=== PATIENT | female | born 1960 | race African-American/Black ===

== ENCOUNTER 2020-12-05 11:48 | Outpatient (REF) | payer MEDICARE, SELFPAY ==
[2020-12-05 14:19] LABS: Alanine Aminotransferase 31 U/L (0-31); Alkaline Phosphatase 112 U/L (39-117); Anion Gap 13 (12-20); Aspartate Amino Transferase 18 U/L (5-31); Bilirubin Total 0.3 mg/dL (0.0-1.0); Blood Urea Nitrogen 31 mg/dL (9-16); Calcium 9.7 mg/dL (8.4-10.2); Carbon Dioxide 30 mmol/L (22-29); Chloride 99 mmol/L (96-108); Cholesterol 228 mg/dL; Estimated Glomerular Filt Rate 40; Glucose Random 133 mg/dL (60-115); HDL Cholesterol 38 mg/dL; LDL Cholesterol Calculated 143 mg/dl; Potassium 3.9 mmol/L (3.3-5.1); Sodium 138 mmol/L (135-145); Total Protein 7.1 g/dL (6.5-8.0); Triglycerides 239 mg/dL
[2020-12-05 14:42] LABS: TSH reflex Free T4 0.97 uIU/mL (0.32-4.0)
[2020-12-05 14:44] LABS: Hematocrit 35.6 % (37-47); Hemoglobin 11.5 g/dl (12.0-16.0); Mean Corpuscular HGB Conc 32.3 g/dl (31.0-35.0); Mean Corpuscular Hemoglobin 27.8 pg (27.0-33.0); Mean Platelet Volume 10.6 fL (9.4-12.3); Platelet Count 241 X10*3/uL (160-400); Red Blood Count 4.14 X10*6/uL (4.20-5.50); Red Cell Distribution Width 14.5 % (11.0-16.0); White Blood Count 6.9 X10*3/uL (4.8-10.8)
== END 2020-12-05 11:49 | disposition home or self-care (01) ==
LOC: HO.WFDLDS 11:48
PROVIDERS: Visit Provider Hospitalist
DX: Z00.00 Encounter for general adult medical examination without abnormal findings (principal)
CPT/HCPCS: 36415; 80053; 80061; 84443; 85027

== ENCOUNTER 2021-02-07 10:40 | Outpatient (REF) | payer MEDICARE, SELFPAY ==
[2021-02-07 14:27] LABS: Anion Gap 13 (12-20); Blood Urea Nitrogen 22 mg/dL (9-16); Calcium 9.9 mg/dL (8.4-10.2); Carbon Dioxide 26 mmol/L (22-29); Chloride 105 mmol/L (96-108); Estimated Glomerular Filt Rate 41; Glucose Random 130 mg/dL (60-115); Potassium 3.8 mmol/L (3.3-5.1); Sodium 140 mmol/L (135-145)
== END 2021-02-07 10:41 | disposition home or self-care (01) ==
LOC: HO.WFDLDS 10:40
PROVIDERS: Visit Provider Hospitalist
DX: Z00.00 Encounter for general adult medical examination without abnormal findings (principal)
CPT/HCPCS: 36415; 80048

== ENCOUNTER → 2021-05-07 14:33 | Outpatient (BNVA) | payer OTHER, MEDICAID, SELFPAY | PROVIDERS: PCP Hospitalist; Visit Provider Nurse Practitioner Family | DX: M53.3 Sacrococcygeal disorders, not elsewhere classified (principal); M47.816 Spondylosis without myelopathy or radiculopathy, lumbar region; M46.1 Sacroiliitis, not elsewhere classified | CPT/HCPCS: 99202 ==

== ENCOUNTER 2021-06-14 10:38 | Day surgery (SDC) | payer OTHER, MEDICAID, SELFPAY ==
[2021-06-11 09:39] VITALS: BMI 28.1
--- NOTE | ~2021-06-14 | FL_ITS ---
EXAMINATION: XR FL WITH IMAGES CLINICAL INFORMATION: SI joint pain. COMPARISON: None TECHNIQUE: Fluoroscopy performed by Dr. Al Silva. Fluoroscopy Time: 0.1 minutes. DAP: 0.405 mGycm2. Images: 1. FINDINGS: There is a needle positioned overlying the right SI joint with contrast opacifying the soft tissues. FL/FL guidance in OR IMPRESSION: Fluoroscopy was provided to referring physician for pain management.
--- NOTE | 2021-06-14 10:36 | HO.ANESPROP2 ---
[facility] Active Problems Active Problems: All Active Problems (Updated 06/13/21 @ 08:26 by Marah Rebollar RN) Right-sided low back pain with right-sided sciatica (Acute) Normal physical exam, routine (Acute) Asthma, mild intermittent, well-controlled (Acute) HTN (hypertension) (Acute) Diabetes type 2, controlled (Acute) Leg weakness, bilateral (Acute) Bilateral leg pain (Acute) Sacroiliac joint dysfunction of right side (Acute) Lumbar spondylosis (Acute) Sacroiliitis (Acute) Past Medical History Medical History Asthma Diabetes HTN (hypertension) Family History Family History Mother Hypertension Father No problems noted. Surgical History Surgical History History of tubal ligation Hx of colonoscopy Hx of rotator cuff surgery History of Problems with Anesthesia: No Social History Social History Housing: Apartment Housing Other:: Patient is currently living with daughter Are you a primary health care social worker to a significant other at home: No Do you presently have visiting nurse or other home services: No Patient Tobacco Use Status: Current everyday Tobacco user Tobacco use type: Cigarette Cigarettes Per Day: 3 e-Cigarette/Vaping Use: Never Used Second Hand Smoke Exposure: No Are you DNR?: No Advance Directives: No Advance Directives Information Provided: Yes Advance Directives on File: No service: No Current occupational status: disabled Cognitive needs: No Hearing needs: No Vision needs: No Meds Allergies Allergy/AdvReac Type Severity Reaction Status Date / Time Seasonal Allergies Allergy Mild congestion Verified 06/13/21 14:38 Exam Exam Date and Time: June 14, 2021 1036 Height,Weight and Vital Signs: Height 5 ft 7 in Weight 81.647 kg Airway Mallampati Class: II TM Dist: >3cm Neck ROM: Full Loose/Missing/Broken Teeth: Yes, Upper and Lower Heart: RRR Lungs: CTA Assessment and Plan Assessment Anesthesia Assessment: Anesthesia Plan Discussed and Chart Reviewed Final Anesthetic Review History of Problems with Anesthesia: No NPO: Yes ASA Class: II Final Preanesthetic Review: Meds/Allgs Chart Reviewed, Consent Obtained/Reviewed and Anes Risks/Benef Reviewed Patient Risk: Low Procedure Risk: Low Anesthetic Plan Anesthetic Plan: MAC: Disposition: Standard PACU
[2021-06-14 10:55] LABS: Glucose, Whole Blood 157 mg/dL (60-115)
[2021-06-14 10:57] VITALS: BP 148/98; PULSE 102; RESP 20; TEMP 37; O2SAT 98
--- NOTE | 2021-06-14 11:14 | MHC.SHP ---
Pre-Procedural Eval Section A Date of Service: 06/14/21 The patient is an INPATIENT: No Changes since office visit: Yes Patient answered all questions The History & Physical has been completed within 30 days and I have reviewed it.: No Section B Chief Complaint: Sacrococcygeal disorders, Details of Present Illness: as above Relevant Family History (Specify if Yes): No Relevant Social History: None Present Medications: see Short Stay Collaborative assessment Medical History: No relevant PMH History of Previous Operations: No relevant previous surgery Allergies: Allergies Allergy/AdvReac Type Severity Reaction Status Date / Time Seasonal Allergies Allergy Mild congestion Verified 06/13/21 14:38 Review of Systems Sugical H&P ROS: Negative: Constitution, Cardiovascular, Respiratory, Neurological, Psychiatric, Hem-Onc, Allergic/Immunologic, Gastrointestinal, Genitourinary, Musculoskeletal, Integumentary, Endocrine and Eyes/Ears/Nose/Throat Exam Surgical H&P Exam: Normal: HEENT, Normal: Heart, Normal: Lungs, Normal: Extremities, Normal: Abdomen, Normal: Skin and Normal: Neurological Plan Diagnosis/Plan: Unchanged I have reviewed the history and physical and performed a pertinent physical examination on my patient. No changes have occurred unless specified.
--- NOTE | 2021-06-14 11:42 | P.BOP_ITS ---
Brief Operative Note Date of Service: 06/14/21 Pre-op diagnosis: sacroiliitis Post-op diagnosis: same Procedure: Sacroiliac joint injection right Implants: none Surgeon: Al Silva MD Was an Printed Circuit Boards Pinner used for this Procedure?: No Estimated blood loss (mL): 0 Pathology: none sent Condition: stable Disposition: PACU
[2021-06-14 11:45] VITALS: BP 97/55; PULSE 73; RESP 14; TEMP 36.6; O2SAT 96
--- NOTE | 2021-06-14 11:45 | P.OP_ITS ---
Operative Note Operative Note Date of Service: 06/14/21 Narrative: Right therapeutic sacroiliac joint injection Informed consent was explained thoroughly to the patient.? All questions about benefits and risks for the procedure were answered. Patient came to the operating room she was positioned prone on the operating table with the pillow under her pelvis.? Time-out was performed delineating correct site and side of the procedure risk of fire need for antibiotic prophylaxis and need for DVT prophylaxis. The patient participated in her time- out procedure. Her lower back and buttocks was prepped with ChloraPrep prepped and draped with sterile towels.? Sterilely draped C-arm was brought over the operating field and sq picture of patient's pelvis was demonstrated on the screen.? For the right joint tilting C-arm contralateral to the site of the joint and 5 ? to the foot of the patient the most posterior portion of the joints were clearly delineated on the screen.? Skin was injected in the projection of the joint slightly medial to the location of the joint with 25 gauge 1/2 inch needle using local lidocaine 2% without epinephrine. After that 22 gauge 3 and 1/2 inch needle was driven to the right joint in tunnel vision fashion.? When needle entered the joint capsule injection of the contrast was performed demonstrating intra-articular spread of the contrast.? After that 4 cc. of bupivacaine 0.5% mixed with 40 mg of Kenalog was injected into the joint.? Upon completion of the injections the needle was removed. Sterile Band-Aid was applied.? Upon completion of the injection patient was taken outside of the operating room to the recovery room where she recovered uneventfully.? She went home without immediate complications.
[2021-06-14 12:00] VITALS: BP 120/73; PULSE 73; RESP 16; O2SAT 94
[2021-06-14 12:15] VITALS: BP 142/81; PULSE 63; RESP 18; TEMP 36.6; O2SAT 96
== END 2021-06-14 12:47 | disposition home or self-care (01) ==
PROVIDERS: PCP Hospitalist; Visit Provider Anesthesiology
PROC: 3E0U33Z Introduction of Anti-inflammatory into Joints, Percutaneous Approach (ICD-10-PCS; CPT 27096; principal; 2021-06-14 11:50)
DX: M53.3 Sacrococcygeal disorders, not elsewhere classified (principal); M54.50 Low back pain, unspecified; M25.551 Pain in right hip; M79.661 Pain in right lower leg; R20.0 Anesthesia of skin; R53.1 Weakness; Z91.81 History of falling; I10 Essential (primary) hypertension; N28.9 Disorder of kidney and ureter, unspecified; E11.9 Type 2 diabetes mellitus without complications; Z79.84 Long term (current) use of oral hypoglycemic drugs; Z79.1 Long term (current) use of non-steroidal anti-inflammatories (NSAID); Z79.82 Long term (current) use of aspirin; Z79.899 Other long term (current) drug therapy; F17.210 Nicotine dependence, cigarettes, uncomplicated
CPT/HCPCS: G0260; 82947; J2795; J3010; J3300; Q9967

== ENCOUNTER → 2021-06-18 13:37 | Outpatient (BNVA) | payer OTHER, MEDICAID, SELFPAY | PROVIDERS: PCP Hospitalist; Visit Provider Nurse Practitioner Family | DX: M53.3 Sacrococcygeal disorders, not elsewhere classified (principal); M47.816 Spondylosis without myelopathy or radiculopathy, lumbar region; M46.1 Sacroiliitis, not elsewhere classified; Z98.890 Other specified postprocedural states | CPT/HCPCS: Q3014 ==

== ENCOUNTER 2021-10-16 12:19 | Outpatient (REF) | payer OTHER, MEDICAID, SELFPAY ==
[2021-10-16 14:25] LABS: Hematocrit 37.1 % (37.0-47.0); Hemoglobin 12.2 g/dl (12.0-16.0); Mean Corpuscular HGB Conc 32.9 g/dl (31.0-35.0); Mean Corpuscular Hemoglobin 26.6 pg (27.0-33.0); Mean Corpuscular Volume 80.8 fL (80.0-98.0); Mean Platelet Volume 11.7 fL (9.4-12.3); Platelet Count 250 X10*3/uL (160-400); Red Blood Count 4.59 X10*6/uL (4.20-5.50); Red Cell Distribution Width 14.5 % (11.0-16.0); White Blood Count 5.5 X10*3/uL (4.8-10.8)
[2021-10-16 16:33] LABS: Anion Gap 14 (12-20); Blood Urea Nitrogen 18 mg/dL (9-16); Calcium 9.8 mg/dL (8.4-10.2); Carbon Dioxide 25 mmol/L (22-29); Chloride 100 mmol/L (96-108); Estimated Glomerular Filt Rate 38; Glucose Random 559 mg/dL (60-115); Potassium 4.6 mmol/L (3.3-5.1); Sodium 134 mmol/L (135-145)
[2021-10-17 07:28] LABS: Estimated Average Glucose 306 mg/dL; Hemoglobin A1c % 12.3 %
== END 2021-10-16 12:20 | disposition home or self-care (01) ==
LOC: HO.WFDLDS 12:19
PROVIDERS: Visit Provider Hospitalist
DX: E10.65 Type 1 diabetes mellitus with hyperglycemia (principal); Z86.2 Personal history of diseases of the blood and blood-forming organs and certain disorders involving the immune mechanism
CPT/HCPCS: 36415; 80048; 83036; 85027

== ENCOUNTER 2021-11-28 11:52 | Outpatient (REF) | payer OTHER, MEDICAID, SELFPAY ==
[2021-11-28 14:23] LABS: Hematocrit 36.6 % (37.0-47.0); Hemoglobin 11.7 g/dl (12.0-16.0); Mean Corpuscular Hemoglobin 26.2 pg (27.0-33.0); Mean Corpuscular Volume 82.1 fL (80.0-98.0); Mean Platelet Volume 11.2 fL (9.4-12.3); Platelet Count 258 X10*3/uL (160-400); Red Blood Count 4.46 X10*6/uL (4.20-5.50); Red Cell Distribution Width 15.6 % (11.0-16.0); White Blood Count 6.3 X10*3/uL (4.8-10.8)
[2021-11-28 14:48] LABS: Alanine Aminotransferase 11 U/L (0-31); Albumin Level 4.3 g/dL (3.5-5.0); Alkaline Phosphatase 187 U/L (39-117); Anion Gap 13 (12-20); Aspartate Amino Transferase 13 U/L (5-31); Bilirubin Total 0.4 mg/dL (0.0-1.0); Blood Urea Nitrogen 23 mg/dL (9-16); Calcium 9.6 mg/dL (8.4-10.2); Carbon Dioxide 26 mmol/L (22-29); Chloride 102 mmol/L (96-108); Cholesterol 159 mg/dL; Estimated Glomerular Filt Rate 34; Glucose Fasting 360 mg/dL (60-99); HDL Cholesterol 40 mg/dL; LDL Cholesterol Calculated 99 mg/dl; Potassium 4.7 mmol/L (3.3-5.1); Sodium 136 mmol/L (135-145); Total Protein 7.7 g/dL (6.5-8.0); Triglycerides 102 mg/dL
[2021-11-28 14:59] LABS: TSH reflex Free T4 0.67 uIU/mL (0.32-4.0)
== END 2021-11-28 11:53 | disposition home or self-care (01) ==
LOC: HO.WFDLDS 11:52
PROVIDERS: Visit Provider Hospitalist
DX: Z00.00 Encounter for general adult medical examination without abnormal findings (principal); I25.5 Ischemic cardiomyopathy; I25.10 Atherosclerotic heart disease of native coronary artery without angina pectoris
CPT/HCPCS: 36415; 80053; 80061; 84443; 85027; 93005; 99202

== ENCOUNTER → 2021-12-06 09:43 | Outpatient (REF) | payer OTHER, MEDICAID, SELFPAY ==
--- NOTE | 2021-12-06 09:46 | CA_ITS ---
Transthoracic Echocardiogram Patient (Last, First, Middle): Wilfrido Liz, Gender: Female Date of : 1960 Age: 61 Procedure Date: 12/06/2021 Procedure Type: Transthoracic Echocardiogram Location: OP Height: 170.18 cm Weight: 82.56 kg BSA: 1.94 m2 Heart Rate: 60 bpm BP: 110 / 70 mmHg Customer Associate: SUSHMA Referring MD: Sabas Lorenzana MD Symptoms: I25.5 - Ischemic cardiomyopathy Study Quality: Good ECG Rhythm: Sinus Conclusions: - The left ventricular systolic function is mildly decreased. The calculated ejection fraction is 51% by biplane method. - The mid inferoseptal and mid anteroseptal segments are akinetic. - No obvious valvular pathology seen on this study. Findings Left Ventricle Normal left ventricular cavity size. There is normal left ventricular wall thickness. The left ventricular systolic function is mildly decreased. The calculated ejection fraction is 51% by biplane method. Diastolic function is normal for age. Wall Motion Rest Echo Findings The mid inferoseptal and mid anteroseptal segments are akinetic. Right Ventricle Normal right ventricular cavity size and systolic function. Atria Both atria are normal in size. Aortic Valve There is a normal trileaflet aortic valve. There is mild calcification of the aortic valve. There is no aortic valve stenosis. There is no aortic valve regurgitation. Mitral Valve The mitral valve appears normal. There is trace mitral valve regurgitation. There is no mitral valve stenosis. Pulmonic Valve The pulmonic valve is likely normal. Tricuspid Valve There is no tricuspid valve regurgitation. Tricuspid regurgitation envelope is inadequate for calculation of right ventricular systolic pressure. Great Vessels The aortic annulus, sinuses of valsalva, and asc aorta are normal in size. Venous The inferior vena cava is normal in size and collapses greater than 50% with inspiration. Pericardium/Pleural There is no evidence of pericardial effusion. Prior Study Comparison No prior study available for comparison. Recommendations, Care & Conclusions No obvious valvular pathology seen on this study. Measurements 2D Linear Measurements IVSd: 0.96 0.6-0.9/0.6-1.0 cm LVIDd: 5.04 3.9-5.3/4.2-5.9 cm LVIDd Index: 2.60 2.4-3.2/2.2-3.1 cm/m2 LVIDs: 3.37 2.0-3.6 cm LVPWd: 0.75 0.7-1.1 cm LA Diam: 3.40 2.7-3.8/3.0-4.0 cm LAIDs Index: 1.75 1.5-2.3 cm/m2 LV Mass: 186.70 67-162/88-224 g LV Mass Index: 96.24 43-95/49-115 g/m2 LVOT Diam: 1.90 3.0+(-)1.3 cm 2D Systolic Function EF 4C: 44.20 >55% EF 2C: 57.30 >55% EF BiP: 50.60 >55% Mitral Valve MV Pk E: 0.68 MV PK A: 0.91 MV Decel Time: 211.00 E/A: 0.80 E'Lateral: 10.10 E'Medial: 7.40 E/E' Med: 9.20 E/E' Lat: 6.70 PHT: 62.00 MVA PHT: 3.55 Decel [place]: 3.23 Aortic Valve AoV Pk Kvng: 1.57 AoV Mn Kvng: 1.18 AoV VTI: 0.44 AoV Pk Grad: 10.00 Aov Mn Grad: 6.00 DYAN Cont.VTI: 1.25 LVOT LVOT Pk Kvng: 0.73 LVOT Mn Kvng: 0.53 LVOT VTI: 0.19 LVOT Pk Grad: 2.00 LVOT Mn Grad: 1.00 LVOT Diam: 1.90 LVOT Area: 2.84 Diastolic Function MV Pk E: 0.68 MV Pk A: 0.91 E/A: 0.80 E'Medial: 7.40 E/E' Med: 9.20 E' Laterial: 10.10 E/E' Lat: 6.70 Right Ventricle TAPSE (mm): 20.30 TVS' Kvng: 10.80 Tricuspid Valve RA Press: 3.00 Great Vessels Aorta Sinus of Valsalva: 2.90 2.0-3.5 cm Ao Asc: 2.90 2.1-3.4 cm Pulmonary Valve PV Pk Kvng: 0.71 Peak PV Grad: 2.00 Updated in Other Vendor System with Status of Final Harris Adhikari MD electronically signed on 12/08/2021 12:10:04 PM with status of Final
[2021-12-06 11:42] LABS: Anion Gap 16 (12-20); Blood Urea Nitrogen 24 mg/dL (9-16); Calcium 9.6 mg/dL (8.4-10.2); Carbon Dioxide 25 mmol/L (22-29); Chloride 102 mmol/L (96-108); Cholesterol 147 mg/dL; Estimated Glomerular Filt Rate 37; Glucose Random 270 mg/dL (60-115); HDL Cholesterol 45 mg/dL; LDL Cholesterol Calculated 88 mg/dl; Potassium 4.6 mmol/L (3.3-5.1); Sodium 138 mmol/L (135-145); Triglycerides 73 mg/dL
== END ==
LOC: HO.CARD 09:43
PROVIDERS: Visit Provider Internal Medicine Cardiovascular Disease
DX: I25.5 Ischemic cardiomyopathy (principal); I25.10 Atherosclerotic heart disease of native coronary artery without angina pectoris
CPT/HCPCS: 36415; 80048; 80061; 93306

== ENCOUNTER → 2021-12-24 12:25 | Outpatient (BNVA) | payer OTHER, SELFPAY | PROVIDERS: PCP Hospitalist; Visit Provider Internal Medicine Cardiovascular Disease | DX: I25.10 Atherosclerotic heart disease of native coronary artery without angina pectoris (principal); I25.5 Ischemic cardiomyopathy | CPT/HCPCS: 99212 ==

== ENCOUNTER 2021-12-25 09:49 | Outpatient (REF) | payer OTHER, SELFPAY ==
--- NOTE | ~2021-12-25 | MM_ITS ---
EXAMINATION: MM SCREENING DIGITAL BREAST TOMOSYNTHESIS, BILATERAL CLINICAL INFORMATION: Screening. Asymptomatic. COMPARISON: Outside mammography: 05/25/2018, 07/10/2016 ([place], [place]) TECHNIQUE: Digital breast tomosynthesis is performed in both the craniocaudal and mediolateral oblique views along with computer-aided detection (CAD). Synthesized 2D images are generated from the tomosynthesis. FINDINGS: There are scattered areas of fibroglandular density (ACR BI-RADS breast composition Category b). There are no significant masses, abnormal calcifications, or other abnormalities. No architectural abnormality. The axilla and skin contours are unremarkable. No significant changes. MM/MM tomosynthesis screening BI IMPRESSION: No mammographic evidence of malignancy. ASSESSMENT: BI-RADS 1: Negative RECOMMENDATION: Routine annual mammography screening. This patient's information was entered into a reminder system with a target due date for their next mammogram.
== END 2021-12-25 09:50 | disposition home or self-care (01) ==
LOC: HO.MAMMO 09:49
PROVIDERS: Visit Provider Hospitalist
DX: Z12.31 Encounter for screening mammogram for malignant neoplasm of breast (principal)
CPT/HCPCS: 77063; 77067

== ENCOUNTER → 2022-01-10 10:02 | Outpatient (BNVA) | payer OTHER, SELFPAY | PROVIDERS: PCP Hospitalist; Visit Provider Nurse Practitioner Family | DX: M47.816 Spondylosis without myelopathy or radiculopathy, lumbar region (principal); M53.3 Sacrococcygeal disorders, not elsewhere classified; M46.1 Sacroiliitis, not elsewhere classified | CPT/HCPCS: 99212 ==

== ENCOUNTER → 2022-06-26 09:38 | Outpatient (BNVA) | payer OTHER, SELFPAY | PROVIDERS: PCP Hospitalist; Referring Provider Hospitalist; Visit Provider Internal Medicine Cardiovascular Disease | DX: I25.10 Atherosclerotic heart disease of native coronary artery without angina pectoris (principal); I25.5 Ischemic cardiomyopathy; I10 Essential (primary) hypertension; E11.9 Type 2 diabetes mellitus without complications; Z95.5 Presence of coronary angioplasty implant and graft | CPT/HCPCS: 99212 ==

== ENCOUNTER 2022-07-15 12:25 | Outpatient (RCR) | payer OTHER, MEDICAID, SELFPAY ==
[2022-07-15 08:06] VITALS: BP 104/78; BP 136/88; BMI 29.1
--- NOTE | 2022-07-15 15:37 | MHC.CR.ITI ---
[address] [phone] F: [phone] Please see additional notes from [address] [phone] F: [phone] Please see additional notes from [address] [phone] F: [phone] Please see additional notes from [facility] Cardiac Rehab Initial Assessment/ITP Cardiac Rehab Initial Assessment/ITP Start: 07/15/22 07:50 Freq: Status: Active Protocol: Activity Type Activity Date Activity User E-sign Co-sign Detail Recorded Client Recorded Date Recorded By Document 07/15/22 08:06 WILL [id number] 07/15/22 08:37 WILL 07/15/22 08:06 Cardiac Rehab ITP Initial [Excercise] -Building Architectural Designer Required No -Preferred Language Sinhala -Number of sessions approved 36 -Diagnosis Coronary Stenting (PCI) Z98.61,STEMI I21.0 -Other Diagnosis CAD, Asthma, Diabetes, HTN, Hyperlipidemia, Hx of Tobacco use -Comments Anterior [place] in May 2021 with ROSELIA Stent to proximal and mid LAD. [Functional Assessment] -6 Min Cycle (distance in miles/ ft) 750 -METS Achieved 2 -Resting HR 66 -Resting BP 104/78 -Resting SpO2 97 -Exercise HR 86 -Exercise BP 136/88 -Exercise SpO2 93 -RPE 6 -Dyspnea No -ECG Summary SR with PAC's -Comments Walked with cane [Pre Rehab] -Pre Rehab Home Exercise Yes -Mode Walk around the block and housework -Exercise Minutes/Day 45 minutes -Exercise Days/Week 7 -Intensity Light -Comments Right hip discomfort, Sciatica limits activity. Takes Acetaminophen PRN -Risk Stratification: Low Risk No significant Participants left ventricular dysfunction (EF > = 30%) -Fall Risk Yes -Assistive Devices Cane -Comments Initially was discharged in Jun, 2021 with Ischemic Cardiomyopathy with reduced EF . 12/06/21 EF was calculated at 51%. Mid inferoseptal and anteroseptal segments are akinetic. Last fall was 6 months ago. She put herself to the ground when Sciatica kicked in. No injury [Exercise Plan] [Intervention] -Exercise Prescription NuStep, Recumbent Bike, Recumbent Elliptical, Treadmill,UBE, Upright Bike -Duration Intensity 36 Sessions -Frequency 2-3x/week -Angina with Exercise No [Exercise Education] -Exercise Education Exercise orientation, Exercise safety ,Home exercise, RPE,Self pulse checking,Signs and symptoms, Warmup/cooldown -Date Completed 07/15/22 -Initials CD -Education Summary Today and ongoing during Cardiac Rehab exercise sessions. She does have Asthma and gets SOB with strenuous exercise. Russet Repairer reviewed exercise guidelines, plan. [Exercise Goals] -Exercise Most Days of the Week Yes -Exercise 30-45 mins/day Yes -Target HR Range +20 - +30 beats above resting -Target RPE range 11-13 -Increase METS next 30 days 0.5-1.0 METS Every two weeks -METs goal by Discharge 4 METS -Comments Russet Repairer will monitor and begin discussion of home exercise program. [Nutrition] [Hyperlipidemia] -Hyperlipidemia Yes -Are lab results available Yes -Lipid Draw Date 12/06/21 -Total Cholesterol 147 -LDL 88 -HDL 45 -Tryglycerides 73 [Diabetes] -Diabetes Yes -Are lab results available Yes -Fasting Glucose 360 -Date 12/06/21 -HbA1C 7.00 -Date 12/06/21 -Monitors Glucose Yes -Frequency Daily [Weight Management] -Height 5 ft 7 in -Weight 84.5 kg -BMI 29.1 -Recommended Diet Low fat, sodium diet. DASH Diet -Comments Does not follow a special diet . Starting to eat more salads . Random BS have been 118- 154. [Drug/Alchohol Use] -Drug/Alcohol Use No [Nutritional Screen (Rate Your Plate)] -Score 49 -Interpretation of Score Some ways to make changes. -Comments Patient will bring in three day diet intake . Does not eat after 8PM [Nutrition Plan] [Intervention] -Referral(s) Nutrition Brochures [Nutrition Education] -Nutrition Education Diabetes and excercise, Hydration, Nutrition, Reading food labels,Signs and symptoms of Hypo/Hyper- glycemia -Date Completed 07/15/22 -Initials CD -Education Summary Today and ongoing. S/S of hyper/ hypoglycemia discussed, label reading, hydration. She will bring in Glucometer [Nutrition Goals] -Goals BMI < 25, Fasting BG 80- 120 mg/dL,HDL > 40,LDL < 70, Total CHOL < 200 -Weight goal 120-140 -Comments Continue to make dietary changes. [Psycho/Social] -Stage of Change Action -Occupation Disabled -Job Description Disabled -PHQ9 Score 9 -Interpretation of Score No issues -Plan of Action/Follow-up Does not feel she is Anxious or Depressed -Comments No action needed. She does feel depressed at certain times due to sons in 2004. Son was shot in [place]. Se does not like to go out in her present neighborhood because of crime. She will report any changes. -Patient Self-Reports Depression No -Family Support Lives with spouse/others -Comments Lives with daughter, grandchildren [Psycho/Social Plan] [Intervention] -Referral(s) No consult needed [Psycho/Social Education] -Psycho/Social Education Coping techniques, Positive support system, Relaxation Techniques, Reviewed PHQ9 Score w/pt, Signs and symptoms of CAD -Date Completed 07/15/22 -Initials CD -Education Summary Reads, walks, spends time with Grandchildren for relaxation. Grandchildren help with Depression. Listens to Jazz to help with sleep. [Psycho/Social Goals] -Goals Not Applicable -Comments Yvette Billy will report any change in emotional status. [Other Core Comp] [Risk Factors] -Risk Factors Diabetes, Dyslipidemia, Hypertension, Obesity,Tobacco Use,Other (see comments) -Comments: Previous Tobacco User. Quit in 2021. But has returned to smoking 2-3 cigarettes a day. She will call MD for Nicotine Patches. She will try to decrease by one cigarette a day. [Hypertension] -Hypertention Yes [Tobacco Use] -Patient Tobacco Use Status Current someday Tobacco user -Tobacco use type Cigarette -Smoking packs per day 0.25 -Years smoked 25 -Patient Interested in Nicotine Yes: Pt. will Replacement contact MD to discuss -Smoking Quit Date TBD -Exposure to secondhand smoke Yes -Comments See above. Daughter also smokes in the home. [Heart Failure] -Heart Failure No [Other Core Comp Plan] [Other Core Comp Education] -Other Core Comp Education Medication compliance,Risk factor modifications, Smoking and CAD ,Tobacco triggers, Understanding hypertension -Date Completed 07/15/22 -Initials CD -Education Summary Tobacco triggers discussed. She will try to get up after a meal and do another activity. She likes to smoke after meals. [Other Core Comp Goals] -Goals Manage risk factors, Medication compliance, Resting BP < 130/80,Tobacco cessation -Comments Continue education [Medication Plan] [Intervention] -Medications ASA 81mg Daily Albuterol Sulfate 90mcg/ actuation 2 INH every 4 hrs. PRN Amlodipine 5mg every AM Atorvastatin 80mg Daily Carvedilol 12. 5mg BID Glipizide-5mg Daily Vitamin D3 50mcg Every AM Trulicity 0. 75mg Subcut weekly Azelastine- Intranasal Multivitamin- Daily -Compliance Patient reports compliance w/ prescribed meds [Medication Education] -Education Importance of medication compliance -Date Completed 07/15/22 -Initials CD -Education Summary Takes medications as prescribed. She was unsure of all medications . She will bring meds to first session. [Medication Goals] -Goals Adherence to medication compliance -Comments Schedule will be reviewed when she brings in medication [Treatment Times] -Rehab Services with ECG Monitor -Time 1PM -End Time 3PM -Visit Duration 120
[2022-08-11 10:56] VITALS: BP 138/72; BMI 29.1
--- NOTE | 2022-08-11 11:02 | MHC.CR.ITR ---
[address] [phone] F: [phone] Please see additional notes from [facility] Cardiac Rehab Reassessment/ITP Cardiac Rehab Reassessment/ITP Start: 07/15/22 07:50 Freq: Status: Active Protocol: Activity Type Activity Date Activity User E-sign Co-sign Detail Recorded Client Recorded Date Recorded By Document 08/11/22 10:56 DIVINA Desktop 08/11/22 11:02 DIVINA 08/11/22 10:56 Cardiac Rehab Reassessment/ITP [Exercise] -Thresher Broomcorn Required No -Preferred Language Occitan -Progress Note Type 30-Day Note -Total Sessions Attended 2 -Comments Anterior [place] in May 2021 with ROSELIA Stent to proximal and mid LAD This is Kelly's 30 Day assessment: She has only attended 2 session, and when called she states that transportation is an issue. She is unsure if she can attend regualrly due to transportation issues. Overall Yvette achieved 25 min of ex and a Max Met of 3.1 . She did not have any symptoms. [Functional Assessment] -ECG Summary SR/ST -Home-Based Rehab Pt approved for home-based exercise -Comments Encourage daily ex of 15 min a day -Fall Risk Yes [Exercise Plan] [Intervention] -Exercise Prescription NuStep, Recumbent Bike, Recumbent Elliptical, Treadmill,UBE, Upright Bike -Duration Intensity 36 Sessions -Exercise Minutes/Day 30 -Exercise Days/Week 7 -Angina with Exercise No -Peak METs 3.1 [Home Exercise] -Mode walk [Exercise Education] -Exercise Education Exercise orientation, Exercise safety ,Home exercise, RPE,Self pulse checking,Signs and symptoms, Warmup/cooldown -Date Completed 07/15/22 -Initials CD -Education Summary Today and ongoing during Cardiac Rehab exercise sessions. She does have Asthma and gets SOB with strenuous exercise. Coffee Maker reviewed exercise guidelines, plan. [Exercise Goals] -Exercise Most Days of the Week Yes -Exercise 30-45 mins/day Yes -Target HR Range +20 - +30 beats above resting -Target RPE range 11-13 -Increase METS next 30 days 0.5-1.0 METS Every two weeks -METs goal by Discharge 4 METS -Comments Coffee Maker will monitor and begin discussion of home exercise program. [Nutrition] [Hyperlipidemia] -Are lab results available Yes -Hyperlipidemia Yes [Diabetes] -Diabetes Yes -Fasting Glucose 360 -Date 12/06/21 -HbA1C 7.00 -Date 12/06/21 [Weight Management] -Weight 84.5 kg -BMI 29.1 -Comments Does not follow a special diet . Starting to eat more salads . Random BS have been 118- 154. [Drug/Alchohol Use] -Drug/Alcohol Use No [Nutrition Plan] [Intervention] -Attended Nutrition Brochures [Nutrition Education] -Nutrition Education Diabetes and excercise, Hydration, Nutrition, Reading food labels,Signs and symptoms of Hypo/Hyper- glycemia -Date Completed 07/15/22 -Initials CD -Education Summary Today and ongoing. S/S of hyper/ hypoglycemia discussed, label reading, hydration. She will bring in Glucometer [Nutrition Goals] -Goals BMI < 25, Fasting BG 80- 120 mg/dL,HDL > 40,LDL < 70, Total CHOL < 200 -Weight goal 120-140 -Comments Continue to make dietary changes. [Psycho/Social] -Stage of Change Action -Occupation Disabled -PHQ9 Score 9 -Interpretation of Score No issues -Plan of Action/Follow-up Does not feel she is Anxious or Depressed -Patient Self-Reports Depression No -Comments No action needed. She does feel depressed at certain times due to sons in 2004. Son was shot in [place]. Se does not like to go out in her present neighborhood because of crime. She will report any changes. [Psycho/Social Plan] [Intervention] -Attended No consult needed [Psycho/Social Education] -Psycho/Social Education Coping techniques, Positive support system, Relaxation Techniques, Reviewed PHQ9 Score w/pt, Signs and symptoms of CAD -Date Completed 07/15/22 -Initials CD -Education Summary Reads, walks, spends time with Grandchildren for relaxation. Grandchildren help with Depression. Listens to Jazz to help with sleep. [Psycho/Social Goals] -Goals Not Applicable -Comments Yvette Billy will report any change in emotional status. [Other Core Comp] [Hypertension] -Hypertention Yes -Resting BP: 138/72 -Medication Changes No [Tobacco Use] -Comments See above. Daughter also smokes in the home. [Heart Failure] -Heart Failure No -Dyspnea at Rest No -Dyspnea with Exercise No [Other Core Comp Plan] [Intervention] -Attended Recognizing Stressors,Self Monitoring BP [Other Core Comp Education] -Other Core Comp Education Medication compliance,Risk factor modifications, Smoking and CAD ,Tobacco triggers, Understanding hypertension -Date Completed 07/15/22 -Initials CD -Education Summary Tobacco triggers discussed. She will try to get up after a meal and do another activity. She likes to smoke after meals. [Other Core Comp Goals] -Goals Manage risk factors, Medication compliance, Resting BP < 130/80,Tobacco cessation -Comments Continue education [Medication Plan] [Intervention] -Medications ASA 81mg Daily Albuterol Sulfate 90mcg/ actuation 2 INH every 4 hrs. PRN Amlodipine 5mg every AM Atorvastatin 80mg Daily Carvedilol 12. 5mg BID Glipizide-5mg Daily Vitamin D3 50mcg Every AM Trulicity 0. 75mg Subcut weekly Azelastine- Intranasal Multivitamin- Daily -Compliance Patient reports compliance w/ prescribed meds [Medication Education] -Education Importance of medication compliance -Date Completed 07/15/22 -Initials CD -Education Summary Takes medications as prescribed. She was unsure of all medications . She will bring meds to first session. [Medication Goals] -Comments Schedule will be reviewed when she brings in medication Med list updated on
[2022-09-03 16:50] VITALS: BP 138/72; BMI 29.1
--- NOTE | 2022-09-03 16:56 | MHC.CR.ITR ---
[address] [phone] F: [phone] Please see additional notes from [address] [phone] F: [phone] Please see additional notes from [facility] Cardiac Rehab Reassessment/ITP Cardiac Rehab Reassessment/ITP Start: 07/15/22 07:50 Freq: Status: Active Protocol: Activity Type Activity Date Activity User E-sign Co-sign Detail Recorded Client Recorded Date Recorded By Document 09/03/22 16:50 WILL [id number] 09/03/22 16:56 SEDRICKChema 09/03/22 16:50 Cardiac Rehab Reassessment/ITP [Exercise] -Senior Manufacturing Technician Required No -Preferred Language Mongolian -Progress Note Type 60-Day Note -Total Sessions Attended 2 -Comments Anterior [place] in May 2021 with ROSELIA Stent to proximal and mid LAD This is Kelly's 30 Day assessment: She has only attended 2 session, and when called she states that transportation is an issue. She is unsure if she can attend regualr due to transportation issues. Overall Yvette achieved 25 min of ex and a Max Met of 3.1 . She did not have any symptoms. 09/03/22- Wilfrido has been out since 07/23 due to insurance issues; she attended two CR sessions in June. Patient will be returning in September after her new insurance begins. Prior Auth, new order will be obtained. [facility] will be able to provide transportation. [Functional Assessment] -ECG Summary SR/ST -Home-Based Rehab Pt approved for home-based exercise -Comments Encourage daily ex of 15 min a day -Fall Risk Yes [Exercise Plan] [Intervention] -Exercise Prescription NuStep, Recumbent Bike, Recumbent Elliptical, Treadmill,UBE, Upright Bike -Duration Intensity 36 Sessions -Exercise Minutes/Day 30 -Exercise Days/Week 7 -Angina with Exercise No -Peak METs 3.1 [Home Exercise] -Mode walk -Comments 09/03/22- Patient has been out since 07/23/22. She plans on returning in September after her insurance is changed to [facility]. She will have transportation through [facility]. [Exercise Education] -Exercise Education Exercise orientation, Exercise safety ,Home exercise, RPE,Self pulse checking,Signs and symptoms, Warmup/cooldown -Date Completed 07/15/22 -Initials CD -Education Summary Today and ongoing during Cardiac Rehab exercise sessions. She does have Asthma and gets SOB with strenuous exercise. Geophysical Drafter reviewed exercise guidelines, plan. [Exercise Goals] -Exercise Most Days of the Week Yes -Exercise 30-45 mins/day Yes -Target HR Range +20 - +30 beats above resting -Target RPE range 11-13 -Increase METS next 30 days 0.5-1.0 METS Every two weeks -METs goal by Discharge 4 METS -Comments Geophysical Drafter will monitor and begin discussion of home exercise program. [Nutrition] [Hyperlipidemia] -Are lab results available Yes -Hyperlipidemia Yes [Diabetes] -Diabetes Yes -Fasting Glucose 360 -Date 12/06/21 -HbA1C 7.00 -Date 12/06/21 [Weight Management] -Weight 84.5 kg -BMI 29.1 -Comments Does not follow a special diet . Starting to eat more salads . Random BS have been 118- 154. [Drug/Alchohol Use] -Drug/Alcohol Use No [Nutrition Plan] [Intervention] -Attended Nutrition Brochures [Nutrition Education] -Nutrition Education Diabetes and excercise, Hydration, Nutrition, Reading food labels,Signs and symptoms of Hypo/Hyper- glycemia -Date Completed 07/15/22 -Initials CD -Education Summary Today and ongoing. S/S of hyper/ hypoglycemia discussed, label reading, hydration. She will bring in Glucometer [Nutrition Goals] -Goals BMI < 25, Fasting BG 80- 120 mg/dL,HDL > 40,LDL < 70, Total CHOL < 200 -Weight goal 120-140 -Comments Continue to make dietary changes. [Psycho/Social] -Stage of Change Action -Occupation Disabled -PHQ9 Score 9 -Interpretation of Score No issues -Plan of Action/Follow-up Does not feel she is Anxious or Depressed -Patient Self-Reports Depression No -Comments No action needed. She does feel depressed at certain times due to sons in 2004. Son was shot in [place]. Se does not like to go out in her present neighborhood because of crime. She will report any changes. [Psycho/Social Plan] [Intervention] -Attended No consult needed [Psycho/Social Education] -Psycho/Social Education Coping techniques, Positive support system, Relaxation Techniques, Reviewed PHQ9 Score w/pt, Signs and symptoms of CAD -Date Completed 07/15/22 -Initials CD -Education Summary Reads, walks, spends time with Grandchildren for relaxation. Grandchildren help with Depression. Listens to Jazz to help with sleep. [Psycho/Social Goals] -Goals Not Applicable -Comments Yvette Billy will report any change in emotional status. [Other Core Comp] [Hypertension] -Hypertention Yes -Resting BP: 138/72 -Medication Changes No [Tobacco Use] -Comments See above. Daughter also smokes in the home. [Heart Failure] -Heart Failure No -Dyspnea at Rest No -Dyspnea with Exercise No [Other Core Comp Plan] [Intervention] -Attended Recognizing Stressors,Self Monitoring BP [Other Core Comp Education] -Other Core Comp Education Medication compliance,Risk factor modifications, Smoking and CAD ,Tobacco triggers, Understanding hypertension -Date Completed 07/15/22 -Initials CD -Education Summary Tobacco triggers discussed. She will try to get up after a meal and do another activity. She likes to smoke after meals. [Other Core Comp Goals] -Goals Manage risk factors, Medication compliance, Resting BP < 130/80,Tobacco cessation -Comments Continue education [Medication Plan] [Intervention] -Medications ASA 81mg Daily Albuterol Sulfate 90mcg/ actuation 2 INH every 4 hrs. PRN Amlodipine 5mg every AM Atorvastatin 80mg Daily Carvedilol 12. 5mg BID Glipizide-5mg Daily Vitamin D3 50mcg Every AM Trulicity 0. 75mg Subcut weekly Azelastine- Intranasal Multivitamin- Daily -Compliance Patient reports compliance w/ prescribed meds [Medication Education] -Education Importance of medication compliance -Date Completed 07/15/22 -Initials CD -Education Summary Takes medications as prescribed. She was unsure of all medications . She will bring meds to first session. [Medication Goals] -Goals Adherence to medication compliance -Comments Schedule will be reviewed when she brings in medication Med list updated on
[2022-09-04 11:49] VITALS: BP 104/78; BP 136/88; BP 138/72; BMI 29.1
--- NOTE | 2022-09-04 11:51 | MHC.CR.ITD ---
[address] [phone] F: [phone] Please see additional notes from [facility] discharging patient due to lack of attendance, followed by plan to change insurance for september and will need new order and approval. Will follow up next month. Pt will benefit from Cardiac rehab sessions once she has new insurance in place. Cardiac Rehab Discharge/ITP Cardiac Rehab Discharge/ITP Start: 07/15/22 07:50 Freq: Status: Active Protocol: Activity Type Activity Date Activity User E-sign Co-sign Detail Recorded Client Recorded Date Recorded By Document 09/04/22 11:49 DIVINA [id number] 09/04/22 11:50 DIVINA 09/04/22 11:49 Cardiac Rehab Discharge/ITP [Exercise] -Sccm Administrator Required No -Preferred Language Syriac -Total Sessions Attended 2 -Comments Anterior [place] in May 2021 with ROSELIA Stent to proximal and mid LAD This is Kelly's 30 Day assessment: She has only attended 2 session, and when called she states that transportation is an issue. She is unsure if she can attend regularly due to transportation issues. Overall Yvette achieved 25 min of ex and a Max Met of 3.1 . She did not have any symptoms. 09/03/22- Wilfrido has been out since 07/23 due to insurance issues; she attended two CR sessions in June. Patient will be returning in September after her new insurance begins. Prior Auth, new order will be obtained. [facility] will be able to provide transportation. 09/04/2022 Discharge Summary no change since 30 day assessment . Will need new order with new insurance approval once in place. Will call patient in September to follow up. [Functional Assessment] -6 Min Cycle (distance in miles/ ft) 750 -METS Achieved 2 -Resting HR 66 -Resting BP 104/78 -Resting SpO2 97 -Exercise HR 86 -Exercise BP 136/88 -RPE 6 -ECG Summary SR/ST -Fall Risk Yes [Exercise Plan] [Intervention] -Exercise Prescription NuStep, Recumbent Bike, Recumbent Elliptical, Treadmill,UBE, Upright Bike -Duration Intensity 36 Sessions -Exercise Minutes/Day 30 -Exercise Days/Week 7 -Angina with Exercise No -Peak METs 3.1 [Home Exercise] -Mode walk -Comments 09/03/22- Patient has been out since 07/23/22. She plans on returning in September after her insurance is changed to [facility]. She will have transportation through [facility]. [Exercise Education] -Exercise Education Exercise orientation, Exercise safety ,Home exercise, RPE,Self pulse checking,Signs and symptoms, Warmup/cooldown -Date Completed 07/15/22 -Initials CD -Education Summary Today and ongoing during Cardiac Rehab exercise sessions. She does have Asthma and gets SOB with strenuous exercise. Gun Fitter reviewed exercise guidelines, plan. [Exercise Goals] -Exercise Most Days of the Week Yes -Exercise 30-45 mins/day Yes -Target HR Range +20 - +30 beats above resting -Target RPE range 11-13 -Increase METS next 30 days 0.5-1.0 METS Every two weeks -METs goal by Discharge 4 METS -Comments Gun Fitter will monitor and begin discussion of home exercise program. [Nutrition] [Hyperlipidemia] -Are lab results available Yes -Hyperlipidemia Yes -Lipid Draw Date 12/06/21 -Total Cholesterol 147 -LDL 88 -HDL 45 -Tryglycerides 73 [Diabetes] -Diabetes Yes -Fasting Glucose 360 -Date 12/06/21 -HbA1C 7.00 -Date 12/06/21 [Weight Management] -Weight 84.5 kg -BMI 29.1 -Comments Does not follow a special diet . Starting to eat more salads . Random BS have been 118- 154. [Drug/Alchohol Use] -Drug/Alcohol Use No [Nutrition Plan] [Intervention] -Attended Nutrition Brochures [Nutrition Education] -Nutrition Education Diabetes and excercise, Hydration, Nutrition, Reading food labels,Signs and symptoms of Hypo/Hyper- glycemia -Date Completed 07/15/22 -Initials CD -Education Summary Today and ongoing. S/S of hyper/ hypoglycemia discussed, label reading, hydration. She will bring in Glucometer [Nutrition Goals] -Goals BMI < 25, Fasting BG 80- 120 mg/dL,HDL > 40,LDL < 70, Total CHOL < 200 -Weight goal 120-140 -Comments Continue to make dietary changes. [Psycho/Social] -Stage of Change Action -Occupation Disabled -PHQ9 Score 9 -Interpretation of Score No issues -Plan of Action/Follow-up Does not feel she is Anxious or Depressed -Patient Self-Reports Depression No -Comments No action needed. She does feel depressed at certain times due to sons in 2004. Son was shot in [place]. Se does not like to go out in her present neighborhood because of crime. She will report any changes. [Psycho/Social Plan] [Intervention] -Attended No consult needed [Psycho/Social Education] -Psycho/Social Education Coping techniques, Positive support system, Relaxation Techniques, Reviewed PHQ9 Score w/pt, Signs and symptoms of CAD -Date Completed 07/15/22 -Initials CD -Education Summary Reads, walks, spends time with Grandchildren for relaxation. Grandchildren help with Depression. Listens to Jazz to help with sleep. [Psycho/Social Goals] -Goals Not Applicable -Comments Yvette Billy will report any change in emotional status. [Other Core Comp] [Hypertension] -Hypertention Yes -Resting BP: 138/72 -Medication Changes No [Tobacco Use] -Comments See above. Daughter also smokes in the home. [Heart Failure] -Dyspnea at Rest No -Dyspnea with Exercise No [Other Core Comp Plan] [Intervention] -Attended Recognizing Stressors,Self Monitoring BP [Other Core Comp Education] -Other Core Comp Education Medication compliance,Risk factor modifications, Smoking and CAD ,Tobacco triggers, Understanding hypertension -Date Completed 07/15/22 -Initials CD -Education Summary Tobacco triggers discussed. She will try to get up after a meal and do another activity. She likes to smoke after meals. [Other Core Comp Goals] -Goals Manage risk factors, Medication compliance, Resting BP < 130/80,Tobacco cessation -Comments Continue education [Medication Plan] [Intervention] -Medications ASA 81mg Daily Albuterol Sulfate 90mcg/ actuation 2 INH every 4 hrs. PRN Amlodipine 5mg every AM Atorvastatin 80mg Daily Carvedilol 12. 5mg BID Glipizide-5mg Daily Vitamin D3 50mcg Every AM Trulicity 0. 75mg Subcut weekly Azelastine- Intranasal Multivitamin- Daily -Compliance Patient reports compliance w/ prescribed meds [Medication Education] -Education Importance of medication compliance -Date Completed 07/15/22 -Initials CD -Education Summary Takes medications as prescribed. She was unsure of all medications . She will bring meds to first session. [Medication Goals] -Goals Adherence to medication compliance -Comments Schedule will be reviewed when she brings in medication Med list updated on
== END 2023-02-24 07:11 | disposition home or self-care (01) ==
LOC: HO.CR 12:25
PROVIDERS: PCP Hospitalist; Visit Provider Internal Medicine Cardiovascular Disease
DX: I25.10 Atherosclerotic heart disease of native coronary artery without angina pectoris (principal); Z95.2 Presence of prosthetic heart valve
CPT/HCPCS: 93798

== ENCOUNTER 2022-12-31 09:57 | Outpatient (REF) | payer OTHER, SELFPAY | END 2022-12-31 09:58 | disposition home or self-care (01) | LOC: HO.MAMMO 09:57 | PROVIDERS: PCP Nurse Practitioner Family; Visit Provider Nurse Practitioner Family | DX: Z12.31 Encounter for screening mammogram for malignant neoplasm of breast (principal) | CPT/HCPCS: 77063; 77067 ==

== ENCOUNTER → 2022-12-31 10:15 | Outpatient (BNV) | payer OTHER, SELFPAY | PROVIDERS: PCP Nurse Practitioner Family; Visit Provider Radiology Diagnostic Radiology | DX: Z12.31 Encounter for screening mammogram for malignant neoplasm of breast (principal) | CPT/HCPCS: 77063; 77067 ==

== ENCOUNTER 2023-01-06 11:01 | Outpatient (AMB) | payer OTHER, SELFPAY ==
--- NOTE | 2023-01-06 11:09 | MHC.OFFVIS ---
Intake Vital Signs 01/06/23 11:10 Height 5 ft 7 in Weight 182 lb 15.739 oz BMI 28.7 BP 120/80 Blood Pressure Location Lt brachial Position Sitting Pulse 76 Intake Visit Reasons: 6 mth f/up per dc Intake Note: 6 month follow-up with ekg feeling good Forming Machine Operator Required: No Allergies Seasonal Allergies Allergy (Mild, Verified 06/12/22 10:12) congestion Medication List - Last Reconciled 01/06/23 by Sabas Lorenzana MD acetaminophen ER 1,300 mg (2 x 650 mg) PO Q12H PRN 30 days albuterol sulfate 2.5 mg (3 mL) inhalation Q4H PRN albuterol sulfate 90 mcg/actuation 2 inhalations inhalation Q4H PRN 1 month alcohol swabs (Alcohol Wipes) 1 pad topical TID PRN 1 month aspirin 81 mg PO DAILY 1 month atorvastatin 80 mg PO DAILY azelastine intranasal blood sugar diagnostic Test 3 times daily blood sugar diagnostic (Figment Ultra Test strips) bs checks 2-3 times per day blood-glucose meter Test 3 times daily carvedilol 12.5 mg PO BID cholecalciferol (vitamin D3) 50 mcg PO QAM diclofenac sodium 1% (Arthritis Pain (diclofenac)) 4 grams topical TID PRN 30 days dulaglutide 0.75 mg (0.5 mL) subcut QWEEK 3 months erythromycin 0.5 inches ophthalmic (eye) TID 7 days ezetimibe 10 mg PO DAILY 90 days glipizide 10 mg PO BID 3 months lancets (CareTouch Safety Lancets) Test 3 times daily lancing device (lancing device with lancets) Test 3 times daily loratadine 10 mg PO QAM montelukast 10 mg PO QAM omeprazole 20 mg PO DAILY Shower Chair As directed tiotropium bromide (Spiriva with HandiHaler) 1 cap inhalation DAILY 1 month valsartan 80 mg PO DAILY HPI HPI Comments History of Present Illness Details Wilfrido comes for follow up. She denies any cardiac symptoms. She is taking all her medications. Currently of dual antiplatelet therapy. She denies any exertional chest pain or shortness of breath. Currently still smoking about 2 cigarettes a day. However she says a blood pressures been well controlled. No recent lipid panel. Denies any heart failure symptoms. Her diabetes seems to be under better control. She is trying to walk as much as possible. [facility] Medical History (Updated 08/07/22 @ 10:40 by Pepito Cardoza CNP) CAD (coronary artery disease) Diabetes HTN (hypertension) Asthma Surgical History (Updated 06/26/22 @ 11:21 by Ebony Tejada NP-C) Stented coronary artery Hx of colonoscopy Hx of rotator cuff surgery History of tubal ligation Family History Mother Hypertension Father No problems noted. Social History Housing: Apartment Housing Other:: Patient is currently living with daughter Are you a primary post acute care nurse to a significant other at home: No Do you presently have visiting nurse or other home services: No Patient Tobacco Use Status: Current someday Tobacco user Tobacco use type: Cigarette Cigarette Packs Per Day: 0.25 Cigarettes Per Day: 3 Years Smoked: 25 e-Cigarette/Vaping Use: Never Used Second Hand Smoke Exposure: No service: No Current occupational status: disabled Current occupational exposures/hazards: No Cognitive needs: No Hearing needs: No Vision needs: No Review of Systems Const Denies chills, Denies fatigue, Denies fever(s), Denies frequent falls, Denies weakness, Denies weight gain and Denies weight loss ENT Denies dizziness Card Denies chest pain, Denies leg edema, Denies lightheadedness, Denies palpitations, Denies dyspnea, Denies dyspnea on exertion, Denies orthopnea and Denies other (loss of consciousness) Resp Denies cough, Denies dyspnea and Denies dyspnea on exertion GI Denies hematochezia and Denies change in stool character Musc Denies abnormal gait, Denies muscle weakness, Denies numbness, Denies radiating pain into limb and Denies tingling Neuro Denies abnormal gait, Denies dizziness, Denies frequent falls, Denies numbness, Denies tingling and Denies weakness Endo Denies fatigue and Denies palpitations Physical Exam Vital Signs: Last Vital Signs Pulse 76 01/06/23 11:10 BP 120/80 01/06/23 11:10 BMI result Body Mass Index 28.7 Const General: cooperative, healthy appearing, comfortable and no acute distress Orientation/consciousness: patient oriented x3 Neck Neck: Yes normal visual inspection and Yes no JVD Resp Effort & Inspection: normal respiratory effort Auscultation: clear to auscultation bilaterally, no crackles, no rales, no rhonchi and no wheezes Cardio Jugular venous distension: no JVD Rate: regular rate Rhythm: regular rhythm Heart sounds: S1 normal heart sound present, S2 normal heart sound present, no murmurs and no rubs GI Inspection: Yes normal to inspection Neuro General: patient oriented x3 Extrem General: Yes normal to inspection and No no pedal edema Psych Appearance: grossly normal Mental Status: mental status grossly normal Speech and movement: Normal speech and movement present Office Procedures EKG Details: EKG shows normal sinus rhythm with septal Q-waves with T-wave inversion inferior leads suggestive repolarization abnormality [id number], Complete Assessment & Plan Assessment & Plan (1) CAD (coronary artery disease): Code(s): I25.10 - Atherosclerotic heart disease of [place] coronary artery without angina pectoris Plan: CAD with drug-eluting stent to LAD for acute anterior STEMI urine half ago. No recurrent symptoms since then. She is doing well with medical therapy although continues to smoke. Advised complete smoking cessation. Continue lifelong low-dose aspirin therapy. Blood pressure is currently well optimized on current medication and advised to maintain blood pressure log at home. Target goal blood pressure less than 130/84. Target goal hemoglobin A1c less than 7% being pursue 3 our office. Continue high-intensity statin therapy with target goal LDL less than 70 mg/dL. Advise lipid panel near future. (2) Ischemic cardiomyopathy: Code(s): I25.5 - Ischemic cardiomyopathy Plan: Ischemic cardiomyopathy with low normal LV ejection fraction. Continue neurohormonal modulation. Risk of heart failure was discussed. Continue current therapy. Follow-up echocardiogram near future. Will follow up in the clinic in 1 year's time, sooner p.r.n.. Thank you for allowing me to partake in her care Coding Level of Care Code Est Pt Level 4 (11195) Diagnoses CAD (coronary artery disease) I25.10 Ischemic cardiomyopathy I25.5 CPT Codes EKG - CPT: 45601-[id number], Complete ([id number])
[2023-01-06 11:10] VITALS: BP 120/80; PULSE 76; BMI 28.7
== END 2023-01-06 11:41 | disposition home or self-care (01) ==
PROVIDERS: Visit Provider Internal Medicine Cardiovascular Disease
DX: I25.10 Atherosclerotic heart disease of native coronary artery without angina pectoris (principal); I25.5 Ischemic cardiomyopathy
CPT/HCPCS: 93010; 99214

== ENCOUNTER → 2023-01-06 11:01 | Outpatient (BNVA) | payer OTHER, SELFPAY | PROVIDERS: Visit Provider Internal Medicine Cardiovascular Disease | DX: I25.10 Atherosclerotic heart disease of native coronary artery without angina pectoris (principal); I25.5 Ischemic cardiomyopathy | CPT/HCPCS: 93005; 99212 ==

== ENCOUNTER 2023-01-14 10:49 | Outpatient (AMB) | payer OTHER, SELFPAY ==
[2023-01-14 11:06] VITALS: BP 138/70; PULSE 96; RESP 13; TEMP 36.4; O2SAT 99; BMI 28.7
--- NOTE | 2023-01-14 11:06 | MHC.PC.OV ---
Vital Signs 01/14/23 11:06 Height 5 ft 7 in Weight 183 lb 4 oz BMI 28.7 BP 138/70 Blood Pressure Location Lt brachial Position Sitting Respiration 13 Pulse 96 Pulse Source Pulse Oximeter Temp 97.5 F Temp Source Temporal Artery Scan Pulse Oximetry (%) 99 Oxygen Delivery Method Room Air Intake Visit Reasons: Transfer of care, dm, req. extended exam Intake Note: Patient states that she would like testing for cancers due to it running in her family. Patient would also like to be referred to get a colonoscopy because she is now due. Patient would like to discuss taking something for smokers cough. Patient states that shes been coughing so much and so hard that its causing incontinence and her having to wear pads. Patient states she would like to know how much longer she has to take trulicity for her diabetes. Rotary Operator Required: No Accompanied by: Self / Same As Patient Allergies Seasonal Allergies Allergy (Mild, Verified 01/14/23 11:57) congestion Medication List - Last Reconciled 01/14/23 by Pepito Cardoza CNP acetaminophen ER 1,300 mg (2 x 650 mg) PO Q12H PRN 30 days albuterol sulfate 2.5 mg (3 mL) inhalation Q4H PRN albuterol sulfate 90 mcg/actuation 2 inhalations inhalation Q4H PRN 1 month alcohol swabs (Alcohol Wipes) 1 pad topical TID PRN 1 month aspirin 81 mg PO DAILY 1 month atorvastatin 80 mg PO DAILY azelastine intranasal blood sugar diagnostic Test 3 times daily blood sugar diagnostic (OneTouch Ultra Test strips) bs checks 2-3 times per day blood-glucose meter Test 3 times daily carvedilol 12.5 mg PO BID cholecalciferol (vitamin D3) 50 mcg PO QAM dulaglutide 0.75 mg (0.5 mL) subcut QWEEK 3 months ezetimibe 10 mg PO DAILY 90 days glipizide 10 mg PO BID 3 months lancets (PubMaticTouch Safety Lancets) Test 3 times daily lancing device (lancing device with lancets) Test 3 times daily loratadine 10 mg PO QAM montelukast 10 mg PO QAM omeprazole 20 mg PO DAILY Shower Chair As directed tiotropium bromide (Spiriva with HandiHaler) 1 cap inhalation DAILY 1 month valsartan 80 mg PO DAILY Tobacco use date assessed: 01/14/23 Dental Screening Dental Screen Date: 01/14/23 Did you have a dental visit in the last 12 months?: No Did you have a dental problem in the last 6 months where you did not have access to dental care?: No Was dental information given to patient?: Patient has dentist HPI HPI Comments History of Present Illness Details 62-year-old female presents for transfer of care Her former PCP is APOORVA who is no longer with the practice She has past medical history significant for hypertension, diabetes, hyperlipidemia, CAD, ischemic cardiomyopathy, right-sided low back pain with right-sided sciatica, and asthma She admits to taking her medications as prescribed with no adverse reactions Her last routine blood work was in November 2021 She reports intermittent smoker's cough which is predominantly dry with occasional clear phlegm for the past several years. She reports associated stress incontinent for the past 3 years. She has been smoking 1.5 cigarette for the past 2 years. She notes that she has significantly cut down on smoking. She states that she has been smoking on and off for the past 52 years. The most she smoked was 6 cigarette daily. She has tried nicotine patch with good response but did not completely stopped smoking. She is willing to try nicotine patch again. She has never had a LDCT for lung cancer screening. She also reports intermittent right-sided pain which radiates to her RLE. She notes that the cold weather usually aggravates her pain. Denies tingling, numbness, or loss of sensation. She has been taking Acetaminophen with improvement. [facility] Medical History (Updated 01/14/23 @ 12:32 by Pepito Cardoza CNP) CAD (coronary artery disease) Diabetes HTN (hypertension) Asthma Surgical History Stented coronary artery Hx of colonoscopy Hx of rotator cuff surgery History of tubal ligation Family History Mother Hypertension Father No problems noted. Housing: Apartment Housing Other:: Patient is currently living with daughter Are you a primary care manager cna to a significant other at home: No Do you presently have visiting nurse or other home services: No Patient Tobacco Use Status: Current someday Tobacco user Tobacco use type: Cigarette Cigarette Packs Per Day: 0.25 Cigarettes Per Day: 3 Years Smoked: 25 e-Cigarette/Vaping Use: Never Used Second Hand Smoke Exposure: No service: No Current occupational status: disabled Current occupational exposures/hazards: No Cognitive needs: No Hearing needs: No Vision needs: No Questionnaire PHQ-9 Over the last 2 weeks, how often have you been bothered by any of the following problems? 1. Little interest or pleasure in doing things: more than half the days 2. Feeling down, depressed, or hopeless: not at all 3. Trouble falling or staying asleep, or sleeping too much: more than half the days (staying sleep) 4. Feeling tired or having little energy: not at all 5. Poor appetite or overeating: not at all 6. Feeling bad about yourself - or that you are a failure or have let yourself or your family down: not at all 7. Trouble concentrating on things, such as reading the newspaper or watching television: not at all 8. Moving or speaking so slowly that other people could have noticed. Or the opposite - being so fidgety or restless that you have been moving around a lot more than usual: not at all 9. Thoughts that you would be better off or of hurting yourself in some way: not at all Total score: 4 Depression Screening Interpretation: Negative Depression Screening Done: Yes 10490 - PHQ-9 Billing: Yes Source: Developed by Drs. Isma Erickson, Joyce Phillips, Roger Davis and colleagues, with an educational jana from [employer]. Thrive Questionnaire Date Thrive assessed: 01/14/23 I am a: Patient What is your living situation today?: I have a steady place to live Within the past 12 months, did the food you bought not last and you didn't have the money to get more?: Never true Within the past 12 months, did you worry whether your food would run out before you got money to buy more?: Never true Do you have trouble paying for medicines?: No Do you have trouble getting transportation to medical appointments?: No Do you have trouble paying your heating and electricity bill?: No Do you have trouble taking care of your child, family member or friend?: No Do you have trouble with day-to-day activities such as bathing, preparing meals, shopping, managing finances, etc.?: No Are you currently unemployed and looking for a job?: No Are you interested in more education?: No Please select the resources that you would like help with: None Currently or been in a relationship where the following occur: no concerns reported AUDIT C Alcohol Use Questionnaire (AUDIT-C) 1. How often do you have a drink containing alcohol?: Never 3. How often do you have six or more drinks on one occasion?: Never Total Score: 0 ZURI-7 AMB Questionnaire ZURI-7 Date ZURI - 7 assessed: 01/14/23 Feeling nervous, anxious, or on edge: 0 = Not at all Not being able to stop or control worryin = Not at all Worrying too much about different things: 0 = Not at all Trouble relaxin = Not at all Being so restless that it is hard to sit still: 0 = Not at all Becoming easily annoyed or irritable: 0 = Not at all Feeling afraid as if something awful might happen: 0 = Not at all Total ZURI-7 score (0-4 normal; 5-9 mild; 10-14 moderate; 15-21 severe): 0 Source: Developed by Drs. Isma Erickson, Joyce Phillips, Roger Davis and colleagues, with an educational jana from [employer]. ACT Questionnaire In the past 4 weeks, how much of the time did your asthma keep you from getting as much done at work, school or at home?: None of the time During the past 4 weeks, how often have you had shortness of breath?: 1-2 times a week During the past 4 weeks, how often did your asthma symptoms wake you up at night or earlier than usual in the morning?: Once a week During the past 4 weeks, how often have you had to use your rescue inhaler or nebulizer medication?: 2-3 times a week How would you rate your asthma control during the past 4 weeks?: Well controlled ACT Interpretation: Positive Score: 19 Review of Systems Const Details: Const Denies chills, Denies fatigue, Denies fever(s), Denies headache(s) and Denies weakness ENT Denies dizziness and Denies headache(s) Card Denies chest pain, Denies lightheadedness, Denies dyspnea and Denies other (Palpitations) Resp Reports cough, Denies dyspnea, Denies wheezing and Denies other ( shortness of breath) GI Denies abdominal pain, Denies melena, Denies hematochezia, Denies change in bowel habits, Denies dyspepsia and Denies nausea Denies hematuria and Denies dysuria Musc Reports as per HPI Skin/Breast Denies rash, Denies unusual bruising and Denies wounds Neuro Denies abnormal gait, Denies dizziness, Denies headache(s), Denies memory loss, Denies numbness, Denies Sensory deficit (Neuro), Denies tingling and Denies weakness Psych Denies anxiety, Denies depression, Denies memory loss Endo Denies cold intolerance, Denies fatigue, Denies heat intolerance, Denies polydipsia and Denies polyuria Aller/Immun Denies wheezing Physical exam (Primary Care) Vital Signs: Last Vital Signs Temp 97.5 F 01/14/23 11:06 Pulse 96 01/14/23 11:06 Resp 13 01/14/23 11:06 BP 138/70 01/14/23 11:06 Pulse Ox 99 01/14/23 11:06 Oxygen Delivery Method Room Air 01/14/23 11:06 BMI result Body Mass Index 28.7 Tobacco/Smoking Status: Tobacco use Status Tobacco use date assessed 01/14/23 01/14/23 11:24 Patient Tobacco Use Status Current someday Tobacco 01/14/23 11:24 Tobacco use type Cigarette 01/14/23 11:24 e-Cigarette/Vaping Use Never Used 01/14/23 11:24 PHQ-9: PHQ-9 Score PHQ-9: Total score 4 01/14/23 11:59 Depression Screening Interpretation: Negative Thrive Assessment: Date of Thrive Assessment Date Thrive assessed 01/14/23 01/14/23 11:24 Currently or been in a relationship where the following occur: no concerns reported Const Other: General: no acute distress and well developed Nutritional Appearance: well nourished Orientation/consciousness: patient oriented x3 HENMT Head: Yes normocephalic and Yes atraumatic Eyes General: appearance normal, both eyes and all related structures Pupils: Equal, round and reactive pupils present EOM: EOMs intact bilaterally Resp Effort & Inspection: normal respiratory effort Auscultation: clear to auscultation bilaterally Cardio Rate: regular rate Rhythm: regular rhythm Heart sounds: S1 normal heart sound present, S2 normal heart sound present, no gallops, no murmurs and no rubs GI Palpation (GI): No Abdominal aortic bruit present, Soft to palpation, nontender, No hepatosplenomegaly present and No Rebound tenderness present Auscultation: normal bowel sounds General: Yes no CVA tenderness Back/Spine/Pelvis Back: no CVA tenderness Cervical Spine: cervical ROM normal and No Cervical spine tenderness Thoracic/Lumbar Spine: thoraco-lumbar ROM normal, No pain with thoraco-lumbar ROM, No thoracic spinal tenderness and No lumbar spinal tenderness Extrem General: Yes normal to inspection, No edema and No calf tenderness Skin General: warm and dry. Normal skin color. Normal skin turgor Neuro General: patient oriented x3, gait normal and no focal neuro deficit Cranial nerves: Yes Equal, round and reactive pupils present Cognition (Neuro): normal cognition Gait exam (Neuro): Normal gait present Sensory Exam: No Sensory deficit (Neuro) Psych Appearance: grossly normal Affect: normal affect Attitude: cooperative Thought process: Normal thought process present Results AMB Hemoglobin A1c AMB Hemoglobin A1c 6.8 % Last Edit by Jordana Martinez MA on 01/14/23 11:40 Results Reviewed Results Reviewed: Laboratory Last Values Hgb A1c (Clinic) 6.8 % (4.0-6.0) H 01/14/23 11:39 Assessment and Plan Assessment & Plan (1) HTN (hypertension): Code(s): I10 - Essential (primary) hypertension Plan: Blood pressure is 138/70, above goal of less than 130/80 Continue current treatment regimen Low-sodium diet encouraged Follow-up in 1 month for an extended physical exam or return sooner with symptoms or concerns Verbalized understanding and agreed with treatment plan (2) Asthma, mild intermittent, well-controlled: Code(s): J45.20 - Mild intermittent asthma, uncomplicated Plan: Reports chronic intermittent cough which he attributes to smoking cigarettes No wheezing or shortness of breath Lung sounds clear bilaterally ACT score is 19 and indicates pressure control asthma Continue current treatment regimen Follow-up with worsening or new symptoms Verbalized understanding and agreed with treatment plan (3) Diabetes: Code(s): E11.9 - Type 2 diabetes mellitus without complications Plan: A1c today is 6.8%, within goal of less than 7.0%. Previous A1c in May was 7.0% Recent LDL was in November 2021, 88, above goal of less than 70. Repeat lipid panel was ordered by Cardiology. Patient intends to get blood work done Last diabetic eye exam was and 12/2021: No retinopathy. She is due for an eye exam; advised to schedule an appointment Continue current treatment regimen ADA diet and routine exercise encouraged Will recheck A1c in 3 months Follow-up in 1 month for an extended exam and hypertension Verbalized understanding and agreed with treatment plan (4) Chronic cough: Code(s): R05.3 - Chronic cough Plan: Reports intermittent smoker's cough which is predominantly dry with occasional clear phlegm for the past several years. She reports associated stress incontinent for the past 3 years. She has been smoking 1.5 cigarette for the past 2 years. She notes that she has significantly cut down on smoking. She states that she has been smoking on and off for the past 52 years. The most she smoked was 6 cigarette daily. She has tried nicotine patch with good response but did not completely stopped smoking. Instructed on the health risks and complications of cigarette smoking Smoking cessation encouraged Nicotine patch ordered. Use as prescribed Chest x-ray ordered LDCT scan ordered for lung cancer screening Follow-up with symptoms, concerns, or adverse reaction Verbalized understanding and agreed with treatment plan (5) Smoking trying to quit: Code(s): Z72.0 - Tobacco use Plan: As above (6) Right-sided low back pain with right-sided sciatica: Code(s): M54.41 - Lumbago with sciatica, right side Plan: Reports intermittent right-sided pain which radiates to her RLE. She notes that the cold weather usually aggravates her pain. Denies tingling, numbness, or loss of sensation. She has been taking Acetaminophen with improvement Continue to take acetaminophen as prescribed Warm compresses encouraged Follow-up with worsening or new symptoms Verbalized understanding and agreed with treatment plan (7) Laboratory tests ordered as part of a complete physical exam (CPE): Code(s): Z00.00 - Encounter for general adult medical examination without abnormal findings Plan: Fasting labs ordered as part of a complete physical exam. Advised to fast for at least 10 hours before getting labs drawn. May drink water Verbalized understanding and agreed with treatment plan. Orders: Orders Comprehensive [place]. Panel Fast Today Z00.00 - Encounter for general adult medical examination without abnormal findings TSH reflex Free T4 Today Z00.00 - Encounter for general adult medical examination without abnormal findings Complete Blood Count no Diff Today Z00.00 - Encounter for general adult medical examination without abnormal findings UA CC w/rflx Micro + Cult Today Z00.00 - Encounter for general adult medical examination without abnormal findings XR chest 2V Today R05.3 - Chronic cough Medications: New nicotine transdermally daily; Apply 14 mg patch q.d. x6 weeks, then apply 7 mg patch q.d. x2 weeks: Info: Stop cigarette use at treatment onset 56 ea 0RF Coding Level of Care Code Est Pt Level 4 (34996) Diagnoses HTN (hypertension) I10 Asthma, mild intermittent, well-controlled J45.20 Diabetes E11.9 Chronic cough R05.3 Smoking trying to quit Z72.0 Right-sided low back pain with right-sided sciatica M54.41 Laboratory tests ordered as part of a complete physical exam (CPE) Z00.00
== END 2023-01-14 12:28 | disposition home or self-care (01) ==
PROVIDERS: PCP Hospitalist; Visit Provider Nurse Practitioner Family
DX: I10 Essential (primary) hypertension (principal); J45.20 Mild intermittent asthma, uncomplicated; E11.9 Type 2 diabetes mellitus without complications; R05.3 Chronic cough; Z72.0 Tobacco use; M54.41 Lumbago with sciatica, right side
CPT/HCPCS: 99214

== ENCOUNTER 2023-02-03 | Outpatient (REF) | payer OTHER, SELFPAY ==
[2023-02-03 12:42] LABS: Hematocrit 40.9 % (37.0-47.0); Hemoglobin 12.8 g/dl (12.0-16.0); Mean Corpuscular HGB Conc 31.3 g/dl (31.0-35.0); Mean Corpuscular Hemoglobin 26.9 pg (27.0-33.0); Mean Corpuscular Volume 86.1 fL (80.0-98.0); Mean Platelet Volume 11.2 fL (9.4-12.3); Platelet Count 194 X10*3/uL (160-400); Red Blood Count 4.75 X10*6/uL (4.20-5.50); Red Cell Distribution Width 15.1 % (11.0-16.0); White Blood Count 3.5 X10*3/uL (4.8-10.8)
[2023-02-03 12:43] LABS: Appearance Urine Clear; Color Urine Yellow; Glucose Urine UA Negative (Negative); Leukocyte Esterase Urine Negative (Negative); Nitrite Urine Negative (Negative); Urine Blood Negative (Negative); Urine Ketones Negative (Negative); Urine Protein Negative (Neg-Trace)
[2023-02-03 13:18] LABS: Alanine Aminotransferase 17 U/L (0-31); Albumin Level 3.9 g/dL (3.5-5.0); Alkaline Phosphatase 116 U/L (39-117); Anion Gap 10 (12-20); Aspartate Amino Transferase 18 U/L (5-31); Bilirubin Total 0.4 mg/dL (0.0-1.0); Blood Urea Nitrogen 12 mg/dL (9-16); Calcium 9.4 mg/dL (8.4-10.2); Carbon Dioxide 29 mmol/L (22-29); Chloride 106 mmol/L (96-108); Cholesterol 118 mg/dL (<200); Estimated Glomerular Filt Rate 45; Glucose Fasting 106 mg/dL (60-99); HDL Cholesterol 43 mg/dL (>40); LDL Cholesterol Calculated 61 mg/dL (<100); Potassium 4.1 mmol/L (3.3-5.1); Sodium 141 mmol/L (135-145); Triglycerides 74 mg/dL (<150)
[2023-02-03 13:26] LABS: Vitamin D 25-OH Total 38.9 ng/mL (>30)
[2023-02-03 13:35] LABS: TSH reflex Free T4 0.78 uIU/mL (0.32-4.0)
== END 2023-02-03 00:01 | disposition home or self-care (01) ==
LOC: HO.LAB
PROVIDERS: Visit Provider Nurse Practitioner Family
DX: Z00.00 Encounter for general adult medical examination without abnormal findings (principal); I25.10 Atherosclerotic heart disease of native coronary artery without angina pectoris; E55.9 Vitamin D deficiency, unspecified; I25.5 Ischemic cardiomyopathy
CPT/HCPCS: 36415; 80053; 80061; 81003; 82306; 84443; 85027

== ENCOUNTER → 2023-02-03 10:41 | Outpatient (REF) | payer OTHER, SELFPAY ==
--- NOTE | 2023-02-03 10:44 | CA_ITS ---
Transthoracic Echocardiogram Patient (Last, First, Middle): Wilfrido Liz, Gender: Female Date of : 1960 Age: 62 Procedure Date: 02/03/2023 Procedure Type: Transthoracic Echocardiogram Location: OP Height: 165.1 cm Weight: 82.56 kg BSA: 1.90 m2 Heart Rate: bpm BP: 130 / 82 mmHg Gaming Associate: TO Referring MD: Sabas Lorenzana MD Symptoms: I25.5 - Ischemic cardiomyopathy Study Quality: Fair/Contrast Conclusions: - The left ventricular systolic function is mildly decreased. The visually estimated ejection fraction is between 40-45%. - The mid inferoseptal and mid anteroseptal segments are akinetic. - The basal inferior segment is hypokinetic. - No obvious valvular pathology seen on this study. Findings Procedure Information Contrast agent, definity, is being given per protocol without apparent complications. Left Ventricle Normal left ventricular cavity size. There is moderately increased left ventricular wall thickness. The left ventricular systolic function is mildly decreased. The visually estimated ejection fraction is between 40-45%. There is evidence of regional wall motion abnormalities. Evidence suggests grade II (moderate) diastolic dysfunction. Wall Motion Rest Echo Findings The basal inferior segment is hypokinetic. The mid inferoseptal and mid anteroseptal segments are akinetic. Right Ventricle Normal right ventricular cavity size. There is mildly decreased right ventricular systolic function. Atria Both atria are normal in size. Aortic Valve There is a normal trileaflet aortic valve. There is mild calcification of the aortic valve. There is no aortic valve stenosis. There is no aortic valve regurgitation. Mitral Valve The mitral valve appears normal. There is mild mitral valve regurgitation. There is no mitral valve stenosis. Pulmonic Valve There is trace pulmonic valve regurgitation. Tricuspid Valve Normal tricuspid valve structure. There is trace tricuspid valve regurgitation. There is no evidence of pulmonary hypertension. Great Vessels The asc aorta is normal in size. Venous The inferior vena cava is normal in size and collapses greater than 50% with inspiration. Pericardium/Pleural There is no evidence of pericardial effusion. Prior Study Comparison Changes noted compared to prior study dated: 12/06/2021. LVEF appears lower. Recommendations, Care & Conclusions No obvious valvular pathology seen on this study. Measurements 2D Linear Measurements IVSd: 1.38 0.6-0.9/0.6-1.0 cm LVIDd: 4.38 3.9-5.3/4.2-5.9 cm LVIDd Index: 2.31 2.4-3.2/2.2-3.1 cm/m2 LVIDs: 3.49 2.0-3.6 cm LVPWd: 1.25 0.7-1.1 cm LA Diam: 3.70 2.7-3.8/3.0-4.0 cm LAIDs Index: 1.95 1.5-2.3 cm/m2 LV Mass: 270.86 67-162/88-224 g LV Mass Index: 142.56 43-95/49-115 g/m2 LVOT Diam: 2.00 3.0+(-)1.3 cm 2D Systolic Function EF 4C: 41.80 >55% EF 2C: 52.60 >55% EF BiP: 45.90 >55% Mitral Valve MV Pk E: 0.87 MV PK A: 0.67 MV Decel Time: 180.00 E/A: 1.30 E'Lateral: 6.20 E'Medial: 5.33 E/E' Med: 16.30 E/E' Lat: 14.00 PHT: 53.00 MVA PHT: 4.15 Decel [place]: 4.84 Aortic Valve AoV Pk Kvng: 1.39 AoV Mn Kvng: 1.05 AoV VTI: 0.33 AoV Pk Grad: 8.00 Aov Mn Grad: 5.00 DYAN Cont.VTI: 1.43 LVOT LVOT Pk Kvng: 0.57 LVOT Mn Kvng: 0.41 LVOT VTI: 0.15 LVOT Pk Grad: 1.00 LVOT Mn Grad: 1.00 LVOT Diam: 2.00 LVOT Area: 3.14 Diastolic Function MV Pk E: 0.87 MV Pk A: 0.67 E/A: 1.30 E'Medial: 5.33 E/E' Med: 16.30 E' Laterial: 6.20 E/E' Lat: 14.00 Right Ventricle TAPSE (mm): 18.70 TVS' Kvng: 10.00 Tricuspid Valve TR Pk Kvng: 1.67 TR Pk Grad: 11.00 RA Press: 3.00 RVSP: 14.00 Great Vessels Aorta Sinus of Valsalva: 2.88 2.0-3.[address] [place]: 2.07 1.7-3.4 cm Ao Asc: 3.10 2.1-3.4 cm Updated in Other Vendor System with Status of Final Harris Adhikari MD electronically signed on 02/04/2023 12:46:52 PM with status of Final
== END ==
LOC: HO.CARD 10:41
PROVIDERS: PCP Nurse Practitioner Family; Visit Provider Internal Medicine Cardiovascular Disease
DX: I25.5 Ischemic cardiomyopathy (principal)
CPT/HCPCS: 93306; Q9957

== ENCOUNTER → 2023-02-03 10:44 | Outpatient (BNV) | payer OTHER, SELFPAY | PROVIDERS: PCP Nurse Practitioner Family; Visit Provider Internal Medicine | DX: I25.5 Ischemic cardiomyopathy (principal); I34.0 Nonrheumatic mitral (valve) insufficiency | CPT/HCPCS: 93306 ==

== ENCOUNTER 2023-02-26 08:38 | Outpatient (AMB) | payer OTHER, SELFPAY ==
[2023-02-26 08:47] VITALS: BP 130/80; PULSE 83; BMI 28.0
--- NOTE | 2023-02-26 08:47 | MHC.OFFVIS ---
Intake Vital Signs 02/26/23 08:47 Height 5 ft 7 in Weight 179 lb 0.246 oz BMI 28.0 BP 130/80 Blood Pressure Location Lt brachial Position Sitting Pulse 83 Pulse Source Pulse Oximeter Intake Visit Reasons: f/u NS request Intake Note: f/up pt its its feeling did had some pressure to the chest in the past week but after throwing up the pressure she felt was not as strong Shade Matcher Required: No Accompanied by: Self / Same As Patient Allergies Seasonal Allergies Allergy (Mild, Verified 01/14/23 11:57) congestion Medication List - Last Reconciled 02/26/23 by YULISA DickeyC acetaminophen ER 1,300 mg (2 x 650 mg) PO Q12H PRN 30 days albuterol sulfate 2.5 mg (3 mL) inhalation Q4H PRN albuterol sulfate 90 mcg/actuation 2 inhalations inhalation Q4H PRN 1 month alcohol swabs (Alcohol Wipes) 1 pad topical TID PRN 1 month aspirin 81 mg PO DAILY 1 month atorvastatin 80 mg PO DAILY azelastine intranasal blood sugar diagnostic Test 3 times daily blood sugar diagnostic ([employer] Ultra Test strips) bs checks 2-3 times per day blood-glucose meter Test 3 times daily carvedilol 12.5 mg PO BID cholecalciferol (vitamin D3) 50 mcg PO QAM 90 days dulaglutide 0.75 mg (0.5 mL) subcut QWEEK 3 months ezetimibe 10 mg PO DAILY 90 days glipizide 10 mg PO BID 3 months lancets ([employer] Safety Lancets) Test 3 times daily lancets (OneTouch Delica Plus Lancet) USE TO TEST THREE TIMES DAILY loratadine 10 mg PO QAM montelukast 10 mg PO QAM omeprazole 20 mg PO DAILY Shower Chair As directed tiotropium bromide (Spiriva with HandiHaler) 1 cap inhalation DAILY 1 month valsartan 80 mg PO DAILY HPI f/u NS request HPI Details Bola is a 62-year-old female past medical history of diabetes, hypertension, hyperlipidemia, CAD with anterior STEMI 05/2021 with ROSELIA placed to the proximal and mid LAD who now presents for follow-up. Today she reports that she had an episode of chest discomfort about 3-4 weeks ago. She felt discomfort in her mid chest then proceeded to vomit and felt better. She has not had recurrent symptoms. She denies any exertional chest discomfort. No concerning shortness of breath with activity. No palpitations, presyncope, syncope, PND, orthopnea or edema. She is taking meds as directed. [facility] Medical History CAD (coronary artery disease) Diabetes HTN (hypertension) Asthma Surgical History Stented coronary artery Hx of colonoscopy Hx of rotator cuff surgery History of tubal ligation Family History Mother Hypertension Father No problems noted. Social History Housing: Apartment Housing Other:: Patient is currently living with daughter Are you a primary adult live in caregiver to a significant other at home: No Do you presently have visiting nurse or other home services: No Patient Tobacco Use Status: Current someday Tobacco user Tobacco use type: Cigarette Cigarette Packs Per Day: 0.25 Cigarettes Per Day: 3 Years Smoked: 25 e-Cigarette/Vaping Use: Never Used Second Hand Smoke Exposure: No service: No Current occupational status: disabled Current occupational exposures/hazards: No Cognitive needs: No Hearing needs: No Vision needs: No Review of Systems Const All systems reviewed & are unremarkable except as noted in HPI and below Denies chills, Denies fatigue, Denies fever(s), Denies frequent falls, Denies weakness, Denies weight gain and Denies weight loss ENT Denies dizziness Card Reports chest pain (episode few weeks ago, then vomited and felt better), Denies leg edema, Denies lightheadedness, Denies palpitations, Denies dyspnea and Reports dyspnea on exertion Resp Reports cough, Denies dyspnea and Reports dyspnea on exertion GI Denies hematochezia Musc Denies abnormal gait, Denies muscle weakness, Denies numbness, Denies radiating pain into limb and Denies tingling Neuro Denies abnormal gait, Denies dizziness, Denies frequent falls, Denies numbness, Denies tingling and Denies weakness Endo Denies fatigue and Denies palpitations Physical Exam Vital Signs: Last Vital Signs Pulse 83 02/26/23 08:47 BP 130/80 02/26/23 08:47 BMI result Body Mass Index 28.0 Const General: cooperative, healthy appearing, comfortable and no acute distress Orientation/consciousness: patient oriented x3 Neck Neck: Yes normal visual inspection Resp Effort & Inspection: normal respiratory effort Auscultation: clear to auscultation bilaterally, no crackles, no rales, no rhonchi and no wheezes Cardio Jugular venous distension: no JVD Rate: regular rate Rhythm: regular rhythm Heart sounds: S1 normal heart sound present, S2 normal heart sound present, no murmurs and no rubs Neuro General: patient oriented x3 Extrem General: Yes normal to inspection Psych Appearance: grossly normal Mental Status: mental status grossly normal Speech and movement: Normal speech and movement present Assessment & Plan Assessment & Plan (1) Ischemic cardiomyopathy: Code(s): I25.5 - Ischemic cardiomyopathy Plan: History of ischemic cardiomyopathy with mild the reduced EF into the low normal range. Echocardiogram was done on 02/03/2023 showing EF 40-45%, mid inferior and mid anterior septal akinetic. EF reduced further than previously reported. She had been on valsartan and carvedilol for neurohormonal modulation. On examination today she has no clinical signs indicating decompensated heart failure. She had 1 episode of atypical chest discomfort however no clear anginal sounding chest discomfort. At this time will have her stop valsartan and start Entresto. BMP in 1 week. Plan to further titrate Entresto once lab results have been reviewed. Continue carvedilol without change. Will plan for limited echo in about 3 months to re-evaluate EF. If EF continues to remain down or is further reduced she may need ischemic eval. Continue aspirin indefinitely. Continue atorvastatin with ideal LDL goal less than 70. Signs and symptoms of angina reviewed. Cardiology follow-up in 3-4 months, sooner if needed. (2) CAD (coronary artery disease): Code(s): I25.10 - Atherosclerotic heart disease of [place] coronary artery without angina pectoris Qualifiers: Coronary Disease-Associated Artery/Lesion type: [place] artery [place] vs. transplanted heart: [place] heart Associated angina: without angina Qualified Code(s): I25.10 - Atherosclerotic heart disease of [place] coronary artery without angina pectoris Plan: History of CAD with anterior STEMI 05/2021. Cardiac catheterization was performed and ROSELIA placed to the proximal and mid LAD. Med management as above (3) Stented coronary artery: Comment: Drug-eluting stent to mid LAD for acute anterior STEMI in May 2021. Moderate to severe stenosis in RCA and circumflex. Code(s): Z95.5 - Presence of coronary angioplasty implant and graft Plan: As above (4) HTN (hypertension): Code(s): I10 - Essential (primary) hypertension Qualifiers: Hypertension type: primary hypertension Qualified Code(s): I10 - Essential (primary) hypertension Plan: Well controlled at present time. Changing valsartan to Entresto. (5) Hyperlipidemia: Code(s): E78.5 - Hyperlipidemia, unspecified Qualifiers: Hyperlipidemia type: unspecified Qualified Code(s): E78.5 - Hyperlipidemia, unspecified Plan: [place] LDL goal less than 70. Labs done on 02/03/2023 showed LDL 61. Continue atorvastatin 80 mg daily. Plan Time spent on chart review, documentation, interview and assessment Orders: Orders CA echo limited 06/22/23 I25.5 - Ischemic cardiomyopathy Basic Metabolic Panel 1 Week I25.5 - Ischemic cardiomyopathy Medications: New sacubitril-valsartan 24-26 mg (Entresto) 1 tab PO BID 60 tabs 1RF Discontinued valsartan Discontinued Reason: Doctor's Order 80 mg PO DAILY 90 tabs 1RF Coding Level of Care Code Est Pt Level 4 (37180) Diagnoses Ischemic cardiomyopathy I25.5 Coronary artery disease involving [place] coronary artery of [place] heart without angina pectoris I25.10 Coronary Disease-Associated Artery/Lesion type: [place] artery [place] vs. transplanted heart: [place] heart Associated angina: without angina Stented coronary artery Z95.5 Primary hypertension I10 Hypertension type: primary hypertension Hyperlipidemia, unspecified hyperlipidemia type E78.5 Hyperlipidemia type: unspecified Time Spent (min) 28
== END 2023-02-26 09:53 | disposition home or self-care (01) ==
PROVIDERS: PCP Nurse Practitioner Family; Visit Provider Nurse Practitioner Family
DX: I25.5 Ischemic cardiomyopathy (principal); I25.10 Atherosclerotic heart disease of native coronary artery without angina pectoris; Z95.5 Presence of coronary angioplasty implant and graft; I10 Essential (primary) hypertension; E78.5 Hyperlipidemia, unspecified
CPT/HCPCS: 99214

== ENCOUNTER → 2023-02-26 08:38 | Outpatient (BNVA) | payer OTHER, SELFPAY | PROVIDERS: PCP Nurse Practitioner Family; Visit Provider Nurse Practitioner Family | DX: I25.5 Ischemic cardiomyopathy (principal); I10 Essential (primary) hypertension; E78.5 Hyperlipidemia, unspecified; Z95.5 Presence of coronary angioplasty implant and graft | CPT/HCPCS: 99212 ==

== ENCOUNTER 2023-03-03 09:23 | Outpatient (AMB) | payer OTHER, SELFPAY ==
[2023-02-27 11:18] VITALS: BP 104/78; BP 136/88; BP 138/72; BMI 29.1
--- NOTE | 2023-03-03 09:26 | MHC.PC.OV ---
Vital Signs 03/03/23 09:28 03/03/23 10:02 Height 5 ft 7 in Weight 180 lb 2 oz BMI 28.2 BP 134/86 130/70 Blood Pressure Location Rt brachial Rt brachial Position Sitting Sitting Respiration 13 Pulse 91 Pulse Source Pulse Oximeter Temp 97.6 F Temp Source Temporal Artery Scan Pulse Oximetry (%) 96 Intake Visit Reasons: 1 mos CPE, HTN, labs review Intake Note: Patient needs refill on Vitamin D. Patient states that she has been having reaction to her smoking patches and would like an alternative. 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 Required: No Accompanied by: Self / Same As Patient Allergies Seasonal Allergies Allergy (Mild, Verified 03/03/23 09:43) congestion Medication List - Last Reconciled 03/03/23 by Pepito Cardoza CNP acetaminophen ER 1,300 mg (2 x 650 mg) PO Q12H PRN 30 days albuterol sulfate 2.5 mg (3 mL) inhalation Q4H PRN albuterol sulfate 90 mcg/actuation 2 inhalations inhalation Q4H PRN 1 month alcohol swabs (Alcohol Wipes) 1 pad topical TID PRN 1 month aspirin 81 mg PO DAILY 1 month atorvastatin 80 mg PO DAILY azelastine intranasal blood sugar diagnostic Test 3 times daily blood sugar diagnostic (Sure[employer]uch Ultra Test strips) bs checks 2-3 times per day blood-glucose meter Test 3 times daily carvedilol 12.5 mg PO BID cholecalciferol (vitamin D3) 50 mcg PO QAM 90 days dulaglutide 0.75 mg (0.5 mL) subcut QWEEK 3 months ezetimibe 10 mg PO DAILY 90 days glipizide 10 mg PO BID 3 months lancets ([employer] Safety Lancets) Test 3 times daily lancets (SureGeneuch Delica Plus Lancet) USE TO TEST THREE TIMES DAILY loratadine 10 mg PO QAM montelukast 10 mg PO QAM omeprazole 20 mg PO DAILY sacubitril-valsartan 24-26 mg (Entresto) 1 tab PO BID Shower Chair As directed tiotropium bromide (Spiriva with HandiHaler) 1 cap inhalation DAILY 1 month Tobacco use date assessed: 03/03/23 Dental Screening Dental Screen Date: 03/03/23 Did you have a dental visit in the last 12 months?: Yes Did you have a dental problem in the last 6 months where you did not have access to dental care?: No Was dental information given to patient?: Patient has dentist HPI HPI Comments History of Present Illness Details 62-year-old female presents for an extended physical exam She admits to taking her medications as prescribed. She reports adverse reaction of itching from nicotine patch; she stopped using the patch after 1 week of use. She notes that she plans to quit smoknig She offers no complaints and denies acute symptoms at this time Her last mammogram was on 12/31/2022: Normal She states that her last Pap smear was 4-5 years ago: normal. She is not currently established with an real property evaluator She notes that her last colonoscopy was 3-5 years ago: benign polyps She states that she is up-to-date on COVID, flu, and shingrix vaccines She has an appointment for an eye exam later this month and dental appointment next month She is followed by [facility]. Her last appointment was on 02/26/2023 She has a LDCT scheduled for next month [facility] Medical History CAD (coronary artery disease) Diabetes HTN (hypertension) Asthma Surgical History Stented coronary artery Hx of colonoscopy Hx of rotator cuff surgery History of tubal ligation Family History Mother Hypertension Father No problems noted. Social History Housing: Apartment Housing Other:: Patient is currently living with daughter Are you a primary acute care registered nurse to a significant other at home: No Do you presently have visiting nurse or other home services: No Patient Tobacco Use Status: Current someday Tobacco user Tobacco use type: Cigarette Cigarette Packs Per Day: 0.05 Cigarettes Per Day: 1 Years Smoked: 25 e-Cigarette/Vaping Use: Never Used Second Hand Smoke Exposure: No service: No Current occupational status: disabled Current occupational exposures/hazards: No Cognitive needs: No Hearing needs: No Vision needs: No Questionnaire PHQ-9 Over the last 2 weeks, how often have you been bothered by any of the following problems? 1. Little interest or pleasure in doing things: several days 2. Feeling down, depressed, or hopeless: not at all 3. Trouble falling or staying asleep, or sleeping too much: nearly every day 4. Feeling tired or having little energy: not at all 5. Poor appetite or overeating: not at all 6. Feeling bad about yourself - or that you are a failure or have let yourself or your family down: not at all 7. Trouble concentrating on things, such as reading the newspaper or watching television: several days 8. Moving or speaking so slowly that other people could have noticed. Or the opposite - being so fidgety or restless that you have been moving around a lot more than usual: not at all 9. Thoughts that you would be better off or of hurting yourself in some way: not at all Total score: 5 Depression Screening Interpretation: Positive Depression Screening Done: Yes 80815 - PHQ-9 Billing: Yes Source: Developed by Drs. Isma Erickson, Joyce Phillips, Roger Davis and colleagues, with an educational jana from [employer]. Thrive Questionnaire Date Thrive assessed: 03/03/23 I am a: Patient What is your living situation today?: I have a steady place to live Within the past 12 months, did the food you bought not last and you didn't have the money to get more?: Sometimes True Within the past 12 months, did you worry whether your food would run out before you got money to buy more?: Sometimes True Do you have trouble paying for medicines?: No Do you have trouble getting transportation to medical appointments?: No Do you have trouble paying your heating and electricity bill?: No Do you have trouble taking care of your child, family member or friend?: No Do you have trouble with day-to-day activities such as bathing, preparing meals, shopping, managing finances, etc.?: No Are you currently unemployed and looking for a job?: No Are you interested in more education?: No Please select the resources that you would like help with: None Currently or been in a relationship where the following occur: no concerns reported AUDIT C Alcohol Use Questionnaire (AUDIT-C) 1. How often do you have a drink containing alcohol?: Never 3. How often do you have six or more drinks on one occasion?: Never Total Score: 0 ZURI-7 AMB Questionnaire ZURI-7 Date ZURI - 7 assessed: 03/03/23 Feeling nervous, anxious, or on edge: 0 = Not at all Not being able to stop or control worryin = Not at all Worrying too much about different things: 0 = Not at all Trouble relaxin = Several days Being so restless that it is hard to sit still: 0 = Not at all Becoming easily annoyed or irritable: 0 = Not at all Feeling afraid as if something awful might happen: 0 = Not at all Total ZURI-7 score (0-4 normal; 5-9 mild; 10-14 moderate; 15-21 severe): 1 Source: Developed by Drs. Isma Erickson, Joyce Phillips, Roger Davis and colleagues, with an educational jana from [employer]. ZURI-7 Assessment Billing ZURI-7 Assessment Tool: ZURI-7 Assessment 78615 ACT Questionnaire In the past 4 weeks, how much of the time did your asthma keep you from getting as much done at work, school or at home?: None of the time During the past 4 weeks, how often have you had shortness of breath?: 1-2 times a week During the past 4 weeks, how often did your asthma symptoms wake you up at night or earlier than usual in the morning?: Once or twice per week During the past 4 weeks, how often have you had to use your rescue inhaler or nebulizer medication?: Once a week or less How would you rate your asthma control during the past 4 weeks?: Well controlled ACT Interpretation: Positive Score: 21 Review of Systems Const Details: Denies chills, Denies fatigue, Denies fever(s), Denies headache(s) and Denies weakness HEENT Denies change in vision, Denies dizziness, Denies headache(s), Denies hearing loss, Denies nasal congestion, Denies sinus pain, Denies sinus pressure and Denies sore throat Card Denies chest pain, Denies lightheadedness, Denies dyspnea and Denies other (palpitations) Resp Denies cough, Denies dyspnea and Denies wheezing GI Denies abdominal pain, Denies melena, Denies hematochezia, Denies change in bowel habits, Denies dyspepsia and Denies nausea Denies hematuria and Denies dysuria Musc Denies abnormal gait, Denies myalgias, Denies arthralgias, Denies numbness and Denies tingling Skin/Breast Denies rash, Denies unusual bruising and Denies wounds Neuro Denies abnormal gait, Denies dizziness, Denies headache(s), Denies memory loss, Denies numbness, Denies Sensory deficit (Neuro), Denies tingling and Denies weakness Psych Denies anxiety, Denies depression and Denies memory loss Endo Denies cold intolerance, Denies fatigue, Denies heat intolerance, Denies polydipsia and Denies polyuria Aaron/Lymph Denies easy bleeding and Denies easy bruising Aller/Immun Denies wheezing Physical exam (Primary Care) Vital Signs: Last Vital Signs Temp 97.6 F 03/03/23 09:28 Pulse 91 03/03/23 09:28 Resp 13 03/03/23 09:28 BP 134/86 03/03/23 09:28 Pulse Ox 96 03/03/23 09:28 BMI result Body Mass Index 28.2 Tobacco/Smoking Status: Tobacco use Status Tobacco use date assessed 03/03/23 03/03/23 09:39 Patient Tobacco Use Status Current someday Tobacco 03/03/23 09:39 Tobacco use type Cigarette 03/03/23 09:39 e-Cigarette/Vaping Use Never Used 03/03/23 09:39 PHQ-9: PHQ-9 Score PHQ-9: Total score 5 03/03/23 09:39 Depression Screening Interpretation: Positive Thrive Assessment: Date of Thrive Assessment Date Thrive assessed 03/03/23 03/03/23 09:39 Currently or been in a relationship where the following occur: no concerns reported Const Other: General: no acute distress, well developed, alert and awake Nutritional Appearance: well nourished Orientation/consciousness: patient oriented x3 HENMT Head: Yes normocephalic and Yes atraumatic Ears: hearing grossly normal bilaterally and TM's normal bilaterally General nose exam: Normal external nose present and Normal nares present Mouth: Normal oral and palatal mucosa present and moist mucous membranes Teeth and gingiva: Several missing teeth, only 5 lower frontal molar present Throat: Yes oropharynx normal Eyes Pupils: Equal, round and reactive pupils present and Pupil accommodation reflex normal EOM: EOMs intact bilaterally Neck Neck: Yes normal visual inspection, Yes no lymphadenopathy and Yes trachea midline Thyroid: Thyroid normal Carotids: no bruits Lymphatic: no lymphadenopathy noted Chest Chest palpation & inspection: normal inspection of the chest Resp Effort & Inspection: normal respiratory effort Auscultation: clear to auscultation bilaterally Cardio Rate: regular rate Rhythm: regular rhythm Heart sounds: S1 normal heart sound present, S2 normal heart sound present, no gallops, no murmurs and no rubs Bruits: no abdominal aortic bruits and no carotid bruits GI Palpation (GI): No Abdominal aortic bruit present, Soft to palpation, nontender, No hepatosplenomegaly present and No Rebound tenderness present Auscultation: normal bowel sounds General: Yes no CVA tenderness Back/Spine/Pelvis Back: no CVA tenderness Cervical Spine: cervical ROM normal and No Cervical spine tenderness Thoracic/Lumbar Spine: thoraco-lumbar ROM normal, No pain with thoraco-lumbar ROM, No thoracic spinal tenderness and No lumbar spinal tenderness Skin General: warm and dry. Normal skin color. Normal skin turgor Lesions: no lesions Rashes: no rashes Trauma: no lacerations or abrasions Wounds: no wounds Nails: normal Neuro General: patient oriented x3, gait normal and CN's II-XI intact bilaterally Cranial nerves: Yes Equal, round and reactive pupils present Cognition (Neuro): normal cognition Gait exam (Neuro): Normal gait present Motor exam (neuro): 5/5 motor strength present throughout Sensory Exam: No Sensory deficit (Neuro) Deep tendon reflexes (DTR's): Right patellar reflex intensity grade: 2+ and Left patellar reflex intensity grade: 2+ Extrem General: Yes normal to inspection, No edema and No calf tenderness Psych Appearance: grossly normal Affect: normal affect Attitude: cooperative Thought process: Normal thought process present Assessment and Plan Assessment & Plan (1) Normal physical exam, routine: Code(s): Z00.00 - Encounter for general adult medical examination without abnormal findings Plan: No significant physical restrictions or limitations noted Continue current treatment regimen Healthy diet and routine exercise encouraged She is down to 1 cigarettes daily. Smoking cessation encouraged Follow-up with Cardiology, Ophthalmology, and dental as planned Return in 6 weeks for diabetes or sooner with symptoms or concerns Verbalized understanding and agreed with treatment plan (2) HTN (hypertension): Code(s): I10 - Essential (primary) hypertension Qualifiers: Hypertension type: primary hypertension Qualified Code(s): I10 - Essential (primary) hypertension Plan: Resting blood pressure is 130/70, slightly above goal of less than 130/80 Continue to take Entresto and carvedilol as prescribed Low-sodium diet and routine exercise encouraged Follow-up with cardiology as planned Will continue to monitor Follow-up with PCP in 1 month Verbalized understanding and agreed with treatment plan Medications: Changed From aspirin 81 mg PO DAILY 1 month 30 tabs 5RF To aspirin 81 mg PO DAILY 90 days 90 tabs 1RF Coding Level of Care Code Est Pt Prev Care 40-64y(51175) Diagnoses Normal physical exam, routine Z00.00 Primary hypertension I10 Hypertension type: primary hypertension Additional Codes ZURI-7 Assessment Billing - ZURI-7 Assessment Tool: ZURI-7 Assessment [id number] ([id number])
[2023-03-03 09:28] VITALS: BP 134/86; PULSE 91; RESP 13; TEMP 36.4; O2SAT 96; BMI 28.2
[2023-03-03 10:02] VITALS: BP 130/70
== END 2023-03-03 10:13 | disposition home or self-care (01) ==
PROVIDERS: PCP Nurse Practitioner Family; Visit Provider Nurse Practitioner Family
DX: Z00.00 Encounter for general adult medical examination without abnormal findings (principal); I10 Essential (primary) hypertension
CPT/HCPCS: 99396

== ENCOUNTER 2023-04-20 10:46 | Outpatient (AMB) | payer OTHER, SELFPAY ==
[2023-02-27 11:18] VITALS: BP 104/78; BP 136/88; BP 138/72; BMI 29.1
[2023-04-20 11:01] VITALS: BP 126/80; PULSE 84; RESP 13; TEMP 36.2; O2SAT 98; BMI 27.3
--- NOTE | 2023-04-20 11:01 | A.OFFPC_ITS ---
Vital Signs 04/20/23 11:01 04/20/23 11:18 Height 5 ft 7 in Weight 174 lb 6 oz BMI 27.3 BP 126/80 110/78 Blood Pressure Location Rt brachial Rt brachial Position Sitting Sitting Respiration 13 Pulse 84 Pulse Source Pulse Oximeter Temp 97.1 F Temp Source Temporal Artery Scan Pulse Oximetry (%) 98 Oxygen Delivery Method Room Air Intake Visit Reasons: DM, HTN [employer] Professional Required: No Accompanied by: Self / Same As Patient Allergies Seasonal Allergies Allergy (Mild, Verified 04/20/23 11:12) congestion Medication List - Last Reconciled 04/20/23 by Pepito Cardoza CNP acetaminophen ER 1,300 mg (2 x 650 mg) PO Q12H PRN 30 days albuterol sulfate 2.5 mg (3 mL) inhalation Q4H PRN albuterol sulfate 90 mcg/actuation 2 inhalations inhalation Q4H PRN 1 month alcohol swabs (Alcohol Wipes) 1 pad topical TID PRN 1 month aspirin 81 mg PO DAILY 90 days atorvastatin 80 mg PO DAILY azelastine intranasal blood sugar diagnostic (Revolucionadolabsuch Ultra Test strips) bs checks 3 times per day blood-glucose meter (Revolucionadolabsuch Ultra2 Meter) POC testing TID blood-glucose meter Test 3 times daily carvedilol 12.5 mg PO BID cholecalciferol (vitamin D3) 50 mcg PO QAM 90 days dulaglutide 0.75 mg (0.5 mL) subcut QWEEK 3 months ezetimibe 10 mg PO DAILY 90 days glipizide 10 mg PO BID 3 months lancets ([employer] CRETouch Delica Plus Lancet) USE TO TEST THREE TIMES DAILY loratadine 10 mg PO QAM montelukast 10 mg PO QAM omeprazole 20 mg PO DAILY sacubitril-valsartan 24-26 mg (Entresto) 1 tab PO BID Shower Chair As directed tiotropium bromide (Spiriva with HandiHaler) 1 cap inhalation DAILY 1 month Tobacco use date assessed: 03/03/23 Dental Screening Dental Screen Date: 04/20/23 Did you have a dental visit in the last 12 months?: Yes Did you have a dental problem in the last 6 months where you did not have access to dental care?: No Was dental information given to patient?: Patient has dentist HPI HPI Comments History of Present Illness Details 62-year-old female presents for diabetes and hypertension follow-up She admits to taking her medications as prescribed without adverse reactions She admits to making lifestyle changes including healthy diet and walking daily She reports chronic non productive cough. No associated symptoms. She notes that she has not smoked cigarette in the past 4 days and intends to quit smoking She has not done the chest xray that was ordered in December,. She has a LDCT scheduled in May 2023 [facility] Medical History CAD (coronary artery disease) Diabetes HTN (hypertension) Asthma Surgical History Stented coronary artery Hx of colonoscopy Hx of rotator cuff surgery History of tubal ligation Family History Mother Hypertension Father No problems noted. Social History Housing: Apartment Housing Other:: Patient is currently living with daughter Are you a primary resident care aid to a significant other at home: No Do you presently have visiting nurse or other home services: No Patient Tobacco Use Status: Current someday Tobacco user Tobacco use type: Cigarette Cigarette Packs Per Day: 0.05 Cigarettes Per Day: 1 Years Smoked: 25 e-Cigarette/Vaping Use: Never Used Second Hand Smoke Exposure: No service: No Current occupational status: disabled Current occupational exposures/hazards: No Cognitive needs: No Hearing needs: No Vision needs: No Questionnaire Thrive Questionnaire Date Thrive assessed: 03/03/23 ZURI-7 AMB Questionnaire ZURI-7 Date ZURI - 7 assessed: 03/03/23 Source: Developed by Drs. Isma Erickson, Joyce Phillips, Roger Davis and colleagues, with an educational jana from [employer]. Review of Systems Const Details: Const Denies chills, Denies fatigue, Denies fever(s), Denies headache(s) and Denies weakness ENT Denies dizziness and Denies headache(s) Card Denies chest pain, Denies lightheadedness, Denies dyspnea and Denies other (Palpitations) Resp Reports cough, Denies dyspnea, Denies wheezing and Denies other ( shortness of breath) GI Denies abdominal pain, Denies melena, Denies hematochezia, Denies change in bowel habits, Denies dyspepsia and Denies nausea Denies hematuria and Denies dysuria Musc Denies abnormal gait, Denies myalgias, Denies arthralgias, Denies numbness and Denies tingling Skin/Breast Denies rash, Denies unusual bruising and Denies wounds Neuro Denies abnormal gait, Denies dizziness, Denies headache(s), Denies memory loss, Denies numbness, Denies Sensory deficit (Neuro), Denies tingling and Denies weakness Psych Denies anxiety, Denies depression, Denies memory loss Endo Denies cold intolerance, Denies fatigue, Denies heat intolerance, Denies polydipsia and Denies polyuria Aller/Immun Denies wheezing Physical exam (Primary Care) Tobacco/Smoking Status: Tobacco use Status Tobacco use date assessed 03/03/23 03/03/23 09:39 Patient Tobacco Use Status Current someday Tobacco 03/03/23 09:39 Tobacco use type Cigarette 03/03/23 09:39 e-Cigarette/Vaping Use Never Used 03/03/23 09:39 Thrive Assessment: Date of Thrive Assessment Date Thrive assessed 03/03/23 03/03/23 09:39 Const Other: General: no acute distress and well developed Nutritional Appearance: well nourished Orientation/consciousness: patient oriented x3 HENMT Head: Yes normocephalic and Yes atraumatic Eyes General: appearance normal, both eyes and all related structures Pupils: Equal, round and reactive pupils present EOM: EOMs intact bilaterally Resp Effort & Inspection: normal respiratory effort Auscultation: clear to auscultation bilaterally Cardio Rate: regular rate Rhythm: regular rhythm Heart sounds: S1 normal heart sound present, S2 normal heart sound present, no gallops, no murmurs and no rubs GI Palpation (GI): No Abdominal aortic bruit present, Soft to palpation, nontender, No hepatosplenomegaly present and No Rebound tenderness present Auscultation: normal bowel sounds General: Yes no CVA tenderness Back/Spine/Pelvis Back: no CVA tenderness Cervical Spine: cervical ROM normal and No Cervical spine tenderness Thoracic/Lumbar Spine: thoraco-lumbar ROM normal, No pain with thoraco-lumbar ROM, No thoracic spinal tenderness and No lumbar spinal tenderness Extrem General: Yes normal to inspection, No edema and No calf tenderness Skin General: warm and dry. Normal skin color. Normal skin turgor Neuro General: patient oriented x3, gait normal and no focal neuro deficit Cranial nerves: Yes Equal, round and reactive pupils present Cognition (Neuro): normal cognition Gait exam (Neuro): Normal gait present Sensory Exam: No Sensory deficit (Neuro) Psych Appearance: grossly normal Affect: normal affect Attitude: cooperative Thought process: Normal thought process present Results AMB Hemoglobin A1c AMB Hemoglobin A1c 7.9 % Last Edit by Jordana Martinez MA on 04/20/23 11:17 Assessment and Plan Assessment & Plan (1) Diabetes type 2, controlled: Code(s): E11.9 - Type 2 diabetes mellitus without complications Plan: A1c today is 7.9%, above goal of less than 7.0%. Previous A1c was 6.8% Will increase Trulicity to 1.5 mg weekly. Take as prescribed Continue to take glipizide twice daily as prescribed ADA diet and routine exercise encouraged Recent LDL in January 2022 is 61, within goal of less than 70. Continue to take atorvastatin as prescribed Will recheck A1c in 3 months Verbalized understanding and agreed with treatment plan (2) HTN (hypertension): Code(s): I10 - Essential (primary) hypertension Qualifiers: Hypertension type: primary hypertension Qualified Code(s): I10 - Essential (primary) hypertension Plan: Resting blood pressure is 110/70, within goal of less than 130/80 Continue current treatment regimen Low-sodium diet and routine exercise encouraged Will continue to monitor Verbalized understanding and agreed with treatment plan (3) Chronic cough: Code(s): R05.3 - Chronic cough Plan: Reports chronic nonproductive cough especially at night She notes that she has not smoked cigarettes for the past 4 days and intends to quit smoking X-ray was ordered in December 2022, however, she has not gotten x-ray done Her symptoms her likely due to cigarette smoking or asthma Continue current asthma treatment She has a LDCT scheduled in May Encouraged to get chest x-ray done Follow-up in 1 month or return sooner with worsening or new symptoms Would referred to pulmonology based on x-ray results or if continued symptoms Verbalized understanding and agreed with treatment plan Orders: Orders AMB Hemoglobin A1c Today E11.9 - Type 2 diabetes mellitus without complications Medications: New dulaglutide (Trulicity) 1.5 mg (0.5 mL) subcut QWEEK 30 days 2.5 mL 3RF Discontinued dulaglutide Discontinued Reason: None 0.75 mg (0.5 mL) subcut QWEEK 3 months 6.5 mL 1RF E10.65 - Type 1 diabetes mellitus with hyperglycemia Coding Level of Care Code Est Pt Level 3 (42471) Diagnoses Diabetes type 2, controlled E11.9 Primary hypertension I10 Hypertension type: primary hypertension Chronic cough R05.3
[2023-04-20 11:18] VITALS: BP 110/78
== END 2023-04-20 11:27 | disposition home or self-care (01) ==
PROVIDERS: PCP Nurse Practitioner Family; Visit Provider Nurse Practitioner Family
DX: E11.9 Type 2 diabetes mellitus without complications (principal); I10 Essential (primary) hypertension; R05.3 Chronic cough
CPT/HCPCS: 83036; 99213

== ENCOUNTER 2023-04-27 09:39 | Outpatient (REF) | payer OTHER, SELFPAY ==
[2023-02-27 11:18] VITALS: BP 104/78; BP 136/88; BP 138/72; BMI 29.1
--- NOTE | ~2023-04-27 | XR_ITS ---
EXAMINATION: XR CHEST CLINICAL INFORMATION: Chronic cough. COMPARISON: None available. TECHNIQUE: 2 views of the chest were obtained. FINDINGS: The lungs are well inflated. Heart size is normal. There is no gross pneumothorax. No pleural effusion. Mild degenerative changes in the thoracic spine. Moderate left basilar opacities may represent atelectasis, although an inflammatory/infectious process should also be considered. XR/XR chest 2V IMPRESSION: Moderate left basilar opacities may represent atelectasis, although an inflammatory/infectious process should also be considered. Recommend follow-up imaging in 4-6 weeks to confirm resolution and exclude underlying pathology.
== END 2023-04-27 09:40 | disposition home or self-care (01) ==
LOC: HO.XRAY 09:39
DX: R05.3 Chronic cough (principal)
CPT/HCPCS: 71046

== ENCOUNTER 2023-05-26 11:51 | Outpatient (AMB) | payer OTHER, SELFPAY ==
[2023-05-16 07:58] VITALS: BP 104/78; BP 136/88; BP 138/72; BMI 29.1
--- NOTE | 2023-05-26 11:55 | A.OFFPC_ITS ---
Vital Signs 05/26/23 11:59 Height 5 ft 7 in Weight 179 lb 2 oz BMI 28.1 BP 112/68 Blood Pressure Location Lt brachial Position Sitting Pulse 71 Pulse Source Pulse Oximeter Temp 97.8 F Temp Source Oral Pulse Oximetry (%) 98 Oxygen Delivery Method Room Air Intake Visit Reasons: 1 mos cough Intake Note: Patient is here to follow up on cough, states she still has it, she is requesting medication for it. Patient would like refill of Azelastine nsal spray. Allergies Seasonal Allergies Allergy (Mild, Verified 05/26/23 12:52) congestion Medication List - Last Reconciled 05/26/23 by Pepito Cardoza CNP acetaminophen ER 1,300 mg (2 x 650 mg) PO Q12H PRN 30 days albuterol sulfate 2.5 mg (3 mL) inhalation Q4H PRN albuterol sulfate 90 mcg/actuation 2 inhalations inhalation Q4H PRN 1 month alcohol swabs (Alcohol Wipes) 1 pad topical TID PRN 1 month aspirin 81 mg PO DAILY 90 days atorvastatin 80 mg PO DAILY azelastine intranasal blood sugar diagnostic ([employer]uch Ultra Test strips) bs checks 3 times per day blood-glucose meter ([employer]uch Ultra2 Meter) POC testing TID blood-glucose meter Test 3 times daily carvedilol 12.5 mg PO BID cholecalciferol (vitamin D3) 50 mcg PO QAM 90 days dulaglutide (Trulicity) 1.5 mg (0.5 mL) subcut QWEEK 30 days ezetimibe 10 mg PO DAILY 90 days glipizide 10 mg PO BID 3 months lancets ([employer] Delica Plus Lancet) USE TO TEST THREE TIMES DAILY loratadine 10 mg PO QAM montelukast 10 mg PO QAM omeprazole 20 mg PO DAILY sacubitril-valsartan 24-26 mg (Entresto) 1 tab PO BID Shower Chair As directed tiotropium bromide (Spiriva with HandiHaler) 1 cap inhalation DAILY 1 month Tobacco use date assessed: 05/26/23 Dental Screening Dental Screen Date: 04/20/23 HPI HPI Comments History of Present Illness Details 62-year-old female presents for chronic cough follow-up She notes that the cough is predominantly non productive with occasional clear p hlegm. She has a break with no cough for one month and started coughing a week and half ago. No fever, chills, body aches, fatigue or weakness She admits to taking loratadine and montelukast and using a asthma inhalers as prescribed She reduced cigarette smoking to 1 weekly She has a LDCT scheduled this Thursday She chest x-ray on 04/27/2023: XR/XR chest 2V IMPRESSION: Moderate left basilar opacities may represent atelectasis, although an inflammatory/infectious process should also be considered. Recommend follow-up imaging in 4-6 weeks to confirm resolution and exclude underlying pathology. [facility] Medical History CAD (coronary artery disease) Diabetes HTN (hypertension) Asthma Surgical History Stented coronary artery Hx of colonoscopy Hx of rotator cuff surgery History of tubal ligation Family History Mother Hypertension Father No problems noted. Social History Housing: Apartment Housing Other:: Patient is currently living with daughter Are you a primary rn progressive care unit to a significant other at home: No Do you presently have visiting nurse or other home services: No Patient Tobacco Use Status: Current someday Tobacco user Tobacco use type: Cigarette Cigarette Packs Per Day: 0.05 Cigarettes Per Day: 1 Years Smoked: 25 e-Cigarette/Vaping Use: Never Used Second Hand Smoke Exposure: No service: No Current occupational status: disabled Current occupational exposures/hazards: No Cognitive needs: No Hearing needs: No Vision needs: No Questionnaire Thrive Questionnaire Date Thrive assessed: 03/03/23 ZURI-7 AMB Questionnaire ZURI-7 Date ZURI - 7 assessed: 03/03/23 Source: Developed by Drs. Isma Erickson, Joyce Phillips, Roger Davis and colleagues, with an educational jana from [employer]. ACT Questionnaire In the past 4 weeks, how much of the time did your asthma keep you from getting as much done at work, school or at home?: None of the time During the past 4 weeks, how often have you had shortness of breath?: Not at all During the past 4 weeks, how often did your asthma symptoms wake you up at night or earlier than usual in the morning?: Not at all During the past 4 weeks, how often have you had to use your rescue inhaler or nebulizer medication?: Not at all How would you rate your asthma control during the past 4 weeks?: Well controlled ACT Interpretation: Positive Score: 24 Review of Systems Const Details: Const Denies chills, Denies fatigue, Denies fever(s), Denies headache(s) and Denies weakness ENT Reports as per HPI Card Denies chest pain, Denies lightheadedness, Denies dyspnea and Denies other (Palpitations) Resp Reports cough, Denies dyspnea, Denies wheezing and Denies other ( shortness of breath) GI Denies abdominal pain, Denies melena, Denies hematochezia, Denies change in bowel habits, Denies dyspepsia and Denies nausea Denies hematuria and Denies dysuria Musc Denies abnormal gait, Denies myalgias, Denies arthralgias, Denies numbness and Denies tingling Skin/Breast Denies rash, Denies unusual bruising and Denies wounds Neuro Denies abnormal gait, Denies dizziness, Denies headache(s), Denies memory loss, Denies numbness, Denies Sensory deficit (Neuro), Denies tingling and Denies weakness Psych Denies anxiety, Denies depression, Denies memory loss Endo Denies cold intolerance, Denies fatigue, Denies heat intolerance, Denies polydipsia and Denies polyuria Aller/Immun Denies wheezing Physical exam (Primary Care) Vital Signs: Last Vital Signs Temp 97.8 F 05/26/23 11:59 Pulse 71 05/26/23 11:59 BP 112/68 05/26/23 11:59 Pulse Ox 98 05/26/23 11:59 Oxygen Delivery Method Room Air 05/26/23 11:59 BMI result Body Mass Index 28.1 Tobacco/Smoking Status: Tobacco use Status Tobacco use date assessed 05/26/23 05/26/23 12:06 Patient Tobacco Use Status Current someday Tobacco 05/26/23 12:06 Tobacco use type Cigarette 05/26/23 12:06 e-Cigarette/Vaping Use Never Used 05/26/23 12:06 Thrive Assessment: Date of Thrive Assessment Date Thrive assessed 03/03/23 05/26/23 12:06 Const Other: General: no acute distress and well developed Nutritional Appearance: well nourished Orientation/consciousness: patient oriented x3 [facility] Head is normocephalic Bilateral ear canal and TM are normal Nasal turbinates and oropharynx are pink and moist Sinuses are nontender with palpation No auricular or cervical lymphadenopathy Eyes General: appearance normal, both eyes and all related structures Pupils: Equal, round and reactive pupils present EOM: EOMs intact bilaterally Resp Effort & Inspection: normal respiratory effort Auscultation: clear to auscultation bilaterally Cardio Rate: regular rate Rhythm: regular rhythm Heart sounds: S1 normal heart sound present, S2 normal heart sound present, no gallops, no murmurs and no rubs GI Palpation (GI): No Abdominal aortic bruit present, Soft to palpation, nontender, No hepatosplenomegaly present and No Rebound tenderness present Auscultation: normal bowel sounds General: Yes no CVA tenderness Back/Spine/Pelvis Back: no CVA tenderness Cervical Spine: cervical ROM normal and No Cervical spine tenderness Thoracic/Lumbar Spine: thoraco-lumbar ROM normal, No pain with thoraco-lumbar ROM, No thoracic spinal tenderness and No lumbar spinal tenderness Extrem General: Yes normal to inspection, No edema and No calf tenderness Skin General: warm and dry. Normal skin color. Normal skin turgor Neuro General: patient oriented x3, gait normal and no focal neuro deficit Cranial nerves: Yes Equal, round and reactive pupils present Cognition (Neuro): normal cognition Gait exam (Neuro): Normal gait present Sensory Exam: No Sensory deficit (Neuro) Psych Appearance: grossly normal Affect: normal affect Attitude: cooperative Thought process: Normal thought process present Assessment and Plan Assessment & Plan (1) Chronic cough: Code(s): R05.3 - Chronic cough Plan: Intermittent acute on chronic cough. Recent episode started a week and a half ago Asthma is well controlled, ACT score is 24 She reduce smoking to 1 cigarette weekly Her symptoms may be attributed to allergies or cigarette smoking. Smoking ce ssation encouraged Continue current treatment regimen Referred to pulmonology Follow-up in 2 months for diabetes and hypertension or return sooner with worsening or new symptoms Verbalized understanding and agreed with treatment plan Orders: Referrals Pulmonology Referral R05.3 - Chronic cough Coding Level of Care Code Est Pt Level 4 (32131) Diagnoses Chronic cough R05.3
[2023-05-26 11:59] VITALS: BP 112/68; PULSE 71; TEMP 36.6; O2SAT 98; BMI 28.1
== END 2023-05-26 13:17 | disposition home or self-care (01) ==
PROVIDERS: PCP Nurse Practitioner Family; Visit Provider Nurse Practitioner Family
DX: R05.3 Chronic cough (principal)
CPT/HCPCS: 99214

== ENCOUNTER 2023-05-29 09:08 | Outpatient (AMB) | payer OTHER, SELFPAY ==
[2023-05-16 07:58] VITALS: BP 104/78; BP 136/88; BP 138/72; BMI 29.1
--- NOTE | 2023-05-29 08:18 | MHC.OFFVIS ---
Intake Intake Visit Reasons: Current Smoker Allergies Seasonal Allergies Allergy (Mild, Verified 05/26/23 12:52) congestion HPI Current Smoker HPI Details Initial visit for this 62yo smoker with a 40+PYH. Patient has been smoking since age 10 for 52 years at 1ppd. She is now down to 1-2 cigarettes every few days. . Denies marijuana use. Denies second hand smoke exposure. Denies exposure to chemicals or substances like asbestos. . Denies known family history of lung cancer. Denies personal history of cancers. Denies chest CT in last year. . Denies recent travel outside the [place]. Denies recent respiratory illness or recent hospitalization for respiratory issues. Denies testing positive for COVID. Admits receiving COVID Vaccine. . She does report several months of smokers cough - mainly dry - sometimes white sputum. Denies fever, chills, hemoptysis, hoarseness or dysphagia. Denies significant chest pain, significant dyspnea or unintentional weight loss. Patient Lung Cancer Screening Questionnaire reviewed with patient by provider. . Shared Decision Making Completed. Patient meets criteria. Discussed in detail with patient, the risk vs benefit of LDCT screening. Patient consents to proceed with scan. Discussed smoking cessation. [facility] Medical History (Updated 05/29/23 @ 10:02 by Francy Murry PA-C) CAD (coronary artery disease) Stented coronary artery HTN (hypertension) Diabetes Asthma Nicotine dependence, cigarettes, uncomplicated Surgical History (Updated 05/29/23 @ 10:02 by Francy Murry PA-C) History of heart artery stent History of repair of right rotator cuff History of tubal ligation Hx of colonoscopy Family History Mother Hypertension Father No problems noted. Social History (Updated 05/29/23 @ 10:01 by Francy Murry PA-C) Housing: Apartment Housing Other:: Patient is currently living with daughter Are you a primary resident care technician to a significant other at home: No Do you presently have visiting nurse or other home services: No Patient Tobacco Use Status: Current someday Tobacco user Tobacco use type: Cigarette Cigarette Packs Per Day: 0.05 Cigarettes Per Day: 1 Years Smoked: onset 10yo, 1ppd x 52yrs, now 1-2 cig/wk - 40+PYH e-Cigarette/Vaping Use: Never Used Second Hand Smoke Exposure: No service: No Current occupational status: disabled Current occupational exposures/hazards: No Cognitive needs: No Hearing needs: No Vision needs: No Assessment & Plan Assessment & Plan (1) Nicotine dependence, cigarettes, uncomplicated: Comment: (current smoker, onset 10yo, 1ppd x 52yrs, now 1-2 cig/wk - 40+PYH) Code(s): F17.210 - Nicotine dependence, cigarettes, uncomplicated Plan: - SDM visit completed today in office. - Patient meets criteria for LDCT for lung cancer screening purposes and is asymptomatic. - Smoking cessation counseling offered. Patients can always call [phone]. - Will arrange for a LDCT scan of the chest for screening purposes at [facility]. - Risks, benefits, and alternatives were discussed in detail and the patient agrees to proceed. - Risks discussed include but are not limited to: radiation exposure, anxiety during testing and while awaiting results, false negatives, false positives and possibility of additional intervention such as further imaging or surgical procedures for benign disease. - Benefits are obviously detection of lung cancer at an early stage which can lead to improved outcomes. - Discussed the importance of screening program compliance with adherence to yearly LDCT scan as scheduled - or sooner interval scans for personalized screening regimen. - Discussed follow up plan. Our office will send a letter discussing results and if needed set up phone call and office visit based on CT findings. - Patient educated on results categorization and the management decisions for suspicious findings potentially found on the screening LDCT scan. Any patient with a Lung RADS score of 3 or 4 will be reviewed by a multidisciplinary team at [facility] to form a plan of action in regards to scan findings. - If further work up is warranted for a suspicious lung finding this will be followed by the Lung Cancer Screening program in conjunction with the Thoracic Surgery Department at [facility]. - A copy of the office note and LDCT will be sent to the patient's PCP - as well as documentation on any associated further plans of care. - Incidental findings on LDCT are the PCP's responsibility. These findings are indicated with an S finding on the LDCT Assessment. A note discussing the findings will be sent to the PCP who is then responsible for further management. - All questions answered.? Coding Level of Care Code Lung Cancer Screening G0296 Diagnoses Nicotine dependence, cigarettes, uncomplicated F17.210
== END 2023-05-29 09:45 | disposition home or self-care (01) ==
PROVIDERS: Visit Provider Physician Assistant Medical
DX: F17.210 Nicotine dependence, cigarettes, uncomplicated (principal)
CPT/HCPCS: G0296

== ENCOUNTER 2023-05-29 09:47 | Outpatient (REF) | payer OTHER, SELFPAY ==
[2023-05-16 07:58] VITALS: BP 104/78; BP 136/88; BP 138/72; BMI 29.1
--- NOTE | ~2023-05-29 | CT_ITS ---
EXAMINATION: CT CHEST SCREENING CLINICAL INFORMATION: Nicotine dependence, cigarettes, uncomplicated. The patient is a current smoker with a 50 pack-year history of smoking. COMPARISON: None available. TECHNIQUE: Multidetector volumetric CT imaging of the chest is performed without contrast using low dose technique. Additional 2D coronal and sagittal reformatted images and axial 3D maximum intensity projection (MIP) images are generated on the CT workstation. This CT examination was performed using dose optimization techniques as appropriate, variously including the following: *Automated exposure control. *Adjustment of mA and/or kV according to patient size (this includes techniques or standardized protocols for targeted exams where dose is matched to indication/reason for exam; i.e. extremities or head). *Use of iterative reconstruction technique. DLP: 48 mGy-cm FINDINGS: LUNGS: Emphysematous changes are present along with mild bronchial thickening. No suspicious pulmonary nodules are seen. MEDIASTINUM: The mediastinum is normal. CORONARY ARTERY CALCIFICATION: Extensive. PLEURA: There is no pleural effusion. No pleural mass or thickening. AXILLA: No lymphadenopathy. UPPER ABDOMEN: There is an ill-defined approximately 3 cm area in the left suprarenal region which could be a mass but areas measure fat density. Even if this was a mass, this would be a benign myelolipoma. A diagnostic CT scan of the abdomen would be necessary for further evaluation, if clinically indicated. OSSEOUS STRUCTURES: Unremarkable. CT/CT lung screening IMPRESSION: No findings suspicious for malignancy. There is emphysema and mild bronchial thickening. Please see discussion above regarding question of a left adrenal mass. ASSESSMENT: Lung-RADS category 1: Negative. RECOMMENDATION: Routine annual low-dose CT screening in 12 months.
== END 2023-05-29 09:48 | disposition home or self-care (01) ==
LOC: HO.CT 09:47
PROVIDERS: PCP Nurse Practitioner Family; Visit Provider Nurse Practitioner Family
DX: Z12.2 Encounter for screening for malignant neoplasm of respiratory organs (principal); F17.210 Nicotine dependence, cigarettes, uncomplicated
CPT/HCPCS: 71271; G0296

== ENCOUNTER 2023-06-02 14:14 | Outpatient (AMB) | payer OTHER, SELFPAY ==
[2023-05-16 07:58] VITALS: BP 104/78; BP 136/88; BP 138/72; BMI 29.1
--- NOTE | 2023-06-02 14:21 | A.OFFVIS_ITS ---
Intake Vital Signs 06/02/23 14:22 Height 5 ft 7 in Weight 180 lb BMI 28.2 BP 140/78 H Blood Pressure Location Rt brachial Position Sitting Pulse 83 Pulse Source Pulse Oximeter Pulse Oximetry (%) 100 Oxygen Delivery Method Room Air Intake Visit Reasons: Chronic cough Security Officer Required: No Care Consultant: Care Consultant offered & declined Accompanied by: Self / Same As Patient Allergies Seasonal Allergies Allergy (Mild, Verified 06/02/23 14:26) congestion Medication List - Last Reconciled 06/02/23 by Idania Espinosa LPN acetaminophen ER 1,300 mg (2 x 650 mg) PO Q12H PRN 30 days albuterol sulfate 2.5 mg (3 mL) inhalation Q4H PRN albuterol sulfate 90 mcg/actuation 2 inhalations inhalation Q4H PRN 1 month alcohol swabs (Alcohol Wipes) 1 pad topical TID PRN 1 month aspirin 81 mg PO DAILY 90 days atorvastatin 80 mg PO DAILY azelastine intranasal blood sugar diagnostic ([facility] Ultra Test strips) bs checks 3 times per day blood-glucose meter ([facility] Ultra2 Meter) POC testing TID blood-glucose meter Test 3 times daily carvedilol 12.5 mg PO BID cholecalciferol (vitamin D3) 50 mcg PO QAM 90 days dulaglutide (Trulicity) 1.5 mg (0.5 mL) subcut QWEEK 30 days ezetimibe 10 mg PO DAILY 90 days glipizide 10 mg PO BID 3 months lancets ([employer] Delica Plus Lancet) USE TO TEST THREE TIMES DAILY loratadine 10 mg PO QAM montelukast 10 mg PO QAM omeprazole 20 mg PO DAILY sacubitril-valsartan 24-26 mg (Entresto) 1 tab PO BID Shower Chair As directed tiotropium bromide (Spiriva with HandiHaler) 1 cap inhalation DAILY 1 month HPI Chronic cough HPI Details Wilfrido is a pleasant 62-year-old female, current minimal smoker with 40+ pack year history, with underlying asthma, RI 2021 s/p stents x 2, HTN, DMII. She was referred by PCP for pulmonary evaluation for chronic cough. She is suboptimally controlled on Spiriva, Singulair and albuterol MDI/nebulizer. She reports over the last year and a half she has had worsening symptoms of wheezing, dyspnea on exertion and productive cough with clear sputum. She denies any chest tightness. She denies any hospitalizations, or recent antibiotic/prednisone use. She reports GERD symptoms are controlled with omep razole. She reports seasonal allergies, no recent allergy test. She denies any pertinent family history. She denies any occupational exposures. [facility] Medical History (Updated 06/02/23 @ 15:08 by Vielka Littlejohn NP) CAD (coronary artery disease) Stented coronary artery HTN (hypertension) Diabetes Asthma Nicotine dependence, cigarettes, uncomplicated Surgical History (Updated 05/29/23 @ 10:02 by Francy Murry PA-C) History of heart artery stent History of repair of right rotator cuff History of tubal ligation Hx of colonoscopy Family History Mother Hypertension Father No problems noted. Social History (Updated 06/02/23 @ 14:29 by Idania Espinosa LPN) Housing: Apartment Housing Other:: Patient is currently living with daughter Are you a primary personal care aide to a significant other at home: No Do you presently have visiting nurse or other home services: No Patient Tobacco Use Status: Current someday Tobacco user Tobacco use type: Cigarette Cigarettes Per Day: 1 Years Smoked: onset 10yo, 1ppd x 52yrs, now 1-2 cig/wk - 40+PYH e-Cigarette/Vaping Use: Never Used Second Hand Smoke Exposure: No service: No Current occupational status: disabled Current occupational exposures/hazards: No Cognitive needs: No Hearing needs: No Vision needs: No Review of Systems Const Denies chills, Denies excessive sweating, Denies fever(s), Denies headache(s) and Denies night sweats Eyes Denies dry eyes, Denies irritation and Denies itchy eyes ENT Reports Normal hearing present, Denies headache(s), Denies nasal congestion, Denies nasal discharge, Denies post nasal drip and Denies sore throat Card Denies chest pain, Denies chest pain at rest, Denies chest pain with activity, Denies claudication, Denies leg edema, Denies orthopnea and Denies paroxysmal nocturnal dyspnea Resp Denies chest congestion, Denies excessive phlegm production, Denies pain on inspiration, Denies pain with cough and Denies stridor Musc Denies myalgias Neuro Reports Normal hearing present and Denies headache(s) Endo Denies excessive sweating Aaron/Lymph Denies lymphadenopathy Aller/Immun Denies itchy eyes and Denies seasonal rhinorrhea Physical Exam Vital Signs: Last Vital Signs Pulse 83 06/02/23 14:22 BP 140/78 H 06/02/23 14:22 Pulse Ox 100 06/02/23 14:22 Oxygen Delivery Method Room Air 06/02/23 14:22 BMI result Body Mass Index 28.2 Const General: cooperative, healthy appearing, comfortable, no acute distress, well developed and alert Orientation/consciousness: patient oriented x3 Limitations: no limitations HEENT Head: Yes normal to inspection, Yes normocephalic and Yes atraumatic Ears: hearing grossly normal bilaterally and external ears normal Eyes General: appearance normal, both eyes and all related structures Eyelids: Yes eyelids normal Sclerae: sclerae normal EOM: EOMs intact bilaterally Neck Neck: Yes normal visual inspection and Yes no lymphadenopathy Lymphatic: no lymphadenopathy noted Chest Chest palpation & inspection: normal inspection of the chest Resp Other: Moderate wheezing throughout, improved with DuoNeb. Effort & Inspection: normal respiratory effort, able to speak in complete sentences, no audible wheezes, no stridor, not tachypneic, no tripod positioning and no use of accessory muscles Cardio Jugular venous distension: no JVD Rate: regular rate Rhythm: regular rhythm Skin Other: warm, dry General skin exam: no rashes or lesions noted Neuro General: patient oriented x3 Cranial nerves: Yes Normal hearing present Cognition (Neuro): normal cognition Gait exam (Neuro): Normal gait present Extrem General: Yes normal to inspection, Yes capillary refill normal, Yes no clubbing, cyanosis or edema and Yes no pedal edema Psych Appearance: grossly normal and well kempt Speech and movement: Normal speech and movement present and Clear speech present Affect: normal affect Attitude: cooperative Thought process: Normal thought process present Thought content: Normal thought content present Insight: Good insight present (Psych) Judgement: Good judgement present (Psych) Office Procedures Nebulizer Treatment Nebulizer Treatment 00019-[id number]/MDI RX initial, or Nebulizer Subsequent Treatment Office Meds ipratropium 0.5 mg-albuterol 3 mg (2.5 mg base)/3 mL nebulization soln Performing Provider: Vielka Stucenski, TOWER CLEANER Performing Location: [facility] Administered by: Idania Espinosa LPN on 06/02/23 14:57 Dose Route Admin Location Dispensed Lot Number Expiration Date ND 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 Compliance of therapy also seems to be an issue. Will change Spiriva to Trelegy, and refill albuterol. On exam patient with expiratory wheezes throughout, which improved with DuoNeb, will send in prescription for prednisone. Will send for PFT and RAST. Patient recently had chest CT through lung cancer screening program, report not available at this time. All questions were answered and patient is in agreement of plan. Will follow-up to review response to inhaler as well as results. Orders: Orders Resp Allergy Profile Region I Today J30.89 - Other allergic rhinitis Immunoglobulin E Today J30.89 - Other allergic rhinitis PFT pulmonary function test 06/02/23 J45.909 - Unspecified asthma, uncomplicated AMB Nebulizer Treatment 06/02/23 J45.20 - Mild intermittent asthma, uncomplicated Complete Blood Count Auto Diff Today J45.20 - Mild intermittent asthma, uncomplicated Medications: New mfqwxakhzrn-wjxxaqnfy-kattemgq 200-62.5-25 mcg (Trelegy Ellipta) 1 inh inhalation DAILY 60 ea 6RF prednisone 20 mg PO BID 10 tabs 0RF Refilled albuterol sulfate 2.5 mg (3 mL) inhalation Q4H PRN 180 mL 2RF shortness of breath or wheezing J45.20 - Mild intermittent asthma, uncomplicated Coding Level of Care Code New Pt Level 4 (46788) Diagnoses Chronic cough R05.3 Asthma J45.909 Environmental and seasonal allergies J30.89 CPT Codes Nebulizer Treatment - Nebulizer Treatment, initial or subsequent: 15687- Nebulizer/MDI RX initial, or Nebulizer Subsequent Treatment ([id number])
[2023-06-02 14:22] VITALS: BP 140/78; PULSE 83; O2SAT 100; BMI 28.2
== END 2023-06-02 15:44 | disposition home or self-care (01) ==
PROVIDERS: PCP Nurse Practitioner Family; Visit Provider Nurse Practitioner Family
DX: R05.3 Chronic cough (principal); J45.909 Unspecified asthma, uncomplicated; J30.89 Other allergic rhinitis
CPT/HCPCS: 99204

== ENCOUNTER → 2023-06-02 14:14 | Outpatient (BNVA) | payer OTHER, SELFPAY ==
[2023-05-16 07:58] VITALS: BP 104/78; BP 136/88; BP 138/72; BMI 29.1
== END ==
PROVIDERS: PCP Nurse Practitioner Family; Visit Provider Nurse Practitioner Family
DX: J45.909 Unspecified asthma, uncomplicated (principal); J30.89 Other allergic rhinitis; R05.3 Chronic cough
CPT/HCPCS: 94640; 99202

== ENCOUNTER 2023-06-03 09:49 | Outpatient (REF) | payer OTHER, SELFPAY ==
[2023-05-16 07:58] VITALS: BP 104/78; BP 136/88; BP 138/72; BMI 29.1
[2023-06-03 10:03] LABS: MANUAL DIFF FLAG NO
[2023-06-03 10:54] LABS: Basophils Percent Auto 0.2 % (0-2); Hematocrit 40.5 % (37.0-47.0); Hemoglobin 13.1 g/dl (12.0-16.0); Imm Gran Abs Auto 0.02 X10*3/uL (0.00-0.03); Imm Gran Pct Auto 0.3 % (0.0-0.4); Lymphocytes Absolute Auto 1.8 X10*3/uL (1.2-4.9); Lymphocytes Percent Auto 27.4 % (20-40); Mean Corpuscular HGB Conc 32.3 g/dl (31.0-35.0); Mean Corpuscular Hemoglobin 27.3 pg (27.0-33.0); Mean Corpuscular Volume 84.4 fL (80.0-98.0); Mean Platelet Volume 11.1 fL (9.4-12.3); Monocytes Absolute Auto 0.3 X10*3/uL (0.1-1.2); Monocytes Percent Auto 4.5 % (2-11); Neutrophils Absolute Auto 4.5 x10*3/uL (2.0-8.3); Neutrophils Percent Auto 67.6 % (45-73); Platelet Count 212 X10*3/uL (160-400); Red Cell Distribution Width 15.1 % (11.0-16.0); White Blood Count 6.6 X10*3/uL (4.8-10.8)
[2023-06-04 22:57] LABS: Class Alternaria alternata 0; Class Aspergillus fumigatus 0; Class Bermuda Grass 0; Class Birch 0/1; Class Cat Dander 0; Class Cladosporium herbarum 0; Class Cockroach 0; Class Common Ragweed 2; Class Cottonwood 0; Class Derm. pterony 0; Class Dermatophagoides farinae 0; Class Dog Dander 0; Class Elm 0; Class Maple Box Elder 0; Class Mountain Cedar 0; Class Mouse Urine Protein 0; Class Mugwort 1; Class Oak 0/1; Class Penicillium crysogenum 0; Class Rough Pigweed 0; Class Sheep Sorrel 0; Class Sycamore 0; Class Timothy Grass 0; Class Walnut Tree 0; Class White Ash 0; Class White Mulberry 0; D001 IgE D pteronyssinus <0.10 kU/L; D002 - IgE D farinae <0.10 kU/L; E001 - IgE Cat Dander <0.10 kU/L; E005 - IgE Dog Dander <0.10 kU/L; E072-IgE Mouse Urine <0.10 kU/L; G002 IgE Bermuda Grass <0.10 kU/L; G006 - IgE Timothy Grass <0.10 kU/L; I006-IgE Cockroach, German <0.10 kU/L; Immunoglobulin E 151 kU/L (<OR=114); M001 IgE Penicillium chrysogen <0.10 kU/L; M002 - IgE Cladosporium herbar <0.10 kU/L; M003 - IgE Aspergillus fumigat <0.10 kU/L; M006 - IgE Alternaria alternat <0.10 kU/L; T001 IgE Maple/Box Elder <0.10 kU/L; T003 IgE Common Silver Birch 0.14 kU/L; T006 - IgE Cedar, Mountain <0.10 kU/L; T007 - IgE Oak, White 0.24 kU/L; T008 IgE Elm, American <0.10 kU/L; T010 - IgE Walnut <0.10 kU/L; T011 - IgE Maple Leaf Sycamore <0.10 kU/L; T014 - IgE Cottonwood <0.10 kU/L; T015 - IgE Ash, White <0.10 kU/L; T070 - IgE White Mulberry <0.10 kU/L; W001 - IgE Ragweed, Short 1.56 kU/L; W006 - IgE Mugwort 0.66 kU/L; W014 IgE Pigweed, Common <0.10 kU/L; W018 IgE Sheep Sorrel <0.10 kU/L
== END 2023-06-03 09:50 | disposition home or self-care (01) ==
LOC: HO.LAB 09:49
PROVIDERS: Visit Provider Nurse Practitioner Family
DX: J30.89 Other allergic rhinitis (principal); J45.20 Mild intermittent asthma, uncomplicated
CPT/HCPCS: 36415; 82785; 85025; 86003

== ENCOUNTER 2023-06-12 10:15 | Emergency (ER) | payer OTHER, SELFPAY ==
[2023-05-16 07:58] VITALS: BP 104/78; BP 136/88; BP 138/72; BMI 29.1
[2023-06-12] VITALS (8 sets, daily range): BP systolic 105–144; BP diastolic 68–91; PULSE 58–83; RESP 16–18; TEMP 36.6–36.8; O2SAT 95–99; BMI 29.0
--- NOTE | ~2023-06-12 | XR_ITS ---
EXAMINATION: XR CHEST CLINICAL INFORMATION: Chest pain and near syncope COMPARISON: 04/27/2023 TECHNIQUE: Frontal view of the chest was obtained. FINDINGS: The heart, mediastinum and vascularity within normal limits. Underlying hyperinflation/emphysema. No consolidations or effusions or bony structures are intact. XR/XR chest 1V IMPRESSION: No acute cardiopulmonary disease.
--- NOTE | 2023-06-12 10:31 | ECG_ITS ---
Test Reason : hypotension Blood Pressure : / mmHG Vent. Rate : 068 BPM Atrial Rate : 068 BPM P-R Int : 122 ms QRS Dur : 080 ms QT Int : 524 ms P-R-T Axes : 040 004 267 degrees QTc Int : 557 ms Sinus rhythm with occasional Premature ventricular complexes Possible Left atrial enlargement Left ventricular hypertrophy ( R in aVL , Sokolow-Harris ) Marked ST abnormality, possible inferior subendocardial injury Prolonged QT Abnormal ECG No previous ECGs available Referred By: Randa Izquierdo Electronically Signed By:ZHANG TIRADO
--- NOTE | 2023-06-12 10:31 | ED.GENADULT ---
HPI - General Adult General Chief complaint: General Medical Stated complaint: weakness Time Seen by Provider: 06/12/23 10:18 Source: patient Mode of arrival: wheelchair Limitations: no limitations History of Present Illness HPI narrative: 62 yo female with history of CAD, HTN, DM coming from cardiac rehab with low blood pressure. Patient reports on Thursday she had multiple episodes of NBNB emesis. Then developed lightheadedness. No vomiting since Thursday and has been able to eat/drink and has been taking all her home medications including antihypertensives. She has been feeling dizzy since. [place] with position changes/movement only. Went to cardiac rehab today and noted to have low bp referring patient to ED. Patient denies chest pain, abdominal pain, fevers, couch, leg swelling/pain, diarrhea. Related Data Home Medications ?Medication ?Instructions ?Recorded ?Confirmed azelastine 205.5 mcg (0.15 %) intranasal 11/12/21 06/02/23 nasal spray Previous Rx's ?Medication ?Instructions ?Recorded Shower Chair #1 ea 01/02/21 atorvastatin 80 mg tablet 80 mg PO DAILY #90 tabs 05/26/22 carvedilol 12.5 mg tablet 12.5 mg PO BID #180 tabs 07/24/22 alcohol swabs (Alcohol Wipes) 1 pad topical TID PRN glucose 09/30/22 monitoring 1 month #100 ea albuterol sulfate 90 mcg/actuation 2 inh inhalation Q4H PRN shortness 10/01/22 breath activated powder inhaler of breath or wheezing 1 month #1 ea tiotropium bromide 18 mcg capsule 1 cap inhalation DAILY 1 month #30 10/23/22 with inhalation device (Spiriva inhalations with HandiHaler) ezetimibe 10 mg tablet 10 mg PO DAILY 90 days #90 tabs 01/14/23 montelukast 10 mg tablet 10 mg PO QAM #90 tabs 01/14/23 acetaminophen 650 mg 1,300 mg (2 x 650 mg) PO Q12H PRN 02/02/23 tablet,extended release pain 30 days #120 tabs aspirin 81 mg tablet,delayed 81 mg PO DAILY 90 days #90 tabs 03/03/23 release cholecalciferol (vitamin D3) 50 50 mcg PO QAM 90 days #90 tabs 03/06/23 mcg (2,000 unit) tablet omeprazole 20 mg capsule,delayed 20 mg PO DAILY #90 caps 03/09/23 release loratadine 10 mg tablet 10 mg PO QAM #30 tabs 03/16/23 blood-glucose meter #1 ea 03/20/23 blood sugar diagnostic (OneTouch #100 ea 03/24/23 Ultra Test strips) blood-glucose meter (OneTouch #1 ea 03/24/23 Ultra2 Meter) lancets 33 gauge (OneTouch Delica #100 ea 03/24/23 Plus Lancet) dulaglutide 1.5 mg/0.5 mL 1.5 mg (0.5 mL) subcut QWEEK 30 04/20/23 subcutaneous pen injector days #2.5 mL (Trulicity) sacubitril 24 mg-valsartan 26 mg 1 tab PO BID #60 tabs 04/21/23 tablet (Entresto) glipizide 10 mg tablet 10 mg PO BID 3 months #180 tabs 05/08/23 albuterol sulfate 2.5 mg/3 mL 2.5 mg (3 mL) inhalation Q4H PRN 06/02/23 (0.083 %) solution for nebulization shortness of breath or wheezing #180 mL fluticasone fur. 200 mcg-umeclid 1 inh inhalation DAILY #60 ea 06/02/23 62.5 mcg-vilant 25 mcg inhalat.powder (Trelegy Ellipta) prednisone 20 mg tablet 20 mg PO BID #10 tabs 06/02/23 Allergies Allergy/AdvReac Type Severity Reaction Status Date / Time Seasonal Allergies Allergy Mild congestion Verified 06/12/23 10:23 Review of Systems Review of Systems: Yes all other systems are reviewed and are negative Constitutional: Constitutional: Reports no additional constitutional complaints, Denies body ache(s), Denies chills, Denies fever(s), Denies headache(s) and Denies weakness Eyes: Eyes: Reports no additional eye complaints and Denies change in vision ENT: Reports system reviewed and no additional complaints, except as documented, Reports dizziness, Denies headache(s), Denies nasal congestion, Denies nasal discharge and Denies neck pain Cardiovascular: Cardiovascular: Reports no additional cardiovascular complaints, Denies chest pain, Denies leg edema and Denies dyspnea Respiratory: Respiratory: Reports no additional respiratory complaints, Denies cough and Denies dyspnea Gastrointestinal: Gastrointestinal: Reports no additional gastrointestinal complaints, Denies abdominal pain, Denies diarrhea, Reports nausea and Reports vomiting Genitourinary: Genitourinary: Reports no additional female genitourinary complaints and Denies urinary incontinence Musculoskeletal: Musculoskeletal: Reports no additional musculoskeletal complaints, Denies back pain, Denies arthralgias, Denies joint swelling, Denies neck pain, Denies numbness and Denies tingling Integumentary/Breasts: Skin/Breast: Reports system reviewed and no additional complaints, except as docu and Denies rash Neurologic: Reports system reviewed and no additional complaints, except as documented, Reports dizziness, Denies headache(s), Denies numbness, Denies tingling and Denies weakness PMFSH Past Medical History Attestation statement: The following information was validated with the patient. Source: old records reviewed and nursing notes reviewed Medical History CAD (coronary artery disease) Stented coronary artery HTN (hypertension) Diabetes Asthma Nicotine dependence, cigarettes, uncomplicated Surgical History History of heart artery stent History of repair of right rotator cuff History of tubal ligation Hx of colonoscopy Family History Family History Mother Hypertension Father No problems noted. Social History Social History Housing: Apartment Housing Other:: Patient is currently living with daughter Are you a primary pet care assistant to a significant other at home: No Do you presently have visiting nurse or other home services: No Patient Tobacco Use Status: Current someday Tobacco user Tobacco use type: Cigarette Cigarettes Per Day: 1 Years Smoked: onset 10yo, 1ppd x 52yrs, now 1-2 cig/wk - 40+PYH Smoked in Last 30 Days: Yes e-Cigarette/Vaping Use: Never Used Second Hand Smoke Exposure: No Use of substances other than those prescribed or required for medical reasons: No Advance Directives: No Advance Directives Information Provided: Yes Patient : No service: No Current occupational status: disabled Current occupational exposures/hazards: No Cognitive needs: No Hearing needs: No Vision needs: No Physical Exam ED Vital Signs: Vital Signs - 24 hr 06/12/23 10:21 06/12/23 12:00 06/12/23 12:20 Temperature 98.3 F Pulse Rate 77 76 76 Respiratory Rate 17 16 Blood Pressure 105/68 108/69 108/69 Pulse Oximetry 95 99 Oxygen Delivery Method Room Air Room Air 06/12/23 12:24 06/12/23 12:25 06/12/23 13:32 Temperature 97.8 F Pulse Rate 83 77 58 Respiratory Rate 16 Blood Pressure 111/68 119/69 144/75 H Pulse Oximetry 96 Oxygen Delivery Method Room Air BMI result Body Mass Index 29.0 Course Course Course Narrative: 1100-EKG shows sinus rhythm with PVCs, prolonged QTC, inverted T-waves in leads 2, 3, avf. Patient has EKG seen 01/06/2023 which shows inferior T-waves leads 2 and 3 but much milder when compared to EKG from today. She has no chest pain. Her vitals are stable. Will obtain troponin and discussed patient with Cardiology on-call. Reevaluation(s) Reevaluation #1: 1215-labs show acute kidney injury, hypokalemia. Likely prerenal. Patient will receive IV fluids with gentle hydration. Her troponin is pending Reevaluation #2: 1246-initial troponin is 7616. Patient took 81 mg of aspirin this morning. Will give additional dose of aspirin. Will initiate heparin infusion. Call out to Cardiology discussed. Current blood pressure stable. Patient asymptomatic. Likely NSTEMI Reevaluation #3: 1258-I did speak to our on-call rn tele Dr. Adhikari who feels that the patient should be transferred to a tertiary care center so she may potentially have a cardiac catheterization. Will call [facility] did discuss Additional Reevaluation(s): 0980-I spoke to [facility] Cardiology Dr. Card who accepted transfer of patient. Family was updated daughter Dorita [phone] who is HCP via phone Medications Administered Discontinued Medications Generic Name Dose Route Start Last Admin Trade Name Freq PRN Reason Stop Dose Admin Aspirin 243 mg 06/12/23 12:40 06/12/23 12:48 Aspirin 81 Mg Tab.Chew PO 06/12/23 12:41 243 mg ONCE ONE Administration Heparin Sodium (Porcine) 4,000 unit 06/12/23 12:40 06/12/23 12:50 Heparin Sodium,Porcine 5,000 Unit/Ml Vial IVPUSH 06/12/23 12:41 4,000 unit ONCE ONE Administration Magnesium Sulfate 2 gm in 50 mls @ 25 mls/hr 06/12/23 10:58 06/12/23 11:45 Magnesium Sulfate/H2o IV 06/12/23 12:57 25 mls/hr ONCE ONE Administration Sodium Chloride 500 mls @ 999 mls/hr 06/12/23 11:58 06/12/23 13:31 Ns IV 06/12/23 12:28 Infused .Q31M STA Infusion Potassium Chloride 20 meq 06/12/23 11:58 06/12/23 12:36 Potassium Chloride Er 20 Meq Tab.Er.Prt PO 06/12/23 11:59 20 meq ONCE ONE Administration Medical Decision Making Medical Decision Making MDM Narrative: 62 yo female coming from cardiac rehab with low blood pressure. Patient reports on Thursday she had multiple episodes of NBNB emesis. Then developed lightheadedness. No vomiting since Thursday and has been able to eat/drink and has been taking all her home medications including antihypertensives. She has been feeling dizzy since. [place] with position changes/movement only. Went to cardiac rehab today and noted to have low bp referring patient to ED. Patient denies chest pain, abdominal pain, fevers, couch, leg swelling/pain, diarrhea. Blood pressure normotensive on arrival. Exam is benign. Will obtain orthostatic vital signs, EKG, labs, viral testing. Differential Diagnosis Differential Diagnoses: The differential diagnosis associated with the presentation includes orthostatic hypotension, anemia, dehydration, electrolyte abnormality,acs doubt acute abdomen Admission/Observation Consideration of admission/observation: Escalation of care including admission/observation considered Patient with EKG changes and elevated troponin likely NSTEMI which will require potentially Interventional Cardiology and so the patient is recommended to be transferred to tertiary care center for further management Consult Healthcare Provider Management of the patient was discussed with: Packager Hand Dr. Adhikari-recommended transfer to tertiary care center Spoke to Dr Santa from [facility] cards who accepted patient Lab Data [facility] Lab Attestation statement: I reviewed the patient's lab results. 06/12/23 11:21 06/12/23 11:21 Labs: Lab Results 06/12/23 Range/Units 11:21 WBC 7.5 (4.8-10.8) X10*3/uL RBC 4.91 (4.20-5.50) X10*6/uL Hgb 13.6 (12.0-16.0) g/dl Hct 41.1 (37.0-47.0) % MCV 83.7 (80.0-98.0) fL MCH 27.7 (27.0-33.0) pg MCHC 33.1 (31.0-35.0) g/dl RDW 15.2 (11.0-16.0) % Plt Count 206 (160-400) X10*3/uL MPV 10.7 (9.4-12.3) fL Immature Gran % (Auto) 0.4 (0.0-0.4) % Neut % (Auto) 53.4 (45-73) % Lymph % (Auto) 35.9 (20-40) % Cameron % (Auto) 9.4 (2-11) % Eos % (Auto) 0.8 (0-4) % Baso % (Auto) 0.1 (0-2) % Lymph # (Auto) 2.7 (1.2-4.9) X10*3/uL Cameron # (Auto) 0.7 (0.1-1.2) X10*3/uL Eos # (Auto) 0.1 (0.0-0.4) X10*3/uL Baso # (Auto) 0.0 (0.0-0.2) X10*3/uL Abs Immat Gran (auto) 0.03 (0.00-0.03) X10*3/uL Absolute Neuts (auto) 4.0 (2.0-8.3) x10*3/uL Absolute Nucleated RBC 0.000 (0.0-0.012) X10*3/uL Nucleated RBC % (auto) 0.0 (0.0-0.2) /100WBC PT 11.9 (11.1-13.3) SEC INR 1.0 (0.9-1.1) Sodium 138 (135-145) mmol/L Potassium 3.1 L (3.3-5.1) mmol/L Chloride 99 (96-108) mmol/L Carbon Dioxide 31 H (22-29) mmol/L Anion Gap 11 L (12-20) BUN 36 H (9-16) mg/dL Creatinine 1.68 H (0.5-1.4) mg/dL Estim Creat Clear Calc 36.0 Estimated GFR 31 Random Glucose 160 H (60-115) mg/dL Calcium 9.7 (8.4-10.2) mg/dL Magnesium 2.4 (1.6-2.6) mg/dL Total Bilirubin 0.6 (0.0-1.0) mg/dL Direct Bilirubin 0.2 (0.0-0.5) mg/dL AST 24 (5-31) U/L ALT 22 (0-31) U/L Alkaline Phosphatase 89 (39-117) U/L Troponin I High Sens 7616.5 H* (<3.5-17.0) ng/L Total Protein 7.4 (6.5-8.0) g/dL Albumin 3.8 (3.5-5.0) g/dL Influenza Type A (PCR) NEGATIVE (Negative) Influenza Type B (PCR) NEGATIVE (Negative) RSV RNA Qual (PCR) NEGATIVE (Negative) SARS-CoV-2 RNA (RT-PCR) NEGATIVE (Negative) Independent Interpretation I performed an independent interpretation of an: EKG and Plain X-Ray Interpretation: I independently viewed the EKG which shows SR with PVCs, TC 557, ST depressions leads 2,3, avf I independently viewed the chest x-ray and agree with the radiology report Radiology Impression Discussion of test interpretation with radiology: I have reviewed the radiologist's reading. Radiologist Impression: [place] [id number] XRay Report Signed Patient: Wilfrido Liz MR#: [id number] : 1960 Acct:[id number] Age/Sex: 62 / F ADM Date: 06/12/23 Loc: .ED Attending Dr: Ordering Physician: Randa Logan NP Date of Service: 06/12/23 Procedure(s): XR chest 1V Accession Number(s): [id number] cc: Pepito Cardoza; Randa Logan NP~ EXAMINATION: XR CHEST CLINICAL INFORMATION: Chest pain and near syncope COMPARISON: 04/27/2023 TECHNIQUE: Frontal view of the chest was obtained. FINDINGS: The heart, mediastinum and vascularity within normal limits. Underlying hyperinflation/emphysema. No consolidations or effusions or bony structures are intact. XR/XR chest 1V IMPRESSION: No acute cardiopulmonary disease. Independent Historian Clinical information obtained from an independent historian. History obtained from or confirmed by: Other (cardiac rehab staff) External Record Review External record reviewed: Outpatient record Cards note 12/2022-CAD with drug-eluting stent to LAD for acute anterior STEMI Critical Care Time Critical Care Time Critical Care Time: Yes Total Critical Care Time: 90 Attestation: NSTEMI requiring Cardiology consultation and transferred to tertiary care center Discharge Plan Discharge Clinical Impression: Acute non-ST elevation myocardial infarction (NSTEMI) Patient Disposition: [facility] Transfer Details: [facility] Prescriptions: No Action atorvastatin 80 mg tablet 80 mg PO DAILY Qty: 90 3RF carvedilol 12.5 mg tablet 12.5 mg PO BID Qty: 180 3RF alcohol swabs [Alcohol Wipes] Pads, Medicated 1 pad topical TID PRN (Reason: glucose monitoring) 30 Days Qty: 100 5RF albuterol sulfate 90 mcg/actuation aerosol powdr breath activated 2 inh inhalation Q4H PRN (Reason: shortness of breath or wheezing) 30 Days Qty: 1 5RF Spiriva with HandiHaler 18 mcg capsule, w/inhalation device 1 cap inhalation DAILY 30 Days Qty: 30 5RF Rx Instructions: puncture 1 cap using device; one dose = 2 inhalations ezetimibe 10 mg tablet 10 mg PO DAILY 90 Days Qty: 90 3RF montelukast 10 mg tablet 10 mg PO QAM Qty: 90 2RF acetaminophen 650 mg tablet extended release 1,300 mg PO Q12H PRN (Reason: pain) 30 Days Qty: 120 2RF cholecalciferol (vitamin D3) 50 mcg (2,000 unit) tablet 50 mcg PO QAM 90 Days Qty: 90 1RF omeprazole 20 mg capsule,delayed release(DR/EC) 20 mg PO DAILY Qty: 90 1RF loratadine 10 mg tablet 10 mg PO QAM Qty: 30 8RF (DME) blood-glucose meter Misc See Rx Instructions .Route Qty: 1 0RF Rx Instructions: Test 3 times daily (DME) OneTouch Ultra Test Strip See Rx Instructions .Route Qty: 100 6RF Rx Instructions: bs checks 3 times per day (DME) lancets [OneTouch Delica Plus Lancet] 33 gauge misc See Rx Instructions .ROUTE .COMPLEX Qty: 100 6RF Dose Instruction: USE TO TEST THREE TIMES DAILY Rx Instructions: USE TO TEST THREE TIMES DAILY (DME) blood-glucose meter [OneTouch Ultra2 Meter] Misc See Rx Instructions .ROUTE .MEDSUPPLY Qty: 1 0RF Rx Instructions: POC testing TID Entresto 24-26 mg tablet 1 tab PO BID Qty: 60 5RF glipizide 10 mg tablet 10 mg PO BID 90 Days Qty: 180 1RF (DME) Shower Chair Misc See Rx Instructions .Route Qty: 1 0RF Rx Instructions: As directed azelastine 205.5 mcg (0.15 %) spray,non-aerosol intranasal aspirin 81 mg tablet,delayed release (DR/EC) 81 mg PO DAILY 90 Days Qty: 90 1RF Trulicity 1.5 mg/0.5 mL pen injector 1.5 mg subcut QWEEK 30 Days Qty: 2.5 3RF prednisone 20 mg tablet 20 mg PO BID Qty: 10 0RF Trelegy Ellipta 200-62.5-25 mcg blister with device 1 inh inhalation DAILY Qty: 60 6RF albuterol sulfate 2.5 mg /3 mL (0.083 %) solution for nebulization 2.5 mg inhalation Q4H PRN (Reason: shortness of breath or wheezing) Qty: 180 2RF Print Language: Khmer
[2023-06-12 11:29] LABS: MANUAL DIFF FLAG NO
[2023-06-12 11:31] LABS: Basophils Percent Auto 0.1 % (0-2); Eosinophils Absolute Auto 0.1 X10*3/uL (0.0-0.4); Eosinophils Percent Auto 0.8 % (0-4); Hematocrit 41.1 % (37.0-47.0); Hemoglobin 13.6 g/dl (12.0-16.0); Imm Gran Abs Auto 0.03 X10*3/uL (0.00-0.03); Imm Gran Pct Auto 0.4 % (0.0-0.4); Lymphocytes Absolute Auto 2.7 X10*3/uL (1.2-4.9); Lymphocytes Percent Auto 35.9 % (20-40); Mean Corpuscular HGB Conc 33.1 g/dl (31.0-35.0); Mean Corpuscular Hemoglobin 27.7 pg (27.0-33.0); Mean Corpuscular Volume 83.7 fL (80.0-98.0); Mean Platelet Volume 10.7 fL (9.4-12.3); Monocytes Absolute Auto 0.7 X10*3/uL (0.1-1.2); Monocytes Percent Auto 9.4 % (2-11); Neutrophils Percent Auto 53.4 % (45-73); Platelet Count 206 X10*3/uL (160-400); Red Blood Count 4.91 X10*6/uL (4.20-5.50); Red Cell Distribution Width 15.2 % (11.0-16.0); White Blood Count 7.5 X10*3/uL (4.8-10.8)
[2023-06-12 11:38] LABS: Prothrombin Time 11.9 SEC (11.1-13.3)
[2023-06-12] MEDS: Magnesium Sulfate/H2O 2 GM/50 ML PIGGYBACK IV (11:45)
[2023-06-12 11:52] LABS: Alanine Aminotransferase 22 U/L (0-31); Albumin Level 3.8 g/dL (3.5-5.0); Alkaline Phosphatase 89 U/L (39-117); Anion Gap 11 (12-20); Aspartate Amino Transferase 24 U/L (5-31); Bilirubin Direct 0.2 mg/dL (0.0-0.5); Bilirubin Total 0.6 mg/dL (0.0-1.0); Blood Urea Nitrogen 36 mg/dL (9-16); Calcium 9.7 mg/dL (8.4-10.2); Carbon Dioxide 31 mmol/L (22-29); Chloride 99 mmol/L (96-108); Estimated Glomerular Filt Rate 31; Glucose Random 160 mg/dL (60-115); Magnesium 2.4 mg/dL (1.6-2.6); Potassium 3.1 mmol/L (3.3-5.1); Sodium 138 mmol/L (135-145); Total Protein 7.4 g/dL (6.5-8.0)
[2023-06-12 12:09] LABS: Influenza A PCR NEGATIVE (Negative); Influenza B PCR NEGATIVE (Negative); Resp Syncy Virus RNA Qual PCR NEGATIVE (Negative); SARS COV2 PCR INHOUSE NEGATIVE (Negative)
[2023-06-12] MEDS: Potassium Chloride ER 20 MEQ TAB.ER.PRT PO (12:36)
[2023-06-12] MEDS: 0.9 % Sodium Chloride 500 ML 999 ML IV (12:36)
[2023-06-12] MEDS: Aspirin 81 MG TAB.CHEW 243 MG PO (12:48)
[2023-06-12] MEDS: Heparin Sodium,Porcine 5,000 UNIT/ML VIAL 4000 UNIT IVPUSH (12:50)
--- NOTE | 2023-06-12 13:29 | PC.NURSE ---
mlp (grazyna) spoke at lenght to pt's daughter on pt's cell phone about the pt status.
--- NOTE | 2023-06-12 13:47 | PC.NURSE ---
Addendum entered by Clau Monterroso 06/12/23 13:49: MLP (PREET) AWARE. Original Note: HEMATOLOGY DEPT HAS NOT RUN THE LAB TEST -PTT YET. THIS RN CALLED THE DEPT AND LAB - PTT WILL BE RUN NOW.
[2023-06-12 13:58] LABS: Partial Thromboplastin Time 27.7 SEC (26.0-36.8)
[2023-06-12] MEDS: Heparin Sodium,Porcine/1/2NS 25,000 UNIT/250 ML IV.SOLN 9.48 UNIT IVCONT (14:05)
[2023-06-12 14:51] LABS: Hematocrit 40.7 % (37.0-47.0); Hemoglobin 13.8 g/dl (12.0-16.0); Mean Corpuscular HGB Conc 33.9 g/dl (31.0-35.0); Mean Corpuscular Hemoglobin 27.8 pg (27.0-33.0); Mean Corpuscular Volume 82.1 fL (80.0-98.0); Mean Platelet Volume 10.4 fL (9.4-12.3); Platelet Count 197 X10*3/uL (160-400); Red Blood Count 4.96 X10*6/uL (4.20-5.50); Red Cell Distribution Width 14.9 % (11.0-16.0)
--- NOTE | 2023-06-12 14:58 | PC.NURSE ---
RN TO EMS REPORT GIVEN AT [id number]. PT AWARE OF PLAN OF CARE FOR TRANSFER TO [facility].
--- NOTE | 2023-06-12 15:01 | PC.NURSE ---
MULTIPLE ATTEMPTS CALLS MADE [place] [facility] ([phone]) TO GIVE RN TO RN REPORT ON THIS PT. MLP (NORM) AWARE.
--- NOTE | 2023-06-12 15:21 | PC.NURSE ---
THIS RN WAS ABLE TO SPEAK WITH THE RN, BUT SHE STATED THAT SHE WILL CALL BACK BECAUSE SHE IS IN THE MIDDLE OF MEDICATING A PT.
--- NOTE | 2023-06-12 15:38 | PC.NURSE ---
RN TO RN REPORT GIVEN TO JULIA.
== END 2023-06-12 15:05 | disposition short-term general hospital (02) ==
PROVIDERS: Nurse Practitioner Family; Emergency Provider Emergency Medicine
DX: I21.4 Non-ST elevation (NSTEMI) myocardial infarction (principal); N17.9 Acute kidney failure, unspecified; E87.6 Hypokalemia; I25.10 Atherosclerotic heart disease of native coronary artery without angina pectoris; I10 Essential (primary) hypertension; E11.9 Type 2 diabetes mellitus without complications; Z79.899 Other long term (current) drug therapy; Z03.818 Encounter for observation for suspected exposure to other biological agents ruled out
CPT/HCPCS: 0241U; 36415; 71045; 80048; 80076; 83735; 84484; 85025; 85027; 85610; 85730; 93005; 96365; 96366; 96375; 99285; J1644; J3475

== ENCOUNTER → 2023-06-12 10:31 | Outpatient (BNV) | payer OTHER, SELFPAY ==
[2023-05-16 07:58] VITALS: BP 104/78; BP 136/88; BP 138/72; BMI 29.1
== END ==
PROVIDERS: Emergency Provider Emergency Medicine; Visit Provider Internal Medicine
DX: I49.3 Ventricular premature depolarization (principal)
CPT/HCPCS: 93010

== ENCOUNTER 2023-06-30 09:47 | Outpatient (AMB) | payer OTHER, SELFPAY ==
[2023-05-16 07:58] VITALS: BP 104/78; BP 136/88; BP 138/72; BMI 29.1
--- NOTE | 2023-06-30 10:01 | MHC.OFFVIS ---
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 Allergies Seasonal Allergies Allergy (Mild, Verified 06/30/23 10:03) congestion Medication List - Last Reconciled 06/30/23 by SELWYN Dickey acetaminophen ER 1,300 mg (2 x 650 mg) PO Q12H PRN 30 days albuterol sulfate 90 mcg/actuation 2 inhalations inhalation Q4H PRN 1 month albuterol sulfate 2.5 mg (3 mL) inhalation Q4H PRN alcohol swabs (Alcohol Wipes) 1 pad topical TID PRN 1 month aspirin 81 mg PO DAILY 90 days atorvastatin 80 mg PO DAILY azelastine intranasal blood sugar diagnostic ([employer] Ultra Test strips) bs checks 3 times per day blood-glucose meter ([employer] Ultra2 Meter) POC testing TID blood-glucose meter Test 3 times daily carvedilol 12.5 mg PO BID cholecalciferol (vitamin D3) 50 mcg PO QAM 90 days dulaglutide (Trulicity) 1.5 mg (0.5 mL) subcut QWEEK 30 days ezetimibe 10 mg PO DAILY 90 days qekjpqzdbfx-ecjbxlqpg-ljhrdohd 200-62.5-25 mcg (Trelegy Ellipta) 1 inh inhalation DAILY glipizide 10 mg PO BID 3 months lancets ([employer] Delica Plus Lancet) USE TO TEST THREE TIMES DAILY loratadine 10 mg PO QAM miscellaneous medical supply 1 shower transfer, rollator, blood pressure cuff, versa frame omeprazole 20 mg PO DAILY sacubitril-valsartan 24-26 mg (Entresto) 1 tab PO BID Shower Chair As directed ticagrelor (Brilinta) 90 mg PO BID tiotropium bromide (Spiriva with HandiHaler) 1 cap inhalation DAILY 1 month HPI HPI 4 month follow up/bmc dc followup: Details: Wilfrido is a 62-year-old female past medical history of diabetes, hypertension, hyperlipidemia, CAD with anterior STEMI 05/2021 with ROSELIA placed to the proximal and mid LAD who had NSTEMI last month and was transferred to [facility] for cardiac catheterization and had PCI to the left circumflex. She now presents for follow-up. Today she reports that she was in cardiac rehab and she was feeling fatigued and had low blood pressure. They did have her go to the ER for evaluation. Her troponin was elevated and suggesting NSTEMI which prompted her [facility] transfer. She has done well since that time. She has not had any concerning symptoms. No longer having fatigue. Her blood pressures at home have been normal to mildly elevated. She has not had hypotension. No chest discomfort at rest or with activity. No shortness of breath, PND, orthopnea or edema. No lightheadedness, presyncope, syncope, falls. She is having issues with sciatica and has VNA services with home physical therapy. She has been taking her meds as directed. No bleeding issues reported. [facility] Medical History CAD (coronary artery disease) Stented coronary artery HTN (hypertension) Diabetes Asthma Nicotine dependence, cigarettes, uncomplicated Surgical History History of heart artery stent History of repair of right rotator cuff History of tubal ligation Hx of colonoscopy Family History Mother Hypertension Father No problems noted. Social History Housing: Apartment Housing Other:: Patient is currently living with daughter Are you a primary pet care attendant to a significant other at home: No Do you presently have visiting nurse or other home services: No Patient Tobacco Use Status: Current someday Tobacco user Tobacco use type: Cigarette Cigarettes Per Day: 1 Years Smoked: onset 10yo, 1ppd x 52yrs, now 1-2 cig/wk - 40+PYH e-Cigarette/Vaping Use: Never Used Second Hand Smoke Exposure: No service: No Current occupational status: disabled Current occupational exposures/hazards: No Cognitive needs: No Hearing needs: No Vision needs: No Review of Systems Const All systems reviewed & are unremarkable except as noted in HPI and below ENT Denies dizziness Card Denies chest pain, Denies chest pain at rest, Denies chest pain with activity, Denies rapid heart rate, Denies pedal edema, Denies edema, Denies leg edema, Denies lightheadedness, Denies palpitations, Denies dyspnea, Denies dyspnea on exertion and Denies orthopnea Resp Denies cough, Denies dyspnea and Denies dyspnea on exertion GI Denies hematochezia and Denies change in stool character Musc Details: Sciatica and low back discomfort Denies abnormal gait, Denies limited range of motion, Denies muscle cramps, Denies muscle weakness, Denies numbness, Denies radiating pain into limb, Denies stiffness and Denies tingling Neuro Denies abnormal gait, Denies dizziness, Denies numbness and Denies tingling Endo Denies palpitations Physical Exam Vital Signs: Last Vital Signs Pulse 77 06/30/23 10:02 BP 142/90 H 06/30/23 10:02 BMI result Body Mass Index 33.6 Const General: cooperative, healthy appearing, comfortable and no acute distress Orientation/consciousness: patient oriented x3 Neck Neck: Yes normal visual inspection Resp Effort & Inspection: normal respiratory effort Auscultation: clear to auscultation bilaterally, no crackles, no rales, no rhonchi and no wheezes Cardio Jugular venous distension: no JVD Rate: regular rate Rhythm: regular rhythm Heart sounds: S1 normal heart sound present, S2 normal heart sound present, no murmurs and no rubs Neuro General: patient oriented x3 Extrem General: Yes normal to inspection and No no pedal edema Psych Appearance: grossly normal Mental Status: mental status grossly normal Speech and movement: Normal speech and movement present Assessment & Plan Assessment & Plan (1) CAD (coronary artery disease): Comment: (STEMI 2021 = s/p ROSELIA to LAD) Code(s): I25.10 - Atherosclerotic heart disease of chilkoot coronary artery without angina pectoris Category: Medical Qualifiers: Associated angina: without angina Coronary Disease-Associated Artery/Lesion type: chilkoot artery [place] vs. transplanted heart: chilkoot heart Qualified Code(s): I25.10 - Atherosclerotic heart disease of chilkoot coronary artery without angina pectoris Plan: History of CAD with anterior STEMI 05/2021. Cardiac catheterization was performed and ROSELIA placed to the proximal and mid LAD. She had done well until recently. While at cardiac rehab she had hypotension, no chest discomfort. She was sent to the ER for evaluation and ruled in for NSTEMI. She was transferred to [facility] for cardiac catheterization which was done on 06/15/2022 with PCI to the left circumflex. Echocardiogram showed EF 53%, apical septum, apical anterior wall, apical inferior severely hypokinetic. During that admission she had issues with hypertensive emergency and required a nitroglycerin drip. She then had orthostatic hypotension, EZIO. Her Entresto was changed to valsartan. She was continued on aspirin and started on Brilinta 90 mg b.i.d.. She was continued on atorvastatin, Zetia, carvedilol. At this time she reports feeling well with no concerning symptoms beyond sciatica. She tells me her home blood pressures have been normal or mildly elevated. She has not had any hypotension. She has not had her labs rechecked since her discharge 2 weeks ago. Will enter orders for a BMP and lipids. Based on kidney function we may be able to restart Entresto. Will reorder cardiac rehab. No med changes made at this time. Cardiology follow-up 3 months, sooner if needed (2) Ischemic cardiomyopathy: Code(s): I25.5 - Ischemic cardiomyopathy Category: Medical Plan: History of ischemic cardiomyopathy with mild the reduced EF into the low normal range. Echocardiogram was done on 02/03/2023 showing EF 40-45%, mid inferior and mid anterior septal akinetic. Most recent echo from 4 05/12/2022 as above. She had been on Entresto and carvedilol for neurohormonal modulation. During recent admission she was taken off Entresto and put back on valsartan. On examination today she has no clinical signs indicating decompensated heart failure. Future plan is to get her back on Entresto. (3) Stented coronary artery: Comment: Drug-eluting stent to mid LAD for acute anterior STEMI in May 2021. Moderate to severe stenosis in RCA and circumflex. Code(s): Z95.5 - Presence of coronary angioplasty implant and graft Category: Medical Plan: As above (4) S/P cardiac catheterization: Comment: 06/15/2022, PCI to the left circumflex Code(s): Z98.890 - Other specified postprocedural states Category: Surgical Plan: NSTEMI (5) HTN (hypertension): Code(s): I10 - Essential (primary) hypertension Category: Medical Qualifiers: Hypertension type: primary hypertension Qualified Code(s): I10 - Essential (primary) hypertension Plan: Mildly elevated today. Will be checking labs to see if Entresto can be restarted (6) Hyperlipidemia: Code(s): E78.5 - Hyperlipidemia, unspecified Category: Medical Qualifiers: Hyperlipidemia type: unspecified Qualified Code(s): E78.5 - Hyperlipidemia, unspecified Plan: [place] LDL goal less than 70. Labs done on 02/03/2023 showed LDL 61. Continue atorvastatin 80 mg daily. (7) NSTEMI (non-ST elevated myocardial infarction): Code(s): I21.4 - Non-ST elevation (NSTEMI) myocardial infarction Category: Medical Plan: As above (8) Hospital discharge follow-up: Code(s): Z09 - Encounter for follow-up examination after completed treatment for conditions other than malignant neoplasm Category: Medical Plan: As above Plan Time spent on chart review, documentation, interview and assessment Orders: Orders Cardiac Rehab Today I21.4 - Non-ST elevation (NSTEMI) myocardial infarction Basic Metabolic Panel Today I10 - Essential (primary) hypertension Coding Level of Care Code Est Pt Level 4 (74176) Diagnoses Coronary artery disease involving chilkoot coronary artery of chilkoot heart without angina pectoris I25.10 Associated angina: without angina Coronary Disease-Associated Artery/Lesion type: chilkoot artery [place] vs. transplanted heart: chilkoot heart Ischemic cardiomyopathy I25.5 Stented coronary artery Z95.5 S/P cardiac catheterization Z98.890 Primary hypertension I10 Hypertension type: primary hypertension Hyperlipidemia, unspecified hyperlipidemia type E78.5 Hyperlipidemia type: unspecified NSTEMI (non-ST elevated myocardial infarction) I21.4 Hospital discharge follow-up Z09 Time Spent (min) 30
[2023-06-30 10:02] VITALS: BP 142/90; PULSE 77; BMI 33.6
== END 2023-06-30 10:32 | disposition home or self-care (01) ==
PROVIDERS: PCP Nurse Practitioner Family; Visit Provider Nurse Practitioner Family
DX: I25.10 Atherosclerotic heart disease of native coronary artery without angina pectoris (principal); I25.5 Ischemic cardiomyopathy; Z95.5 Presence of coronary angioplasty implant and graft; Z98.890 Other specified postprocedural states; I10 Essential (primary) hypertension; E78.5 Hyperlipidemia, unspecified; I21.4 Non-ST elevation (NSTEMI) myocardial infarction; Z09 Encounter for follow-up examination after completed treatment for conditions other than malignant neoplasm
CPT/HCPCS: 99214

== ENCOUNTER → 2023-06-30 09:47 | Outpatient (BNVA) | payer OTHER, SELFPAY ==
[2023-05-16 07:58] VITALS: BP 104/78; BP 136/88; BP 138/72; BMI 29.1
== END ==
PROVIDERS: PCP Nurse Practitioner Family; Visit Provider Nurse Practitioner Family
DX: I25.10 Atherosclerotic heart disease of native coronary artery without angina pectoris (principal); I25.5 Ischemic cardiomyopathy; I10 Essential (primary) hypertension; E78.5 Hyperlipidemia, unspecified; I25.2 Old myocardial infarction; Z79.82 Long term (current) use of aspirin; Z79.899 Other long term (current) drug therapy; Z95.5 Presence of coronary angioplasty implant and graft
CPT/HCPCS: 99212

== ENCOUNTER 2023-07-03 09:21 | Outpatient (REF) | payer OTHER, SELFPAY ==
[2023-05-16 07:58] VITALS: BP 104/78; BP 136/88; BP 138/72; BMI 29.1
[2023-07-03 10:33] LABS: Anion Gap 13 (12-20); Blood Urea Nitrogen 15 mg/dL (9-16); Calcium 9.9 mg/dL (8.4-10.2); Carbon Dioxide 27 mmol/L (22-29); Chloride 105 mmol/L (96-108); Estimated Glomerular Filt Rate 44; Glucose Random 117 mg/dL (60-115); Potassium 4.5 mmol/L (3.3-5.1); Sodium 140 mmol/L (135-145)
[2023-07-06 16:34] LABS: Immunoglobulin E 100 kU/L (<OR=114)
== END 2023-07-03 09:22 | disposition home or self-care (01) ==
LOC: HO.LAB 09:21
PROVIDERS: Nurse Practitioner Family; PCP Nurse Practitioner Family; Visit Provider Nurse Practitioner Family
DX: I25.5 Ischemic cardiomyopathy (principal); J30.89 Other allergic rhinitis
CPT/HCPCS: 36415; 80048; 82785

== ENCOUNTER 2023-07-10 08:39 | Outpatient (AMB) | payer OTHER, SELFPAY ==
[2023-07-03 10:13] VITALS: BP 104/78; BP 136/88; BP 138/72; BMI 29.1
--- NOTE | 2023-07-10 08:48 | MHC.PC.OV ---
Vital Signs 07/10/23 08:49 Height 5 ft 1 in Weight 176 lb BMI 33.3 BP 122/74 Blood Pressure Location Rt brachial Position Sitting Respiration 14 Pulse 90 Pulse Source Pulse Oximeter Temp 98.1 F Temp Source Temporal Artery Scan Pulse Oximetry (%) 99 Intake Visit Reasons: Discharge F/U Intake Note: Patient needs refill on alzalestine nasal spray. Supervisor Core Drilling Required: No Accompanied by: Self / Same As Patient Allergies Seasonal Allergies Allergy (Mild, Verified 07/10/23 09:07) congestion Medication List - Last Reconciled 07/10/23 by Pepito Cardoza CNP acetaminophen ER 1,300 mg (2 x 650 mg) PO Q12H PRN 30 days albuterol sulfate 2.5 mg (3 mL) inhalation Q4H PRN alcohol swabs (Alcohol Wipes) 1 pad topical TID PRN 1 month aspirin 81 mg PO DAILY 90 days atorvastatin 80 mg PO DAILY azelastine intranasal blood sugar diagnostic (SkyKickTouch Ultra Test strips) bs checks 3 times per day blood-glucose meter ([employer]uch Ultra2 Meter) POC testing TID blood-glucose meter Test 3 times daily carvedilol 12.5 mg PO BID cholecalciferol (vitamin D3) 50 mcg PO QAM 90 days dulaglutide (Trulicity) 1.5 mg (0.5 mL) subcut QWEEK 30 days ezetimibe 10 mg PO DAILY 90 days ltqigrkwdhl-ptirtyant-rvwvjzuk 200-62.5-25 mcg (Trelegy Ellipta) 1 inh inhalation DAILY glipizide 10 mg PO BID 3 months lancets (SkyKickTouch Delica Plus Lancet) USE TO TEST THREE TIMES DAILY loratadine 10 mg PO QAM miscellaneous medical supply 1 shower transfer, rollator, blood pressure cuff, versa frame omeprazole 20 mg PO DAILY sacubitril-valsartan 24-26 mg (Entresto) 1 tab PO BID Shower Chair As directed ticagrelor (Brilinta) 90 mg PO BID tiotropium bromide (Spiriva with HandiHaler) 1 cap inhalation DAILY 1 month Tobacco use date assessed: 05/26/23 Dental Screening Dental Screen Date: 04/20/23 HPI HPI Comments History of Present Illness Details 62-year-old female presents for hospital follow-up visit She was evaluated at [facility] ED on 06/12/2023 after she was referred from cardiac rehab for low blood pressure. She reported dizziness with positional changes and movements. Her BP was normotensive on arrival. Physical exam was benign. Troponin was significantly elevated, over 7000. EKG revealed SR with PVCs, TC 557, ST depressions leads 2,3, avf. Chest x-ray was normal. She was placed on heparin and transferred to [facility] for further management of NSTEMI. Hospital course: 62-year-old female with past medical history including hypertension, diabetes, coronary artery disease, and COPD/asthma, presented to [facility] as a transfer from [facility] where she presented for low blood pressure and dizziness, and was found to have NSTEMI; troponin 7616.5; EKG revealed ST segment depression in V4 to V6 with T-wave inversions; inferior T-wave inversions and ST segment depressions also present. Patient was placed on heparin and transferred to [facility]. s/p catheterization on 06/15/2022 with PCI to left circumflex. Hospital course complicated by hypertensive emergency post catheterization managed with nitroglycerin drip. Nitroglycerin drip was tapered off on 06/16/2022 but patient had adverse effects to nitro drip; she had severe nausea, dizziness. She also had issues with supine hypertension and orthostatic hypotension, responded well to IV fluids. She was no longer orthostatic. Her blood pressure was low normal before receiving antihypertensive. As recommended by Cardiology, Entresto was switched to valsartan due to issues of hypertension in the past. Her last troponin on 06/14/2023 was 1529. She was discharged home on 06/19/2023 with home health services. She was hospitalized for 8 days. She notes that she experiences mild dizziness yesterday with positional changes and movements; her first episode of dizziness since she was recently discharged from the hospital. She offers no complaints and denies acute symptoms at this time. She admits to taking her medications as prescribed without adverse reactions. She notes that she stopped smoking since her recent hospitalization. She is interested in nicotine gum for smoking cessation. She was seen by [facility] cardiology for a hospital follow up visit earlier this month and has a follow up visit in September. She request physical therapy for chronic intermittent right-sided low back pain with right-sided sciatica. [facility] Medical History CAD (coronary artery disease) Stented coronary artery HTN (hypertension) Diabetes Asthma Nicotine dependence, cigarettes, uncomplicated Surgical History History of heart artery stent History of repair of right rotator cuff History of tubal ligation Hx of colonoscopy Family History Mother Hypertension Father No problems noted. Social History Housing: Apartment Housing Other:: Patient is currently living with daughter Are you a primary career development facilitator to a significant other at home: No Do you presently have visiting nurse or other home services: No Patient Tobacco Use Status: Former Tobacco user Quit Date: TBD Tobacco use type: Cigarette Cigarettes Per Day: 1 Years Smoked: onset 10yo, 1ppd x 52yrs, now 1-2 cig/wk - 40+PYH e-Cigarette/Vaping Use: Never Used Second Hand Smoke Exposure: No service: No Current occupational status: disabled Current occupational exposures/hazards: No Cognitive needs: No Hearing needs: No Vision needs: No Questionnaire Thrive Questionnaire Date Thrive assessed: 03/03/23 ZURI-7 AMB Questionnaire ZURI-7 Date ZURI - 7 assessed: 03/03/23 Source: Developed by Drs. Isma Erickson, Joyce Phillips, Roger Davis and colleagues, with an educational jana from [employer]. Review of Systems Const Details: Const Denies chills, Denies fatigue, Denies fever(s), Denies headache(s) and Denies weakness ENT Denies dizziness and Denies headache(s) Card Denies chest pain, Denies lightheadedness, Denies dyspnea and Denies other (Palpitations) Resp Denies cough, Denies dyspnea, Denies wheezing and Denies other ( shortness of breath) GI Denies abdominal pain, Denies melena, Denies hematochezia, Denies change in bowel habits, Denies dyspepsia and Denies nausea Denies hematuria and Denies dysuria Musc Denies abnormal gait, Denies myalgias, Denies arthralgias, Denies numbness and Denies tingling Skin/Breast Denies rash, Denies unusual bruising and Denies wounds Neuro Denies abnormal gait, Denies dizziness, Denies headache(s), Denies memory loss, Denies numbness, Denies Sensory deficit (Neuro), Denies tingling and Denies weakness Psych Denies anxiety, Denies depression, Denies memory loss Endo Denies cold intolerance, Denies fatigue, Denies heat intolerance, Denies polydipsia and Denies polyuria Aller/Immun Denies wheezing Physical exam (Primary Care) Tobacco/Smoking Status: Tobacco use Status Tobacco use date assessed 05/26/23 07/03/23 10:13 Patient Tobacco Use Status Current someday Tobacco 07/03/23 10:13 Tobacco use type Cigarette 07/03/23 10:13 e-Cigarette/Vaping Use Never Used 07/03/23 10:13 Thrive Assessment: Date of Thrive Assessment Date Thrive assessed 03/03/23 07/03/23 10:13 Const Other: General: no acute distress and well developed Nutritional Appearance: well nourished Orientation/consciousness: patient oriented x3 HENMT Head: Yes normocephalic and Yes atraumatic Eyes General: appearance normal, both eyes and all related structures Pupils: Equal, round and reactive pupils present EOM: EOMs intact bilaterally Resp Effort & Inspection: normal respiratory effort Auscultation: clear to auscultation bilaterally Cardio Rate: regular rate Rhythm: regular rhythm Heart sounds: S1 normal heart sound present, S2 normal heart sound present, no gallops, no murmurs and no rubs GI Palpation (GI): No Abdominal aortic bruit present, Soft to palpation, nontender, No hepatosplenomegaly present and No Rebound tenderness present Auscultation: normal bowel sounds General: Yes no CVA tenderness Back/Spine/Pelvis Back: no CVA tenderness Cervical Spine: cervical ROM normal and No Cervical spine tenderness Thoracic/Lumbar Spine: thoraco-lumbar ROM normal, No pain with thoraco-lumbar ROM, No thoracic spinal tenderness and No lumbar spinal tenderness Extrem General: Yes normal to inspection, No edema and No calf tenderness Skin General: warm and dry. Normal skin color. Normal skin turgor Neuro General: patient oriented x3, gait normal and no focal neuro deficit Cranial nerves: Yes Equal, round and reactive pupils present Cognition (Neuro): normal cognition Gait exam (Neuro): Normal gait present Sensory Exam: No Sensory deficit (Neuro) Psych Appearance: grossly normal Affect: normal affect Attitude: cooperative Thought process: Normal thought process present Assessment and Plan Assessment & Plan (1) Hospital discharge follow-up: Code(s): Z09 - Encounter for follow-up examination after completed treatment for conditions other than malignant neoplasm Plan: Patient was recently hospitalized and treated for NSTEMI No acute symptoms at this time Normal physical exam Instructed to change positions slowly and avoid moving quickly to prevent dizziness Continue with current treatment regimen Continue follow-up with cardiology as planned Return as planned next month for diabetes and hypertension or sooner with symptoms or concerns Verbalized understanding and agreed with treatment plan (2) Smoking hx: Code(s): Z87.891 - Personal history of nicotine dependence Plan: Quit smoking after her recent hospitalization for NSTEMI Nicotine gum ordered. Advised to take as prescribed Instructed on the health risks and complications of cigarette smoking and encouraged to continue to avoid cigarette smoking Follow-up with symptoms or concerns Verbalized understanding and agreed with treatment plan (3) Right-sided low back pain with right-sided sciatica: Code(s): M54.41 - Lumbago with sciatica, right side Plan: No acute symptoms Referred to [facility] physical therapy Orders: Orders PT Evaluation and Treatment Today M54.41 - Lumbago with sciatica, right side Medications: New nicotine (polacrilex) Weeks 1 to 6: Chew 1 piece of gum every 1 to 2 hours (maximum: 24 pieces/day); to increase chances of quitting, chew at least 9 pieces/day during the first 6 weeks 2 mg buccal Q1H 6 weeks 120 ea 1RF Changed From azelastine intranasal To azelastine 1 spray intranasal BEDTIME 30 mL 0RF Coding Level of Care Code Est Pt Level 4 (88191) Complex EM visit Add On G2211 Diagnoses Hospital discharge follow-up Z09 Smoking hx Z87.891 Right-sided low back pain with right-sided sciatica M54.41
[2023-07-10 08:49] VITALS: BP 122/74; PULSE 90; RESP 14; TEMP 36.7; O2SAT 99; BMI 33.3
== END 2023-07-10 09:29 | disposition home or self-care (01) ==
PROVIDERS: PCP Nurse Practitioner Family; Visit Provider Nurse Practitioner Family
DX: Z09 Encounter for follow-up examination after completed treatment for conditions other than malignant neoplasm (principal); Z87.891 Personal history of nicotine dependence; M54.41 Lumbago with sciatica, right side
CPT/HCPCS: 99214; G2211

== ENCOUNTER 2023-07-28 12:14 | Outpatient (AMB) | payer OTHER, SELFPAY ==
[2023-07-03 10:13] VITALS: BP 104/78; BP 136/88; BP 138/72; BMI 29.1
[2023-07-28 12:24] VITALS: BP 134/80; PULSE 78; RESP 14; TEMP 36.5; O2SAT 98; BMI 32.5
--- NOTE | 2023-07-28 12:24 | MHC.PC.OV ---
Vital Signs 07/28/23 12:24 07/28/23 12:40 Height 5 ft 1 in Weight 172 lb 2 oz BMI 32.5 BP 134/80 120/80 Blood Pressure Location Rt brachial Lt brachial Position Sitting Sitting Respiration 14 Pulse 78 Pulse Source Pulse Oximeter Temp 97.7 F Temp Source Temporal Artery Scan Pulse Oximetry (%) 98 Oxygen Delivery Method Room Air Intake Visit Reasons: 1 mo f/u DM & HTN Cuff Runner Required: No Accompanied by: Self / Same As Patient Allergies Seasonal Allergies Allergy (Mild, Verified 07/28/23 12:35) congestion Medication List - Last Reconciled 07/28/23 by Pepito Cardoza CNP acetaminophen ER 1,300 mg (2 x 650 mg) PO Q12H PRN 30 days albuterol sulfate 2.5 mg (3 mL) inhalation Q4H PRN alcohol swabs (Alcohol Wipes) 1 pad topical TID PRN 1 month aspirin 81 mg PO DAILY 90 days atorvastatin 80 mg PO DAILY azelastine 1 spray intranasal BEDTIME blood sugar diagnostic (iYogiuch Ultra Test strips) bs checks 3 times per day blood-glucose meter (iYogiuch Ultra2 Meter) POC testing TID blood-glucose meter Test 3 times daily carvedilol 12.5 mg PO BID cholecalciferol (vitamin D3) 50 mcg PO QAM 90 days dulaglutide (Trulicity) 1.5 mg (0.5 mL) subcut QWEEK 30 days ezetimibe 10 mg PO DAILY 90 days qctosjxrbvm-dyhgljttc-erqdnfmb 200-62.5-25 mcg (Trelegy Ellipta) 1 inh inhalation DAILY glipizide 10 mg PO BID 3 months lancets (WebPTTouch Delica Plus Lancet) USE TO TEST THREE TIMES DAILY loratadine 10 mg PO QAM miscellaneous medical supply 1 shower transfer, rollator, blood pressure cuff, versa frame nicotine (polacrilex) 2 mg buccal Q1H 6 weeks omeprazole 20 mg PO DAILY sacubitril-valsartan 24-26 mg (Entresto) 1 tab PO BID Shower Chair As directed ticagrelor (Brilinta) 90 mg PO BID tiotropium bromide (Spiriva with HandiHaler) 1 cap inhalation DAILY 1 month Tobacco use date assessed: 05/26/23 Dental Screening Dental Screen Date: 04/20/23 HPI HPI Comments History of Present Illness Details 62-year-old female presents for hypertension and diabetes follow-up She admits to taking her medications as prescribed without adverse reactions She offers no complaints and denies acute symptoms at this time REPLACED BY [facility] Medical History CAD (coronary artery disease) Stented coronary artery HTN (hypertension) Diabetes Asthma Nicotine dependence, cigarettes, uncomplicated Surgical History History of heart artery stent History of repair of right rotator cuff History of tubal ligation Hx of colonoscopy Family History Mother Hypertension Father No problems noted. Social History Housing: Apartment Housing Other:: Patient is currently living with daughter Are you a primary restorative care technician to a significant other at home: No Do you presently have visiting nurse or other home services: No Patient Tobacco Use Status: Former Tobacco user Tobacco use type: Cigarette Cigarettes Per Day: 1 Years Smoked: onset 10yo, 1ppd x 52yrs, now 1-2 cig/wk - 40+PYH e-Cigarette/Vaping Use: Never Used Second Hand Smoke Exposure: No service: No Current occupational status: disabled Current occupational exposures/hazards: No Cognitive needs: No Hearing needs: No Vision needs: No Questionnaire Thrive Questionnaire Date Thrive assessed: 03/03/23 ZURI-7 AMB Questionnaire ZURI-7 Date ZURI - 7 assessed: 03/03/23 Source: Developed by Drs. Isma Erickson, Joyce Phillips, Roger Davis and colleagues, with an educational jana from [employer]. Review of Systems Const Details: Const Denies chills, Denies fatigue, Denies fever(s), Denies headache(s) and Denies weakness ENT Denies dizziness and Denies headache(s) Card Denies chest pain, Denies lightheadedness, Denies dyspnea and Denies other (Palpitations) Resp Denies cough, Denies dyspnea, Denies wheezing and Denies other ( shortness of breath) GI Denies abdominal pain, Denies melena, Denies hematochezia, Denies change in bowel habits, Denies dyspepsia and Denies nausea Denies hematuria and Denies dysuria Musc Denies abnormal gait, Denies myalgias, Denies arthralgias, Denies numbness and Denies tingling Skin/Breast Denies rash, Denies unusual bruising and Denies wounds Neuro Denies abnormal gait, Denies dizziness, Denies headache(s), Denies memory loss, Denies numbness, Denies Sensory deficit (Neuro), Denies tingling and Denies weakness Psych Denies anxiety, Denies depression, Denies memory loss Endo Denies cold intolerance, Denies fatigue, Denies heat intolerance, Denies polydipsia and Denies polyuria Aller/Immun Denies wheezing Physical exam (Primary Care) Tobacco/Smoking Status: Tobacco use Status Tobacco use date assessed 05/26/23 07/10/23 08:51 Patient Tobacco Use Status Former Tobacco user 07/10/23 08:58 Tobacco use type Cigarette 07/10/23 08:51 e-Cigarette/Vaping Use Never Used 07/10/23 08:51 Thrive Assessment: Date of Thrive Assessment Date Thrive assessed 03/03/23 07/10/23 08:51 Const Other: General: no acute distress and well developed Nutritional Appearance: well nourished Orientation/consciousness: patient oriented x3 HENMT Head: Yes normocephalic and Yes atraumatic Eyes General: appearance normal, both eyes and all related structures Pupils: Equal, round and reactive pupils present EOM: EOMs intact bilaterally Resp Effort & Inspection: normal respiratory effort Auscultation: clear to auscultation bilaterally Cardio Rate: regular rate Rhythm: regular rhythm Heart sounds: S1 normal heart sound present, S2 normal heart sound present, no gallops, no murmurs and no rubs GI Palpation (GI): No Abdominal aortic bruit present, Soft to palpation, nontender, No hepatosplenomegaly present and No Rebound tenderness present Auscultation: normal bowel sounds General: Yes no CVA tenderness Back/Spine/Pelvis Back: no CVA tenderness Cervical Spine: cervical ROM normal and No Cervical spine tenderness Thoracic/Lumbar Spine: thoraco-lumbar ROM normal, No pain with thoraco-lumbar ROM, No thoracic spinal tenderness and No lumbar spinal tenderness Extrem General: Yes normal to inspection, No edema and No calf tenderness Skin General: warm and dry. Normal skin color. Normal skin turgor Neuro General: patient oriented x3, gait normal and no focal neuro deficit Cranial nerves: Yes Equal, round and reactive pupils present Cognition (Neuro): normal cognition Gait exam (Neuro): Normal gait present Sensory Exam: No Sensory deficit (Neuro) Psych Appearance: grossly normal Affect: normal affect Attitude: cooperative Thought process: Normal thought process present Results AMB Hemoglobin A1c AMB Hemoglobin A1c 6.6 % Last Edit by Jacqueline Puentes CMA on 07/28/23 12:55 Assessment and Plan Assessment & Plan (1) HTN (hypertension): Code(s): I10 - Essential (primary) hypertension Qualifiers: Hypertension type: primary hypertension Qualified Code(s): I10 - Essential (primary) hypertension Plan: Resting blood pressure is 120/80, slightly above goal of less than 130/80 Continue current treatment regimen Low-sodium diet and routine exercise encouraged Follow-up in 3 months or return sooner with symptoms or concerns Verbalized understanding and agreed with treatment plan (2) Diabetes: Code(s): E11.9 - Type 2 diabetes mellitus without complications Plan: A1c today is 6.6%, within goal of less than 7.0%. Previous A1c was 7.9% Continue current treatment regimen ADA diet and routine exercise encouraged Follow-up in 3 months Verbalized understanding and agreed with treatment plan Orders: Orders AMB Hemoglobin A1c Today Z13.9 - Encounter for screening, unspecified Vitamin D 25-OH Total Today E55.9 - Vitamin D deficiency, unspecified Medications: Discontinued nicotine (polacrilex) Weeks 1 to 6: Chew 1 piece of gum every 1 to 2 hours (maximum: 24 pieces/day); to increase chances of quitting, chew at least 9 pieces/day during the first 6 weeks Discontinued Reason: Insurance Denied 2 mg buccal Q1H 6 weeks 120 ea 1RF Coding Level of Care Code Est Pt Level 4 (66570) Complex EM visit Add On G2211 Diagnoses Primary hypertension I10 Hypertension type: primary hypertension Diabetes E11.9
[2023-07-28 12:40] VITALS: BP 120/80
== END 2023-07-28 13:03 | disposition home or self-care (01) ==
PROVIDERS: PCP Nurse Practitioner Family; Visit Provider Nurse Practitioner Family
DX: I10 Essential (primary) hypertension (principal); E11.9 Type 2 diabetes mellitus without complications; Z13.9 Encounter for screening, unspecified
CPT/HCPCS: 83036; 99214; G2211

== ENCOUNTER 2023-07-28 13:07 | Outpatient (REF) | payer OTHER, SELFPAY ==
[2023-07-03 10:13] VITALS: BP 104/78; BP 136/88; BP 138/72; BMI 29.1
[2023-07-28 15:22] LABS: Anion Gap 11 (12-20); Blood Urea Nitrogen 17 mg/dL (9-16); Carbon Dioxide 27 mmol/L (22-29); Chloride 107 mmol/L (96-108); Estimated Glomerular Filt Rate 42; Potassium 3.9 mmol/L (3.3-5.1); Sodium 141 mmol/L (135-145)
[2023-07-28 15:27] LABS: Vitamin D 25-OH Total 41.4 ng/mL (>30)
[2023-07-28 15:48] LABS: Glucose Random 53 mg/dL (60-115)
== END 2023-07-28 13:08 | disposition home or self-care (01) ==
LOC: HO.WFDLDS 13:07
PROVIDERS: Referring Provider Nurse Practitioner Family; Visit Provider Nurse Practitioner Family
DX: I10 Essential (primary) hypertension (principal); E55.9 Vitamin D deficiency, unspecified
CPT/HCPCS: 36415; 80048; 82306

== ENCOUNTER 2023-08-15 10:37 | Outpatient (REF) | payer OTHER, SELFPAY ==
[2023-07-03 10:13] VITALS: BP 104/78; BP 136/88; BP 138/72; BMI 29.1
[2023-08-15 10:00] VITALS: PULSE 72; RESP 16; O2SAT 99
--- NOTE | 2023-08-15 11:00 | PFT_ITS ---
Flows: FEV1: 72 % of predicted at 1.80 L FVC: 76 % of predicted at 2.41 L FEV1/FVC: 75 % Bronchodilator response: Absent Volumes: Total lung capacity: 74 % of predicted at 3.88 L Residual volume: 81 % of predicted at 1.50 L Slow vital capacity: 70 % of predicted at 2.38 L Expiratory reserve volume: 47 % of predicted at 0.40 L Diffusion capacity: Mildly decreased, corrects to normal after adjustment for alveolar ventilation. Impression: Mild restrictive ventilatory defect with no bronchodilator response. Combination of restrictive ventilatory defect and decreased diffusion capacity suggests underlying pulmonary parenchymal disease. MTDD
== END 2023-08-15 10:38 | disposition home or self-care (01) ==
LOC: HO.RESP 10:37
PROVIDERS: PCP Nurse Practitioner Family; Visit Provider Nurse Practitioner Family
DX: J45.909 Unspecified asthma, uncomplicated (principal)
CPT/HCPCS: 94010; 94640; 94727; 94729

== ENCOUNTER 2023-08-21 09:44 | Outpatient (AMB) | payer OTHER, SELFPAY ==
[2023-07-03 10:13] VITALS: BP 104/78; BP 136/88; BP 138/72; BMI 29.1
--- NOTE | 2023-08-21 10:04 | MHC.OFFVIS ---
Vital Signs 08/21/23 10:05 Height 5 ft 1 in Weight 171 lb BMI 32.3 BP 110/78 Blood Pressure Location Rt brachial Position Sitting Pulse 67 Pulse Source Pulse Oximeter Pulse Oximetry (%) 100 Oxygen Delivery Method Room Air Intake Visit Reasons: Cough/PFT Follow Up Allergies Seasonal Allergies Allergy (Mild, Verified 08/21/23 10:08) congestion HPI HPI Cough/PFT Follow Up: Details: Wilfrido is a pleasant 62-year-old female, current minimal smoker with 40+ pack year history, with underlying asthma, MO 2021 s/p stents x 2, HTN, DMII. She was referred by PCP for pulmonary evaluation for chronic cough. She is suboptimally controlled on Spiriva, Singulair and albuterol MDI/nebulizer. She reports over the last year and a half she has had worsening repiratory symptoms and was switched from Spiriva to Trelegy. She reports significant improvement in symptoms and has quit smoking since the last visit. She denies dyspnea, chest tightness or wheezing. She continues to report intermittent dry cough, however now minimal. Today she presents to review PFT, chest CT and RAST. Of note, since the last visit patient had STEMI in May and had an additional stent placed. [facility] Medical History CAD (coronary artery disease) Stented coronary artery HTN (hypertension) Diabetes Asthma Nicotine dependence, cigarettes, uncomplicated Surgical History History of heart artery stent History of repair of right rotator cuff History of tubal ligation Hx of colonoscopy Family History Mother Hypertension Father No problems noted. Social History Housing: Apartment Housing Other:: Patient is currently living with daughter Are you a primary home health care social worker to a significant other at home: No Do you presently have visiting nurse or other home services: No Patient Tobacco Use Status: Former Tobacco user Tobacco use type: Cigarette Cigarettes Per Day: 1 Years Smoked: onset 10yo, 1ppd x 52yrs, now 1-2 cig/wk - 40+PYH e-Cigarette/Vaping Use: Never Used Second Hand Smoke Exposure: No service: No Current occupational status: disabled Current occupational exposures/hazards: No Cognitive needs: No Hearing needs: No Vision needs: No Review of Systems Const Denies chills, Denies excessive sweating, Denies fever(s), Denies headache(s) and Denies night sweats Eyes Denies dry eyes, Denies irritation and Denies itchy eyes ENT Reports Normal hearing present, Denies headache(s), Denies nasal congestion, Denies nasal discharge, Denies post nasal drip and Denies sore throat Card Denies chest pain, Denies chest pain at rest, Denies chest pain with activity, Denies claudication, Denies leg edema, Denies dyspnea, Denies dyspnea on exertion, Denies orthopnea and Denies paroxysmal nocturnal dyspnea Resp Denies chest congestion, Denies excessive phlegm production, Denies pain on inspiration, Denies pain with cough, Denies dyspnea, Denies dyspnea on exertion, Denies stridor and Denies wheezing Musc Denies myalgias Neuro Reports Normal hearing present and Denies headache(s) Endo Denies excessive sweating Aaron/Lymph Denies lymphadenopathy Aller/Immun Denies itchy eyes, Denies seasonal rhinorrhea and Denies wheezing Physical Exam Vital Signs: Last Vital Signs Pulse 67 08/21/23 10:05 BP 110/78 08/21/23 10:05 Pulse Ox 100 08/21/23 10:05 Oxygen Delivery Method Room Air 08/21/23 10:05 BMI result Body Mass Index 32.3 Const General: cooperative, healthy appearing, comfortable, no acute distress, well developed and alert Nutritional Appearance: obese Orientation/consciousness: patient oriented x3 HEENT Head: Yes normal to inspection, Yes normocephalic and Yes atraumatic Ears: hearing grossly normal bilaterally and external ears normal Eyes General: appearance normal, both eyes and all related structures Eyelids: Yes eyelids normal Sclerae: sclerae normal EOM: EOMs intact bilaterally Neck Neck: Yes normal visual inspection and Yes no lymphadenopathy Lymphatic: no lymphadenopathy noted Chest Chest palpation & inspection: normal inspection of the chest Resp Effort & Inspection: normal respiratory effort, able to speak in complete sentences, no audible wheezes, no cough, no stridor, not tachypneic, no tripod positioning and no use of accessory muscles Auscultation: diminished lung sounds Cardio Jugular venous distension: no JVD Rate: regular rate Rhythm: regular rhythm Skin Other: warm, dry General skin exam: no rashes or lesions noted Neuro General: patient oriented x3 Cranial nerves: Yes Normal hearing present Cognition (Neuro): normal cognition Gait exam (Neuro): Normal gait present Extrem General: Yes normal to inspection, Yes capillary refill normal, Yes no clubbing, cyanosis or edema and Yes no pedal edema Psych Appearance: grossly normal and well kempt Speech and movement: Normal speech and movement present and Clear speech present Affect: normal affect Attitude: cooperative Thought process: Normal thought process present Thought content: Normal thought content present Insight: Good insight present (Psych) Judgement: Good judgement present (Psych) Results Reviewed Results Reviewed: [address] [address] [address] Scan Report Signed Patient: Wilfrido Liz MR#: [id number] : 1960 Acct:[id number] Age/Sex: 62 / F ADM Date: 05/29/23 Loc: .CT Attending Dr: Vielka Littlejohn NP Ordering Physician: Vielka Littlejohn NP Date of Service: 05/29/23 Procedure(s): CT lung screening Accession Number(s): [id number] cc: Vielka Littlejohn METAL RIVET MACHINE OPERATOR; Pepito Cardoza [employer] MARKER~ EXAMINATION: CT CHEST SCREENING CLINICAL INFORMATION: Nicotine dependence, cigarettes, uncomplicated. The patient is a current smoker with a 50 pack-year history of smoking. COMPARISON: None available. TECHNIQUE: Multidetector volumetric CT imaging of the chest is performed without contrast using low dose technique. Additional 2D coronal and sagittal reformatted images and axial 3D maximum intensity projection (MIP) images are generated on the CT workstation. This CT examination was performed using dose optimization techniques as appropriate, variously including the following: *Automated exposure control. *Adjustment of mA and/or kV according to patient size (this includes techniques or standardized protocols for targeted exams where dose is matched to indication/reason for exam; i.e. extremities or head). *Use of iterative reconstruction technique. DLP: 48 mGy-cm FINDINGS: LUNGS: Emphysematous changes are present along with mild bronchial thickening. No suspicious pulmonary nodules are seen. MEDIASTINUM: The mediastinum is normal. CORONARY ARTERY CALCIFICATION: Extensive. PLEURA: There is no pleural effusion. No pleural mass or thickening. AXILLA: No lymphadenopathy. UPPER ABDOMEN: There is an ill-defined approximately 3 cm area in the left suprarenal region which could be a mass but areas measure fat density. Even if this was a mass, this would be a benign myelolipoma. A diagnostic CT scan of the abdomen would be necessary for further evaluation, if clinically indicated. OSSEOUS STRUCTURES: Unremarkable. CT/CT lung screening IMPRESSION: No findings suspicious for malignancy. There is emphysema and mild bronchial thickening. Please see discussion above regarding question of a left adrenal mass. ASSESSMENT: Lung-RADS category 1: Negative. RECOMMENDATION: Routine annual low-dose CT screening in 12 months. Dictated By: Reed Fuentes MD Signed By: <Electronically signed by Reed Fuentes MD in OV> 06/04/23 1851 DD/ 1019 TD/TT: Photography Coordinator: ROOSEVELT Assessment & Plan Assessment & Plan (1) Asthma: Code(s): J45.909 - Unspecified asthma, uncomplicated Category: Medical (2) Environmental and seasonal allergies: Code(s): J30.89 - Other allergic rhinitis Category: Medical Plan Reviewed PFT which revealed mild restrictive ventilatory defect with no bronchodilator response. Combination of restrictive ventilatory defect and decreased diffusion capacity suggests underlying pulmonary parenchymal disease, CT revealed emphysema. CT was read as Lung-RADS 1, she will be scheduled through the lung screening program for a repeat chest CT in one year. There was an incidental finding of question of left adrenal mass, with recommendations for abdominal CT , PCP notified. RAST revealed allergies to ragweed mugwort, birch and oak trees. Will switch loratidine to zyrtec and advised to continue to use Trelegy. Will follow up in three months or sooner if needed. All questions were answered and patient is in agreement of plan. Medications: New cetirizine (Zyrtec) 10 mg PO DAILY PRN 30 tabs 3RF allergy symptoms J30.89 - Other allergic rhinitis Discontinued loratadine Discontinued Reason: Patient Completed Course 10 mg PO QAM 30 tabs 8RF Coding Level of Care Code Est Pt Level 4 (21066) Diagnoses Asthma J45.909 Environmental and seasonal allergies J30.89
[2023-08-21 10:05] VITALS: BP 110/78; PULSE 67; O2SAT 100; BMI 32.3
== END 2023-08-21 10:48 | disposition home or self-care (01) ==
PROVIDERS: PCP Nurse Practitioner Family; Visit Provider Nurse Practitioner Family
DX: J45.909 Unspecified asthma, uncomplicated (principal); J30.89 Other allergic rhinitis
CPT/HCPCS: 99214

== ENCOUNTER → 2023-08-21 09:44 | Outpatient (BNVA) | payer OTHER, SELFPAY ==
[2023-07-03 10:13] VITALS: BP 104/78; BP 136/88; BP 138/72; BMI 29.1
== END ==
PROVIDERS: PCP Nurse Practitioner Family; Visit Provider Nurse Practitioner Family
DX: J45.909 Unspecified asthma, uncomplicated (principal); J30.89 Other allergic rhinitis
CPT/HCPCS: 99212

== ENCOUNTER 2023-09-28 10:43 | Outpatient (AMB) | payer OTHER, SELFPAY ==
[2023-07-03 10:13] VITALS: BP 104/78; BP 136/88; BP 138/72; BMI 29.1
--- NOTE | 2023-09-28 10:54 | MHC.PC.OV ---
Vital Signs 09/28/23 11:08 Height 5 ft 1 in Weight 170 lb 8 oz BMI 32.2 BP 132/78 Blood Pressure Location Rt brachial Position Sitting Respiration 16 Pulse 91 Pulse Source Pulse Oximeter Temp 97.9 F Temp Source Oral Pulse Oximetry (%) 100 Oxygen Delivery Method Room Air Intake Visit Reasons: 3 mos HTN, DM Intake Note: patient here to follow up on HTN and DM. Inpatient Care Manager Rn Required: No Is last menstrual period known: No Post menopausal: No Patient : No Allergies Seasonal Allergies Allergy (Mild, Verified 09/28/23 11:01) congestion Tobacco use date assessed: 09/28/23 Dental Screening Dental Screen Date: 09/28/23 Did you have a dental visit in the last 12 months?: Yes Did you have a dental problem in the last 6 months where you did not have access to dental care?: No Was dental information given to patient?: Patient has dentist HPI HPI Comments History of Present Illness Details 62-year-old female presents with reports of cigarette smoking. She notes that she quit smoking for 3 months and started again for almost a month. She has been smoking 1 and a half cigarette daily. She notes that she craves nicotine immediately after eating. She is will to try a medication to help with smoking. Nicotine patch makes her skin itch. She offers no other complaints and denies acute symptoms. She notes that she has been taking her medications as prescribed. [facility] Medical History CAD (coronary artery disease) Stented coronary artery HTN (hypertension) Diabetes Asthma Nicotine dependence, cigarettes, uncomplicated Surgical History History of heart artery stent History of repair of right rotator cuff History of tubal ligation Hx of colonoscopy Family History Mother Hypertension Father No problems noted. Social History Housing: Apartment Housing Other:: Patient is currently living with daughter Are you a primary client care consultant to a significant other at home: No Do you presently have visiting nurse or other home services: No Patient Tobacco Use Status: Former Tobacco user Tobacco use type: Cigarette Cigarettes Per Day: 1 Years Smoked: onset 10yo, 1ppd x 52yrs, now 1-2 cig/wk - 40+PYH e-Cigarette/Vaping Use: Never Used Second Hand Smoke Exposure: No service: No Current occupational status: disabled Current occupational exposures/hazards: No Cognitive needs: No Hearing needs: No Vision needs: No Questionnaire PHQ-9 Over the last 2 weeks, how often have you been bothered by any of the following problems? 1. Little interest or pleasure in doing things: not at all 2. Feeling down, depressed, or hopeless: not at all 3. Trouble falling or staying asleep, or sleeping too much: nearly every day 4. Feeling tired or having little energy: not at all 5. Poor appetite or overeating: not at all 6. Feeling bad about yourself - or that you are a failure or have let yourself or your family down: not at all 7. Trouble concentrating on things, such as reading the newspaper or watching television: not at all 8. Moving or speaking so slowly that other people could have noticed. Or the opposite - being so fidgety or restless that you have been moving around a lot more than usual: not at all 9. Thoughts that you would be better off or of hurting yourself in some way: not at all Total score: 3 Depression Screening Done: Yes 69036 - PHQ-9 Billing: Yes Source: Developed by Drs. Isma Erickson, Joyce Phillips, Roger Davis and colleagues, with an educational jana from [employer]. Thrive Questionnaire Date Thrive assessed: 03/03/23 ZURI-7 AMB Questionnaire ZURI-7 Date ZURI - 7 assessed: 03/03/23 Source: Developed by Drs. Isma Erickson, Joyce Phillips, Roger Davis and colleagues, with an educational jana from [employer]. Review of Systems Const Details: Const Denies chills, Denies fatigue, Denies fever(s), Denies headache(s) and Denies weakness ENT Denies dizziness and Denies headache(s) Card Denies chest pain, Denies lightheadedness, Denies dyspnea and Denies other (Palpitations) Resp Denies cough, Denies dyspnea, Denies wheezing and Denies other ( shortness of breath) GI Denies abdominal pain, Denies melena, Denies hematochezia, Denies change in bowel habits, Denies dyspepsia and Denies nausea Denies hematuria and Denies dysuria Musc Denies abnormal gait, Denies myalgias, Denies arthralgias, Denies numbness and Denies tingling Skin/Breast Denies rash, Denies unusual bruising and Denies wounds Neuro Denies abnormal gait, Denies dizziness, Denies headache(s), Denies memory loss, Denies numbness, Denies Sensory deficit (Neuro), Denies tingling and Denies weakness Psych Denies anxiety, Denies depression, Denies memory loss Endo Denies cold intolerance, Denies fatigue, Denies heat intolerance, Denies polydipsia and Denies polyuria Aller/Immun Denies wheezing Physical exam (Primary Care) Tobacco/Smoking Status: Tobacco use Status Tobacco use date assessed 05/26/23 09/28/23 10:55 Patient Tobacco Use Status Former Tobacco user 09/28/23 10:55 Tobacco use type Cigarette 09/28/23 10:55 e-Cigarette/Vaping Use Never Used 09/28/23 10:55 Thrive Assessment: Date of Thrive Assessment Date Thrive assessed 03/03/23 09/28/23 10:55 Const Other: General: no acute distress and well developed Nutritional Appearance: well nourished Orientation/consciousness: patient oriented x3 HENMT Head: Yes normocephalic and Yes atraumatic Eyes General: appearance normal, both eyes and all related structures Pupils: Equal, round and reactive pupils present EOM: EOMs intact bilaterally Resp Effort & Inspection: normal respiratory effort Auscultation: clear to auscultation bilaterally Cardio Rate: regular rate Rhythm: regular rhythm Heart sounds: S1 normal heart sound present, S2 normal heart sound present, no gallops, no murmurs and no rubs GI Palpation (GI): No Abdominal aortic bruit present, Soft to palpation, nontender, No hepatosplenomegaly present and No Rebound tenderness present Auscultation: normal bowel sounds General: Yes no CVA tenderness Back/Spine/Pelvis Back: no CVA tenderness Cervical Spine: cervical ROM normal and No Cervical spine tenderness Thoracic/Lumbar Spine: thoraco-lumbar ROM normal, No pain with thoraco-lumbar ROM, No thoracic spinal tenderness and No lumbar spinal tenderness Extrem General: Yes normal to inspection, No edema and No calf tenderness Skin General: warm and dry. Normal skin color. Normal skin turgor Neuro General: patient oriented x3, gait normal and no focal neuro deficit Cranial nerves: Yes Equal, round and reactive pupils present Cognition (Neuro): normal cognition Gait exam (Neuro): Normal gait present Sensory Exam: No Sensory deficit (Neuro) Psych Appearance: grossly normal Affect: normal affect Attitude: cooperative Thought process: Normal thought process present Assessment and Plan Assessment & Plan (1) Smoking trying to quit: Code(s): Z72.0 - Tobacco use Plan: She started smoking a cigarette and a half daily for the past 1 month; before that, she quit smoking for 3 months. She attributes her nicotine cravings after meals. She is willing to try medication for smoking cessation. She does not want the patch because it makes her itch Instructed on the health risks and complications of cigarette smoking and encouraged to quit smoking Bupropion ER 150 mg daily ordered for smoking cessation Advised to follow-up in 1 month for hypertension, diabetes, and cigarette smoking Return with symptoms or concerns Verbalized understanding and agreed with treatment planl (2) HTN (hypertension): Code(s): I10 - Essential (primary) hypertension Qualifiers: Hypertension type: primary hypertension Qualified Code(s): I10 - Essential (primary) hypertension Plan: Blood pressure is 132/78, slightly above goal of less than 130/80 Continue current treatment regimen Low-sodium diet encouraged Follow-up in 1 month Verbalized understanding and agreed with the plan Medications: New bupropion HCl XL 150 mg PO QAM 30 days 30 tabs 1RF Coding Level of Care Code Est Pt Level 4 (27924) Complex EM visit Add On G2211 Diagnoses Smoking trying to quit Z72.0 Primary hypertension I10 Hypertension type: primary hypertension
[2023-09-28 11:08] VITALS: BP 132/78; PULSE 91; RESP 16; TEMP 36.6; O2SAT 100; BMI 32.2
== END 2023-09-28 11:35 | disposition home or self-care (01) ==
PROVIDERS: PCP Nurse Practitioner Family; Visit Provider Nurse Practitioner Family
DX: Z72.0 Tobacco use (principal); I10 Essential (primary) hypertension
CPT/HCPCS: 99214; G2211

== ENCOUNTER 2023-11-02 11:06 | Outpatient (AMB) | payer OTHER, SELFPAY ==
[2023-07-03 10:13] VITALS: BP 104/78; BP 136/88; BP 138/72; BMI 29.1
--- NOTE | 2023-11-02 11:09 | MHC.PC.OV ---
Vital Signs 11/02/23 11:23 Height 5 ft 1 in Weight 176 lb 6 oz BMI 33.3 BP 128/78 Blood Pressure Location Lt brachial Position Sitting Respiration 16 Pulse 78 Pulse Source Pulse Oximeter Temp 97.9 F Temp Source Oral Pulse Oximetry (%) 98 Oxygen Delivery Method Room Air Intake Visit Reasons: 3 mos DM, HTN, smoking Intake Note: patient here for 3 months follow up for DM,HTN and smoking. Cloth Bin Packer Required: No Is last menstrual period known: No Post menopausal: No Patient : No Allergies Seasonal Allergies Allergy (Mild, Verified 11/02/23 11:21) congestion Tobacco use date assessed: 09/28/23 Dental Screening Dental Screen Date: 09/28/23 HPI HPI Comments History of Present Illness Details 63-year-old female presents for hypertension, diabetes, and smoking cessation follow-up She admits to taking her medications as prescribed without adverse reactions She notes that she has not smoked cigarette since her last visit about a month ago She offers no complaints and denies acute symptoms at this time She notes that she started PT for her right-sided LBP and was informed her PCP to order an xray of her back PFSH Medical History CAD (coronary artery disease) Stented coronary artery HTN (hypertension) Diabetes Asthma Nicotine dependence, cigarettes, uncomplicated Surgical History History of heart artery stent History of repair of right rotator cuff History of tubal ligation Hx of colonoscopy Family History Mother Hypertension Father No problems noted. Social History Housing: Apartment Housing Other:: Patient is currently living with daughter Are you a primary animal care supervisor to a significant other at home: No Do you presently have visiting nurse or other home services: No Patient Tobacco Use Status: Former Tobacco user Tobacco use type: Cigarette Cigarettes Per Day: 1 Years Smoked: onset 10yo, 1ppd x 52yrs, now 1-2 cig/wk - 40+PYH e-Cigarette/Vaping Use: Never Used Second Hand Smoke Exposure: No service: No Current occupational status: disabled Current occupational exposures/hazards: No Cognitive needs: No Hearing needs: No Vision needs: No Questionnaire Thrive Questionnaire Date Thrive assessed: 03/03/23 ZURI-7 AMB Questionnaire ZURI-7 Date ZURI - 7 assessed: 03/03/23 Source: Developed by Drs. Isma Erickson, Joyce Phillips, Roger Davis and colleagues, with an educational jana from [employer]. Review of Systems Const Details: Const Denies chills, Denies fatigue, Denies fever(s), Denies headache(s) and Denies weakness ENT Denies dizziness and Denies headache(s) Card Denies chest pain, Denies lightheadedness, Denies dyspnea and Denies other (Palpitations) Resp Denies cough, Denies dyspnea, Denies wheezing and Denies other ( shortness of breath) GI Denies abdominal pain, Denies melena, Denies hematochezia, Denies change in bowel habits, Denies dyspepsia and Denies nausea Denies hematuria and Denies dysuria Musc Denies abnormal gait, Denies myalgias, Denies arthralgias, Denies numbness and Denies tingling Skin/Breast Denies rash, Denies unusual bruising and Denies wounds Neuro Denies abnormal gait, Denies dizziness, Denies headache(s), Denies memory loss, Denies numbness, Denies Sensory deficit (Neuro), Denies tingling and Denies weakness Psych Denies anxiety, Denies depression, Denies memory loss Endo Denies cold intolerance, Denies fatigue, Denies heat intolerance, Denies polydipsia and Denies polyuria Aller/Immun Denies wheezing Physical exam (Primary Care) Vital Signs: Last Vital Signs Temp 97.9 F 11/02/23 11:23 Pulse 78 11/02/23 11:23 Resp 16 11/02/23 11:23 BP 128/78 11/02/23 11:23 Pulse Ox 98 11/02/23 11:23 Oxygen Delivery Method Room Air 11/02/23 11:23 BMI result Body Mass Index 33.3 Tobacco/Smoking Status: Tobacco use Status Tobacco use date assessed 09/28/23 11/02/23 11:12 Patient Tobacco Use Status Former Tobacco user 11/02/23 11:12 Tobacco use type Cigarette 11/02/23 11:12 e-Cigarette/Vaping Use Never Used 11/02/23 11:12 Thrive Assessment: Date of Thrive Assessment Date Thrive assessed 03/03/23 11/02/23 11:12 Const Other: General: no acute distress and well developed Nutritional Appearance: well nourished Orientation/consciousness: patient oriented x3 HENMT Head: Yes normocephalic and Yes atraumatic Eyes General: appearance normal, both eyes and all related structures Pupils: Equal, round and reactive pupils present EOM: EOMs intact bilaterally Resp Effort & Inspection: normal respiratory effort Auscultation: clear to auscultation bilaterally Cardio Rate: regular rate Rhythm: regular rhythm Heart sounds: S1 normal heart sound present, S2 normal heart sound present, no gallops, no murmurs and no rubs GI Palpation (GI): No Abdominal aortic bruit present, Soft to palpation, nontender, No hepatosplenomegaly present and No Rebound tenderness present Auscultation: normal bowel sounds General: Yes no CVA tenderness Back/Spine/Pelvis Back: no CVA tenderness Cervical Spine: cervical ROM normal and No Cervical spine tenderness Thoracic/Lumbar Spine: thoraco-lumbar ROM normal, No pain with thoraco-lumbar ROM, No thoracic spinal tenderness and No lumbar spinal tenderness Extrem General: Yes normal to inspection, No edema and No calf tenderness Skin General: warm and dry. Normal skin color. Normal skin turgor Neuro General: patient oriented x3, gait normal and no focal neuro deficit Cranial nerves: Yes Equal, round and reactive pupils present Cognition (Neuro): normal cognition Gait exam (Neuro): Normal gait present Sensory Exam: No Sensory deficit (Neuro) Psych Appearance: grossly normal Affect: normal affect Attitude: cooperative Thought process: Normal thought process present Results AMB Hemoglobin A1c AMB Hemoglobin A1c 6.5 % Last Edit by Dominique Campos on 11/02/23 11:49 Assessment and Plan Assessment & Plan (1) HTN (hypertension): Code(s): I10 - Essential (primary) hypertension Qualifiers: Hypertension type: primary hypertension Qualified Code(s): I10 - Essential (primary) hypertension Plan: Blood pressure today is 128/70, within goal of less than 130/80 Continue current treatment regimen Low-sodium diet encouraged Follow-up in 3 months or sooner with symptoms or concerns Verbalized understanding and agreed with the treatment plan (2) Diabetes: Code(s): E11.9 - Type 2 diabetes mellitus without complications Plan: A1c today is 6.5%, within goal of less than 7.0%. Previous A1c was 6.6% Continue current treatment regimen ADA diet and routine exercise encouraged Follow-up in 3 months Verbalized understanding and agreed with the treatment plan (3) Smoking trying to quit: Code(s): Z72.0 - Tobacco use Plan: She has not smoked cigarette since her last visit a month ago Encouraged to continue to avoid cigarette smoking Continue to take Wellbutrin as prescribed Follow-up with symptoms or concerns Verbalized understanding and agreed with the plan (4) Right-sided low back pain with right-sided sciatica: Code(s): M54.41 - Lumbago with sciatica, right side Plan: No acute symptoms X-ray of the lumbar spine ordered Orders: Orders XR lumbar spine 2-3V Today M54.41 - Lumbago with sciatica, right side AMB Hemoglobin A1c Today Z13.9 - Encounter for screening, unspecified Medications: Refilled bupropion HCl XL 150 mg PO QAM 30 days 30 tabs 3RF Coding Level of Care Code Est Pt Level 4 (22960) Complex EM visit Add On G2211 Diagnoses Primary hypertension I10 Hypertension type: primary hypertension Diabetes E11.9 Smoking trying to quit Z72.0 Right-sided low back pain with right-sided sciatica M54.41
[2023-11-02 11:23] VITALS: BP 128/78; PULSE 78; RESP 16; TEMP 36.6; O2SAT 98; BMI 33.3
== END 2023-11-02 11:43 | disposition home or self-care (01) ==
PROVIDERS: PCP Nurse Practitioner Family; Visit Provider Nurse Practitioner Family
DX: I10 Essential (primary) hypertension (principal); E11.9 Type 2 diabetes mellitus without complications; Z72.0 Tobacco use; M54.41 Lumbago with sciatica, right side; Z13.9 Encounter for screening, unspecified
CPT/HCPCS: 83036; 99214; G2211

== ENCOUNTER 2023-11-03 08:42 | Outpatient (REF) | payer OTHER, SELFPAY ==
[2023-07-03 10:13] VITALS: BP 104/78; BP 136/88; BP 138/72; BMI 29.1
--- NOTE | ~2023-11-03 | XR_ITS ---
EXAMINATION: XR LUMBOSACRAL SPINE CLINICAL INFORMATION: Low back pain with sciatica right side. COMPARISON: None available. TECHNIQUE: Three views of the lumbosacral spine. FINDINGS: There is grade 1 anterolisthesis of L4-L5. Vertebral bodies are otherwise normally aligned with normal height. There is multilevel degenerative disc changes manifested by endplate osteophytes about disc space narrowing involving L2-L3 through L5-S1. Suspect at least mild bilateral facet arthrosis at the L4-L5 and L5-S1 levels. The visualized pelvis is normal. XR/XR lumbar spine 2-3V IMPRESSION: Moderate multilevel spondylosis of the lumbosacral spine. Electronically signed by: Talha Peng MD 11/18/2023 06:57 AM EDT RP
== END 2023-11-03 08:43 | disposition home or self-care (01) ==
LOC: HO.XRAY 08:42
PROVIDERS: PCP Nurse Practitioner Family; Visit Provider Nurse Practitioner Family
DX: M54.41 Lumbago with sciatica, right side (principal)
CPT/HCPCS: 72100

== ENCOUNTER 2023-11-27 09:32 | Outpatient (AMB) | payer OTHER, SELFPAY ==
[2023-11-07 09:21] VITALS: BP 104/78; BP 136/88; BP 138/72; BMI 29.1
[2023-11-27 09:51] VITALS: BP 110/58; PULSE 72; BMI 32.1
--- NOTE | 2023-11-27 09:51 | MHC.OFFVIS ---
Vital Signs 11/27/23 09:51 Height 5 ft 1 in Weight 169 lb 12.095 oz BMI 32.1 BP 110/58 L Blood Pressure Location Lt brachial Position Sitting Pulse 72 Pulse Source Pulse Oximeter Intake Visit Reasons: RS 3month f/u Allergies Seasonal Allergies Allergy (Mild, Verified 11/02/23 11:21) congestion Medication List - Last Reconciled 11/27/23 by SELWYN Dickey albuterol sulfate 2.5 mg (3 mL) inhalation Q4H PRN alcohol swabs (Alcohol Wipes) 1 pad topical TID PRN 1 month aspirin 81 mg PO DAILY 90 days atorvastatin 80 mg PO DAILY azelastine 1 spray intranasal BEDTIME blood sugar diagnostic (How do you roll?uch Ultra Test strips) bs checks 3 times per day blood-glucose meter (How do you roll?uch Ultra2 Meter) POC testing TID blood-glucose meter Test 3 times daily bupropion HCl XL 150 mg PO QAM 30 days carvedilol 12.5 mg PO BID cetirizine (Zyrtec) 10 mg PO DAILY PRN cholecalciferol (vitamin D3) 50 mcg PO QAM 90 days dulaglutide (Trulicity) 1.5 mg (0.5 mL) subcut QWEEK 30 days ezetimibe 10 mg PO DAILY 90 days liabcqlecgq-bkvzavmlh-hkvizquh 200-62.5-25 mcg (Trelegy Ellipta) 1 inh inhalation DAILY glipizide 10 mg PO BID 3 months lancets (InfoHubbleTouch Delica Plus Lancet) USE TO TEST THREE TIMES DAILY miscellaneous medical supply 1 shower transfer, rollator, blood pressure cuff, versa frame omeprazole 20 mg PO DAILY Shower Chair As directed ticagrelor (Brilinta) 90 mg PO BID 30 days valsartan 40 mg PO BID HPI HPI RS 3month f/u: Details: Wilfrido is a 63-year-old female past medical history of diabetes, hypertension, hyperlipidemia, CAD with anterior STEMI 05/2021 with ROSELIA placed to the proximal and mid LAD who had NSTEMI 05/2023 and was transferred to [facility] for cardiac catheterization and had PCI to the left circumflex. She now presents for follow-up. Today she has been doing well since her last visit in June. She has not had any concerning symptoms. She denies chest discomfort at rest or with activity. No shortness of breath, PND, orthopnea or edema. No lightheadedness, presyncope, syncope, falls. She still has issues with sciatica. She has been taking her meds as directed. No bleeding issues reported. [facility] Medical History CAD (coronary artery disease) Stented coronary artery HTN (hypertension) Diabetes Asthma Nicotine dependence, cigarettes, uncomplicated Surgical History History of heart artery stent History of repair of right rotator cuff History of tubal ligation Hx of colonoscopy Family History Mother Hypertension Father No problems noted. Social History Housing: Apartment Housing Other:: Patient is currently living with daughter Are you a primary vision care associate to a significant other at home: No Do you presently have visiting nurse or other home services: No Patient Tobacco Use Status: Former Tobacco user Tobacco use type: Cigarette Cigarettes Per Day: 1 Years Smoked: onset 10yo, 1ppd x 52yrs, now 1-2 cig/wk - 40+PYH e-Cigarette/Vaping Use: Never Used Second Hand Smoke Exposure: No service: No Current occupational status: disabled Current occupational exposures/hazards: No Cognitive needs: No Hearing needs: No Vision needs: No Review of Systems Const All systems reviewed & are unremarkable except as noted in HPI and below Denies weakness ENT Denies dizziness Card Denies chest pain, Denies chest pain with activity, Denies syncope, Denies rapid heart rate, Denies pedal edema, Denies edema, Denies leg edema, Denies lightheadedness, Denies palpitations, Denies dyspnea, Denies dyspnea on exertion and Denies orthopnea Resp Denies cough, Denies dyspnea and Denies dyspnea on exertion GI Denies hematochezia and Denies change in stool character Musc Denies abnormal gait, Denies muscle cramps, Denies muscle weakness, Denies numbness, Denies radiating pain into limb and Denies tingling Neuro Denies abnormal gait, Denies dizziness, Denies syncope, Denies numbness, Denies tingling and Denies weakness Endo Denies palpitations Physical Exam Vital Signs: Last Vital Signs Pulse 72 11/27/23 09:51 BP 110/58 L 11/27/23 09:51 BMI result Body Mass Index 32.1 Const General: cooperative, healthy appearing, comfortable and no acute distress Orientation/consciousness: patient oriented x3 Neck Neck: Yes normal visual inspection Resp Effort & Inspection: normal respiratory effort Auscultation: clear to auscultation bilaterally, no crackles, no rales, no rhonchi and no wheezes Cardio Jugular venous distension: no JVD Rate: regular rate Rhythm: regular rhythm Heart sounds: S1 normal heart sound present, S2 normal heart sound present, no murmurs and no rubs Neuro General: patient oriented x3 Extrem General: Yes normal to inspection and No no pedal edema Psych Appearance: grossly normal Mental Status: mental status grossly normal Speech and movement: Normal speech and movement present Assessment & Plan Assessment & Plan (1) CAD (coronary artery disease): Comment: (STEMI 2021 = s/p ROSELIA to LAD) Code(s): I25.10 - Atherosclerotic heart disease of [place] coronary artery without angina pectoris Category: Medical Qualifiers: Associated angina: without angina Coronary Disease-Associated Artery/Lesion type: [place] artery [place] vs. transplanted heart: [place] heart Qualified Code(s): I25.10 - Atherosclerotic heart disease of [place] coronary artery without angina pectoris Plan: History of CAD with anterior STEMI 05/2021. Cardiac catheterization was performed and ROSELIA placed to the proximal and mid LAD. She had done well until last spring. While at cardiac rehab she had hypotension, no chest discomfort. She was sent to the ER for evaluation and ruled in for NSTEMI. She was transferred to [facility] for cardiac catheterization which was done on 06/15/2022 with PCI to the left circumflex. Echocardiogram showed EF 53%, apical septum, apical anterior wall, apical inferior severely hypokinetic. During that admission she had issues with hypertensive emergency and required a nitroglycerin drip. She then had orthostatic hypotension, EZIO. Her Entresto was changed to valsartan. She was continued on aspirin and started on Brilinta 90 mg b.i.d.. She was continued on atorvastatin, Zetia, carvedilol. At this time she reports feeling well with no concerning symptoms beyond sciatica. She tells me her home blood pressures have been normal. Blood pressure today is low normal 110/58. She continues to take valsartan. Will continue that medication as she may have more hypotension with Entresto. She has upcoming labs due, reminded her of this. No med changes made at this time. Signs and symptoms of angina reviewed with her. Emergency care if ever needed for symptoms. Cardiology follow-up 6 months, sooner if needed (2) Ischemic cardiomyopathy: Code(s): I25.5 - Ischemic cardiomyopathy Category: Medical Plan: History of ischemic cardiomyopathy with mild the reduced EF into the low normal range. Echocardiogram was done on 02/03/2023 showing EF 40-45%, mid inferior and mid anterior septal akinetic. Most recent echo from 05/12/2022 as above. She had been on Entresto and carvedilol for neurohormonal modulation. During last admission she was taken off Entresto and put back on valsartan due to hypotension. On examination today she has no clinical signs indicating decompensated heart failure. Plan was to get her back on Entresto however blood pressure is on the low side today. Will be continuing valsartan and carvedilol for neurohormonal modulation. (3) Stented coronary artery: Comment: Drug-eluting stent to mid LAD for acute anterior STEMI in May 2021. Moderate to severe stenosis in RCA and circumflex. Code(s): Z95.5 - Presence of coronary angioplasty implant and graft Category: Medical Plan: As above (4) S/P cardiac catheterization: Comment: 06/15/2022, PCI to the left circumflex Code(s): Z98.890 - Other specified postprocedural states Category: Surgical Plan: NSTEMI (5) HTN (hypertension): Code(s): I10 - Essential (primary) hypertension Category: Medical Qualifiers: Hypertension type: primary hypertension Qualified Code(s): I10 - Essential (primary) hypertension Plan: Low normal today. Edwards goal less than 130/85. Continue valsartan and carvedilol. (6) Hyperlipidemia: Code(s): E78.5 - Hyperlipidemia, unspecified Category: Medical Qualifiers: Hyperlipidemia type: unspecified Qualified Code(s): E78.5 - Hyperlipidemia, unspecified Plan: Edwards LDL goal less than 70. Labs done on 02/03/2023 showed LDL 61. Continue atorvastatin 80 mg daily and Zetia. Repeat lipid profile pending (7) NSTEMI (non-ST elevated myocardial infarction): Code(s): I21.4 - Non-ST elevation (NSTEMI) myocardial infarction Category: Medical Plan: As above Plan Time spent on chart review, documentation, interview and assessment Orders: Orders Lipid Panel Today E78.5 - Hyperlipidemia, unspecified Comprehensive Met. Panel Today E78.5 - Hyperlipidemia, unspecified, I10 - Essential (primary) hypertension Coding Level of Care Code Est Pt Level 4 (16363) Complex EM visit Add On G2211 Diagnoses Coronary artery disease involving [place] coronary artery of [place] heart without angina pectoris I25.10 Associated angina: without angina Coronary Disease-Associated Artery/Lesion type: [place] artery [place] vs. transplanted heart: [place] heart Ischemic cardiomyopathy I25.5 Stented coronary artery Z95.5 S/P cardiac catheterization Z98.890 Primary hypertension I10 Hypertension type: primary hypertension Hyperlipidemia, unspecified hyperlipidemia type E78.5 Hyperlipidemia type: unspecified NSTEMI (non-ST elevated myocardial infarction) I21.4 Time Spent (min) 30
== END 2023-11-27 10:18 | disposition home or self-care (01) ==
PROVIDERS: PCP Nurse Practitioner Family; Visit Provider Nurse Practitioner Family
DX: I25.10 Atherosclerotic heart disease of native coronary artery without angina pectoris (principal); I25.5 Ischemic cardiomyopathy; Z95.5 Presence of coronary angioplasty implant and graft; Z98.890 Other specified postprocedural states; I10 Essential (primary) hypertension; E78.5 Hyperlipidemia, unspecified; I21.4 Non-ST elevation (NSTEMI) myocardial infarction
CPT/HCPCS: 99214; G2211

== ENCOUNTER → 2023-11-27 09:32 | Outpatient (BNVA) | payer OTHER, SELFPAY ==
[2023-11-07 09:21] VITALS: BP 104/78; BP 136/88; BP 138/72; BMI 29.1
== END ==
PROVIDERS: PCP Nurse Practitioner Family; Visit Provider Nurse Practitioner Family
DX: I25.10 Atherosclerotic heart disease of native coronary artery without angina pectoris (principal); I10 Essential (primary) hypertension; I25.5 Ischemic cardiomyopathy; I25.2 Old myocardial infarction; E78.5 Hyperlipidemia, unspecified; Z95.5 Presence of coronary angioplasty implant and graft; Z98.890 Other specified postprocedural states; Z87.891 Personal history of nicotine dependence
CPT/HCPCS: 99212

== ENCOUNTER 2023-11-27 15:00 | Outpatient (RCR) | payer OTHER, SELFPAY ==
[2023-07-03 10:13] VITALS: BP 104/78; BP 136/88; BP 138/72; BMI 29.1
[2023-10-22 10:04] VITALS: BP 121/68; PULSE 84
--- NOTE | 2023-10-22 10:52 | MHC.PT.EP ---
[facility] [place] Office [place] Office [place] Office [address] [phone] F: [phone] F: [phone] F: [phone] F: [phone] Physical Therapy Plan of Care Date of Evaluation: 10/22/23 Date of Surgery: NA Diagnosis: Lumbago with sciatica, R side R sided low back pain with R sided sciatica Assessment: Wilfrido is a 63 year old female who is referred to PT for Lumbago with sciatica, R side, R sided low back pain with R sided sciatica . She reports of having back pain for about a year. She denies any trauma or falls. On PT examination she presented with 5/10 pain in low back and R LE upto bell, mild TTP over R SI, pain with lumbar ROM, decreased strength in BLE and core, altered posture, impaired balance and gait. She lives with her daughter and is needing more assistance for ADLS due to pain. She would benefit from skilled PT to address the aforementioned impairments and improve tolerance to functional activities. Frequency and Duration: The patient will be seen 2/week for 5 weeks Short Term Goals: 1. Pt will demonstrate initiation of HEP In 2 weeks. 2. Pt will be able to move her trunk through all planes of motion without pain which will enable her to dress her lower body without modifications in 3 weeks. Physics Technician Goals: 1. Pt will demonstrate an increase in muscle strength by 1 grade which will enable her to stand, walk and perform self care activities without pain in 5 weeks. 2. Pt will be independent with HEP for symptom management and maintenance following d/c in 5 weeks Treatment Plan: Modalities to reduce pain, spasms and effusion. Manual therapy to restore motion and function. Therapeutic exercise to improve strength and flexibility. Neuromuscular re-education for posture and balance. Therapeutic activities to return to functional activities of daily living. Electronically signed by: Connie Simon PT DPT Please sign and return to therapist. Thank you for your referral.
--- NOTE | 2023-12-09 11:40 | MHC.PT.DC ---
[facility] [place] Office [place] Office [place] Office [address] Jeremy Jordan [address] [phone] F: [phone] F: [phone] F: [phone] F: [phone] Physical Therapy Discharge Report Diagnosis: Lumbago with sciatica, R side R sided low back pain with R sided sciatica Date of Surgery: NA Date of Evaluation: 10/22/23 Date of Discharge: 12/09/23 Treatments to Date: 7 Cancellations to Date: 1 No Shows to Date: 1 Discharge Status: Recommend MD Follow-up Discharge Summary: Wilfrido has completed 7 PT visits and has had no change in her symptoms. Per pt the exercises have not helped her at all. Due to lack of improvement she is being d/c from PT today. I reviewed all strength exercises with her and advised her to continue working on lumbar stabs and B LE strength. Wilfrido was in agreement with the plan. Electronically signed by: Connie Simon, PT DPT Please sign and return to therapist. Thank you for your referral.
== END 2023-12-09 11:40 | disposition home or self-care (01) ==
LOC: HO.PT 15:00
PROVIDERS: PCP Nurse Practitioner Family
DX: M54.41 Lumbago with sciatica, right side (principal)
CPT/HCPCS: 97110; 97140; 97161

== ENCOUNTER 2023-12-02 09:42 | Outpatient (REF) | payer OTHER, SELFPAY ==
[2023-11-07 09:21] VITALS: BP 104/78; BP 136/88; BP 138/72; BMI 29.1
[2023-12-02 11:09] LABS: Alanine Aminotransferase 14 U/L (0-31); Alkaline Phosphatase 99 U/L (39-117); Anion Gap 10 (12-20); Aspartate Amino Transferase 16 U/L (5-31); Bilirubin Total 0.5 mg/dL (0.0-1.0); Blood Urea Nitrogen 16 mg/dL (9-16); Calcium 9.6 mg/dL (8.4-10.2); Carbon Dioxide 29 mmol/L (22-29); Chloride 107 mmol/L (96-108); Cholesterol 130 mg/dL (<200); Estimated Glomerular Filt Rate 35; Glucose Random 174 mg/dL (60-115); HDL Cholesterol 44 mg/dL (>40); LDL Cholesterol Calculated 63 mg/dL (<100); Potassium 3.9 mmol/L (3.3-5.1); Sodium 142 mmol/L (135-145); Total Protein 7.7 g/dL (6.5-8.0); Triglycerides 116 mg/dL (<150)
== END 2023-12-02 09:43 | disposition home or self-care (01) ==
LOC: HO.LAB 09:42
PROVIDERS: PCP Nurse Practitioner Family; Visit Provider Nurse Practitioner Family
DX: E78.5 Hyperlipidemia, unspecified (principal); I10 Essential (primary) hypertension
CPT/HCPCS: 36415; 80053; 80061

== ENCOUNTER 2023-12-08 10:42 | Outpatient (AMB) | payer OTHER, SELFPAY ==
[2023-11-07 09:21] VITALS: BP 104/78; BP 136/88; BP 138/72; BMI 29.1
--- NOTE | 2023-12-08 11:02 | A.OFFVIS_ITS ---
Vital Signs 12/08/23 11:03 Height 5 ft 1 in Weight 173 lb 6 oz BMI 32.8 BP 160/92 H Blood Pressure Location Lt brachial Position Sitting Pulse 74 Pulse Source Pulse Oximeter Pulse Oximetry (%) 99 Oxygen Delivery Method Room Air Intake Visit Reasons: cough/PFT FU Allergies Seasonal Allergies Allergy (Mild, Verified 12/08/23 11:05) congestion HPI HPI cough/PFT FU: Details: Wilfrido is a pleasant 63-year-old female, former smoker, recently quit with 40+ pack year history, with underlying asthma, CO 2021 s/p stents x 2, HTN, DMII. She was suboptimally controlled on Spiriva, Singulair and albuterol MDI/nebulizer, switched to Trelegy with good effect. She continues to report dry cough, which she attributes to post nasal drip. She was previously using azelastine with good effect however insurance denied refills. She has not been using albuterol despite reporting chest tightness and dyspnea. She denies any visits to urgent care or hospitalizations since the last visit. [facility] Medical History CAD (coronary artery disease) Stented coronary artery HTN (hypertension) Diabetes Asthma Nicotine dependence, cigarettes, uncomplicated Surgical History History of heart artery stent History of repair of right rotator cuff History of tubal ligation Hx of colonoscopy Family History Mother Hypertension Father No problems noted. Social History Housing: Apartment Housing Other:: Patient is currently living with daughter Are you a primary animal care attendant to a significant other at home: No Do you presently have visiting nurse or other home services: No Patient Tobacco Use Status: Former Tobacco user Tobacco use type: Cigarette Cigarettes Per Day: 1 Years Smoked: onset 10yo, 1ppd x 52yrs, now 1-2 cig/wk - 40+PYH e-Cigarette/Vaping Use: Never Used Second Hand Smoke Exposure: No service: No Current occupational status: disabled Current occupational exposures/hazards: No Cognitive needs: No Hearing needs: No Vision needs: No Review of Systems Const Denies chills, Denies excessive sweating, Denies fever(s), Denies headache(s) and Denies night sweats Eyes Denies dry eyes, Denies irritation and Denies itchy eyes ENT Reports Normal hearing present, Denies headache(s), Denies nasal congestion, Denies nasal discharge and Denies sore throat Card Denies chest pain, Denies chest pain at rest, Denies chest pain with activity, Denies claudication, Denies leg edema, Denies dyspnea on exertion, Denies orthopnea and Denies paroxysmal nocturnal dyspnea Resp Denies chest congestion, Denies excessive phlegm production, Denies pain on inspiration, Denies pain with cough, Denies dyspnea on exertion, Denies stridor and Denies wheezing Musc Denies myalgias Neuro Reports Normal hearing present and Denies headache(s) Endo Denies excessive sweating Aaron/Lymph Denies lymphadenopathy Aller/Immun Denies itchy eyes, Denies seasonal rhinorrhea and Denies wheezing Physical Exam Vital Signs: Last Vital Signs Pulse 74 12/08/23 11:03 BP 160/92 H 12/08/23 11:03 Pulse Ox 99 12/08/23 11:03 Oxygen Delivery Method Room Air 12/08/23 11:03 BMI result Body Mass Index 32.8 Const General: cooperative, healthy appearing, comfortable, no acute distress, well developed and alert Nutritional Appearance: obese Orientation/consciousness: patient oriented x3 HEENT Head: Yes normal to inspection, Yes normocephalic and Yes atraumatic Ears: hearing grossly normal bilaterally and external ears normal Eyes General: appearance normal, both eyes and all related structures Eyelids: Yes eyelids normal Sclerae: sclerae normal EOM: EOMs intact bilaterally Neck Neck: Yes normal visual inspection and Yes no lymphadenopathy Lymphatic: no lymphadenopathy noted Chest Chest palpation & inspection: normal inspection of the chest Resp Effort & Inspection: normal respiratory effort, able to speak in complete sentences, no audible wheezes, no stridor, not tachypneic, no tripod positioning and no use of accessory muscles Auscultation: diminished lung sounds Cardio Jugular venous distension: no JVD Rate: regular rate Rhythm: regular rhythm Skin Other: warm, dry General skin exam: no rashes or lesions noted Neuro General: patient oriented x3 Cranial nerves: Yes Normal hearing present Cognition (Neuro): normal cognition Gait exam (Neuro): Normal gait present Extrem General: Yes normal to inspection, Yes capillary refill normal, Yes no clubbing, cyanosis or edema and Yes no pedal edema Psych Appearance: grossly normal and well kempt Speech and movement: Normal speech and movement present and Clear speech present Affect: normal affect Attitude: cooperative Thought process: Normal thought process present Thought content: Normal thought content present Insight: Good insight present (Psych) Judgement: Good judgement present (Psych) Assessment & Plan Assessment & Plan (1) Asthma: Code(s): J45.909 - Unspecified asthma, uncomplicated Category: Medical (2) Environmental and seasonal allergies: Code(s): J30.89 - Other allergic rhinitis Category: Medical Plan Wilfrido reports moderate effect with Trelegy. Advised to use albuterol PRN. She reported good relief of cough related to post nasal drip with prior nasal spray however denied by insurance. Will trial ipratropium nasal spray. CT was read as Lung-RADS 1, she will be scheduled through the lung screening program for a repeat chest CT in [facility], May 2024. All questions were answered and patient is in agreement of plan. Will follow up in 3 months or sooner if needed. Medications: New ipratropium bromide administer into each nostril 2 sprays intranasal BID 30 mL 3RF Refilled wqctptyheha-zrjbgyvye-hzntatnv 200-62.5-25 mcg (Trelegy Ellipta) 1 inh inhalation DAILY 60 ea 6RF Coding Level of Care Code Est Pt Level 4 (71663) Diagnoses Asthma J45.909 Environmental and seasonal allergies J30.89
[2023-12-08 11:03] VITALS: BP 160/92; PULSE 74; O2SAT 99; BMI 32.8
== END 2023-12-08 11:24 | disposition home or self-care (01) ==
PROVIDERS: PCP Nurse Practitioner Family; Visit Provider Nurse Practitioner Family
DX: J45.909 Unspecified asthma, uncomplicated (principal); J30.89 Other allergic rhinitis
CPT/HCPCS: 99214

== ENCOUNTER → 2023-12-08 10:42 | Outpatient (BNVA) | payer OTHER, SELFPAY ==
[2023-11-07 09:21] VITALS: BP 104/78; BP 136/88; BP 138/72; BMI 29.1
== END ==
PROVIDERS: PCP Nurse Practitioner Family; Visit Provider Nurse Practitioner Family
DX: J45.909 Unspecified asthma, uncomplicated (principal)
CPT/HCPCS: 99212

== ENCOUNTER 2023-12-18 11:03 | Inpatient (IN) | payer OTHER, SELFPAY ==
[2023-11-07 09:21] VITALS: BP 104/78; BP 136/88; BP 138/72; BMI 29.1
[2023-12-18] VITALS (8 sets, daily range): BP systolic 129–234; BP diastolic 76–104; PULSE 66–87; RESP 16–18; TEMP 36–36.5; O2SAT 94–100; BMI 29.1
--- NOTE | ~2023-12-18 | XR_ITS ---
EXAMINATION: XR CHEST CLINICAL INFORMATION: Chest pain. Shortness of breath. COMPARISON: X-ray dated June 12, 2023 TECHNIQUE: 2 views of the chest were obtained. FINDINGS: No consolidation, pleural effusion or pneumothorax. Cardiomediastinal silhouette is normal. Multilevel thoracic spondylosis. XR/XR chest 2V IMPRESSION: No acute airspace disease. Electronically signed by: Scooby Clay MD 12/18/2023 12:02 PM EDT
--- NOTE | 2023-12-18 11:13 | ED_ITS ---
HPI - General Adult General Chief complaint: Dyspnea Stated complaint: DIFF BREATHING Time Seen by Provider: 12/18/23 11:13 Source: patient Mode of arrival: wheelchair Limitations: no limitations History of Present Illness ED Provider: Milvia Ware PA-C HPI narrative: Patient is a 63 year old assigned female at with a history of CAD, HTN, NSTEMI, DM, ischemic cardiomyopathy, asthma, and tobacco use presenting to the emergency department today with increased shortness of breath / work of breathing. Patient states that she is currently attending cardiac rehab because she has had 2 recent MIs. Patient states that over the last few days she has gotten much more short of breath which is especially worse with lying flat. Patient denies any dizziness, lightheadedness, abdominal pain, nausea, vomiting, fever, chills, blurry vision, double vision, loss of vision, chest pain, back pain, night sweats, pain with urination, increased urinary frequency, increased urinary urgency, blood in her urine or stool, syncope or a near syncopal episode, recent trauma or falls, bowel incontinence, bladder incontinence, or any other complaints at this time. Relieving factors: none Exacerbating factors: other (lying flat) Associated symptoms: shortness of breath Treatments prior to arrival: none Related Data Home Medications ?Medication ?Instructions ?Recorded ?Confirmed acetaminophen 650 mg 1,300 mg PO BID PRN Pain 12/18/23 tablet,extended release loratadine 10 mg tablet 10 mg PO DAILY 12/18/23 sacubitril 24 mg-valsartan 26 mg 1 tab PO BID 12/18/23 tablet (Entresto) Previous Rx's ?Medication ?Instructions ?Recorded Shower Chair #1 ea 01/02/21 ezetimibe 10 mg tablet 10 mg PO DAILY 90 days #90 tabs 01/14/23 blood-glucose meter #1 ea 03/20/23 blood-glucose meter (OneTouch #1 ea 03/24/23 Ultra2 Meter) albuterol sulfate 2.5 mg/3 mL 2.5 mg (3 mL) inhalation Q4H PRN 06/02/23 (0.083 %) solution for nebulization shortness of breath or wheezing #180 mL miscellaneous medical supply See Rx Instructions miscellaneous 06/23/23 .COMPLEX #1 ea atorvastatin 80 mg tablet 80 mg PO DAILY #90 tabs 07/08/23 azelastine 205.5 mcg (0.15 %) 1 spray intranasal BEDTIME #30 mL 07/10/23 nasal spray valsartan 40 mg tablet 40 mg PO BID #60 tabs 07/30/23 aspirin 81 mg tablet,delayed 81 mg PO DAILY 90 days #90 tabs 08/14/23 release cholecalciferol (vitamin D3) 50 50 mcg PO QAM 90 days #90 tabs 08/17/23 mcg (2,000 unit) tablet omeprazole 20 mg capsule,delayed 20 mg PO DAILY #90 caps 08/17/23 release cetirizine 10 mg tablet (Zyrtec) 10 mg PO DAILY PRN allergy 08/21/23 symptoms #30 tabs carvedilol 12.5 mg tablet 12.5 mg PO BID #180 tabs 09/09/23 ticagrelor 90 mg tablet (Brilinta) 90 mg PO BID 30 days #60 tabs 09/25/23 bupropion HCl 150 mg 24 hr tablet, 150 mg PO QAM 30 days #30 tabs 11/02/23 extended release dulaglutide 1.5 mg/0.5 mL 1.5 mg (0.5 mL) subcut QWEEK 30 11/16/23 subcutaneous pen injector days #2.5 mL (Trulicity) glipizide 10 mg tablet 10 mg PO BID 3 months #180 tabs 11/26/23 lancets 33 [facility] ea 11/30/23 Plus Lancet) fluticasone fur. 200 mcg-umeclid 1 inh inhalation DAILY #60 ea 12/08/23 62.5 mcg-vilant 25 mcg inhalat.powder (Trelegy Ellipta) ipratropium bromide 21 mcg (0.03 2 spray intranasal BID #30 mL 12/08/23 %) nasal spray alcohol swabs (Alcohol Wipes) 1 pad topical TID PRN glucose 12/16/23 monitoring 1 month #100 ea blood sugar diagnostic ([facility] #100 ea 12/16/23 Ultra Test strips) Allergies Allergy/AdvReac Type Severity Reaction Status Date / Time Seasonal Allergies Allergy Mild congestion Verified 12/18/23 11:20 Review of Systems 2 Constitutional: Constitutional: Reports no additional constitutional complaints, Denies chills, Denies fever(s) and Denies night sweats Eyes: Eyes: Reports no additional eye complaints, Denies blurry vision, Denies change in vision, Denies diplopia, Denies eye discharge, Denies loss of vision and Denies eye pain ENT: Denies dizziness Cardiovascular: Cardiovascular: Reports no additional cardiovascular complaints, Denies chest pain, Denies lightheadedness, Denies Loss of Consciousness and Reports dyspnea Respiratory: Respiratory: Reports no additional respiratory complaints and Reports dyspnea Gastrointestinal: Gastrointestinal: Reports no additional gastrointestinal complaints, Denies abdominal pain, Denies melena, Denies hematochezia, Denies change in bowel habits and Denies change in stool character Genitourinary: Genitourinary: Denies hematuria, Denies urinary frequency, Denies dysuria, Denies urinary incontinence, Denies urinary hesitancy and Denies urinary urgency Musculoskeletal: Musculoskeletal: Reports no additional musculoskeletal complaints, Denies numbness and Denies tingling Neurologic: Denies dizziness, Denies loss of vision, Denies numbness and Denies tingling Psychiatric: Psychiatric: Reports no additional psychiatric complaints Endocrine: Endocrine: Reports no additional endocrine complaints Hematologic/Lymphatic: Hematologic/Lymphatic: Reports no additional hematologic/lymphatic complaints Allergic/Immunologic: Allergic/Immunologic: Reports no additional allergic/immunologic complaints [facility] Past Medical History Attestation statement: The following information was validated with the patient. Source: old records reviewed and nursing notes reviewed Medical History CAD (coronary artery disease) Stented coronary artery HTN (hypertension) Diabetes Asthma Nicotine dependence, cigarettes, uncomplicated Surgical History History of heart artery stent History of repair of right rotator cuff History of tubal ligation Hx of colonoscopy Family History Family History Mother Hypertension Father No problems noted. Social History Social History Housing: Apartment Housing Other:: Patient is currently living with daughter Are you a primary care transition manager to a significant other at home: No Do you presently have visiting nurse or other home services: No Patient Tobacco Use Status: Former Tobacco user Tobacco use type: Cigarette Cigarettes Per Day: 1 Years Smoked: onset 10yo, 1ppd x 52yrs, now 1-2 cig/wk - 40+PYH Smoked in Last 30 Days: No e-Cigarette/Vaping Use: Never Used Second Hand Smoke Exposure: No Use of substances other than those prescribed or required for medical reasons: No Advance Directives: No Advance Directives Information Provided: Yes Do you have a plan to hurt others: No Plan service: No Current occupational status: disabled Current occupational exposures/hazards: No Cognitive needs: No Hearing needs: No Vision needs: No Physical Exam ED Vital Signs: Vital Signs - 24 hr 12/18/23 11:18 12/18/23 14:30 12/18/23 15:02 Temperature 97.7 F Pulse Rate 74 66 Respiratory Rate 18 18 Blood Pressure 129/76 234/99 H 173/93 H Pulse Oximetry 99 100 Oxygen Delivery Method Room Air Room Air 12/18/23 15:03 Temperature Pulse Rate 78 Respiratory Rate Blood Pressure 173/91 H Pulse Oximetry Oxygen Delivery Method BMI result Body Mass Index 29.1 Const General: cooperative, no acute distress, alert and awake Nutritional Appearance: well nourished Orientation/consciousness: patient oriented x3 Limitations: no limitations HENMT Head: Yes normal to inspection and Yes atraumatic Ears: hearing grossly normal bilaterally and external ears normal General nose exam: Normal external nose present, no nasal discharge noted and no epistaxis Face and sinus: Yes normal facial exam, No abrasion and No laceration Mouth: Normal oral and palatal mucosa present, no drooling and no muffled voice Eyes General: appearance normal, both eyes and all related structures Periorbital: periorbital findings normal Eyelids: Yes eyelids normal Conjunctivae: conjunctivae normal Pupils: Equal, round and reactive pupils present EOM: EOMs intact bilaterally Neck Neck: Yes normal visual inspection, Yes full ROM and Yes no lymphadenopathy Chest Chest palpation & inspection: normal inspection of the chest Resp Effort & Inspection: normal respiratory effort and able to speak in complete sentences GI Inspection: Yes normal to inspection Neuro General: patient oriented x3 and moves all extremities Cranial nerves: Yes Equal, round and reactive pupils present Cognition (Neuro): normal cognition Extrem General: Yes normal to inspection, Yes full ROM and Yes capillary refill normal Psych Appearance: grossly normal Mental Status: mental status grossly normal Affect: normal affect Attitude: cooperative Thought process: Normal thought process present Thought content: Normal thought content present Insight: Good insight present (Psych) Medications Administered Discontinued Medications Generic Name Dose Route Start Last Admin Trade Name Billy PRN Reason Stop Dose Admin Carvedilol 12.5 mg 12/18/23 14:48 12/18/23 15:03 Carvedilol 12.5 Mg Tablet PO 12/18/23 14:49 12.5 mg ONCE ONE Administration Protocol Valsartan 40 mg 12/18/23 14:48 12/18/23 15:02 Valsartan 40 Mg Tablet PO 12/18/23 14:49 40 mg ONCE ONE Administration Protocol Medical Decision Making Medical Decision Making MDM Narrative: Patient is a 63 year old assigned female at with a history of CAD, HTN, NSTEMI, DM, ischemic cardiomyopathy, asthma, and tobacco use presenting to the emergency department today with increased shortness of breath / work of breathing. Patient's physical exam was as noted in the physical exam portion of this note. Patient's blood work was unremarkable. Patient's urine showed no acute process. Patient's initial and repeat EKGs were unremarkable. Patient's chest x-ray showed no acute process. Patient had multiple episodes of hypertension while in the department and developed right sided chest pain. I consulted with the radiographer oncology nurse who recommended giving her a repeat dose of her home anti-hypertensives and admitting her to the hospitalist team. I spoke to the hospitalist team who agreed to admission. I explained my physical exam findings as well as all test results to the patient. I answered all questions asked by the patient. Patient verbalized agreement and understanding with this treatment plan and admission. Differential Diagnosis Differential Diagnoses: The differential diagnosis associated with the presentation includes SOB Anginal equivalent NSTEMI STEMI Labile blood pressure Admission/Observation Consideration of admission/observation: Escalation of care including admission/observation considered Patient admitted. 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 My interpretation of these results are in the MDM Rationale portion of this note. 12/18/23 11:51 12/18/23 11:51 Labs: Lab Results 10/25/24 10/25/24 10/25/24 Range/Units 11:51 11:57 13:53 WBC 3.0 L (4.8-10.8) X10*3/uL RBC 4.39 (4.20-5.50) X10*6/uL Hgb 12.3 (12.0-16.0) g/dl Hct 36.9 L (37.0-47.0) % MCV 84.1 (80.0-98.0) fL MCH 28.0 (27.0-33.0) pg MCHC 33.3 (31.0-35.0) g/dl RDW 14.6 (11.0-16.0) % Plt Count 157 L (160-400) X10*3/uL MPV 10.3 (9.4-12.3) fL Immature Gran % (Auto) 0.0 (0.0-0.4) % Neut % (Auto) 36.3 L (45-73) % Lymph % (Auto) 46.6 H (20-40) % [place] % (Auto) 11.1 H (2-11) % Eos % (Auto) 5.7 H (0-4) % Baso % (Auto) 0.3 (0-2) % Lymph # (Auto) 1.4 (1.2-4.9) X10*3/uL [place] # (Auto) 0.3 (0.1-1.2) X10*3/uL Eos # (Auto) 0.2 (0.0-0.4) X10*3/uL Baso # (Auto) 0.0 (0.0-0.2) X10*3/uL Abs Immat Gran (auto) 0.00 (0.00-0.03) X10*3/uL Absolute Neuts (auto) 1.1 L (2.0-8.3) x10*3/uL Absolute Nucleated RBC 0.000 (0.0-0.012) X10*3/uL Nucleated RBC % (auto) 0.0 (0.0-0.2) /100WBC Smear Tech's Comments VERIFIED VBG pH 7.36 (7.32-7.43) VBG pCO2 44 mmHg VBG pO2 43 mmHg VBG HCO3 25 (22-26) mmol/L VBG O2 Saturation 62.0 % VBG Base Excess -0.2 mmol/L Sodium 141 (135-145) mmol/L Potassium 3.8 (3.3-5.1) mmol/L Chloride 109 H (96-108) mmol/L Carbon Dioxide 25 (22-29) mmol/L Anion Gap 11 L (12-20) BUN 19 H (9-16) mg/dL Creatinine 1.56 H (0.5-1.4) mg/dL Estim Creat Clear Calc 39.8 Estimated GFR 34 Random Glucose 108 (60-115) mg/dL Calcium 9.9 (8.4-10.2) mg/dL Magnesium 2.1 (1.6-2.6) mg/dL Total Bilirubin 0.4 (0.0-1.0) mg/dL AST 27 (5-31) U/L ALT 21 (0-31) U/L Alkaline Phosphatase 97 (39-117) U/L Troponin I High Sens 2.8 D < 2.7 (<3.5-17.0) ng/L B-Natriuretic Peptide 162 H (<100) pg/mL Total Protein 8.1 H (6.5-8.0) g/dL Albumin 4.1 (3.5-5.0) g/dL Urine Color Urine Appearance Urine pH (5.0-9.0) Ur Specific [place] (1.005-1.025) Urine Protein (Neg-Trace) mg/dL Urine Glucose (UA) (Negative) mg/dL Urine Ketones (Negative) mg/dL Urine Blood (Negative) Urine Nitrite (Negative) Ur Leukocyte Esterase (Negative) Influenza Type A (PCR) NEGATIVE (Negative) Influenza Type B (PCR) NEGATIVE (Negative) RSV RNA Qual (PCR) NEGATIVE (Negative) SARS-CoV-2 RNA (RT-PCR) NEGATIVE (Negative) 12/18/23 Range/Units 14:20 WBC (4.8-10.8) X10*3/uL RBC (4.20-5.50) X10*6/uL Hgb (12.0-16.0) g/dl Hct (37.0-47.0) % MCV (80.0-98.0) fL MCH (27.0-33.0) pg MCHC (31.0-35.0) g/dl RDW (11.0-16.0) % Plt Count (160-400) X10*3/uL MPV (9.4-12.3) fL Immature Gran % (Auto) (0.0-0.4) % Neut % (Auto) (45-73) % Lymph % (Auto) (20-40) % [place] % (Auto) (2-11) % Eos % (Auto) (0-4) % Baso % (Auto) (0-2) % Lymph # (Auto) (1.2-4.9) X10*3/uL [place] # (Auto) (0.1-1.2) X10*3/uL Eos # (Auto) (0.0-0.4) X10*3/uL Baso # (Auto) (0.0-0.2) X10*3/uL Abs Immat Gran (auto) (0.00-0.03) X10*3/uL Absolute Neuts (auto) (2.0-8.3) x10*3/uL Absolute Nucleated RBC (0.0-0.012) X10*3/uL Nucleated RBC % (auto) (0.0-0.2) /100WBC Smear Tech's Comments VBG pH (7.32-7.43) VBG pCO2 mmHg VBG pO2 mmHg VBG HCO3 (22-26) mmol/L VBG O2 Saturation % VBG Base Excess mmol/L Sodium (135-145) mmol/L Potassium (3.3-5.1) mmol/L Chloride (96-108) mmol/L Carbon Dioxide (22-29) mmol/L Anion Gap (12-20) BUN (9-16) mg/dL Creatinine (0.5-1.4) mg/dL Estim Creat Clear Calc Estimated GFR Random Glucose (60-115) mg/dL Calcium (8.4-10.2) mg/dL Magnesium (1.6-2.6) mg/dL Total Bilirubin (0.0-1.0) mg/dL AST (5-31) U/L ALT (0-31) U/L Alkaline Phosphatase (39-117) U/L Troponin I High Sens (<3.5-17.0) ng/L B-Natriuretic Peptide (<100) pg/mL Total Protein (6.5-8.0) g/dL Albumin (3.5-5.0) g/dL Urine Color Yellow Urine Appearance Clear Urine pH 6.0 (5.0-9.0) Ur Specific [place] 1.015 (1.005-1.025) Urine Protein Negative (Neg-Trace) mg/dL Urine Glucose (UA) Negative (Negative) mg/dL Urine Ketones Negative (Negative) mg/dL Urine Blood Negative (Negative) Urine Nitrite Negative (Negative) Ur Leukocyte Esterase Negative (Negative) Influenza Type A (PCR) (Negative) Influenza Type B (PCR) (Negative) RSV RNA Qual (PCR) (Negative) SARS-CoV-2 RNA (RT-PCR) (Negative) Independent Interpretation I performed an independent interpretation of an: EKG and Plain X-Ray Interpretation: My interpretation is in agreement with the radiologist's impression of this imaging study. L EXAMINATION: XR CHEST CLINICAL INFORMATION: Chest pain. Shortness of breath. COMPARISON: X-ray dated June 12, 2023 TECHNIQUE: 2 views of the chest were obtained. FINDINGS: No consolidation, pleural effusion or pneumothorax. Cardiomediastinal silhouette is normal. Multilevel thoracic spondylosis. XR/XR chest 2V IMPRESSION: No acute airspace disease. Electronically signed by: Scooby Clay MD 12/18/2023 12:02 PM EDT Dictated By: Scooby Kathleen Signed By: Electronically signed by Scooby Campos 12/18/23 1202 Vent. Rate: 073 BPM Atrial Rate: 073 BPM P-R Int: 134 ms QRS Dur: 090 ms QT Int: 430 ms P-R-T Axes: 036 -03 -10 degrees QTc Int: 473 ms Normal sinus rhythm Minimal voltage criteria for LVH, may be normal variant (R in aVL) Septal infarct, age undetermined When compared with ECG of 12-JUN-2023 10:49, Significant changes have occurred DD/ 1118 Vent. Rate: 063 BPM Atrial Rate: 063 BPM P-R Int: 134 ms QRS Dur: 086 ms QT Int: 424 ms P-R-T Axes: 038 003 003 degrees QTc Int: 433 ms Normal sinus rhythm Moderate voltage criteria for LVH, may be normal variant (R in aVL, Sokolow- Harris) When compared with ECG of 18-DEC-2023 11:18, Criteria for Septal infarct are no longer Present DD/ [id number] Radiology Impression Discussion of test interpretation with radiology: I have reviewed the radiologist's reading. Chronic Conditions Patient?s care impacted by: Diabetes and Hypertension Critical Care Time Critical Care Time Critical Care Time: Yes Total Critical Care Time: 47 Attestation: I spent 47 minutes of Critical Care Time with this patient. This does not include time spent on separately reported billable procedures. Discharge Plan Discharge Clinical Impression: Chest pain, Shortness of breath, Labile blood pressure Patient Disposition: Admitted As Inpatient
--- NOTE | 2023-12-18 11:19 | ECG_ITS ---
Test Reason : SOB Blood Pressure : / mmHG Vent. Rate : 073 BPM Atrial Rate : 073 BPM P-R Int : 134 ms QRS Dur : 090 ms QT Int : 430 ms P-R-T Axes : 036 -03 -10 degrees QTc Int : 473 ms Normal sinus rhythm Minimal voltage criteria for LVH, may be normal variant ( R in aVL ) Septal infarct , age undetermined Abnormal ECG When compared with ECG of 12-JUN-2023 10:49, Inferior and lateral T wave changes not present anymore Referred By: Milvia Ware Electronically Signed By:Raúl Easton
[2023-12-18 11:59] LABS: Basophils Percent Auto 0.3 % (0-2); Eosinophils Absolute Auto 0.2 X10*3/uL (0.0-0.4); Eosinophils Percent Auto 5.7 % (0-4); Hematocrit 36.9 % (37.0-47.0); Hemoglobin 12.3 g/dl (12.0-16.0); Lymphocytes Absolute Auto 1.4 X10*3/uL (1.2-4.9); Lymphocytes Percent Auto 46.6 % (20-40); MANUAL DIFF FLAG SCAN; Mean Corpuscular HGB Conc 33.3 g/dl (31.0-35.0); Mean Corpuscular Volume 84.1 fL (80.0-98.0); Mean Platelet Volume 10.3 fL (9.4-12.3); Monocytes Absolute Auto 0.3 X10*3/uL (0.1-1.2); Monocytes Percent Auto 11.1 % (2-11); Neutrophils Absolute Auto 1.1 x10*3/uL (2.0-8.3); Neutrophils Percent Auto 36.3 % (45-73); Platelet Count 157 X10*3/uL (160-400); Red Blood Count 4.39 X10*6/uL (4.20-5.50); Red Cell Distribution Width 14.6 % (11.0-16.0); SCAN SMEAR FLAG 1
[2023-12-18 12:00] LABS: Venous Blood Gas Refer to POC result
[2023-12-18 12:01] LABS: VBG Base Excess -0.2 mmol/L; VBG HCO3 25 mmol/L (22-26); VBG pCO2 44 mmHg; VBG pH 7.36 (7.32-7.43); VBG pO2 43 mmHg
[2023-12-18 12:12] LABS: Alanine Aminotransferase 21 U/L (0-31); Albumin Level 4.1 g/dL (3.5-5.0); Alkaline Phosphatase 97 U/L (39-117); Anion Gap 11 (12-20); Aspartate Amino Transferase 27 U/L (5-31); Bilirubin Total 0.4 mg/dL (0.0-1.0); Blood Urea Nitrogen 19 mg/dL (9-16); Calcium 9.9 mg/dL (8.4-10.2); Carbon Dioxide 25 mmol/L (22-29); Chloride 109 mmol/L (96-108); Creatinine Clr Calc Pharmacy 39.8; Estimated Glomerular Filt Rate 34; Glucose Random 108 mg/dL (60-115); Magnesium 2.1 mg/dL (1.6-2.6); Potassium 3.8 mmol/L (3.3-5.1); Sodium 141 mmol/L (135-145); Total Protein 8.1 g/dL (6.5-8.0)
[2023-12-18 12:18] LABS: B Type Natriuretic Peptide 162 pg/mL (<100)
[2023-12-18 12:19] LABS: Troponin-I High Sensitivity 2.8 ng/L (<3.5-17.0)
[2023-12-18 12:31] LABS: SLIDE REVIEW VERIFIED
[2023-12-18 12:35] LABS: Influenza A PCR NEGATIVE (Negative); Influenza B PCR NEGATIVE (Negative); Resp Syncy Virus RNA Qual PCR NEGATIVE (Negative); SARS COV2 PCR INHOUSE NEGATIVE (Negative)
[2023-12-18 14:23] LABS: Troponin-I High Sensitivity < 2.7 ng/L (<3.5-17.0)
[2023-12-18 14:30] LABS: Appearance Urine Clear; Color Urine Yellow; Glucose Urine UA Negative (Negative); Leukocyte Esterase Urine Negative (Negative); Nitrite Urine Negative (Negative); Specific Gravity - Urine 1.015 (1.005-1.025); Urine Blood Negative (Negative); Urine Ketones Negative (Negative); Urine Protein Negative (Neg-Trace)
--- NOTE | 2023-12-18 14:55 | PC.NURSE ---
Valsartan not stocked in pyxis, pharmacy called, will send down med
[2023-12-18] MEDS: Valsartan 40 MG TABLET PO (15:02)
[2023-12-18] MEDS: carvediloL 12.5 MG TABLET PO ×2 (15:03→20:56)
--- NOTE | 2023-12-18 15:23 | ECG_ITS ---
Test Reason : CHEST PAIN Blood Pressure : / mmHG Vent. Rate : 063 BPM Atrial Rate : 063 BPM P-R Int : 134 ms QRS Dur : 086 ms QT Int : 424 ms P-R-T Axes : 038 003 003 degrees QTc Int : 433 ms Normal sinus rhythm Moderate voltage criteria for LVH, may be normal variant ( R in aVL , Sokolow-Harris ) Borderline ECG When compared with ECG of 18-DEC-2023 11:18, Criteria for Septal infarct are no longer Present Referred By: Milvia Ware Electronically Signed By:Raúl Easton
--- NOTE | 2023-12-18 15:25 | PC.NURSE ---
Patient c/o 6/10 R sided CP, pressures still elevated, Milvia WEBB made aware, repeat EKG ordered.
--- NOTE | 2023-12-18 15:58 | PM.IMHP ---
History of Present Illness Date of Service: 12/18/23 Chief Complaint: chest pain, sob 63F PMH ischemic cardiomyopathy, CAD status post NSTEMI and coronary stent, hypertension, asthma, diabetes presented with shortness of breath. Patient states her shortness breath began about 2 days prior to presentation, describes paroxysmal nocturnal dyspnea, worse on exertion. Also reporting on day of presentation chest pain, midsternal, worse with exertion was at cardiac rehab when it was happening so was sent to ED. in ED noted to be hypertensive with systolic blood pressures over 200. Troponins negative, EKG nonischemic. Denies weight gain, edema, fevers, chills, cough, abdominal pain, nausea vomiting or diarrhea. Review of Systems Review of Systems: Yes all other systems are reviewed and are negative [facility] Medical History CAD (coronary artery disease) Stented coronary artery HTN (hypertension) Diabetes Asthma Nicotine dependence, cigarettes, uncomplicated Family History Mother Hypertension Father No problems noted. Surgical History History of heart artery stent History of repair of right rotator cuff History of tubal ligation Hx of colonoscopy Social History Housing: Apartment Housing Other:: Patient is currently living with daughter Are you a primary disabilities caregiver to a significant other at home: No Do you presently have visiting nurse or other home services: No Patient Tobacco Use Status: Former Tobacco user Tobacco use type: Cigarette Cigarettes Per Day: 1 Years Smoked: onset 10yo, 1ppd x 52yrs, now 1-2 cig/wk - 40+PYH Smoked in Last 30 Days: No e-Cigarette/Vaping Use: Never Used Second Hand Smoke Exposure: No Use of substances other than those prescribed or required for medical reasons: No Advance Directives: No Advance Directives Information Provided: Yes Do you have a plan to hurt others: No Plan Nutrition Risks: No Nutritional Risk service: No Current occupational status: disabled Current occupational exposures/hazards: No Cognitive needs: No Hearing needs: No Vision needs: No Meds Allergies Allergy/AdvReac Type Severity Reaction Status Date / Time Seasonal Allergies Allergy Mild congestion Verified 12/18/23 11:20 Home Medications ?Medication ?Instructions ?Recorded ?Confirmed ?Last Taken ?Type acetaminophen 650 mg 1,300 mg PO BID PRN Pain 12/18/23 12/18/23 12/18/23 History tablet,extended release dulaglutide 1.5 mg/0.5 mL 1.5 mg subcut TU 12/18/23 12/18/23 12/15/23 History subcutaneous pen injector (Trulicity) loratadine 10 mg tablet 10 mg PO DAILY 12/18/23 12/18/23 12/18/23 History sacubitril 24 mg-valsartan 26 mg 1 tab PO BID 12/18/23 12/18/23 12/18/23 History tablet (Entresto) Physical Exam Vital Signs and Narrative: Vital Signs: Last Vital Signs Temp 97.7 F 12/18/23 11:18 Pulse 78 12/18/23 15:03 Resp 18 12/18/23 14:30 BP 173/91 H 12/18/23 15:03 Pulse Ox 100 12/18/23 14:30 O2 Del Method Room Air 12/18/23 14:30 BMI result Body Mass Index 29.1 General: AO X 3, no acute distress Resp: CTA bilateral, no accessory muscles used CVS: S1,S2,RRR GI: soft, non tender, non distended Neuro: motor grossly intact, alert Psych: appropriate affect, appropriate insight Results Labs 12/18/23 11:51 12/18/23 11:51 Labs: Laboratory Results - last 24 hr 12/18/23 12/18/23 12/18/23 11:51 11:57 13:53 MCV 84.1 MCH 28.0 MCHC 33.3 RDW 14.6 Plt Count 157 L MPV 10.3 Immature Gran % (Auto) 0.0 Neut % (Auto) 36.3 L Lymph % (Auto) 46.6 H [place] % (Auto) 11.1 H Eos % (Auto) 5.7 H Baso % (Auto) 0.3 Lymph # (Auto) 1.4 [place] # (Auto) 0.3 Eos # (Auto) 0.2 Baso # (Auto) 0.0 Abs Immat Gran (auto) 0.00 Absolute Neuts (auto) 1.1 L Absolute Nucleated RBC 0.000 Nucleated RBC % (auto) 0.0 Smear Tech's Comments VERIFIED VBG pH 7.36 VBG pCO2 44 VBG pO2 43 VBG HCO3 25 VBG O2 Saturation 62.0 VBG Base Excess -0.2 Anion Gap 11 L Estim Creat Clear Calc 39.8 Estimated GFR 34 Random Glucose 108 Calcium 9.9 Magnesium 2.1 Total Bilirubin 0.4 AST 27 ALT 21 Alkaline Phosphatase 97 Troponin I High Sens 2.8 D < 2.7 B-Natriuretic Peptide 162 H Total Protein 8.1 H Albumin 4.1 Urine Color Urine Appearance Urine pH Ur Specific [place] Urine Protein Urine Glucose (UA) Urine Ketones Urine Blood Urine Nitrite Ur Leukocyte Esterase Influenza Type A (PCR) NEGATIVE Influenza Type B (PCR) NEGATIVE RSV RNA Qual (PCR) NEGATIVE SARS-CoV-2 RNA (RT-PCR) NEGATIVE 12/18/23 14:20 MCV MCH MCHC RDW Plt Count MPV Immature Gran % (Auto) Neut % (Auto) Lymph % (Auto) [place] % (Auto) Eos % (Auto) Baso % (Auto) Lymph # (Auto) [place] # (Auto) Eos # (Auto) Baso # (Auto) Abs Immat Gran (auto) Absolute Neuts (auto) Absolute Nucleated RBC Nucleated RBC % (auto) Smear Tech's Comments VBG pH VBG pCO2 VBG pO2 VBG HCO3 VBG O2 Saturation VBG Base Excess Anion Gap Estim Creat Clear Calc Estimated GFR Random Glucose Calcium Magnesium Total Bilirubin AST ALT Alkaline Phosphatase Troponin I High Sens B-Natriuretic Peptide Total Protein Albumin Urine Color Yellow Urine Appearance Clear Urine pH 6.0 Ur Specific [place] 1.015 Urine Protein Negative Urine Glucose (UA) Negative Urine Ketones Negative Urine Blood Negative Urine Nitrite Negative Ur Leukocyte Esterase Negative Influenza Type A (PCR) Influenza Type B (PCR) RSV RNA Qual (PCR) SARS-CoV-2 RNA (RT-PCR) Imaging Radiologist's Impressions: Impressions Chest X-Ray 12/18/23 11:38 IMPRESSION: No acute airspace disease. Electronically signed by: Scooby Clay MD 12/18/2023 12:02 PM EDT Assessment and Plan (1) CAD (coronary artery disease): Qualifiers: Associated angina: without angina Coronary Disease-Associated Artery/Lesion type: [place] artery [place] vs. transplanted heart: [place] heart Qualified Code(s): I25.10 - Atherosclerotic heart disease of [place] coronary artery without angina pectoris Status: Acute Plan 63F PMH ischemic cardiomyopathy, CAD status post NSTEMI and coronary stent, hypertension, asthma, diabetes presented with shortness of breath Hypertensive urgency Transdermal nitroglycerin, continue valsartan, entresto, coreg Cardio eval Coronary disease Statin, dual antiplatelet Diabetes Insulin sliding scale Ischemic cardiomyopathy Does not appear to be in volume overload, cotninue entresto, valsartan, coreg DVT prophylaxis with Lovenox Full Code Patient with significant symptoms from accelerated hypertension therefore expected require at least 2 midnights inpatient Quality Stroke Does the patient have a stroke diagnosis?: No VTE Prior VTE?: No VTE Risk Level:: Medical - moderate - high VTE Device Contraindication: Treatment Not Indicated VTE Drug Contraindication: N/A - Med Ordered
[2023-12-18] MEDS: Glucose Gel 15 GM GEL..GRAM. PO (16:39)
[2023-12-18] MEDS: Enoxaparin Sodium 40 MG/0.4 ML SYRINGE SUBCUT (16:39)
[2023-12-18] MEDS: Nitroglycerin 2 % Oint 1 GM Packet 0.5 INCH TRANSDERMA (16:39)
--- NOTE | 2023-12-18 16:50 | PHA.MEDREC ---
Addendum entered by Isaias Grossman RP 12/18/23 17:46: MED REC CHECKED BY [facility] Original Note: Pharmacy Consult ? Medication Reconciliation Pharmacy has completed the medication reconciliation. Confirmed medications with patient. She confirmed her Trulicity 1.5mg/0.5 mL once a week on Tuesdays and she states she took it this past Thursday12/15/23. She confirmed she gets her medications filled at [facility]
[2023-12-18 16:51] LABS: Glucose, Whole Blood 49 mg/dL (60-115)
--- NOTE | 2023-12-18 17:04 | PC.NURSE ---
Pt's POC 49, admitting Dr. Reddy made aware. Oral Glucose gel + juice + crackers given, to recheck POC in 15 minutes.
[2023-12-18 17:15] LABS: Glucose, Whole Blood 74 mg/dL (60-115)
[2023-12-18] MEDS: Cholecalciferol (Vitamin D3) 25 MCG TABLET 50 MCG PO (17:58)
[2023-12-18 18:05] LABS: Glucose, Whole Blood 258 mg/dL (60-115)
[2023-12-18] MEDS: Melatonin 3 MG TABLET 6 MG PO (20:56)
[2023-12-18] MEDS: Sacubitril/Valsartan 24/26 1 TAB TABLET PO (20:57)
[2023-12-18] MEDS: Ticagrelor 90 MG TABLET PO (20:57)
[2023-12-18 20:58] LABS: Glucose, Whole Blood 142 mg/dL (60-115)
[2023-12-18] MEDS: 0.9 % Sodium Chloride Flush 3 ML SYRINGE IVFLUSH (20:58)
[2023-12-19] VITALS: BP 140/77; PULSE 83; RESP 20; TEMP 36.4; O2SAT 98
[2023-12-19 03:58] VITALS: BP 120/70; PULSE 86; RESP 20; TEMP 36.5; O2SAT 97
[2023-12-19] MEDS: Acetaminophen 325 MG TABLET 650 MG PO (05:14)
[2023-12-19 07:15] LABS: Hematocrit 33.6 % (37.0-47.0); Mean Corpuscular HGB Conc 32.7 g/dl (31.0-35.0); Mean Corpuscular Hemoglobin 27.3 pg (27.0-33.0); Mean Corpuscular Volume 83.4 fL (80.0-98.0); Mean Platelet Volume 11.2 fL (9.4-12.3); Platelet Count 163 X10*3/uL (160-400); Red Blood Count 4.03 X10*6/uL (4.20-5.50); Red Cell Distribution Width 14.4 % (11.0-16.0); White Blood Count 3.1 X10*3/uL (4.8-10.8)
[2023-12-19 07:29] LABS: Anion Gap 12 (12-20); Blood Urea Nitrogen 18 mg/dL (9-16); Calcium 9.2 mg/dL (8.4-10.2); Carbon Dioxide 22 mmol/L (22-29); Chloride 110 mmol/L (96-108); Creatinine Clr Calc Pharmacy 43.7; Estimated Glomerular Filt Rate 37; Glucose Fasting 101 mg/dL (60-99); Potassium 3.9 mmol/L (3.3-5.1); Sodium 140 mmol/L (135-145)
[2023-12-19 07:30] LABS: Glucose, Whole Blood 88 mg/dL (60-115)
[2023-12-19 08:00] VITALS: BP 117/70; PULSE 82; RESP 20; TEMP 36.4; O2SAT 99
[2023-12-19] MEDS: Ezetimibe 10 MG TABLET PO (09:39)
[2023-12-19] MEDS: carvediloL 12.5 MG TABLET PO (09:39)
[2023-12-19] MEDS: Sacubitril/Valsartan 24/26 1 TAB TABLET PO (09:39)
[2023-12-19] MEDS: Ticagrelor 90 MG TABLET PO (09:39)
[2023-12-19] MEDS: buPROPion HCl XL 150 MG TAB.ER.24H PO (09:40)
[2023-12-19] MEDS: Aspirin Enteric Coated 81 MG TABLET.DR PO (09:40)
[2023-12-19] MEDS: Cholecalciferol (Vitamin D3) 25 MCG TABLET 50 MCG PO (09:40)
[2023-12-19] MEDS: Omeprazole 20 MG CAPSULE.DR PO (09:40)
[2023-12-19] MEDS: Atorvastatin Calcium 80 MG TABLET PO (09:40)
[2023-12-19] MEDS: 0.9 % Sodium Chloride Flush 3 ML SYRINGE IVFLUSH (09:44)
[2023-12-19 11:04] LABS: Glucose, Whole Blood 96 mg/dL (60-115)
[2023-12-19] MEDS: Fluticasone/Umeclidinium/Vilanterol 200/62.5/25 BLST.W.DEV 1 PUFF INHALE (11:17)
[2023-12-19 11:18] VITALS: PULSE 75; RESP 18; O2SAT 97
--- NOTE | 2023-12-19 11:31 | PM.DS ---
DS: Providers Provider Date of Service: 12/19/23 Date of admission: 12/18/23 15:57 Date of discharge: 12/19/23 Primary care physician: Unknown Physician Consults: 12/18/23 15:56 Consult to Cardiology Routine Consulting Provider: [facility] [place] [facility] Reason for consultation: sob, chest pain Has provider been notified: Yes DS: Diagnosis Discharge Diagnosis (1) CAD (coronary artery disease): Status: Acute DS: Summary Hospital Course Hospital Course: from initial hpi: 63F PMH ischemic cardiomyopathy, CAD status post NSTEMI and coronary stent, hypertension, asthma, diabetes presented with shortness of breath. Patient states her shortness breath began about 2 days prior to presentation, describes paroxysmal nocturnal dyspnea, worse on exertion. Also reporting on day of presentation chest pain, midsternal, worse with exertion was at cardiac rehab when it was happening so was sent to ED. in ED noted to be hypertensive with systolic blood pressures over 200. Troponins negative, EKG nonischemic. Denies weight gain, edema, fevers, chills, cough, abdominal pain, nausea vomiting or diarrhea. hospital course: Patient was admitted for chest pain shortness breath due to hypertensive urgency. She was given transdermal nitroglycerin and Entresto and Coreg. Blood pressure decreased at appropriate rate and symptoms resolved. Troponins were negative. Was seen by Cardiology recommended outpatient follow up. For coronary disease was continued on dual antiplatelet and statin. For diabetes continued on insulin. For ischemic cardiomyopathy did not appear to be in volume overload and was continued on Entresto, Coreg. Patient is feeling better will be discharged home. Time Attestation Discharge Coordination Time (in mins): 37 Quality: Safe Use of Opioids Does Pt have an Active Cancer Diagnosis on the Problem List?: No Quality: Stroke Does the patient have a stroke diagnosis?: No Physical Exam Vital Signs: Vital Signs: Last Vital Signs Temp 97.6 F 12/19/23 08:00 Pulse 75 12/19/23 11:18 Resp 18 12/19/23 11:18 BP 117/70 12/19/23 08:00 Pulse Ox 99 12/19/23 08:00 O2 Del Method Room Air 12/19/23 08:00 BMI result Body Mass Index 29.1 General: AO X 3, no acute distress Resp: CTA bilateral, no accessory muscles used CVS: S1,S2,RRR GI: soft, non tender, non distended Neuro: motor grossly intact, alert Psych: appropriate affect, appropriate insight DS: Data Data Completed and Pending Labs on day of discharge: Laboratory Results - last 24 hr 12/18/23 12/18/23 12/18/23 11:51 11:57 13:53 WBC 3.0 L RBC 4.39 Hgb 12.3 Hct 36.9 L MCV 84.1 MCH 28.0 MCHC 33.3 RDW 14.6 Plt Count 157 L MPV 10.3 Immature Gran % (Auto) 0.0 Neut % (Auto) 36.3 L Lymph % (Auto) 46.6 H [place] % (Auto) 11.1 H Eos % (Auto) 5.7 H Baso % (Auto) 0.3 Lymph # (Auto) 1.4 [place] # (Auto) 0.3 Eos # (Auto) 0.2 Baso # (Auto) 0.0 Abs Immat Gran (auto) 0.00 Absolute Neuts (auto) 1.1 L Absolute Nucleated RBC 0.000 Nucleated RBC % (auto) 0.0 Smear Tech's Comments VERIFIED VBG pH 7.36 VBG pCO2 44 VBG pO2 43 VBG HCO3 25 VBG O2 Saturation 62.0 VBG Base Excess -0.2 Sodium 141 Potassium 3.8 Chloride 109 H Carbon Dioxide 25 Anion Gap 11 L BUN 19 H Creatinine 1.56 H Estim Creat Clear Calc 39.8 Estimated GFR 34 POC Glucose Random Glucose 108 Fasting Glucose Calcium 9.9 Magnesium 2.1 Total Bilirubin 0.4 AST 27 ALT 21 Alkaline Phosphatase 97 Troponin I High Sens 2.8 D < 2.7 B-Natriuretic Peptide 162 H Total Protein 8.1 H Albumin 4.1 Urine Color Urine Appearance Urine pH Ur Specific [place] Urine Protein Urine Glucose (UA) Urine Ketones Urine Blood Urine Nitrite Ur Leukocyte Esterase Influenza Type A (PCR) NEGATIVE Influenza Type B (PCR) NEGATIVE RSV RNA Qual (PCR) NEGATIVE SARS-CoV-2 RNA (RT-PCR) NEGATIVE 12/18/23 12/18/23 12/18/23 14:20 16:33 17:07 WBC RBC Hgb Hct MCV MCH MCHC RDW Plt Count MPV Immature Gran % (Auto) Neut % (Auto) Lymph % (Auto) [place] % (Auto) Eos % (Auto) Baso % (Auto) Lymph # (Auto) [place] # (Auto) Eos # (Auto) Baso # (Auto) Abs Immat Gran (auto) Absolute Neuts (auto) Absolute Nucleated RBC Nucleated RBC % (auto) Smear Tech's Comments VBG pH VBG pCO2 VBG pO2 VBG HCO3 VBG O2 Saturation VBG Base Excess Sodium Potassium Chloride Carbon Dioxide Anion Gap BUN Creatinine Estim Creat Clear Calc Estimated GFR POC Glucose 49 L* 74 Random Glucose Fasting Glucose Calcium Magnesium Total Bilirubin AST ALT Alkaline Phosphatase Troponin I High Sens B-Natriuretic Peptide Total Protein Albumin Urine Color Yellow Urine Appearance Clear Urine pH 6.0 Ur Specific [place] 1.015 Urine Protein Negative Urine Glucose (UA) Negative Urine Ketones Negative Urine Blood Negative Urine Nitrite Negative Ur Leukocyte Esterase Negative Influenza Type A (PCR) Influenza Type B (PCR) RSV RNA Qual (PCR) SARS-CoV-2 RNA (RT-PCR) 12/18/23 12/18/23 12/19/23 17:58 20:54 06:24 WBC 3.1 L RBC 4.03 L Hgb 11.0 L Hct 33.6 L MCV 83.4 MCH 27.3 MCHC 32.7 RDW 14.4 Plt Count 163 MPV 11.2 Immature Gran % (Auto) Neut % (Auto) Lymph % (Auto) [place] % (Auto) Eos % (Auto) Baso % (Auto) Lymph # (Auto) [place] # (Auto) Eos # (Auto) Baso # (Auto) Abs Immat Gran (auto) Absolute Neuts (auto) Absolute Nucleated RBC 0.000 Nucleated RBC % (auto) 0.0 Smear Tech's Comments VBG pH VBG pCO2 VBG pO2 VBG HCO3 VBG O2 Saturation VBG Base Excess Sodium 140 Potassium 3.9 Chloride 110 H Carbon Dioxide 22 Anion Gap 12 BUN 18 H Creatinine 1.42 H Estim Creat Clear Calc 43.7 Estimated GFR 37 POC Glucose 258 H 142 H Random Glucose Fasting Glucose 101 H Calcium 9.2 D Magnesium 2.0 Total Bilirubin AST ALT Alkaline Phosphatase Troponin I High Sens B-Natriuretic Peptide Total Protein Albumin Urine Color Urine Appearance Urine pH Ur Specific [place] Urine Protein Urine Glucose (UA) Urine Ketones Urine Blood Urine Nitrite Ur Leukocyte Esterase Influenza Type A (PCR) Influenza Type B (PCR) RSV RNA Qual (PCR) SARS-CoV-2 RNA (RT-PCR) 12/19/23 12/19/23 07:24 10:53 WBC RBC Hgb Hct MCV MCH MCHC RDW Plt Count MPV Immature Gran % (Auto) Neut % (Auto) Lymph % (Auto) [place] % (Auto) Eos % (Auto) Baso % (Auto) Lymph # (Auto) [place] # (Auto) Eos # (Auto) Baso # (Auto) Abs Immat Gran (auto) Absolute Neuts (auto) Absolute Nucleated RBC Nucleated RBC % (auto) Smear Tech's Comments VBG pH VBG pCO2 VBG pO2 VBG HCO3 VBG O2 Saturation VBG Base Excess Sodium Potassium Chloride Carbon Dioxide Anion Gap BUN Creatinine Estim Creat Clear Calc Estimated GFR POC Glucose 88 96 Random Glucose Fasting Glucose Calcium Magnesium Total Bilirubin AST ALT Alkaline Phosphatase Troponin I High Sens B-Natriuretic Peptide Total Protein Albumin Urine Color Urine Appearance Urine pH Ur Specific [place] Urine Protein Urine Glucose (UA) Urine Ketones Urine Blood Urine Nitrite Ur Leukocyte Esterase Influenza Type A (PCR) Influenza Type B (PCR) RSV RNA Qual (PCR) SARS-CoV-2 RNA (RT-PCR) Discharge Plan Discharge Anticipated Discharge Date/Time: 12/19/23 11:27 Patient Disposition: Home, Self-Care Discharge Diagnosis: htn Referrals: Physician,Unknown J [Primary Care Provider] - 1 Week Discharge Medications: New oxycodone 5 mg capsule 5 mg PO Q8H PRN (Reason: moderate pain (scale score 5-6)) Qty: 7 0RF Rx Instructions: Partial Fill upon patient request. Continued ezetimibe 10 mg tablet 10 mg PO DAILY 90 Days Qty: 90 3RF (DME) blood-glucose meter Misc See Rx Instructions .Route Qty: 1 0RF Rx Instructions: Test 3 times daily (DME) blood-glucose meter [OneTouch Ultra2 Meter] Misc See Rx Instructions .ROUTE .MEDSUPPLY Qty: 1 0RF Rx Instructions: POC testing TID atorvastatin 80 mg tablet 80 mg PO DAILY Qty: 90 3RF aspirin 81 mg tablet,delayed release (DR/EC) 81 mg PO DAILY 90 Days Qty: 90 1RF cholecalciferol (vitamin D3) 50 mcg (2,000 unit) tablet 50 mcg PO QAM 90 Days Qty: 90 1RF omeprazole 20 mg capsule,delayed release(DR/EC) 20 mg PO DAILY Qty: 90 1RF carvedilol 12.5 mg tablet 12.5 mg PO BID Qty: 180 3RF Brilinta 90 mg tablet 90 mg PO BID 30 Days Qty: 60 3RF glipizide 10 mg tablet 10 mg PO BID 90 Days Qty: 180 1RF (DME) lancets [OneTouch Delica Plus Lancet] 33 gauge misc See Rx Instructions .ROUTE .COMPLEX Qty: 100 6RF Dose Instruction: USE TO TEST THREE TIMES DAILY Rx Instructions: USE TO TEST THREE TIMES DAILY (DME) OneTouch Ultra Test Strip See Rx Instructions .Route Qty: 100 6RF Rx Instructions: bs checks 3 times per day acetaminophen 650 mg tablet extended release 1,300 mg PO BID PRN (Reason: Pain) loratadine 10 mg tablet 10 mg PO DAILY Entresto 24-26 mg tablet 1 tab PO BID Trulicity 1.5 mg/0.5 mL pen injector 1.5 mg subcut TU (DME) Shower Chair Misc See Rx Instructions .Route Qty: 1 0RF Rx Instructions: As directed bupropion HCl 150 mg tablet extended release 24 hr 150 mg PO QAM 30 Days Qty: 30 3RF albuterol sulfate 2.5 mg /3 mL (0.083 %) solution for nebulization 2.5 mg inhalation Q4H PRN (Reason: shortness of breath or wheezing) Qty: 180 2RF cetirizine [Zyrtec] 10 mg tablet 10 mg PO DAILY PRN (Reason: allergy symptoms) Qty: 30 3RF Trelegy Ellipta 200-62.5-25 mcg blister with device 1 inh inhalation DAILY Qty: 60 6RF ipratropium bromide 21 mcg (0.03 %) spray,non-aerosol 2 spray intranasal BID Qty: 30 3RF Rx Instructions: administer into each nostril Discharge Orders: Discharge Order (Routine); Ordered 12/19/23 Ordered By: Esvin Reddy Diet: Advance to usual diet Activity on Discharge: As tolerated Stand Alone Forms: Patient Portal Discharge page Print Language: Polish Care Plan Goals: Recovery Health Concerns: Hypertension Plan of Treatment: Continue medications as prescribed follow up with Cardiology Assessment: See above
--- NOTE | 2023-12-19 11:42 | PM.CNCAR ---
History of Present Illness History of Present Illness Date of Service: 12/19/23 Requesting physician: Esvin Reddy Chief complaint: SOB, HTN Narrative: 63 female with HTN, COPD and known CAD and previous PCI presenting with SOB from cardiac rehab. BP was very high in the ER. She has been started on home medications and BP has improved. She is feeling better since blood pressure improved. no signs/symptoms of pulmonary infection. She has known COPD but has stopped smoking. She is saying she has been compliant with medicines at home. Overall workup has not shown any significant issues. [facility] Past Medical History Medical History CAD (coronary artery disease) Stented coronary artery HTN (hypertension) Diabetes Asthma Nicotine dependence, cigarettes, uncomplicated Family History Family History Mother Hypertension Father No problems noted. Surgical History Surgical History History of heart artery stent History of repair of right rotator cuff History of tubal ligation Hx of colonoscopy Social History Social History Household Members: Family Housing: Apartment Housing Other:: Patient is currently living with daughter Are you a primary interior plant caretaker to a significant other at home: No Do you presently have visiting nurse or other home services: No Patient Tobacco Use Status: Former Tobacco user Tobacco use type: Cigarette Cigarettes Per Day: 1 Years Smoked: onset 10yo, 1ppd x 52yrs, now 1-2 cig/wk - 40+PYH e-Cigarette/Vaping Use: Never Used Second Hand Smoke Exposure: No service: No Current occupational status: disabled Current occupational exposures/hazards: No Cognitive needs: No Hearing needs: No Vision needs: No Meds Allergies Allergy/AdvReac Type Severity Reaction Status Date / Time Seasonal Allergies Allergy Mild congestion Verified 12/18/23 11:20 Active Medications: Current Medications Acetaminophen (Acetaminophen 325 Mg Tablet) 650 mg PO Q6H PRN PRN Reason: Pain, Mild (Pain Scale 1-3), fever or headache Last Admin: 12/19/23 05:14 Dose: 650 mg Albuterol Sulfate (Albuterol Sulfate (0.083%) 2.5 Mg/3 Ml Vial.Neb) 2.5 mg INHALE Q4H PRN PRN Reason: shortness of breath or wheezing Aspirin (Aspirin Enteric Coated 81 Mg Tablet.Dr) 81 mg PO DAILY [facility] Last Admin: 12/19/23 09:40 Dose: 81 mg Atorvastatin Calcium (Atorvastatin Calcium 80 Mg Tablet) 80 mg PO DAILY [facility] Last Admin: 12/19/23 09:40 Dose: 80 mg Bupropion HCl (Bupropion Hcl Xl 150 Mg Tab.Er.24h) 150 mg PO DAILY [facility] Last Admin: 12/19/23 09:40 Dose: 150 mg Calcium Carbonate (Calcium Carbonate 750 Mg Tab.Chew) 750 mg PO Q4H PRN PRN Reason: Heartburn Carvedilol (Carvedilol 12.5 Mg Tablet) 12.5 mg PO BID [facility]; Protocol Last Admin: 12/19/23 09:39 Dose: 12.5 mg Ezetimibe (Ezetimibe 10 Mg Tablet) 10 mg PO DAILY [facility] Last Admin: 12/19/23 09:39 Dose: 10 mg Enoxaparin Sodium (Enoxaparin Sodium 40 Mg/0.4 Ml Syringe) 40 mg SUBCUT Q24H [facility] Last Admin: 12/18/23 16:39 Dose: 40 mg Fluticasone/Umeclidinium/Vilanterol (Fluticasone/Umeclidinium/Vilanterol 200/62.5/25 Blst.W.Dev) 1 puff INHALE DAILY [facility] Last Admin: 12/19/23 11:17 Dose: 1 puff Glucose (Glucose Gel 15 Gm Gel..Gram.) 15 gm PO Q15M PRN; Protocol PRN Reason: per Hypoglycemia Standing Ord. Last Admin: 12/18/23 16:39 Dose: 15 gm Dextrose (D10) 250 mls @ 750 mls/hr IV Q15M PRN; Protocol PRN Reason: per Hypoglycemia Standing Ord. Insulin Human Lispro (Insulin Lispro 100 Unit/Ml 3 Ml Vial) 0 unit SUBCUT QIDACHS [facility]; Protocol Last Admin: 12/19/23 07:44 Dose: Not Given Loratadine (Loratadine 10 Mg Tablet) 10 mg PO DAILY PRN PRN Reason: allergy symptoms Magnesium Hydroxide (Milk Of Magnesia 30 Ml Oral.Susp) 30 ml PO DAILY PRN PRN Reason: Constipation Melatonin (Melatonin 3 Mg Tablet) 6 mg PO BEDTIME PRN PRN Reason: Insomnia Last Admin: 12/18/23 20:56 Dose: 6 mg Omeprazole (Omeprazole 20 Mg Capsule.Dr) 20 mg PO DAILY [facility] Last Admin: 12/19/23 09:40 Dose: 20 mg Sacubitril/Valsartan (Sacubitril/Valsartan 1 Tab Tablet) 1 tab PO BID [facility]; Protocol Last Admin: 12/19/23 09:39 Dose: 1 tab Sodium Chloride (0.9 % Sodium Chloride Flush 3 Ml Syringe) 3 ml IVFLUSH QSHIFT [facility] Last Admin: 12/19/23 09:44 Dose: 3 ml Ticagrelor (Ticagrelor 90 Mg Tablet) 90 mg PO BID [facility] Last Admin: 12/19/23 09:39 Dose: 90 mg Vitamin D (Cholecalciferol (Vitamin D3) 25 Mcg Tablet) 50 mcg PO DAILY [facility] Last Admin: 12/19/23 09:40 Dose: 50 mcg Home Medications ?Medication ?Instructions ?Recorded ?Confirmed ?Last Taken ?Type acetaminophen 650 mg 1,300 mg PO BID PRN Pain 12/18/23 12/18/23 12/18/23 History tablet,extended release dulaglutide 1.5 mg/0.5 mL 1.5 mg subcut TU 12/18/23 12/18/23 12/15/23 History subcutaneous pen injector (Trulicity) loratadine 10 mg tablet 10 mg PO DAILY 12/18/23 12/18/23 12/18/23 History sacubitril 24 mg-valsartan 26 mg 1 tab PO BID 12/18/23 12/18/23 12/18/23 History tablet (Entresto) Physical Exam Vital Signs: Vital Signs: Last Vital Signs Temp 97.6 F 12/19/23 08:00 Pulse 75 12/19/23 11:18 Resp 18 12/19/23 11:18 BP 117/70 12/19/23 08:00 Pulse Ox 99 12/19/23 08:00 O2 Del Method Room Air 12/19/23 08:00 BMI result Body Mass Index 29.1 GENERAL APPEARANCE: in no acute distress, pleasant. NECK: no carotid bruit, no jugular venous distention. SKIN: no suspicious lesions, warm and dry. HEART: no murmurs, regular rate and rhythm. LUNGS: clear to auscultation bilaterally. ABDOMEN: soft, nontender. EXTREMITIES: no edema. PERIPHERAL PULSES: equal. NEUROLOGIC: No gross deficits, AAO X 3 Objective Labs and Meds 12/19/23 06:24 12/19/23 06:24 Lab results: Laboratory Results - last 24 hr 12/18/23 12/18/23 12/18/23 11:51 11:57 13:53 WBC 3.0 L RBC 4.39 Hgb 12.3 Hct 36.9 L MCV 84.1 MCH 28.0 MCHC 33.3 RDW 14.6 Plt Count 157 L MPV 10.3 Immature Gran % (Auto) 0.0 Neut % (Auto) 36.3 L Lymph % (Auto) 46.[address] [place] % (Auto) 11.1 H Eos % (Auto) 5.7 H Baso % (Auto) 0.3 Lymph # (Auto) 1.4 [place] # (Auto) 0.3 Eos # (Auto) 0.2 Baso # (Auto) 0.0 Abs Immat Gran (auto) 0.00 Absolute Neuts (auto) 1.1 L Absolute Nucleated RBC 0.000 Nucleated RBC % (auto) 0.0 Smear Tech's Comments VERIFIED VBG pH 7.36 VBG pCO2 44 VBG pO2 43 VBG HCO3 25 VBG O2 Saturation 62.0 VBG Base Excess -0.2 Sodium 141 Potassium 3.8 Chloride 109 H Carbon Dioxide 25 Anion Gap 11 L BUN 19 H Creatinine 1.56 H Estim Creat Clear Calc 39.8 Estimated GFR 34 POC Glucose Random Glucose 108 Fasting Glucose Calcium 9.9 Magnesium 2.1 Total Bilirubin 0.4 AST 27 ALT 21 Alkaline Phosphatase 97 Troponin I High Sens 2.8 D < 2.7 B-Natriuretic Peptide 162 H Total Protein 8.1 H Albumin 4.1 Urine Color Urine Appearance Urine pH Ur Specific [place] Urine Protein Urine Glucose (UA) Urine Ketones Urine Blood Urine Nitrite Ur Leukocyte Esterase Influenza Type A (PCR) NEGATIVE Influenza Type B (PCR) NEGATIVE RSV RNA Qual (PCR) NEGATIVE SARS-CoV-2 RNA (RT-PCR) NEGATIVE 12/18/23 12/18/23 12/18/23 14:20 16:33 17:07 WBC RBC Hgb Hct MCV MCH MCHC RDW Plt Count MPV Immature Gran % (Auto) Neut % (Auto) Lymph % (Auto) [place] % (Auto) Eos % (Auto) Baso % (Auto) Lymph # (Auto) [place] # (Auto) Eos # (Auto) Baso # (Auto) Abs Immat Gran (auto) Absolute Neuts (auto) Absolute Nucleated RBC Nucleated RBC % (auto) Smear Tech's Comments VBG pH VBG pCO2 VBG pO2 VBG HCO3 VBG O2 Saturation VBG Base Excess Sodium Potassium Chloride Carbon Dioxide Anion Gap BUN Creatinine Estim Creat Clear Calc Estimated GFR POC Glucose 49 L* 74 Random Glucose Fasting Glucose Calcium Magnesium Total Bilirubin AST ALT Alkaline Phosphatase Troponin I High Sens B-Natriuretic Peptide Total Protein Albumin Urine Color Yellow Urine Appearance Clear Urine pH 6.0 Ur Specific [place] 1.015 Urine Protein Negative Urine Glucose (UA) Negative Urine Ketones Negative Urine Blood Negative Urine Nitrite Negative Ur Leukocyte Esterase Negative Influenza Type A (PCR) Influenza Type B (PCR) RSV RNA Qual (PCR) SARS-CoV-2 RNA (RT-PCR) 12/18/23 12/18/23 12/19/23 17:58 20:54 06:24 WBC 3.1 L RBC 4.03 L Hgb 11.0 L Hct 33.6 L MCV 83.4 MCH 27.3 MCHC 32.7 RDW 14.4 Plt Count 163 MPV 11.2 Immature Gran % (Auto) Neut % (Auto) Lymph % (Auto) [place] % (Auto) Eos % (Auto) Baso % (Auto) Lymph # (Auto) [place] # (Auto) Eos # (Auto) Baso # (Auto) Abs Immat Gran (auto) Absolute Neuts (auto) Absolute Nucleated RBC 0.000 Nucleated RBC % (auto) 0.0 Smear Tech's Comments VBG pH VBG pCO2 VBG pO2 VBG HCO3 VBG O2 Saturation VBG Base Excess Sodium 140 Potassium 3.9 Chloride 110 H Carbon Dioxide 22 Anion Gap 12 BUN 18 H Creatinine 1.42 H Estim Creat Clear Calc 43.7 Estimated GFR 37 POC Glucose 258 H 142 H Random Glucose Fasting Glucose 101 H Calcium 9.2 D Magnesium 2.0 Total Bilirubin AST ALT Alkaline Phosphatase Troponin I High Sens B-Natriuretic Peptide Total Protein Albumin Urine Color Urine Appearance Urine pH Ur Specific [place] Urine Protein Urine Glucose (UA) Urine Ketones Urine Blood Urine Nitrite Ur Leukocyte Esterase Influenza Type A (PCR) Influenza Type B (PCR) RSV RNA Qual (PCR) SARS-CoV-2 RNA (RT-PCR) 12/19/23 12/19/23 07:24 10:53 WBC RBC Hgb Hct MCV MCH MCHC RDW Plt Count MPV Immature Gran % (Auto) Neut % (Auto) Lymph % (Auto) [place] % (Auto) Eos % (Auto) Baso % (Auto) Lymph # (Auto) [place] # (Auto) Eos # (Auto) Baso # (Auto) Abs Immat Gran (auto) Absolute Neuts (auto) Absolute Nucleated RBC Nucleated RBC % (auto) Smear Tech's Comments VBG pH VBG pCO2 VBG pO2 VBG HCO3 VBG O2 Saturation VBG Base Excess Sodium Potassium Chloride Carbon Dioxide Anion Gap BUN Creatinine Estim Creat Clear Calc Estimated GFR POC Glucose 88 96 Random Glucose Fasting Glucose Calcium Magnesium Total Bilirubin AST ALT Alkaline Phosphatase Troponin I High Sens B-Natriuretic Peptide Total Protein Albumin Urine Color Urine Appearance Urine pH Ur Specific [place] Urine Protein Urine Glucose (UA) Urine Ketones Urine Blood Urine Nitrite Ur Leukocyte Esterase Influenza Type A (PCR) Influenza Type B (PCR) RSV RNA Qual (PCR) SARS-CoV-2 RNA (RT-PCR) Imaging Radiologist's impression: Impressions Chest X-Ray 12/18/23 11:38 IMPRESSION: No acute airspace disease. Electronically signed by: Scooby Clay MD 12/18/2023 12:02 PM EDT Assessment and Plan (1) Shortness of breath: Status: Acute (2) Ischemic cardiomyopathy: Status: Acute (3) HTN (hypertension): Qualifiers: Hypertension type: primary hypertension Qualified Code(s): I10 - Essential (primary) hypertension Status: Acute Plan Pleasant 63 year female with known history of coronary disease and mild cardiomyopathy with EF 40-45% presenting for shortness of breath from cardiac rehabilitation. She was noticed to have significantly elevated blood pressures on admission in the ER. Blood pressure has improved after getting home medicines. She is adamant that she has been taking medications at home. Not in heart failure clinically. No COPD exacerbation. Symptoms have improved as blood pressure improves so likely cause is elevated blood pressure. She will need close monitoring of blood pressure and we will arrange follow-up in our office. Continue same medications for now. Thank you for allowing me to participate in the care of your patient. Please feel free to contact me if you have any questions. Procedures Date of Service Date of Service: 12/19/23
[2023-12-19 12:00] VITALS: BP 118/75; PULSE 74; RESP 18; TEMP 36.2; O2SAT 98
[2023-12-19 15:21] VITALS: BP 140/86; PULSE 82; RESP 17; TEMP 36.3; O2SAT 100
[2023-12-19 16:18] LABS: Glucose, Whole Blood 121 mg/dL (60-115)
== END 2023-12-19 16:56 | disposition home or self-care (01) | DRG 305 ==
LOC: HO.ED 11:48 → HO.EDOVER 16:05 → HO.IMC 19:26
PROVIDERS: Physician Assistant Medical; Admitting Provider Internal Medicine; Emergency Provider Emergency Medicine Emergency Medical Services; PCP Nurse Practitioner Family; Visit Provider Internal Medicine
DX: I16.0 Hypertensive urgency (principal); I25.10 Atherosclerotic heart disease of native coronary artery without angina pectoris; F17.210 Nicotine dependence, cigarettes, uncomplicated; I10 Essential (primary) hypertension; I25.5 Ischemic cardiomyopathy; J45.909 Unspecified asthma, uncomplicated; E11.9 Type 2 diabetes mellitus without complications; I25.2 Old myocardial infarction; Z71.6 Tobacco abuse counseling; Z95.5 Presence of coronary angioplasty implant and graft; Z20.822 Contact with and (suspected) exposure to COVID-19; Z79.51 Long term (current) use of inhaled steroids; Z79.82 Long term (current) use of aspirin; Z79.84 Long term (current) use of oral hypoglycemic drugs; Z79.85 Long-term (current) use of injectable non-insulin antidiabetic drugs; Z79.899 Other long term (current) drug therapy
CPT/HCPCS: 0241U; 36415; 71046; 80048; 80053; 81003; 82803; 82947; 83735; 83880; 84484; 85025; 85027; 93005; 94640; 96372; 99222; 99285; J1650

== ENCOUNTER → 2023-12-18 11:19 | Outpatient (BNV) | payer OTHER, SELFPAY ==
[2023-11-07 09:21] VITALS: BP 104/78; BP 136/88; BP 138/72; BMI 29.1
== END ==
PROVIDERS: Emergency Provider Emergency Medicine Emergency Medical Services; Visit Provider Radiology Diagnostic Radiology
DX: R07.9 Chest pain, unspecified (principal)
CPT/HCPCS: 71046

== ENCOUNTER → 2023-12-18 15:57 | Outpatient (BNV) | payer OTHER, SELFPAY ==
[2023-11-07 09:21] VITALS: BP 104/78; BP 136/88; BP 138/72; BMI 29.1
== END ==
PROVIDERS: Admitting Provider Internal Medicine; Emergency Provider Emergency Medicine Emergency Medical Services; Visit Provider Internal Medicine Cardiovascular Disease
DX: R06.02 Shortness of breath (principal); I25.5 Ischemic cardiomyopathy; I10 Essential (primary) hypertension; R94.31 Abnormal electrocardiogram [ECG] [EKG]
CPT/HCPCS: 93010; 99222

== ENCOUNTER → 2023-12-18 15:57 | Outpatient (BNV) | payer OTHER, SELFPAY ==
[2023-11-07 09:21] VITALS: BP 104/78; BP 136/88; BP 138/72; BMI 29.1
== END ==
PROVIDERS: Admitting Provider Internal Medicine; Emergency Provider Emergency Medicine Emergency Medical Services; Visit Provider Internal Medicine
DX: I25.10 Atherosclerotic heart disease of native coronary artery without angina pectoris (principal); Z95.1 Presence of aortocoronary bypass graft; I16.0 Hypertensive urgency; E11.9 Type 2 diabetes mellitus without complications
CPT/HCPCS: 99223; 99239

== ENCOUNTER 2023-12-28 12:41 | Outpatient (AMB) | payer OTHER, SELFPAY ==
[2023-11-07 09:21] VITALS: BP 104/78; BP 136/88; BP 138/72; BMI 29.1
--- NOTE | 2023-12-28 10:08 | A.OFFPC_ITS ---
Vital Signs 12/28/23 12:51 Height 5 ft 5 in Weight 177 lb 8 oz BMI 29.5 BP 136/80 Blood Pressure Location Lt brachial Position Sitting Respiration 16 Pulse 71 Pulse Source Pulse Oximeter Temp 98.0 F Temp Source Oral Pulse Oximetry (%) 100 Oxygen Delivery Method Room Air Intake Visit Reasons: ED/breathing issues Intake Note: patient here for ED (went to [facility]) follow up for breathing issues. Wedding Photographer Required: No Is last menstrual period known: No Post menopausal: No Patient : No Allergies Seasonal Allergies Allergy (Mild, Verified 12/28/23 12:48) congestion Tobacco use date assessed: 12/28/23 Dental Screening Dental Screen Date: 12/28/23 Did you have a dental visit in the last 12 months?: No Did you have a dental problem in the last 6 months where you did not have access to dental care?: No Was dental information given to patient?: Patient declined HPI HPI Comments History of Present Illness0 Details 63-year-old female presents for hospital discharge follow-up. She was evaluated at [facility] on 12/17/2023, admitted, and discharge on 12/19/2023 She admits to taking her medications as prescribed without adverse reactions She offers no complaints and denies acute symptoms at this time DS: Summary Hospital Course Hospital Course: from initial hpi: 63F PMH ischemic cardiomyopathy, CAD sta tus post NSTEMI and coronary stent, hypertension, asthma, diabetes presented with shortness of breath. Patient states her shortness breath began about 2 days prior to presentation, describes paroxysmal nocturnal dyspnea, worse on exertion. Also reporting on day of presentation chest pain, midsternal, worse with exertion was at cardiac rehab when it was happening so was sent to ED. in ED noted to be hypertensive with systolic blood pressures over 200. Troponins negative, EKG nonischemic. Denies weight gain, edema, fevers, chills, cough, abdominal pain, nausea vomiting or diarrhea. hospital course: Patient was admitted for chest pain shortness breath due to hypertensive urgency. She was given transdermal nitroglycerin and Entresto and Coreg. Blood pressure decreased at appropriate rate and symptoms resolved. Troponins were negative. Was seen by Cardiology recommended outpatient follow up. For tj nary disease was continued on dual antiplatelet and statin. For diabetes continued on insulin. For ischemic cardiomyopathy did not appear to be in volume overload and was continued on Entresto, Coreg. Patient is feeling better will be discharged home. She notes significant improvement since she was recently discharged from the hospital. She has not experienced chest pain. However, She she experiences shortness of breath every once in a while, and resolve after albuterol nebulizer treatment. She has been taking Trelegy Ellipta as prescribed. She has history of asthma. She quit smoking cigarettes about a month and half ago. She is followed by pulmonolgy. She reports intermittent sharp lower back and left hip pain which will radiate down to her thigh for the past 4 years. She has had multiple recent fall, despite using her cane or walker, due to her hip pain. She is currently on oxycodone which was recently prescribed upon hospital discharge. [facility] Medical History CAD (coronary artery disease) Stented coronary artery HTN (hypertension) Diabetes Asthma Nicotine dependence, cigarettes, uncomplicated Surgical History History of heart artery stent History of repair of right rotator cuff History of tubal ligation Hx of colonoscopy Family History Mother Hypertension Father No problems noted. Social History Household Members: Family Housing: Apartment Housing Other:: Patient is currently living with daughter Are you a primary care specialist to a significant other at home: No Do you presently have visiting nurse or other home services: No Patient Tobacco Use Status: Former Tobacco user Tobacco use type: Cigarette Cigarettes Per Day: 1 Years Smoked: onset 10yo, 1ppd x 52yrs, now 1-2 cig/wk - 40+PYH e-Cigarette/Vaping Use: Never Used Second Hand Smoke Exposure: No service: No Current occupational status: disabled Current occupational exposures/hazards: No Cognitive needs: No Hearing needs: No Vision needs: No Questionnaire Thrive Questionnaire Date Thrive assessed: 03/03/23 ZURI-7 AMB Questionnaire ZURI-7 Date ZURI - 7 assessed: 03/03/23 Source: Developed by Drs. Isma Erickson, Joyce Phillips, Roger Davis and colleagues, with an educational jana from [employer]. Review of Systems Const Details: Const Denies chills, Denies fatigue, Denies fever(s), Denies headache(s) and Denies weakness ENT Denies dizziness and Denies headache(s) Card Denies chest pain, Denies lightheadedness, Denies dyspnea and Denies other (Palpitations) Resp Denies cough, Denies dyspnea, Denies wheezing and Denies other ( shortness of breath) GI Denies abdominal pain, Denies melena, Denies hematochezia, Denies change in bowel habits, Denies dyspepsia and Denies nausea Denies hematuria and Denies dysuria Musc Denies abnormal gait, Denies myalgias, Denies arthralgias, Denies numbness and Denies tingling Skin/Breast Denies rash, Denies unusual bruising and Denies wounds Neuro Denies abnormal gait, Denies dizziness, Denies headache(s), Denies memory loss, Denies numbness, Denies Sensory deficit (Neuro), Denies tingling and Denies weakness Psych Denies anxiety, Denies depression, Denies memory loss Endo Denies cold intolerance, Denies fatigue, Denies heat intolerance, Denies polydipsia and Denies polyuria Aller/Immun Denies wheezing Physical exam (Primary Care) Vital Signs: Last Vital Signs Temp 98.0 F 12/28/23 12:51 Pulse 71 12/28/23 12:51 Resp 16 12/28/23 12:51 BP 136/80 12/28/23 12:51 Pulse Ox 100 12/28/23 12:51 Oxygen Delivery Method Room Air 12/28/23 12:51 BMI result Body Mass Index 29.5 Tobacco/Smoking Status: Tobacco use Status Tobacco use date assessed 12/28/23 12/28/23 12:53 Patient Tobacco Use Status Former Tobacco user 12/28/23 10:10 Tobacco use type Cigarette 12/28/23 10:10 e-Cigarette/Vaping Use Never Used 12/28/23 10:10 Thrive Assessment: Date of Thrive Assessment Date Thrive assessed 03/03/23 12/28/23 10:10 Const Other: General: no acute distress and well developed Nutritional Appearance: well nourished Orientation/consciousness: patient oriented x3 HENMT Head: Yes normocephalic and Yes atraumatic Eyes General: appearance normal, both eyes and all related structures Pupils: Equal, round and reactive pupils present EOM: EOMs intact bilaterally Resp Effort & Inspection: normal respiratory effort Auscultation: clear to auscultation bilaterally Cardio Rate: regular rate Rhythm: regular rhythm Heart sounds: S1 normal heart sound present, S2 normal heart sound present, no gallops, no murmurs and no rubs GI Palpation (GI): No Abdominal aortic bruit present, Soft to palpation, nontender, No hepatosplenomegaly present and No Rebound tenderness present Auscultation: normal bowel sounds General: Yes no CVA tenderness Back/Spine/Pelvis Back: no CVA tenderness Cervical Spine: cervical ROM normal and No Cervical spine tenderness Thoracic/Lumbar Spine: thoraco-lumbar ROM normal, No pain with thoraco-lumbar ROM, No thoracic spinal tenderness and No lumbar spinal tenderness Extrem General: Yes normal to inspection, No edema and No calf tenderness. Negative left straight leg raise. No overt injury or trauma. Skin General: warm and dry. Normal skin color. Normal skin turgor Neuro General: patient oriented x3, gait normal and no focal neuro deficit Cranial nerves: Yes Equal, round and reactive pupils present Cognition (Neuro): normal cognition Gait exam (Neuro): Normal gait present Sensory Exam: No Sensory deficit (Neuro) Psych Appearance: grossly normal Affect: normal affect Attitude: cooperative Thought process: Normal thought process present Coding Level of Care Code Est Pt Level 4 (10273) Complex EM visit Add On G2211 Diagnoses Shortness of breath R06.02 Leukopenia D72.819 Mild anemia D64.9 Elevated brain natriuretic peptide (BNP) level R79.89 Kidney disease N28.9 Hospital discharge follow-up Z09 Chronic left hip pain M25.552; G89.29 Chronic low back pain M54.50; G89.29 Assessment & Plan Assessment & Plan (1) Shortness of breath: Code(s): R06.02 - Shortness of breath Category: Medical Plan: She reports significant improvement since she was recently discharged from the hospital. She has not experienced chest pain. However, She she experiences shortness of breath every once in a while, and resolve after albuterol nebulizer treatment. She has been taking Trelegy Ellipta as prescribed. She has history of asthma. She quit smoking cigarettes about a month and half ago. She is followed by pulmonolgy Lung sounds clear and equal bilaterally Continue current treatment regimen Continue follow-up with pulmonology as planned Follow-up with PCP as scheduled or sooner with symptoms or concerns Verbalized understanding and agreed with the plan (2) Leukopenia: Code(s): D72.819 - Decreased white blood cell count, unspecified Category: Medical Plan: Plan as above (3) Mild anemia: Code(s): D64.9 - Anemia, unspecified Category: Medical Plan: Recent RBC and H&H level while hospitalized were slightly low, 4.03 and 11.2/33.6 respectively. WBC was low, 3.1 Will recheck CBC and make changes as needed. She will get lab work done today (4) Elevated brain natriuretic peptide (BNP) level: Code(s): R79.89 - Other specified abnormal findings of blood chemistry Category: Medical Plan: BMP while hospitalized was slightly elevated, 162 Will recheck BNP and make changes as needed (5) Kidney disease: Code(s): N28.9 - Disorder of kidney and ureter, unspecified Category: Medical Plan: Recent creatinine level is slightly elevated, 1.42. GFR is low, 37 She has had history of slightly elevated creatinine and low GFR levels Will recheck kidney functions and make changes as needed. May referred to Nephrology Adequate hydration encouraged Verbalized understanding and agreed with the plan (6) Hospital discharge follow-up: Code(s): Z09 - Encounter for follow-up examination after completed treatment for conditions other than malignant neoplasm Category: Medical Plan: Plan as above (7) Chronic left hip pain: Code(s): M25.552 - Pain in left hip; G89.29 - Other chronic pain Category: Medical Plan: Patient reports intermittent sharp lower back and left hip pain which will radiate down to her thigh for the past 4 years. She has had multiple recent fall, despite using her cane or walker, due to her hip pain. Lumbar spine nontender. Negative left straight leg raise. No overt injury or trauma. Gait is steady Continue current treatment regimen Warm/cool compresses encouraged X-ray of lumbar spine and left pelvis ordered. Will review results and make changes as needed Verbalized understanding and agreed with the plan (8) Chronic low back pain: Code(s): M54.50 - Low back pain, unspecified; G89.29 - Other chronic pain Category: Medical Plan: Plan as above Orders: Orders Basic Metabolic Panel Today N28.9 - Disorder of kidney and ureter, unspecified B Type Natriuretic Peptide Today R79.89 - Other specified abnormal findings of blood chemistry XR lumbar spine 2-3V Today G89.29 - Other chronic pain, M54.50 - Low back pain, unspecified XR hip LT w [id number] Today G89.29 - Other chronic pain, M25.552 - Pain in left hip Complete Blood Count no Diff Today D64.9 - Anemia, unspecified
[2023-12-28 12:51] VITALS: BP 136/80; PULSE 71; RESP 16; TEMP 36.7; O2SAT 100; BMI 29.5
== END 2023-12-28 16:09 | disposition home or self-care (01) ==
LOC: HO.HMCFM 12:42
PROVIDERS: PCP Nurse Practitioner Family; Visit Provider Nurse Practitioner Family
DX: R06.02 Shortness of breath (principal); D72.819 Decreased white blood cell count, unspecified; D64.9 Anemia, unspecified; R79.89 Other specified abnormal findings of blood chemistry; N28.9 Disorder of kidney and ureter, unspecified; Z09 Encounter for follow-up examination after completed treatment for conditions other than malignant neoplasm; M25.552 Pain in left hip; G89.29 Other chronic pain; M54.50 Low back pain, unspecified

== ENCOUNTER → 2023-12-28 12:41 | Outpatient (BNVA) | payer OTHER, SELFPAY ==
[2023-11-07 09:21] VITALS: BP 104/78; BP 136/88; BP 138/72; BMI 29.1
== END ==
PROVIDERS: PCP Nurse Practitioner Family; Visit Provider Nurse Practitioner Family

== ENCOUNTER 2023-12-28 13:35 | Outpatient (REF) | payer OTHER, SELFPAY ==
[2023-11-07 09:21] VITALS: BP 104/78; BP 136/88; BP 138/72; BMI 29.1
[2023-12-28 17:53] LABS: Hematocrit 32.9 % (37.0-47.0); Hemoglobin 10.8 g/dl (12.0-16.0); Mean Corpuscular HGB Conc 32.8 g/dl (31.0-35.0); Mean Corpuscular Hemoglobin 27.6 pg (27.0-33.0); Mean Corpuscular Volume 83.9 fL (80.0-98.0); Mean Platelet Volume 11.3 fL (9.4-12.3); Platelet Count 197 X10*3/uL (160-400); Red Blood Count 3.92 X10*6/uL (4.20-5.50); Red Cell Distribution Width 15.3 % (11.0-16.0); White Blood Count 3.8 X10*3/uL (4.8-10.8)
[2023-12-28 17:55] LABS: B Type Natriuretic Peptide 181 pg/mL (<100)
[2023-12-28 18:21] LABS: Anion Gap 10 (12-20); Blood Urea Nitrogen 16 mg/dL (9-16); Calcium 9.2 mg/dL (8.4-10.2); Carbon Dioxide 24 mmol/L (22-29); Chloride 111 mmol/L (96-108); Estimated Glomerular Filt Rate 36; Glucose Random 78 mg/dL (60-115); Potassium 3.9 mmol/L (3.3-5.1); Sodium 141 mmol/L (135-145)
== END 2023-12-28 13:36 | disposition home or self-care (01) ==
LOC: HO.WFDLDS 13:35
PROVIDERS: Referring Provider Nurse Practitioner Family; Visit Provider Nurse Practitioner Family
DX: R06.02 Shortness of breath (principal); D72.819 Decreased white blood cell count, unspecified; D64.9 Anemia, unspecified; R79.89 Other specified abnormal findings of blood chemistry; N28.9 Disorder of kidney and ureter, unspecified; G89.29 Other chronic pain; M25.552 Pain in left hip; M54.50 Low back pain, unspecified; I10 Essential (primary) hypertension
CPT/HCPCS: 36415; 80048; 83880; 85027; 99212

== ENCOUNTER 2024-01-06 09:02 | Outpatient (AMB) | payer OTHER, SELFPAY ==
[2023-11-07 09:21] VITALS: BP 104/78; BP 136/88; BP 138/72; BMI 29.1
[2024-01-06 09:13] VITALS: BP 128/62; PULSE 79; BMI 28.6
--- NOTE | 2024-01-06 09:13 | A.OFFVIS_ITS ---
Vital Signs 01/06/24 09:13 Height 5 ft 5 in Weight 171 lb 15.369 oz BMI 28.6 BP 128/62 Blood Pressure Location Lt brachial Position Sitting Pulse 79 Pulse Source Monitor Intake Visit Reasons: 1 year fu Allergies Seasonal Allergies Allergy (Mild, Verified 12/28/23 12:48) congestion Medication List - Last Reconciled 01/06/24 by Sabas Lorenzana MD acetaminophen ER 1,300 mg PO BID PRN albuterol sulfate 2.5 mg (3 mL) inhalation Q4H PRN aspirin 81 mg PO DAILY 90 days atorvastatin 80 mg PO DAILY blood sugar diagnostic ([employer] Ultra Test strips) bs checks 3 times per day blood-glucose meter ([employer] Ultra2 Meter) POC testing TID blood-glucose meter Test 3 times daily bupropion HCl XL 150 mg PO QAM 30 days carvedilol 12.5 mg PO BID cetirizine (Zyrtec) 10 mg PO DAILY PRN cholecalciferol (vitamin D3) 50 mcg PO QAM 90 days dulaglutide (Trulicity) 1.5 mg subcut TU ezetimibe 10 mg PO DAILY 90 days egrtbfktrns-gulkachjg-kpgnfpcr 200-62.5-25 mcg (Trelegy Ellipta) 1 inh inhalation DAILY glipizide 10 mg PO BID 3 months ipratropium bromide 2 sprays intranasal BID lancets ([employer] Delica Plus Lancet) USE TO TEST THREE TIMES DAILY loratadine 10 mg PO DAILY omeprazole 20 mg PO DAILY sacubitril-valsartan 24-26 mg (Entresto) 1 tab PO BID Shower Chair As directed ticagrelor (Brilinta) 90 mg PO BID 30 days HPI Comments Details: Wilfrido comes for follow-up. Patient was admitted since we last saw her in November with hypertensive urgency causing chest pain. She says that might have been due to salt loading. Otherwise her blood pressures been well controlled. She is done with cardiac rehab at this point time. She currently has limited activity level due to back pain and has issue with sciatica and her left lower extremity. This limits her activity level. However with activity she does not have any symptoms of exertional chest pain or shortness of breath. Denies any orthopnea, PND, leg edema. Says takes all her medications. Tries to watch the salt in her diet. denies any prolonged palpitations, lightheadedness, syncope PFSH Medical History CAD (coronary artery disease) Stented coronary artery HTN (hypertension) Diabetes Asthma Nicotine dependence, cigarettes, uncomplicated Surgical History History of heart artery stent History of repair of right rotator cuff History of tubal ligation Hx of colonoscopy Family History Mother Hypertension Father No problems noted. Social History Household Members: Family Housing: Apartment Housing Other:: Patient is currently living with daughter Are you a primary healthcare account manager to a significant other at home: No Do you presently have visiting nurse or other home services: No Patient Tobacco Use Status: Former Tobacco user Tobacco use type: Cigarette Cigarettes Per Day: 1 Years Smoked: onset 10yo, 1ppd x 52yrs, now 1-2 cig/wk - 40+PYH e-Cigarette/Vaping Use: Never Used Second Hand Smoke Exposure: No service: No Current occupational status: disabled Current occupational exposures/hazards: No Cognitive needs: No Hearing needs: No Vision needs: No Review of Systems Const Denies weakness ENT Denies dizziness Card Denies chest pain, Denies chest pain with activity, Denies syncope, Denies rapid heart rate, Denies pedal edema, Denies edema, Denies leg edema, Denies lightheadedness, Denies palpitations, Reports dyspnea, Denies dyspnea on exertion and Denies orthopnea Resp Denies cough, Reports dyspnea and Denies dyspnea on exertion GI Denies hematochezia and Denies change in stool character Musc Denies abnormal gait, Denies muscle cramps, Denies muscle weakness, Denies num bness, Denies radiating pain into limb and Denies tingling Neuro Denies abnormal gait, Denies dizziness, Denies syncope, Denies numbness, Denies tingling and Denies weakness Endo Denies palpitations Physical Exam Vital Signs: Last Vital Signs Pulse 79 01/06/24 09:13 BP 128/62 01/06/24 09:13 BMI result Body Mass Index 28.6 Const General: cooperative, healthy appearing, comfortable and no acute distress Orientation/consciousness: patient oriented x3 Limitations: ambulation with walker Neck Neck: Yes normal visual inspection Resp Effort & Inspection: normal respiratory effort Auscultation: clear to auscultation bilaterally, no crackles, no rales, no rhonchi and no wheezes Cardio Jugular venous distension: no JVD Rate: regular rate Rhythm: regular rhythm Heart sounds: S1 normal heart sound present, S2 normal heart sound present, no murmurs and no rubs Neuro General: patient oriented x3 Extrem General: Yes normal to inspection and No no pedal edema Psych Appearance: grossly normal Mental Status: mental status grossly normal Speech and movement: Normal speech and movement present Office Procedures EKG Details: EKG shows normal sinus rhythm with LVH with repolarization abnormality [id number], Complete Assessment & Plan Assessment & Plan (1) CAD (coronary artery disease): Comment: (STEMI 2021 = s/p ROSELIA to LAD) Code(s): I25.10 - Atherosclerotic heart disease of [place] coronary artery without angina pectoris Category: Medical Qualifiers: Coronary Disease-Associated Artery/Lesion type: [place] artery [place] vs. transplanted heart: [place] heart Associated angina: without angina Qualified Code(s): I25.10 - Atherosclerotic heart disease of [place] coronary artery without angina pectoris Plan: CAD with anterior STEMI in 2021 leading to drug-eluting stent to the LAD and subsequently NSTEMI in May of 2023 leading to drug-eluting stent to the circumflex artery. Since then she has done well. She is currently taking all her medications. Importance of dual antiplatelet therapy for total of 1 year uninterrupted was discussed with her. Lifelong aspirin therapy beyond that. Continue aggressive risk factor modification. Her diabetes under your control and she is currently on Trulicity although I would also consider adding SGLT2 inhibitor to her regimen and gradually take her off glipizide therapy. These newer drugs have significant cardiovascular benefits and should be included in her regimen. Continue aggressive blood pressure control, see below. Continue aggressive lipid modification. Target goal LDL closer to 50 mg/dL. Continue high-intensity atorvastatin as well as ezetimibe therapy. Advised lipid panel in 6 months time. She is encouraged to continue to participate in regular physical activity. Consider referral to [facility] for her back issues. (2) Ischemic cardiomyopathy: Code(s): I25.5 - Ischemic cardiomyopathy Category: Medical Plan: Ischemic cardiomyopathy with mild LV systolic dysfunction. No signs or symptoms of heart failure. Continue aggressive medical therapy neurohormonal modulation. Continue Entresto as well as carvedilol therapy. Avoidance of cardiotoxic agent was discussed. Signs and symptoms of heart failure were discussed. Consider addition of SGLT2 inhibitor therapy for neurohormonal modulation as well. Continue aggressive blood pressure control. Encouraged exercise. (3) HTN (hypertension): Code(s): I10 - Essential (primary) hypertension Category: Medical Qualifiers: Hypertension type: primary hypertension Qualified Code(s): I10 - Essential (primary) hypertension Plan: Labile blood pressure, question compliance although she says she takes all her medications regularly. She also sometimes has elevated blood pressure related to salt loading. Recommend to avoid salt loading. Continue monitor blood pressure at home maintain a log. Will send her a blood pressure monitor prescription. Target goal blood pressure less than 130/84. Importance of good blood pressure control was discussed. Follow up in the clinic in 6 months time, sooner p.r.n.. Thank you for allowing me to partake in his care Coding Level of Care Code Est Pt Level 4 (79501) Complex EM visit Add On G2211 Diagnoses Coronary artery disease involving [place] coronary artery of [place] heart without angina pectoris I25.10 Coronary Disease-Associated Artery/Lesion type: [place] artery [place] vs. transplanted heart: [place] heart Associated angina: without angina Ischemic cardiomyopathy I25.5 Primary hypertension I10 Hypertension type: primary hypertension CPT Codes EKG - CPT: [id number]-[id number], Complete ([id number])
== END 2024-01-06 09:40 | disposition home or self-care (01) ==
PROVIDERS: PCP Nurse Practitioner Family; Visit Provider Internal Medicine Cardiovascular Disease
DX: I25.10 Atherosclerotic heart disease of native coronary artery without angina pectoris (principal); I25.5 Ischemic cardiomyopathy; I10 Essential (primary) hypertension
CPT/HCPCS: 93010; 99214; G2211

== ENCOUNTER 2024-01-06 09:37 | Outpatient (REF) | payer OTHER, SELFPAY ==
[2023-11-07 09:21] VITALS: BP 104/78; BP 136/88; BP 138/72; BMI 29.1
--- NOTE | ~2024-01-06 | MM_ITS ---
EXAMINATION: MM SCREENING DIGITAL BREAST TOMOSYNTHESIS, BILATERAL CLINICAL INFORMATION: Screening. Asymptomatic. COMPARISON: Mammography: Comparison is made with available priors TECHNIQUE: Digital breast mammography with tomosynthesis is performed in both the craniocaudal and mediolateral oblique views along with computer-aided detection (CAD). FINDINGS: There are scattered areas of fibroglandular density (ACR BI-RADS breast composition Category b). There are no significant masses, abnormal calcifications, or other abnormalities. MM/MM tomosynthesis screening BI IMPRESSION: No mammographic evidence of malignancy. ASSESSMENT: BI-RADS BI-RADS 1 - Negative RECOMMENDATION: Routine annual mammography screening. 1 year F/U This examination should not preclude the clinical evaluation of a suspicious palpable abnormality. This patient's information was entered into a reminder system with a target due date for their next mammogram. Electronically signed by: Nasrin Hess DO 01/14/2024 06:15 PM [facility]
== END 2024-01-06 09:38 | disposition home or self-care (01) ==
LOC: HO.MAMMO 09:37
PROVIDERS: PCP Nurse Practitioner Family; Visit Provider Nurse Practitioner Family
DX: I25.10 Atherosclerotic heart disease of native coronary artery without angina pectoris (principal); Z12.31 Encounter for screening mammogram for malignant neoplasm of breast; M54.50 Low back pain, unspecified; G89.29 Other chronic pain; M25.552 Pain in left hip; I25.5 Ischemic cardiomyopathy; I10 Essential (primary) hypertension
CPT/HCPCS: 72100; 73502; 77063; 77067; 93005; 99212

== ENCOUNTER → 2024-01-06 10:15 | Outpatient (BNV) | payer OTHER, SELFPAY ==
[2023-11-07 09:21] VITALS: BP 104/78; BP 136/88; BP 138/72; BMI 29.1
== END ==
PROVIDERS: PCP Nurse Practitioner Family; Visit Provider Internal Medicine
DX: Z12.31 Encounter for screening mammogram for malignant neoplasm of breast (principal)
CPT/HCPCS: 77063; 77067

== ENCOUNTER 2024-01-13 10:54 | Outpatient (AMB) | payer OTHER, SELFPAY ==
[2023-11-07 09:21] VITALS: BP 104/78; BP 136/88; BP 138/72; BMI 29.1
[2024-01-13 11:09] VITALS: BP 126/82; PULSE 77; O2SAT 100; BMI 29.1
--- NOTE | 2024-01-13 11:09 | A.OFFVIS_ITS ---
Vital Signs 01/13/24 11:09 Height 5 ft 5 in Weight 175 lb 2 oz BMI 29.1 BP 126/82 Blood Pressure Location Rt brachial Position Sitting Pulse 77 Pulse Source Pulse Oximeter Pulse Oximetry (%) 100 Oxygen Delivery Method Room Air Intake Visit Reasons: Cough Allergies Seasonal Allergies Allergy (Mild, Verified 01/13/24 11:14) congestion HPI HPI Cough: Details: Wilfrido is a pleasant 63-year-old female, former smoker, recently quit with 40+ pack year history, with underlying asthma, [place] 2021 s/p stents x 2, HTN, DMII. She reports moderate control on Trelegy and albuterol MDI. Shortly after our last visit, she started with an intermittent dry cough occasionally with white mucous. She denies fevers or chills. She denies dyspnea, chest tightness or wheezing. She denies any visits to urgent care or hospitalizations since the last visit. [facility] Medical History CAD (coronary artery disease) Stented coronary artery HTN (hypertension) Diabetes Asthma Nicotine dependence, cigarettes, uncomplicated Surgical History History of heart artery stent History of repair of right rotator cuff History of tubal ligation Hx of colonoscopy Family History Mother Hypertension Father No problems noted. Social History Household Members: Family Housing: Apartment Housing Other:: Patient is currently living with daughter Are you a primary resident care technician to a significant other at home: No Do you presently have visiting nurse or other home services: No Patient Tobacco Use Status: Former Tobacco user Tobacco use type: Cigarette Cigarettes Per Day: 1 Years Smoked: onset 10yo, 1ppd x 52yrs, now 1-2 cig/wk - 40+PYH e-Cigarette/Vaping Use: Never Used Second Hand Smoke Exposure: No service: No Current occupational status: disabled Current occupational exposures/hazards: No Cognitive needs: No Hearing needs: No Vision needs: No Review of Systems Const Denies chills, Denies excessive sweating, Denies fever(s), Denies headache(s) and Denies night sweats Eyes Denies dry eyes, Denies irritation and Denies itchy eyes ENT Reports Normal hearing present, Denies headache(s), Denies nasal congestion, Denies nasal discharge and Denies sore throat Card Denies chest pain, Denies chest pain at rest, Denies chest pain with activity, Denies claudication, Denies leg edema, Denies dyspnea on exertion, Denies orthopnea and Denies paroxysmal nocturnal dyspnea Resp Denies chest congestion, Denies excessive phlegm production, Denies pain on inspiration, Denies pain with cough, Denies dyspnea on exertion, Denies stridor and Denies wheezing Musc Denies myalgias Neuro Reports Normal hearing present and Denies headache(s) Endo Denies excessive sweating Aaron/Lymph Denies lymphadenopathy Aller/Immun Denies itchy eyes, Denies seasonal rhinorrhea and Denies wheezing Physical Exam Vital Signs: Last Vital Signs Pulse 77 01/13/24 11:09 BP 126/82 01/13/24 11:09 Pulse Ox 100 01/13/24 11:09 Oxygen Delivery Method Room Air 01/13/24 11:09 BMI result Body Mass Index 29.1 Const General: cooperative, healthy appearing, comfortable, no acute distress, well developed and alert Orientation/consciousness: patient oriented x3 HEENT Head: Yes normal to inspection, Yes normocephalic and Yes atraumatic Ears: hearing grossly normal bilaterally and external ears normal Eyes General: appearance normal, both eyes and all related structures Eyelids: Yes eyelids normal Sclerae: sclerae normal EOM: EOMs intact bilaterally Neck Neck: Yes normal visual inspection and Yes no lymphadenopathy Lymphatic: no lymphadenopathy noted Chest Chest palpation & inspection: normal inspection of the chest Resp Effort & Inspection: normal respiratory effort, able to speak in complete sentences, no audible wheezes, no stridor, not tachypneic, no tripod positioning and no use of accessory muscles Auscultation: diminished lung sounds Cardio Jugular venous distension: no JVD Rate: regular rate Rhythm: regular rhythm Skin Other: warm, dry General skin exam: no rashes or lesions noted Neuro General: patient oriented x3 Cranial nerves: Yes Normal hearing present Cognition (Neuro): normal cognition Gait exam (Neuro): Normal gait present Extrem General: Yes normal to inspection, Yes capillary refill normal, Yes no clubbing, cyanosis or edema and Yes no pedal edema Psych Appearance: grossly normal and well kempt Speech and movement: Normal speech and movement present and Clear speech present Affect: normal affect Attitude: cooperative Thought process: Normal thought process present Thought content: Normal thought content present Insight: Good insight present (Psych) Judgement: Good judgement present (Psych) Assessment & Plan Assessment & Plan (1) Asthma: Code(s): J45.909 - Unspecified asthma, uncomplicated Category: Medical (2) Environmental and seasonal allergies: Code(s): J30.89 - Other allergic rhinitis Category: Medical Plan Wilfrido reports moderate effect with Trelegy and albuterol MDI, advised to continue and use albuterol neb. If no improvements over the next few days will send prednisone. All questions were answered and patient is in agreement of plan. Will follow up in 6-8 weeks or sooner if needed. Coding Level of Care Code Est Pt Level 3 (83228) Diagnoses Asthma J45.909 Environmental and seasonal allergies J30.89
== END 2024-01-13 11:41 | disposition home or self-care (01) ==
PROVIDERS: PCP Nurse Practitioner Family; Visit Provider Nurse Practitioner Family
DX: J45.909 Unspecified asthma, uncomplicated (principal); J30.89 Other allergic rhinitis
CPT/HCPCS: 99213

== ENCOUNTER → 2024-01-13 10:54 | Outpatient (BNVA) | payer OTHER, SELFPAY ==
[2023-11-07 09:21] VITALS: BP 104/78; BP 136/88; BP 138/72; BMI 29.1
== END ==
PROVIDERS: PCP Nurse Practitioner Family; Visit Provider Nurse Practitioner Family
DX: J45.909 Unspecified asthma, uncomplicated (principal); F17.210 Nicotine dependence, cigarettes, uncomplicated
CPT/HCPCS: 99212

== ENCOUNTER 2024-02-01 10:24 | Outpatient (AMB) | payer OTHER, SELFPAY ==
[2023-11-07 09:21] VITALS: BP 104/78; BP 136/88; BP 138/72; BMI 29.1
--- NOTE | 2024-02-01 10:32 | MHC.PC.OV ---
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 Service Required: No Is last menstrual period known: No Post menopausal: No Patient : No Allergies Seasonal Allergies Allergy (Mild, Verified 02/01/24 11:06) congestion Medication List - Last Reconciled 02/01/24 by Pepito Cardoza CNP acetaminophen ER 1,300 mg (2 x 650 mg) PO BID PRN albuterol sulfate 2.5 mg (3 mL) inhalation Q4H PRN aspirin 81 mg PO DAILY 90 days atorvastatin 80 mg PO DAILY blood pressure test kit-large (Friendster Versa Arm BP Monitor kit) As directed blood sugar diagnostic (Cardiva Medical Ultra Test strips) bs checks 3 times per day blood-glucose meter (Cardiva Medical Ultra2 Meter) POC testing TID blood-glucose meter Test 3 times daily bupropion HCl XL 150 mg PO QAM 30 days carvedilol 12.5 mg PO BID cetirizine (Zyrtec) 10 mg PO DAILY PRN cholecalciferol (vitamin D3) 50 mcg PO QAM 90 days dulaglutide (Trulicity) 1.5 mg subcut TU ezetimibe 10 mg PO DAILY 90 days ubtjncowiiw-yzxpkzblp-zzxdwdwa 200-62.5-25 mcg (Trelegy Ellipta) 1 inh inhalation DAILY glipizide 10 mg PO BID 3 months ipratropium bromide 2 sprays intranasal BID lancets (Cardiva Medical Delica Plus Lancet) USE TO TEST THREE TIMES DAILY loratadine 10 mg PO DAILY omeprazole 20 mg PO DAILY sacubitril-valsartan 24-26 mg (Entresto) 1 tab PO BID Shower Chair As directed ticagrelor (Brilinta) 90 mg PO BID 30 days Tobacco use date assessed: 02/01/24 Dental Screening Dental Screen Date: 02/01/24 Did you have a dental visit in the last 12 months?: No Did you have a dental problem in the last 6 months where you did not have access to dental care?: No Was dental information given to patient?: Patient declined (patient has dentures) HPI HPI Comments History of Present Illness Details The patient is a 63-year-old female presenting with follow-up concerns for her essential hypertension and type 2 diabetes mellitus, alongside complaints of hip pain. Her hypertension was noted to be elevated during today's visit, with a blood pressure reading of 140/80 mmHg, although she aims for goals of less than 130/80 mmHg. She takes Carvedilol at 12.5 mg twice daily and Entresto twice daily. Her diabetes management reflects stability, with a current HbA1c level of 6.5%, consistent with previous measures. Regarding her hip pain, the patient reports chronic discomfort over the past four years, recently exacerbating over the last two days. The pain originates in the left hip, often radiating down her legs and alternating sides. She has experienced frequent falls, approximately three to four times since her last visit. X-ray imaging of the hip was conducted last month, but results are still pending. The patient notes a history of non-responsive physical therapy. Her kidney function has shown persistent decline since October, with a creatinine level of 1.47 mg/dL observed in December. Recent labs indicate anemia, with low red and white blood cell counts, hemoglobin at 10.8 g/dL, and hematocrit at 32.9%. These findings suggest anemia related to chronic kidney disease secondary to diabetes and hypertension. She is not followed by a gravel screener. [facility] Medical History CAD (coronary artery disease) Stented coronary artery HTN (hypertension) Diabetes Asthma Nicotine dependence, cigarettes, uncomplicated Surgical History History of heart artery stent History of repair of right rotator cuff History of tubal ligation Hx of colonoscopy Family History Mother Hypertension Father No problems noted. Social History Household Members: Family Housing: Apartment Housing Other:: Patient is currently living with daughter Are you a primary career education teacher to a significant other at home: No Do you presently have visiting nurse or other home services: No Patient Tobacco Use Status: Former Tobacco user Tobacco use type: Cigarette Cigarettes Per Day: 1 Years Smoked: onset 10yo, 1ppd x 52yrs, now 1-2 cig/wk - 40+PYH e-Cigarette/Vaping Use: Never Used Second Hand Smoke Exposure: No service: No Current occupational status: disabled Current occupational exposures/hazards: No Cognitive needs: No Hearing needs: No Vision needs: No Questionnaire Thrive Questionnaire Date Thrive assessed: 12/28/23 I am a: Patient What is your living situation today?: I have a steady place to live Within the past 12 months, did the food you bought not last and you didn't have the money to get more?: Sometimes True Within the past 12 months, did you worry whether your food would run out before you got money to buy more?: Sometimes True Do you have trouble paying for medicines?: No Do you have trouble getting transportation to medical appointments?: No Do you have trouble paying your heating and electricity bill?: Yes Do you have trouble taking care of your child, family member or friend?: No Do you have trouble with day-to-day activities such as bathing, preparing meals, shopping, managing finances, etc.?: Yes Are you currently unemployed and looking for a job?: No Are you interested in more education?: No Please select the resources that you would like help with: Utilities Currently or been in a relationship where the following occur: I choose not to answer THRIVE Score: 3 ZURI-7 AMB Questionnaire ZURI-7 Date ZURI - 7 assessed: 03/03/23 Source: Developed by Drs. Isma Erickson, Joyce Phillips, Roger Davis and colleagues, with an educational jana from [employer]. Review of Systems Const Details: Const Denies chills, Denies fatigue, Denies fever(s), Denies headache(s) and Denies weakness ENT Denies dizziness and Denies headache(s) Card Denies chest pain, Denies lightheadedness, Denies dyspnea and Denies other (Palpitations) Resp Denies cough, Denies dyspnea, Denies wheezing and Denies other ( shortness of breath) GI Denies abdominal pain, Denies melena, Denies hematochezia, Denies change in bowel habits, Denies dyspepsia and Denies nausea Denies hematuria and Denies dysuria Musc Reports as per HPI Skin/Breast Denies rash, Denies unusual bruising and Denies wounds Neuro Denies abnormal gait, Denies dizziness, Denies headache(s), Denies memory loss, Denies numbness, Denies Sensory deficit (Neuro), Denies tingling and Denies weakness Psych Denies anxiety, Denies depression, Denies memory loss Endo Denies cold intolerance, Denies fatigue, Denies heat intolerance, Denies polydipsia and Denies polyuria Aller/Immun Denies wheezing Physical exam (Primary Care) Vital Signs: Last Vital Signs Temp 98.2 F 02/01/24 10:45 Pulse 78 02/01/24 10:45 Resp 16 02/01/24 10:45 BP 140/80 H 02/01/24 11:09 Pulse Ox 97 02/01/24 10:45 Oxygen Delivery Method Room Air 02/01/24 10:45 BMI result Body Mass Index 29.8 Tobacco/Smoking Status: Tobacco use Status Tobacco use date assessed 02/01/24 02/01/24 10:51 Patient Tobacco Use Status Former Tobacco user 02/01/24 10:33 Tobacco use type Cigarette 02/01/24 10:33 e-Cigarette/Vaping Use Never Used 02/01/24 10:33 Thrive Assessment: Date of Thrive Assessment Date Thrive assessed 12/28/23 02/01/24 10:33 Currently or been in a relationship where the following occur: I choose not to answer Const Other: General: no acute distress and well developed Nutritional Appearance: well nourished Orientation/consciousness: patient oriented x3 HENMT Head: Yes normocephalic and Yes atraumatic Eyes General: appearance normal, both eyes and all related structures Pupils: Equal, round and reactive pupils present EOM: EOMs intact bilaterally Resp Effort & Inspection: normal respiratory effort Auscultation: clear to auscultation bilaterally Cardio Rate: regular rate Rhythm: regular rhythm Heart sounds: S1 normal heart sound present, S2 normal heart sound present, no gallops, no murmurs and no rubs GI Palpation (GI): No Abdominal aortic bruit present, Soft to palpation, nontender, No hepatosplenomegaly present and No Rebound tenderness present Auscultation: normal bowel sounds General: Yes no CVA tenderness Back/Spine/Pelvis Back: no CVA tenderness Cervical Spine: cervical ROM normal and No Cervical spine tenderness Thoracic/Lumbar Spine: thoraco-lumbar ROM normal, No pain with thoraco-lumbar ROM, No thoracic spinal tenderness and No lumbar spinal tenderness Extrem General: Yes normal to inspection, No edema and No calf tenderness Skin General: warm and dry. Normal skin color. Normal skin turgor Neuro General: patient oriented x3, gait normal and no focal neuro deficit Cranial nerves: Yes Equal, round and reactive pupils present Cognition (Neuro): normal cognition Gait exam (Neuro): Normal gait present Sensory Exam: No Sensory deficit (Neuro) Psych Appearance: grossly normal Affect: normal affect Attitude: cooperative Thought process: Normal thought process present Results AMB Hemoglobin A1c AMB Hemoglobin A1c 6.5 % Last Edit by Dominique Campos on 02/01/24 11:19 Results Reviewed Results Reviewed: Laboratory Last Values Hgb A1c (Clinic) 6.5 % (4.0-6.0) H 02/01/24 11:04 Coding Level of Care Code Est Pt Level 4 (26778) Complex EM visit Add On G2211 Diagnoses Primary hypertension I10 Hypertension type: primary hypertension Diabetes type 2, controlled E11.9 Chronic kidney disease N18.9 Anemia of chronic disease D63.8 Chronic left hip pain M25.552; G89.29 Chronic low back pain M54.50; G89.29 Assessment & Plan Assessment & Plan (1) HTN (hypertension): Code(s): I10 - Essential (primary) hypertension Category: Medical Qualifiers: Hypertension type: primary hypertension Qualified Code(s): I10 - Essential (primary) hypertension Plan: Continue current antihypertensive regimen. Blood pressure goal is set at less than 130/80 mmHg. (2) Diabetes type 2, controlled: Code(s): E11.9 - Type 2 diabetes mellitus without complications Category: Medical Plan: Maintain current treatment regimen as HbA1c remains stable. (3) Chronic kidney disease: Code(s): N18.9 - Chronic kidney disease, unspecified Category: Medical Plan: Referral to nephrology for further evaluation and management of kidney function. (4) Anemia of chronic disease: Code(s): D63.8 - Anemia in other chronic diseases classified elsewhere Category: Medical Plan: Recheck CBC, iron levels, folic acid, and vitamin to rule out any deficiencies. (5) Chronic left hip pain: Code(s): M25.552 - Pain in left hip; G89.29 - Other chronic pain Category: Medical Plan: Expedite radiology report for hip x-ray and consider referral to orthopedics pending results. (6) Chronic low back pain: Code(s): M54.50 - Low back pain, unspecified; G89.29 - Other chronic pain Category: Medical Plan: Plan as above. Plan I discussed with the patient her current state of essential hypertension and type 2 diabetes mellitus. Her diabetes is well-managed with an HbA1c of 6.5%. Her hypertension remains slightly elevated; therefore, we will continue with the current regimen aiming for a blood pressure lower than 130/80 mmHg. The possibility of chronic kidney disease was addressed, indicating a nephrology referral for further evaluation. Regarding her hip pain, I explained that we await x-ray results to determine the next steps, which may include an orthopedic consultation. I suggested retaining her regimen and stressed the importance of follow-up if her symptoms worsen. Orders: Orders Ferritin Today D63.8 - Anemia in other chronic diseases classified elsewhere AMB Hemoglobin A1c Today Z13.9 - Encounter for screening, unspecified Complete Blood Count no Diff Today D63.8 - Anemia in other chronic diseases classified elsewhere IRON PROFILE Today D63.8 - Anemia in other chronic diseases classified elsewhere Vitamin B12 and Folate Today D63.8 - Anemia in other chronic diseases classified elsewhere Referrals Nephrology Referral N18.9 - Chronic kidney disease, unspecified Patient Instructions: - Continue medications as prescribed for hypertension and diabetes. - Maintain a low-salt diet and healthy eating habits. - Follow up with scheduled nephrology appointment. - Monitor hip pain, and seek follow-up care if symptoms worsen. - Follow up in one month for an extended physical. Patient was informed and verbally consented to the use of an ambient scribe for clinic note documentation during this visit.
[2024-02-01 10:45] VITALS: BP 144/74; PULSE 78; RESP 16; TEMP 36.8; O2SAT 97; BMI 29.8
[2024-02-01 11:09] VITALS: BP 140/80
== END 2024-02-01 11:20 | disposition home or self-care (01) ==
PROVIDERS: PCP Nurse Practitioner Family; Visit Provider Nurse Practitioner Family
DX: I12.9 Hypertensive chronic kidney disease with stage 1 through stage 4 chronic kidney disease, or unspecified chronic kidney disease (principal); E11.9 Type 2 diabetes mellitus without complications; N18.9 Chronic kidney disease, unspecified; D63.8 Anemia in other chronic diseases classified elsewhere; M25.552 Pain in left hip; G89.29 Other chronic pain; M54.50 Low back pain, unspecified; Z13.9 Encounter for screening, unspecified

== ENCOUNTER → 2024-02-01 10:24 | Outpatient (BNVA) | payer OTHER, SELFPAY ==
[2023-11-07 09:21] VITALS: BP 104/78; BP 136/88; BP 138/72; BMI 29.1
== END ==
PROVIDERS: PCP Nurse Practitioner Family; Visit Provider Nurse Practitioner Family
DX: I12.9 Hypertensive chronic kidney disease with stage 1 through stage 4 chronic kidney disease, or unspecified chronic kidney disease (principal); E11.22 Type 2 diabetes mellitus with diabetic chronic kidney disease; N18.9 Chronic kidney disease, unspecified; D63.8 Anemia in other chronic diseases classified elsewhere; G89.29 Other chronic pain
CPT/HCPCS: 83036; 99212

== ENCOUNTER 2024-02-25 09:52 | Outpatient (AMB) | payer OTHER, SELFPAY ==
[2023-11-07 09:21] VITALS: BP 104/78; BP 136/88; BP 138/72; BMI 29.1
--- NOTE | 2024-02-25 10:19 | HO.NEPHOV ---
Vital Signs 02/25/24 10:22 Height 5 ft 5 in Weight 179 lb 8 oz BMI 29.9 BP 140/90 H Blood Pressure Location Lt brachial Position Sitting Intake Visit Reasons: INP: CKD-Conf Optometry Teacher Required: No Accompanied by: Self / Same As Patient Allergies Seasonal Allergies Allergy (Mild, Verified 02/25/24 10:22) congestion HPI Comments Details: I had the privilege of seeing Wilfrido in consultation for CKD & hypertension . She is 63 years of age and has been in good health. She is a diabetic or hypertensive. She has no history of proteinuria. She does not take nonsteroidal anti-inflammatories or PPI . She does not have any nausea, vomiting, diarrhea, shortness of breath, proximal nocturnal dyspnea, orthopnea, pedal edema, hematuria, renal stones, congestive heart failure, carotid stenosis, peripheral arterial disease, renal artery stenosis, new bone or back pain. She has CAD and had PCI. She never had any history of high serum calcium. She denies any history of hepatitis or HIV. She does not get any recurrent sore throat, epistaxis, hemoptysis, photosensitivity, skin rashes. She has no sensorineural hearing deficits or microscopic hematuria. She has no acral tingling or paresthesia. There were no new specific complaints at the time of this office visit [facility] Medical History CAD (coronary artery disease) Stented coronary artery HTN (hypertension) Diabetes Asthma Nicotine dependence, cigarettes, uncomplicated Surgical History History of heart artery stent History of repair of right rotator cuff History of tubal ligation Hx of colonoscopy Family History Mother Hypertension Father No problems noted. Social History Household Members: Family Housing: Apartment Housing Other:: Patient is currently living with daughter Are you a primary healthcare market consultant to a significant other at home: No Do you presently have visiting nurse or other home services: No Patient Tobacco Use Status: Former Tobacco user Tobacco use type: Cigarette Cigarettes Per Day: 1 Years Smoked: onset 10yo, 1ppd x 52yrs, now 1-2 cig/wk - 40+PYH e-Cigarette/Vaping Use: Never Used Second Hand Smoke Exposure: No service: No Current occupational status: disabled Current occupational exposures/hazards: No Cognitive needs: No Hearing needs: No Vision needs: No Review of Systems Const All systems reviewed & are unremarkable except as noted in HPI and below Physical Exam Vital Signs: Last Vital Signs BP 140/90 H 02/25/24 10:22 BMI result Body Mass Index 29.9 Const General: comfortable and no acute distress Orientation/consciousness: patient oriented x3 HEENT Head: Yes normocephalic Mouth: Normal oral and palatal mucosa present Eyes EOM: EOMs intact bilaterally Neck Neck: Yes supple Resp Auscultation: clear to auscultation bilaterally Cardio Jugular venous distension: no JVD Rate: regular rate GI Palpation (GI): Soft to palpation Auscultation: normal bowel sounds General: Yes no CVA tenderness Back/Spine/Pelvis Back: no CVA tenderness Skin General skin exam: no rashes or lesions noted Neuro General: patient oriented x3 and moves all extremities Extrem General: Yes no pedal edema Results Reviewed Nephrology Results: Hgb 10.8 g/dl (12.0-16.0) L 12/28/23 WBC 3.8 X10*3/uL (4.8-10.8) L 12/28/23 Plt Count 197 X10*3/uL (160-400) 12/28/23 Sodium 141 mmol/L (135-145) 12/28/23 Potassium 3.9 mmol/L (3.3-5.1) 12/28/23 Chloride 111 mmol/L (96-108) H 12/28/23 Carbon Dioxide 24 mmol/L (22-29) 12/28/23 BUN 16 mg/dL (9-16) 12/28/23 Creatinine 1.47 mg/dL (0.5-1.4) H 12/28/23 Calcium 9.2 mg/dL (8.4-10.2) 12/28/23 Assessment & Plan Assessment & Plan (1) HTN (hypertension): Code(s): I10 - Essential (primary) hypertension Category: Medical Qualifiers: Hypertension type: primary hypertension Qualified Code(s): I10 - Essential (primary) hypertension (2) CKD stage 3a, GFR 45-59 ml/min: Code(s): N18.31 - Chronic kidney disease, stage 3a Category: Medical Plan Wilfrido has CKD likely due to noah vascular disease with contribution from DM. She has H/O CAD needing PCI. She is on Entresto. She has no clinical signs of HF. I have started her on Jardiance 10 mg daily after asking her to cut back on her sulfonyl urea by 50 %. I shall maximize Jardiance with time. I have ordered workup including blood work and urine studies as well as renal ultrasound. If she drops her GFR further, she may need a renal biopsy. She avoids nonsteroidal anti-inflammatories and maintain good hydration which I encouraged. I did not make any other medication changes today. All these possibilities have been discussed in detail and I answered all her questions. Follow-up appointment given Orders: Orders Immunofixation Pnl, Serum 3 Weeks N18.31 - Chronic kidney disease, stage 3a Parathyroid Hormone Intact 3 Weeks N18.31 - Chronic kidney disease, stage 3a Electrolytes 3 Weeks N18.31 - Chronic kidney disease, stage 3a US renal doppler 3 Weeks N18.31 - Chronic kidney disease, stage 3a Vitamin D 25-OH Total 3 Weeks N18.31 - Chronic kidney disease, stage 3a Creatinine 3 Weeks N18.31 - Chronic kidney disease, stage 3a Blood Urea Nitrogen 3 Weeks N18.31 - Chronic kidney disease, stage 3a Calcium 3 Weeks N18.31 - Chronic kidney disease, stage 3a Phosphorus 3 Weeks N18.31 - Chronic kidney disease, stage 3a US renal BI 3 Weeks I10 - Essential (primary) hypertension, N18.31 - Chronic kidney disease, stage 3a Protein Creatinine Ratio, Ur 3 Weeks N18.31 - Chronic kidney disease, stage 3a Medications: New empagliflozin (Jardiance) 10 mg PO DAILY 30 days 30 tabs 3RF Coding Level of Care Code New Pt Level 4 (04207) Diagnoses Primary hypertension I10 Hypertension type: primary hypertension CKD stage 3a, GFR 45-59 ml/min N18.31
[2024-02-25 10:22] VITALS: BP 140/90; BMI 29.9
== END 2024-02-25 10:42 | disposition home or self-care (01) ==
PROVIDERS: PCP Nurse Practitioner Family; Referring Provider Nurse Practitioner Family; Visit Provider Internal Medicine Nephrology
DX: I10 Essential (primary) hypertension (principal); N18.31 Chronic kidney disease, stage 3a
CPT/HCPCS: 99204

== ENCOUNTER → 2024-02-25 09:52 | Outpatient (BNVA) | payer OTHER, SELFPAY ==
[2023-11-07 09:21] VITALS: BP 104/78; BP 136/88; BP 138/72; BMI 29.1
== END ==
PROVIDERS: PCP Nurse Practitioner Family; Referring Provider Nurse Practitioner Family; Visit Provider Internal Medicine Nephrology
DX: I12.9 Hypertensive chronic kidney disease with stage 1 through stage 4 chronic kidney disease, or unspecified chronic kidney disease (principal); N18.31 Chronic kidney disease, stage 3a
CPT/HCPCS: 99202

== ENCOUNTER 2024-03-08 10:29 | Outpatient (AMB) | payer OTHER, SELFPAY ==
[2023-11-07 09:21] VITALS: BP 104/78; BP 136/88; BP 138/72; BMI 29.1
--- NOTE | 2024-03-08 10:57 | A.OFFVIS_ITS ---
Vital Signs 03/08/24 10:59 Height 5 ft 5 in Weight 178 lb BMI 29.6 Pulse 94 Pulse Source Pulse Oximeter Pulse Oximetry (%) 98 Oxygen Delivery Method Room Air Intake Visit Reasons: Cough Drafter Electromechanical Required: No Gas And Oil Checker: Gas And Oil Checker offered & declined Accompanied by: Self / Same As Patient Allergies Seasonal Allergies Allergy (Mild, Verified 03/08/24 11:01) congestion Medication List - Last Reconciled 03/08/24 by Idania Espinosa LPN acetaminophen ER 1,300 mg (2 x 650 mg) PO BID PRN albuterol sulfate 2.5 mg (3 mL) inhalation Q4H PRN aspirin 81 mg PO DAILY 90 days atorvastatin 80 mg PO DAILY blood pressure test kit-large (GlycoVaxyn Versa Arm BP Monitor kit) As directed blood sugar diagnostic ([employer] Ultra Test strips) bs checks 3 times per day blood-glucose meter ([employer] Ultra2 Meter) POC testing TID blood-glucose meter Test 3 times daily bupropion HCl XL 150 mg PO QAM 30 days carvedilol 12.5 mg PO BID cetirizine (Zyrtec) 10 mg PO DAILY PRN cholecalciferol (vitamin D3) 50 mcg PO QAM 90 days dulaglutide (Trulicity) 1.5 mg subcut TU empagliflozin (Jardiance) 10 mg PO DAILY 30 days ezetimibe 10 mg PO DAILY 90 days zdsphcsflnb-elkhearkt-inbvarve 200-62.5-25 mcg (Trelegy Ellipta) 1 inh inhalation DAILY glipizide 10 mg PO BID 3 months ipratropium bromide 2 sprays intranasal BID lancets ([employer] Delica Plus Lancet) USE TO TEST THREE TIMES DAILY loratadine 10 mg PO DAILY omeprazole 20 mg PO DAILY sacubitril-valsartan 24-26 mg (Entresto) 1 tab PO BID Shower Chair As directed ticagrelor (Brilinta) 90 mg PO BID 30 days HPI HPI Cough: Details: Wilfrido is a pleasant 63-year-old female, former smoker, recently quit with 40+ pack year history, with underlying asthma, CA 2021 s/p stents x 2, HTN, DMII. She reports moderate control on Trelegy and albuterol MDI, continues with intermittent dry cough occasionally with white mucous. She was given prednisone and azithromycin with complete resolution of symptoms however 3-4 weeks after discontinuing cough recurred. Eosinophil count has been elevated in the past at 5.7, suggestive of an eosinophilic component to asthma. She previously reports being on singulair however discontinued quite some time ago for unknown reasons. [facility] Medical History CAD (coronary artery disease) Stented coronary artery HTN (hypertension) Diabetes Asthma Nicotine dependence, cigarettes, uncomplicated Surgical History History of heart artery stent History of repair of right rotator cuff History of tubal ligation Hx of colonoscopy Family History Mother Hypertension Father No problems noted. Social History Household Members: Family Housing: Apartment Housing Other:: Patient is currently living with daughter Are you a primary child care group leader to a significant other at home: No Do you presently have visiting nurse or other home services: No Patient Tobacco Use Status: Former Tobacco user Tobacco use type: Cigarette Cigarettes Per Day: 1 Years Smoked: onset 10yo, 1ppd x 52yrs, now 1-2 cig/wk - 40+PYH e-Cigarette/Vaping Use: Never Used Second Hand Smoke Exposure: No service: No Current occupational status: disabled Current occupational exposures/hazards: No Cognitive needs: No Hearing needs: No Vision needs: No Review of Systems Const Denies chills, Denies excessive sweating, Denies fever(s), Denies headache(s) and Denies night sweats Eyes Denies dry eyes, Denies irritation and Denies itchy eyes ENT Reports Normal hearing present and Denies headache(s) Card Denies chest pain, Denies chest pain at rest, Denies chest pain with activity, Denies claudication, Denies leg edema, Denies dyspnea on exertion, Denies orthopnea and Denies paroxysmal nocturnal dyspnea Resp Denies chest congestion, Denies excessive phlegm production, Denies pain on inspiration, Denies pain with cough, Denies dyspnea on exertion, Denies stridor and Denies wheezing Musc Denies myalgias Neuro Reports Normal hearing present and Denies headache(s) Endo Denies excessive sweating Aaron/Lymph Denies lymphadenopathy Aller/Immun Denies itchy eyes, Denies seasonal rhinorrhea and Denies wheezing Physical Exam Vital Signs: Last Vital Signs Pulse 94 03/08/24 10:59 Pulse Ox 98 03/08/24 10:59 Oxygen Delivery Method Room Air 03/08/24 10:59 BMI result Body Mass Index 29.6 Const General: cooperative, healthy appearing, comfortable, no acute distress, well developed and alert Orientation/consciousness: patient oriented x3 HEENT Head: Yes normal to inspection, Yes normocephalic and Yes atraumatic Ears: hearing grossly normal bilaterally and external ears normal Eyes General: appearance normal, both eyes and all related structures Eyelids: Yes eyelids normal Sclerae: sclerae normal EOM: EOMs intact bilaterally Neck Neck: Yes normal visual inspection and Yes no lymphadenopathy Lymphatic: no lymphadenopathy noted Chest Chest palpation & inspection: normal inspection of the chest Resp Effort & Inspection: normal respiratory effort, able to speak in complete sentences, no audible wheezes, no stridor, not tachypneic, no tripod positioning and no use of accessory muscles Auscultation: diminished lung sounds Cardio Jugular venous distension: no JVD Rate: regular rate Rhythm: regular rhythm Skin Other: warm, dry General skin exam: no rashes or lesions noted Neuro General: patient oriented x3 Cranial nerves: Yes Normal hearing present Cognition (Neuro): normal cognition Gait exam (Neuro): Normal gait present Extrem General: Yes normal to inspection, Yes capillary refill normal, Yes no clubbing, cyanosis or edema and Yes no pedal edema Psych Appearance: grossly normal and well kempt Speech and movement: Normal speech and movement present and Clear speech present Affect: normal affect Attitude: cooperative Thought process: Normal thought process present Thought content: Normal thought content present Insight: Good insight present (Psych) Judgement: Good judgement present (Psych) Assessment & Plan Assessment & Plan (1) Asthma: Code(s): J45.909 - Unspecified asthma, uncomplicated Category: Medical (2) Environmental and seasonal allergies: Code(s): J30.89 - Other allergic rhinitis Category: Medical Plan Wilfrido reports suboptimal effect with Trelegy and albuterol MDI, will restart singulair as she has been off of for quite some time. She is aware to monitor for side effects. All questions were answered and patient is in agreement of plan. Will follow up in 6-8 weeks or sooner if needed. Medications: New montelukast (Singulair) 10 mg PO BEDTIME 30 tabs 3RF Coding Level of Care Code Est Pt Level 4 (15716) Diagnoses Asthma J45.909 Environmental and seasonal allergies J30.89
[2024-03-08 10:59] VITALS: PULSE 94; O2SAT 98; BMI 29.6
== END 2024-03-08 11:43 | disposition home or self-care (01) ==
PROVIDERS: PCP Nurse Practitioner Family; Visit Provider Nurse Practitioner Family
DX: J45.909 Unspecified asthma, uncomplicated (principal); J30.89 Other allergic rhinitis
CPT/HCPCS: 99214

== ENCOUNTER → 2024-03-08 10:29 | Outpatient (BNVA) | payer OTHER, SELFPAY ==
[2023-11-07 09:21] VITALS: BP 104/78; BP 136/88; BP 138/72; BMI 29.1
== END ==
PROVIDERS: PCP Nurse Practitioner Family; Visit Provider Nurse Practitioner Family
DX: J30.89 Other allergic rhinitis (principal)
CPT/HCPCS: 99212

== ENCOUNTER 2024-03-14 09:33 | Outpatient (REF) | payer OTHER, SELFPAY ==
[2023-11-07 09:21] VITALS: BP 104/78; BP 136/88; BP 138/72; BMI 29.1
--- NOTE | ~2024-03-14 | US_ITS ---
CLINICAL HISTORY: N18.31 - Chronic kidney disease, stage 3a US Renal with Doppler Comparison: None Findings: Atrophic appearing right kidney at 7.3 cm cm length. No hydronephrosis. Normal color Doppler. Resistive index 0.77. Left kidney normal size and echotexture, 11.6 cm length. No hydronephrosis. Normal color Doppler. Resistive index 0.78. Normal peak systolic velocities right renal artery with normal renal aortic ratio. Mildly elevated velocity left mid renal artery at 183 centimeter/second. However normal renal aortic ratio at 2.2 militating against significant renal artery stenosis. IMPRESSION: Mildly atrophic right kidney. Normal-appearing left kidney. Mild velocity elevation mid left renal artery with normal renal aortic ratio militating against hemodynamically significant stenosis. This document has been electronically signed by: Ishaan Jay MD on 03/14/2024 11:50:57
== END 2024-03-14 09:34 | disposition home or self-care (01) ==
LOC: HO.HMGCX 09:33
PROVIDERS: PCP Nurse Practitioner Family; Visit Provider Internal Medicine Nephrology
DX: I12.9 Hypertensive chronic kidney disease with stage 1 through stage 4 chronic kidney disease, or unspecified chronic kidney disease (principal); N18.31 Chronic kidney disease, stage 3a
CPT/HCPCS: 76775; 93975

== ENCOUNTER → 2024-03-14 09:34 | Outpatient (BNV) | payer OTHER, SELFPAY ==
[2023-11-07 09:21] VITALS: BP 104/78; BP 136/88; BP 138/72; BMI 29.1
== END ==
PROVIDERS: PCP Nurse Practitioner Family; Visit Provider Radiology Diagnostic Radiology
DX: N18.31 Chronic kidney disease, stage 3a (principal)
CPT/HCPCS: 93975

== ENCOUNTER 2024-03-25 11:47 | Outpatient (REF) | payer OTHER, SELFPAY ==
[2023-11-07 09:21] VITALS: BP 104/78; BP 136/88; BP 138/72; BMI 29.1
[2024-03-25 13:28] LABS: Parathyroid Hormone Intact 62.9 pg/mL (8.7-77.1)
[2024-03-25 13:31] LABS: Anion Gap 11 (12-20); Blood Urea Nitrogen 22 mg/dL (9-16); Calcium 9.9 mg/dL (8.4-10.2); Carbon Dioxide 25 mmol/L (22-29); Chloride 111 mmol/L (96-108); Estimated Glomerular Filt Rate 33; Phosphorus 2.8 mg/dL (2.7-4.5); Sodium 143 mmol/L (135-145)
[2024-03-25 13:35] LABS: Creatinine Urine 142.57 mg/dL; Protein/Creatinine Ratio, Ur 0.12 (<0.2); Total Protein Urine Random 17 mg/dL (<12)
[2024-03-25 13:48] LABS: Vitamin D 25-OH Total 47.7 ng/mL (>30)
[2024-03-30 07:29] LABS: IgA 664 mg/dL (70-320); IgG 1272 mg/dL (600-1540); IgM 142 mg/dL (50-300)
== END 2024-03-25 11:48 | disposition home or self-care (01) ==
LOC: HO.LAB 11:47
PROVIDERS: PCP Nurse Practitioner Family; Visit Provider Internal Medicine Nephrology
DX: N18.31 Chronic kidney disease, stage 3a (principal)
CPT/HCPCS: 36415; 80051; 82306; 82310; 82565; 82570; 82784; 83970; 84100; 84156; 84520; 86334

== ENCOUNTER 2024-04-05 09:13 | Outpatient (AMB) | payer OTHER, SELFPAY ==
[2023-11-07 09:21] VITALS: BP 104/78; BP 136/88; BP 138/72; BMI 29.1
--- NOTE | 2024-04-05 09:14 | A.OFFPC_ITS ---
Vital Signs 04/05/24 09:18 Height 5 ft 5 in Weight 174 lb BMI 29.0 BP 118/68 Blood Pressure Location Rt brachial Position Sitting Respiration 16 Pulse 93 Pulse Source Pulse Oximeter Temp 97.9 F Temp Source Oral Pulse Oximetry (%) 99 Oxygen Delivery Method Room Air Intake Visit Reasons: 1 mos HTN, labs review Intake Note: patient here for CPE Cmm Programmer Required: No Is last menstrual period known: No Post menopausal: No Patient : No Allergies Seasonal Allergies Allergy (Mild, Verified 04/05/24 09:31) congestion Medication List - Last Reconciled 04/05/24 by Pepito Cardoza CNP acetaminophen ER 1,300 mg (2 x 650 mg) PO BID PRN albuterol sulfate 2.5 mg (3 mL) inhalation Q4H PRN aspirin 81 mg PO DAILY 90 days atorvastatin 80 mg PO DAILY blood pressure test kit-large ([employer] Versa Arm BP Monitor kit) As directed blood sugar diagnostic (ClipMine Ultra Test strips) bs checks 3 times per day blood-glucose meter (ClipMine Ultra2 Meter) POC testing TID blood-glucose meter Test 3 times daily bupropion HCl XL 150 mg PO QAM 30 days carvedilol 12.5 mg PO BID cetirizine (Zyrtec) 10 mg PO DAILY PRN cholecalciferol (vitamin D3) 50 mcg PO QAM 90 days empagliflozin (Jardiance) 10 mg PO DAILY 30 days ezetimibe 10 mg PO DAILY 90 days slottbrvepw-gmbiynfzn-yjjlczju 200-62.5-25 mcg (Trelegy Ellipta) 1 inh inhalation DAILY glipizide 10 mg PO BID 3 months ipratropium bromide 2 sprays intranasal BID lancets (ClipMine Delica Plus Lancet) USE TO TEST THREE TIMES DAILY loratadine 10 mg PO DAILY montelukast (Singulair) 10 mg PO BEDTIME omeprazole 20 mg PO DAILY sacubitril-valsartan 24-26 mg (Entresto) 1 tab PO BID Shower Chair As directed ticagrelor (Brilinta) 90 mg PO BID 30 days Trulicity (dulaglutide) 1.5 mg (0.5 mL) subcut QWEEK NS Tobacco use date assessed: 04/05/24 Dental Screening Dental Screen Date: 04/05/24 Did you have a dental visit in the last 12 months?: No Did you have a dental problem in the last 6 months where you did not have access to dental care?: No Was dental information given to patient?: Patient declined HPI HPI Comments History of Present Illness Details 63-year-old female presents for an exten ded physical exam. She admits to taking her medications as prescribed without adverse reactions. Acute issue(s) - Reports chronic intermittent sharp maynor n to her lower back and entire BLE from hip down; worse with cold weather. She tried lidocaine patches from a friend with significant relief Past Medical History - Hypertension, type 2 diabetes, hyperli pidemia, CAD, ischemic cardiomyopathy, CKD stage IIIA, anemia of chronic disease, myopia, vitamin-D deficiency, right- sided low back pain with right-sided sciatica, and asthma Social History - Former smoker (onset 10yo, 1ppd x 52yr s, quit 2 mos ago). Does not drink alcohol. Denies recreational drug use - Has been making healthy dietary choice s. She walks daily. She sleeps between 6-8 hours but her sleep is usually interrupted Specialists - [facility] [facility] - [facility] [facility] - [facility] [place] [facility] Health maintenance - Last eye exam was 6 months ago with [facility] . Encouraged to sign a release for her PCP to obtain her eye record - Last dental visit was about a year ago . Wears full dentures - Last tetanus vaccine was more than 10 years ago; received Tdap vaccine today - She notes that she is up-to-date on e flu vaccine - She notes that she is up-to-date on e shingles vaccine - She has not been vaccinated for PNA. E ncouraged to get vaccinated for PNA from the local pharmacy - Last pap smear test was 7 years ago - Last mammogram was on 01/06/2024 - Last colonoscopy about 7 days ago from [facility]. - Last lung CT was on 05/29/2023 [facility] Medical History CAD (coronary artery disease) Stented coronary artery HTN (hypertension) Diabetes Asthma Nicotine dependence, cigarettes, uncomplicated Surgical History History of heart artery stent History of repair of right rotator cuff History of tubal ligation Hx of colonoscopy Family History Mother Hypertension Father No problems noted. Social History Household Members: Family Housing: Apartment Housing Other:: Patient is currently living with daughter Are you a primary multi care technician to a significant other at home: No Do you presently have visiting nurse or other home services: No Patient Tobacco Use Status: Former Tobacco user Tobacco use type: Cigarette Years Smoked: onset 10yo, 1ppd x 52yrs, now 1-2 cig/wk - 40+PYH e-Cigarette/Vaping Use: Never Used Second Hand Smoke Exposure: No service: No Current occupational status: disabled Current occupational exposures/hazards: No Cognitive needs: No Hearing needs: No Vision needs: No Questionnaire PHQ-9 Over the last 2 weeks, how often have you been bothered by any of the following problems? 1. Little interest or pleasure in doing things: not at all 2. Feeling down, depressed, or hopeless: not at all 3. Trouble falling or staying asleep, or sleeping too much: nearly every day 4. Feeling tired or having little energy: not at all 5. Poor appetite or overeating: not at all 6. Feeling bad about yourself - or that you are a failure or have let yourself or your family down: not at all 7. Trouble concentrating on things, such as reading the newspaper or watching television: not at all 8. Moving or speaking so slowly that other people could have noticed. Or the opposite - being so fidgety or restless that you have been moving around a lot more than usual: more than half the days 9. Thoughts that you would be better off or of hurting yourself in some way: not at all Total score: 5 Depression Screening Interpretation: Positive Depression Screening Done: Yes 70414 - PHQ-9 Billing: Yes Source: Developed by Drs. Isma Erickson, Joyce Phillips, Roger Davis and colleagues, with an educational jana from [employer]. Thrive Questionnaire Date Thrive assessed: 04/05/24 I am a: Patient What is your living situation today?: I have a steady place to live Within the past 12 months, did the food you bought not last and you didn't have the money to get more?: I choose not to answer this question Within the past 12 months, did you worry whether your food would run out before you got money to buy more?: Sometimes True Do you have trouble paying for medicines?: No Do you have trouble getting transportation to medical appointments?: No Do you have trouble paying your heating and electricity bill?: Yes Do you have trouble taking care of your child, family member or friend?: No Do you have trouble with day-to-day activities such as bathing, preparing meals, shopping, managing finances, etc.?: Yes Are you currently unemployed and looking for a job?: I choose not to answer this question Are you interested in more education?: No Please select the resources that you would like help with: Utilities Currently or been in a relationship where the following occur: I choose not to answer THRIVE Score: 2 AUDIT C Alcohol Use Questionnaire (AUDIT-C) 1. How often do you have a drink containing alcohol?: Never Total Score: 0 ZURI-7 AMB Questionnaire ZURI-7 Date ZURI - 7 assessed: 04/05/24 Feeling nervous, anxious, or on edge: 0 = Not at all Not being able to stop or control worryin = Not at all Worrying too much about different things: 0 = Not at all Trouble relaxin = More than half the days Being so restless that it is hard to sit still: 0 = Not at all Becoming easily annoyed or irritable: 0 = Not at all Feeling afraid as if something awful might happen: 0 = Not at all Total ZURI-7 score (0-4 normal; 5-9 mild; 10-14 moderate; 15-21 severe): 2 Source: Developed by Drs. Isma Erickson, Joyce Phillips, Roger Davis and colleagues, with an educational jana from [employer]. ZURI-7 Assessment Billing ZURI-7 Assessment Tool: ZURI-7 Assessment 07115 Review of Systems Const Details: Denies chills, Denies fatigue, Denies fever(s), Denies headache(s) and Denies weakness HEENT Denies change in vision, Denies dizziness, Denies headache(s), Denies hearing loss, Denies nasal congestion, Denies sinus pain, Denies sinus pressure and Denies sore throat Card Denies chest pain, Denies lightheadedness, Denies dyspnea and Denies other (palpitations) Resp Denies cough, Denies dyspnea and Denies wheezing GI Denies abdominal pain, Denies melena, Denies hematochezia, Denies change in bowel habits, Denies dyspepsia and Denies nausea Denies hematuria and Denies dysuria Musc Denies abnormal gait, Denies myalgias, Denies arthralgias, Denies numbness and Denies tingling Skin/Breast Denies rash, Denies unusual bruising and Denies wounds Neuro Denies abnormal gait, Denies dizziness, Denies headache(s), Denies memory loss, Denies numbness, Denies Sensory deficit (Neuro), Denies tingling and Denies weakness Psych Denies anxiety, Denies depression and Denies memory loss Endo Denies cold intolerance, Denies fatigue, Denies heat intolerance, Denies polydipsia and Denies polyuria Aaron/Lymph Denies easy bleeding and Denies easy bruising Aller/Immun Denies wheezing Physical exam (Primary Care) Vital Signs: Last Vital Signs Temp 97.9 F 04/05/24 09:18 Pulse 93 04/05/24 09:18 Resp 16 04/05/24 09:18 BP 118/68 04/05/24 09:18 Pulse Ox 99 04/05/24 09:18 Oxygen Delivery Method Room Air 04/05/24 09:18 BMI result Body Mass Index 29.0 Tobacco/Smoking Status: Tobacco use Status Tobacco use date assessed 04/05/24 04/05/24 09:24 Patient Tobacco Use Status Former Tobacco user 04/05/24 09:16 Tobacco use type Cigarette 04/05/24 09:16 e-Cigarette/Vaping Use Never Used 04/05/24 09:16 PHQ-9: PHQ-9 Score PHQ-9: Total score 5 04/05/24 09:51 Depression Screening Interpretation: Positive Thrive Assessment: Date of Thrive Assessment Date Thrive assessed 04/05/24 04/05/24 09:16 Currently or been in a relationship where the following occur: I choose not to answer Const Other: General: no acute distress, well developed, alert and awake Nutritional Appearance: well nourished Orientation/consciousness: patient oriented x3 HENMT Head: Yes normocephalic and Yes atraumatic Ears: hearing grossly normal bilaterally and TM's normal bilaterally General nose exam: Normal external nose present and Normal nares present Mouth: Normal oral and palatal mucosa present and moist mucous membranes Teeth and gingiva: dentition normal. Full denture Throat: Yes oropharynx normal Eyes Pupils: Equal, round and reactive pupils present and Pupil accommodation reflex normal EOM: EOMs intact bilaterally Neck Neck: Yes normal visual inspection, Yes no lymphadenopathy and Yes trachea midline Thyroid: Thyroid normal Carotids: no bruits Lymphatic: no lymphadenopathy noted Chest Chest palpation & inspection: normal inspection of the chest Resp Effort & Inspection: normal respiratory effort Auscultation: clear to auscultation bilaterally Cardio Rate: regular rate Rhythm: regular rhythm Heart sounds: S1 normal heart sound present, S2 normal heart sound present, no gallops, no murmurs and no rubs Bruits: no abdominal aortic bruits and no carotid bruits GI Palpation (GI): No Abdominal aortic bruit present, Soft to palpation, nontender, No hepatosplenomegaly present and No Rebound tenderness present Auscultation: normal bowel sounds General: Yes no CVA tenderness Back/Spine/Pelvis Back: no CVA tenderness Cervical Spine: cervical ROM normal and No Cervical spine tenderness Thoracic/Lumbar Spine: thoraco-lumbar ROM normal, No pain with thoraco-lumbar ROM, No thoracic spinal tenderness and No lumbar spinal tenderness Skin General: warm and dry. Normal skin color. Normal skin turgor Lesions: no lesions Rashes: no rashes Trauma: no lacerations or abrasions Wounds: no wounds Nails: normal Neuro General: patient oriented x3, gait normal and CN's II-XI intact bilaterally Cranial nerves: Yes Equal, round and reactive pupils present Cognition (Neuro): normal cognition Gait exam (Neuro): Normal gait present Motor exam (neuro): 5/5 motor strength present throughout Sensory Exam: No Sensory deficit (Neuro) Deep tendon reflexes (DTR's): Right patellar reflex intensity grade: 2+ and Left patellar reflex intensity grade: 2+ Extrem General: Yes normal to inspection, No edema and No calf tenderness Psych Appearance: grossly normal Affect: normal affect Attitude: cooperative Thought process: Normal thought process present Coding Level of Care Code Est Pt Level 4 (20072) Est Pt Prev Care 40-64y(61883) Diagnoses Encounter for routine adult physical exam with abnormal findings Z00.01 Primary hypertension I10 Hypertension type: primary hypertension Asthma J45.909 Chronic low back pain M54.50; G89.29 Bilateral leg pain M79.604; M79.605 Diabetes type 2, controlled E11.9 Colon cancer screening Z12.11 Pap smear for cervical cancer screening Z12.4 Sleep disturbance G47.9 Additional Codes ZURI-7 Assessment Billing - ZURI-7 Assessment Tool: ZURI-7 Assessment 51838 ([id number]) PHQ-9 - 36233 - PHQ-9 Billing: Yes ([id number]) Assessment & Plan Assessment & Plan (1) Encounter for routine adult physical exam with abnormal findings: Code(s): Z00.01 - Encounter for general adult medical examination with abnormal findings Category: Medical Plan: Normal physical except for chronic back and bilateral extremity and lower extremity pain. Positive lumbar spine tenderness with palpation; unable to fully squat. No overt injury or trauma noted. (2) HTN (hypertension): Code(s): I10 - Essential (primary) hypertension Category: Medical Qualifiers: Hypertension type: primary hypertension Qualified Code(s): I10 - Essential (primary) hypertension Plan: Blood pressure is 118/60, within goal of less than 130/80. Continue current treatment regimen. Follow-up in 1 month. Verbalized understanding and agreed with treatment plan. (3) Asthma: Code(s): J45.909 - Unspecified asthma, uncomplicated Category: Medical Plan: No acute symptoms. Followed by [facility] [place]. (4) Chronic low back pain: Code(s): M54.50 - Low back pain, unspecified; G89.29 - Other chronic pain Category: Medical Plan: Positive lumbar spine tenderness with palpation; unable to fully squat. No overt injury or trauma noted. Lidocaine patch as prescribed. Continue to take Tylenol as prescribed. Warm/cool compresses encouraged. Follow-up with worsening or new symptoms; may referred to Ortho. Verbalized understanding and agreed with treatment plan. (5) Bilateral leg pain: Code(s): M79.604 - Pain in right leg; M79.605 - Pain in left leg Category: Medical Plan: Plan as above. (6) Diabetes type 2, controlled: Code(s): E11.9 - Type 2 diabetes mellitus without complications Category: Medical Plan: Previous A1c was 6.5%, within goal of less than 7.0%. She was evaluated by [facility]ph[facility] for CKD and was prescribed Jardiance 10 mg daily; advised to cut down glipizide to 5 mg twice daily; however, she has not taking the medication she was restarted Jardiance. She will follow-up in a month for diabetes. Continue current treatment regimen. ADA diet and routine exercise encouraged. Will check A1c in a month and make changes as needed. Verbalized understanding and agreed with the plan. (7) Colon cancer screening: Code(s): Z12.11 - Encounter for screening for malignant neoplasm of colon Category: Medical Plan: Last colonoscopy about 7 days ago from [facility] Referred to [facility] gastroenterology for a colonoscopy. (8) Pap smear for cervical cancer screening: Code(s): Z12.4 - Encounter for screening for malignant neoplasm of cervix Category: Medical Plan: Last Pap smear test was 7 years ago. Referred to [facility] supervisor extrusion for a Pap smear test. (9) Sleep disturbance: Code(s): G47.9 - Sleep disorder, unspecified Category: Medical Plan: She sleeps between 6-8 hours but her sleep is usually interrupted. Chronic pain may be a contributing factor. Pain regimen as prescribed. Instructed on sleep hygiene. Follow-up with worsening or new symptoms. Verbalized understanding agreed with the plan. Orders: Orders TSH reflex Free T4 Today Z00.00 - Encounter for general adult medical examination without abnormal findings Referrals GEOMORPHOLOGY TEACHER Referral Z12.4 - Encounter for screening for malignant neoplasm of cervix Gastroenterology Referral Z12.11 - Encounter for screening for malignant neoplasm of colon Medications: New lidocaine 5% leave on most painful area for up to 12 hrs 1 patch topical DAILY 30 ea 2RF Discontinued glipizide Discontinued Reason: Patient no longer taking 10 mg PO BID 3 months 180 tabs 1RF E10.65 - Type 1 diabetes mellitus with hyperglycemia
[2024-04-05 09:18] VITALS: BP 118/68; PULSE 93; RESP 16; TEMP 36.6; O2SAT 99; BMI 29.0
== END 2024-04-05 10:01 | disposition home or self-care (01) ==
PROVIDERS: PCP Nurse Practitioner Family; Visit Provider Nurse Practitioner Family
DX: Z00.01 Encounter for general adult medical examination with abnormal findings (principal); I10 Essential (primary) hypertension; J45.909 Unspecified asthma, uncomplicated; E11.9 Type 2 diabetes mellitus without complications; M54.50 Low back pain, unspecified; G89.29 Other chronic pain; M79.604 Pain in right leg; M79.605 Pain in left leg; Z12.11 Encounter for screening for malignant neoplasm of colon; G47.9 Sleep disorder, unspecified

== ENCOUNTER → 2024-04-05 09:13 | Outpatient (BNVA) | payer OTHER, SELFPAY ==
[2023-11-07 09:21] VITALS: BP 104/78; BP 136/88; BP 138/72; BMI 29.1
== END ==
PROVIDERS: PCP Nurse Practitioner Family; Visit Provider Nurse Practitioner Family
DX: Z00.01 Encounter for general adult medical examination with abnormal findings (principal); I10 Essential (primary) hypertension; J45.909 Unspecified asthma, uncomplicated; M54.50 Low back pain, unspecified; G89.29 Other chronic pain; M79.605 Pain in left leg; E11.9 Type 2 diabetes mellitus without complications; G47.9 Sleep disorder, unspecified
CPT/HCPCS: 96127; 99212; 99396

== ENCOUNTER 2024-04-07 11:01 | Outpatient (AMB) | payer OTHER, SELFPAY ==
[2023-11-07 09:21] VITALS: BP 104/78; BP 136/88; BP 138/72; BMI 29.1
--- NOTE | 2024-04-07 11:05 | HO.NEPHOV_ITS ---
Vital Signs 04/07/24 11:06 Height 5 ft 5 in Weight 180 lb 4 oz BMI 30.0 BP 130/70 Blood Pressure Location Lt brachial Position Sitting Intake Visit Reasons: 6 wks f/u/ Conf Airline Pilot Flight Instructor Required: No Accompanied by: Self / Same As Patient Allergies Seasonal Allergies Allergy (Mild, Verified 04/07/24 11:05) congestion HPI Comments Details: Wilfrido was seen in follow up for CKD & hypertension . She is 63 years of age and has been in good health. She is a diabetic and hypertensive. She has no history of proteinuria. She does not take nonsteroidal anti-inflammatories or PPI . She does not have any nausea, vomiting, diarrhea, shortness of breath, proximal nocturnal dyspnea, orthopnea, pedal edema, hematuria, renal stones, congestive heart failure, carotid stenosis, peripheral arterial disease, renal artery stenosis, new bone or back pain. She has CAD and had PCI. She never had any history of high serum calcium. She denies any history of hepatitis or HIV. She does not get any recurrent sore throat, epistaxis, hemoptysis, photosensitivity, skin rashes. She has no sensorineural hearing deficits or microscopic hematuria. She has no acral tingling or paresthesia. There were no new specific complaints at the time of this office visit [facility] Medical History CAD (coronary artery disease) Stented coronary artery HTN (hypertension) Diabetes Asthma Nicotine dependence, cigarettes, uncomplicated Surgical History History of heart artery stent History of repair of right rotator cuff History of tubal ligation Hx of colonoscopy Family History Mother Hypertension Father No problems noted. Social History Household Members: Family Housing: Apartment Housing Other:: Patient is currently living with daughter Are you a primary geriatric personal care aide to a significant other at home: No Do you presently have visiting nurse or other home services: No Patient Tobacco Use Status: Former Tobacco user Tobacco use type: Cigarette Years Smoked: onset 10yo, 1ppd x 52yrs, now 1-2 cig/wk - 40+PYH e-Cigarette/Vaping Use: Never Used Second Hand Smoke Exposure: No service: No Current occupational status: disabled Current occupational exposures/hazards: No Cognitive needs: No Hearing needs: No Vision needs: No Review of Systems Const All systems reviewed & are unremarkable except as noted in HPI and below Physical Exam Vital Signs: Last Vital Signs BP 130/70 04/07/24 11:06 BMI result Body Mass Index 30.0 Const General: comfortable and no acute distress Orientation/consciousness: patient oriented x3 HEENT Head: Yes normocephalic Mouth: Normal oral and palatal mucosa present Eyes EOM: EOMs intact bilaterally Neck Neck: Yes supple Resp Auscultation: clear to auscultation bilaterally Cardio Jugular venous distension: no JVD Rate: regular rate GI Palpation (GI): Soft to palpation Auscultation: normal bowel sounds General: Yes no CVA tenderness Back/Spine/Pelvis Back: no CVA tenderness Skin General skin exam: no rashes or lesions noted Neuro General: patient oriented x3 and moves all extremities Extrem General: Yes no pedal edema Results Reviewed Nephrology Results: Sodium 143 mmol/L (135-145) 03/25/24 Potassium 4.0 mmol/L (3.3-5.1) 03/25/24 Chloride 111 mmol/L (96-108) H 03/25/24 Carbon Dioxide 25 mmol/L (22-29) 03/25/24 BUN 22 mg/dL (9-16) H 03/25/24 Creatinine 1.59 mg/dL (0.5-1.4) H 03/25/24 Calcium 9.9 mg/dL (8.4-10.2) 03/25/24 Phosphorus 2.8 mg/dL (2.7-4.5) 03/25/24 PTH Intact 62.9 pg/mL (8.7-77.1) 03/25/24 Urine Creatinine 142.57 mg/dL 03/25/24 Protein/Creatinin Ratio 0.12 (<0.2) 03/25/24 Renal US 03/14/24 Assessment & Plan Assessment & Plan (1) CKD stage 3a, GFR 45-59 ml/min: Code(s): N18.31 - Chronic kidney disease, stage 3a Category: Medical (2) HTN (hypertension): Code(s): I10 - Essential (primary) hypertension Category: Medical Qualifiers: Hypertension type: primary hypertension Qualified Code(s): I10 - Essential (primary) hypertension (3) Renal vascular disease: Code(s): N28.89 - Other specified disorders of kidney and ureter Category: Medical (4) Small right kidney: Code(s): N27.0 - Small kidney, unilateral Category: Medical Plan Wilfrido has CKD due to noah vascular disease. She has H/O CAD needing PCI. She is on Entresto. She has no clinical signs of HF. She can continue Jardiance 10 mg daily which I shall increase to 25 mg at next visit. She avoids nonsteroidal anti-inflammatories and maintain good hydration which I encouraged. I did not make any other medication changes today. All these possibilities have been discussed in detail and I answered all her questions. Follow-up appointment given Orders: Orders Creatinine 3 Months N18.31 - Chronic kidney disease, stage 3a Blood Urea Nitrogen 3 Months N18.31 - Chronic kidney disease, stage 3a Electrolytes 3 Months N18.31 - Chronic kidney disease, stage 3a Coding Level of Care Code Est Pt Level 4 (85665) Diagnoses CKD stage 3a, GFR 45-59 ml/min N18.31 Primary hypertension I10 Hypertension type: primary hypertension Renal vascular disease N28.89 Small right kidney N27.0
[2024-04-07 11:06] VITALS: BP 130/70
== END 2024-04-07 11:27 | disposition home or self-care (01) ==
PROVIDERS: PCP Nurse Practitioner Family; Visit Provider Internal Medicine Nephrology
DX: N18.31 Chronic kidney disease, stage 3a (principal); I10 Essential (primary) hypertension; N28.89 Other specified disorders of kidney and ureter; N27.0 Small kidney, unilateral
CPT/HCPCS: 99214

== ENCOUNTER → 2024-04-07 11:01 | Outpatient (BNVA) | payer OTHER, SELFPAY ==
[2023-11-07 09:21] VITALS: BP 104/78; BP 136/88; BP 138/72; BMI 29.1
== END ==
PROVIDERS: PCP Nurse Practitioner Family; Visit Provider Internal Medicine Nephrology
DX: I12.9 Hypertensive chronic kidney disease with stage 1 through stage 4 chronic kidney disease, or unspecified chronic kidney disease (principal); N18.31 Chronic kidney disease, stage 3a; N28.89 Other specified disorders of kidney and ureter; N27.0 Small kidney, unilateral
CPT/HCPCS: 99212

== ENCOUNTER 2024-04-19 10:27 | Outpatient (AMB) | payer OTHER, SELFPAY ==
[2023-11-07 09:21] VITALS: BP 104/78; BP 136/88; BP 138/72; BMI 29.1
--- NOTE | 2024-04-19 10:32 | MHC.OFFVIS ---
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 Required: No Bereavement Coordinator: Bereavement Coordinator offered & declined Accompanied by: Self / Same As Patient Allergies Seasonal Allergies Allergy (Mild, Verified 04/19/24 10:37) congestion Medication List - Last Reconciled 04/19/24 by Idania Espinosa LPN acetaminophen ER 1,300 mg (2 x 650 mg) PO BID PRN albuterol sulfate 2.5 mg (3 mL) inhalation Q4H PRN aspirin 81 mg PO DAILY 90 days atorvastatin 80 mg PO DAILY blood pressure test kit-large ([employer] Versa Arm BP Monitor kit) As directed blood sugar diagnostic ([employer] Ultra Test strips) bs checks 3 times per day blood-glucose meter (MindEdge Ultra2 Meter) POC testing TID blood-glucose meter Test 3 times daily bupropion HCl XL 150 mg PO QAM 30 days carvedilol 12.5 mg PO BID cetirizine (Zyrtec) 10 mg PO DAILY PRN cholecalciferol (vitamin D3) 50 mcg PO QAM 90 days empagliflozin (Jardiance) 10 mg PO DAILY 30 days ezetimibe 10 mg PO DAILY 90 days btdxhgzhgxk-kecaqlqgl-vschgfdg 200-62.5-25 mcg (Trelegy Ellipta) 1 inh inhalation DAILY ipratropium bromide 2 sprays intranasal BID lancets ([employer] Delica Plus Lancet) USE TO TEST THREE TIMES DAILY lidocaine 5% 1 patch topical DAILY loratadine 10 mg PO DAILY montelukast (Singulair) 10 mg PO BEDTIME omeprazole 20 mg PO DAILY sacubitril-valsartan 24-26 mg (Entresto) 1 tab PO BID Shower Chair As directed ticagrelor (Brilinta) 90 mg PO BID 30 days Trulicity (dulaglutide) 1.5 mg (0.5 mL) subcut QWEEK NS HPI HPI Cough: Details: Wilfrido is a pleasant 63-year-old female, former smoker, recently quit with 40+ pack year history, with underlying asthma, [place] 2021 s/p stents x 2, HTN, DMII. She reports excellent control on Trelegy, Singulair and albuterol MDI/neb. She currently denies any respiratory symptoms, occasional reports dyspnea with resolution using nebulizer. She denies any visits to urgent care or hospitalizations related to respiratory distress since the last visit. [facility] Medical History CAD (coronary artery disease) Stented coronary artery HTN (hypertension) Diabetes Asthma Nicotine dependence, cigarettes, uncomplicated Surgical History History of heart artery stent History of repair of right rotator cuff History of tubal ligation Hx of colonoscopy Family History Mother Hypertension Father No problems noted. Social History Household Members: Family Housing: Apartment Housing Other:: Patient is currently living with daughter Are you a primary urgent care technician to a significant other at home: No Do you presently have visiting nurse or other home services: No Patient Tobacco Use Status: Former Tobacco user Tobacco use type: Cigarette Years Smoked: onset 10yo, 1ppd x 52yrs, now 1-2 cig/wk - 40+PYH e-Cigarette/Vaping Use: Never Used Second Hand Smoke Exposure: No service: No Current occupational status: disabled Current occupational exposures/hazards: No Cognitive needs: No Hearing needs: No Vision needs: No Review of Systems Const Denies chills, Denies excessive sweating, Denies fever(s), Denies headache(s) and Denies night sweats Eyes Denies dry eyes, Denies irritation and Denies itchy eyes ENT Reports Normal hearing present, Denies headache(s), Denies nasal congestion, Denies nasal discharge, Denies post nasal drip and Denies sore throat Card Denies chest pain, Denies chest pain at rest, Denies chest pain with activity, Denies claudication, Denies leg edema, Denies orthopnea and Denies paroxysmal nocturnal dyspnea Resp Denies chest congestion, Denies cough, Denies excessive phlegm production, Denies pain on inspiration, Denies pain with cough, Denies stridor and Denies wheezing Musc Denies myalgias Neuro Reports Normal hearing present and Denies headache(s) Endo Denies excessive sweating Aaron/Lymph Denies lymphadenopathy Aller/Immun Denies itchy eyes, Denies seasonal rhinorrhea and Denies wheezing Physical Exam Vital Signs: Last Vital Signs Pulse 84 04/19/24 10:33 BP 122/70 04/19/24 10:33 Pulse Ox 98 04/19/24 10:33 Oxygen Delivery Method Room Air 04/19/24 10:33 BMI result Body Mass Index 28.6 Const General: cooperative, healthy appearing, comfortable, no acute distress, well developed and alert Orientation/consciousness: patient oriented x3 Limitations: ambulation with walker HEENT Head: Yes normal to inspection, Yes normocephalic and Yes atraumatic Ears: hearing grossly normal bilaterally and external ears normal Eyes General: appearance normal, both eyes and all related structures Eyelids: Yes eyelids normal Sclerae: sclerae normal EOM: EOMs intact bilaterally Neck Neck: Yes normal visual inspection and Yes no lymphadenopathy Lymphatic: no lymphadenopathy noted Chest Chest palpation & inspection: normal inspection of the chest Resp Effort & Inspection: normal respiratory effort, able to speak in complete sentences, no audible wheezes, no cough, no stridor, not tachypneic, no tripod positioning and no use of accessory muscles Auscultation: diminished lung sounds Cardio Jugular venous distension: no JVD Rate: regular rate Rhythm: regular rhythm Skin Other: warm, dry General skin exam: no rashes or lesions noted Neuro General: patient oriented x3 Cranial nerves: Yes Normal hearing present Cognition (Neuro): normal cognition Gait exam (Neuro): Normal gait present Extrem General: Yes normal to inspection, Yes capillary refill normal, Yes no clubbing, cyanosis or edema and Yes no pedal edema Psych Appearance: grossly normal and well kempt Speech and movement: Normal speech and movement present and Clear speech present Affect: normal affect Attitude: cooperative Thought process: Normal thought process present Thought content: Normal thought content present Insight: Good insight present (Psych) Judgement: Good judgement present (Psych) Assessment & Plan Assessment & Plan (1) Asthma: Code(s): J45.909 - Unspecified asthma, uncomplicated Category: Medical (2) Environmental and seasonal allergies: Code(s): J30.89 - Other allergic rhinitis Category: Medical (3) Nicotine dependence, cigarettes, uncomplicated: Comment: (current smoker, onset 10yo, 1ppd x 52yrs, now 1-2 cig/wk - 40+PYH) Code(s): F17.210 - Nicotine dependence, cigarettes, uncomplicated Category: Medical Plan Wilfrido reports good control of respiratory symptoms using Trelegy, Singulair and albuterol MDI/neb, advised to continue. Patient apart of the lung screening program and will have repeat chest CT scheduled in May 2024. All questions were answered and patient is in agreement of plan. Will follow up in 3 months or sooner if needed. Medications: Refilled cetirizine (Zyrtec) 10 mg PO DAILY PRN 30 tabs 3RF allergy symptoms J30.89 - Other allergic rhinitis Coding Level of Care Code Est Pt Level 3 (67283) Diagnoses Asthma J45.909 Environmental and seasonal allergies J30.89 Nicotine dependence, cigarettes, uncomplicated F17.210
[2024-04-19 10:33] VITALS: BP 122/70; PULSE 84; O2SAT 98; BMI 28.6
== END 2024-04-19 10:53 | disposition home or self-care (01) ==
PROVIDERS: PCP Nurse Practitioner Family; Visit Provider Nurse Practitioner Family
DX: J45.909 Unspecified asthma, uncomplicated (principal); J30.89 Other allergic rhinitis; F17.210 Nicotine dependence, cigarettes, uncomplicated
CPT/HCPCS: 99213

== ENCOUNTER → 2024-04-19 10:27 | Outpatient (BNVA) | payer OTHER, SELFPAY ==
[2023-11-07 09:21] VITALS: BP 104/78; BP 136/88; BP 138/72; BMI 29.1
== END ==
PROVIDERS: PCP Nurse Practitioner Family; Visit Provider Nurse Practitioner Family
DX: J45.909 Unspecified asthma, uncomplicated (principal); Z87.891 Personal history of nicotine dependence
CPT/HCPCS: 99212

== ENCOUNTER 2024-05-04 09:59 | Outpatient (AMB) | payer OTHER, SELFPAY ==
[2023-11-07 09:21] VITALS: BP 104/78; BP 136/88; BP 138/72; BMI 29.1
--- NOTE | 2024-05-04 10:01 | MHC.PC.OV ---
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 Required: No Is last menstrual period known: No Post menopausal: No Patient : No Allergies Seasonal Allergies Allergy (Mild, Verified 05/04/24 10:22) congestion Medication List - Last Reconciled 05/04/24 by Pepito Cardoza CNP acetaminophen ER 1,300 mg (2 x 650 mg) PO BID PRN albuterol sulfate 2.5 mg (3 mL) inhalation Q4H PRN aspirin 81 mg PO DAILY 90 days atorvastatin 80 mg PO DAILY blood pressure test kit-large ([employer] Versa Arm BP Monitor kit) As directed blood sugar diagnostic ([employer]Things Ultra Test strips) bs checks 3 times per day blood-glucose meter ([employer]Things Ultra2 Meter) POC testing TID blood-glucose meter Test 3 times daily bupropion HCl XL 150 mg PO QAM 30 days carvedilol 12.5 mg PO BID cetirizine (Zyrtec) 10 mg PO DAILY PRN cholecalciferol (vitamin D3) 50 mcg PO QAM 90 days empagliflozin (Jardiance) 10 mg PO DAILY 30 days ezetimibe 10 mg PO DAILY 90 days rzqejnqznzi-kxtrhdlhm-ozvmnjse 200-62.5-25 mcg (Trelegy Ellipta) 1 inh inhalation DAILY ipratropium bromide 2 sprays intranasal BID lancets ([employer] Delica Plus Lancet) USE TO TEST THREE TIMES DAILY lidocaine 5% 1 patch topical DAILY loratadine 10 mg PO DAILY montelukast (Singulair) 10 mg PO BEDTIME omeprazole 20 mg PO DAILY sacubitril-valsartan 24-26 mg (Entresto) 1 tab PO BID Shower Chair As directed ticagrelor (Brilinta) 90 mg PO BID 30 days Trulicity (dulaglutide) 1.5 mg (0.5 mL) subcut QWEEK NS Tobacco use date assessed: 05/04/24 Dental Screening Dental Screen Date: 05/04/24 Did you have a dental visit in the last 12 months?: No Did you have a dental problem in the last 6 months where you did not have access to dental care?: No Was dental information given to patient?: Patient has dentist HPI HPI Comments History of Present Illness Details 63-year-old female presents for hypertension and diabetes follow-up. She admits to taking her medications as prescribed without adverse reactions. She has been making healthy dietary choices, however, she consumes significant amount of carbs. She walks routinely. Reports nasal congestion and sneezing for the past one month. Her symptoms have progressively worsened and is now constant. No cough or constitutional symptoms. She has been taking Zyrtec daily and using ipratropium bromide nasal spray as prescribed without relief. [facility] Medical History CAD (coronary artery disease) Stented coronary artery HTN (hypertension) Diabetes Asthma Nicotine dependence, cigarettes, uncomplicated Surgical History History of heart artery stent History of repair of right rotator cuff History of tubal ligation Hx of colonoscopy Family History Mother Hypertension Father No problems noted. Social History Household Members: Family Housing: Apartment Housing Other:: Patient is currently living with daughter Are you a primary before and after school daycare worker to a significant other at home: No Do you presently have visiting nurse or other home services: No Patient Tobacco Use Status: Former Tobacco user Tobacco use type: Cigarette Years Smoked: onset 10yo, 1ppd x 52yrs, now 1-2 cig/wk - 40+PYH e-Cigarette/Vaping Use: Never Used Second Hand Smoke Exposure: No service: No Current occupational status: disabled Current occupational exposures/hazards: No Cognitive needs: No Hearing needs: No Vision needs: No Questionnaire Thrive Questionnaire Date Thrive assessed: 04/05/24 I am a: Patient What is your living situation today?: I have a steady place to live Within the past 12 months, did the food you bought not last and you didn't have the money to get more?: I choose not to answer this question Within the past 12 months, did you worry whether your food would run out before you got money to buy more?: Sometimes True Do you have trouble paying for medicines?: No Do you have trouble getting transportation to medical appointments?: No Do you have trouble paying your heating and electricity bill?: Yes Do you have trouble taking care of your child, family member or friend?: No Do you have trouble with day-to-day activities such as bathing, preparing meals, shopping, managing finances, etc.?: Yes Are you currently unemployed and looking for a job?: I choose not to answer this question Are you interested in more education?: No Please select the resources that you would like help with: Utilities Currently or been in a relationship where the following occur: I choose not to answer THRIVE Score: 2 ZURI-7 AMB Questionnaire ZURI-7 Date ZURI - 7 assessed: 04/05/24 Not being able to stop or control worryin = Not at all Worrying too much about different things: 0 = Not at all Trouble relaxin = More than half the days Being so restless that it is hard to sit still: 0 = Not at all Becoming easily annoyed or irritable: 0 = Not at all Feeling afraid as if something awful might happen: 0 = Not at all Source: Developed by Drs. Isma Erickson, Joyce Phillips, Roger Davis and colleagues, with an educational jana from [employer]. Review of Systems Const Details: Const Denies chills, Denies fatigue, Denies fever(s), Denies headache(s) and Denies weakness ENT Denies dizziness and Denies headache(s) Card Denies chest pain, Denies lightheadedness, Denies dyspnea and Denies other (Palpitations) Resp Denies cough, Denies dyspnea, Denies wheezing and Denies other ( shortness of breath) GI Denies abdominal pain, Denies melena, Denies hematochezia, Denies change in bowel habits, Denies dyspepsia and Denies nausea Denies hematuria and Denies dysuria Musc Denies abnormal gait, Denies myalgias, Denies arthralgias, Denies numbness and Denies tingling Skin/Breast Denies rash, Denies unusual bruising and Denies wounds Neuro Denies abnormal gait, Denies dizziness, Denies headache(s), Denies memory loss, Denies numbness, Denies Sensory deficit (Neuro), Denies tingling and Denies weakness Psych Denies anxiety, Denies depression, Denies memory loss Endo Denies cold intolerance, Denies fatigue, Denies heat intolerance, Denies polydipsia and Denies polyuria Aller/Immun Denies wheezing Physical exam (Primary Care) Vital Signs: Last Vital Signs Temp 97.7 F 05/04/24 10:07 Pulse 93 05/04/24 10:07 Resp 16 05/04/24 10:07 BP 120/74 05/04/24 10:07 Pulse Ox 100 05/04/24 10:07 Oxygen Delivery Method Room Air 05/04/24 10:07 BMI result Body Mass Index 29.0 Tobacco/Smoking Status: Tobacco use Status Tobacco use date assessed 05/04/24 05/04/24 10:10 Patient Tobacco Use Status Former Tobacco user 05/04/24 10:03 Tobacco use type Cigarette 05/04/24 10:03 e-Cigarette/Vaping Use Never Used 05/04/24 10:03 Thrive Assessment: Date of Thrive Assessment Date Thrive assessed 04/05/24 05/04/24 10:03 Currently or been in a relationship where the following occur: I choose not to answer Const Other: General: no acute distress and well developed Nutritional Appearance: well nourished Orientation/consciousness: patient oriented x3 HENMT Head is normocephalic Bilateral ear canal and TM are normal Nasal turbinates are pink with moderate edema Oropharynx are pink and moist Sinuses are nontender with palpation No auricular or cervical lymphadenopathy Eyes General: appearance normal, both eyes and all related structures Pupils: Equal, round and reactive pupils present EOM: EOMs intact bilaterally Resp Effort & Inspection: normal respiratory effort Auscultation: clear to auscultation bilaterally Cardio Rate: regular rate Rhythm: regular rhythm Heart sounds: S1 normal heart sound present, S2 normal heart sound present, no gallops, no murmurs and no rubs GI Palpation (GI): No Abdominal aortic bruit present, Soft to palpation, nontender, No hepatosplenomegaly present and No Rebound tenderness present Auscultation: normal bowel sounds General: Yes no CVA tenderness Back/Spine/Pelvis Back: no CVA tenderness Cervical Spine: cervical ROM normal and No Cervical spine tenderness Thoracic/Lumbar Spine: thoraco-lumbar ROM normal, No pain with thoraco-lumbar ROM, No thoracic spinal tenderness and No lumbar spinal tenderness Extrem General: Yes normal to inspection, No edema and No calf tenderness Skin General: warm and dry. Normal skin color. Normal skin turgor Neuro General: patient oriented x3, gait normal and no focal neuro deficit Cranial nerves: Yes Equal, round and reactive pupils present Cognition (Neuro): normal cognition Gait exam (Neuro): Normal gait present Sensory Exam: No Sensory deficit (Neuro) Psych Appearance: grossly normal Affect: normal affect Attitude: cooperative Thought process: Normal thought process present Results AMB Hemoglobin A1c AMB Hemoglobin A1c 7.0 % Last Edit by Dominique Campos MA on 05/04/24 10:32 Results Reviewed Results Reviewed: Laboratory Last Values Hgb A1c (Clinic) 7.0 % (4.0-6.0) H 05/04/24 10:17 Coding Level of Care Code Est Pt Level 4 (97440) Diagnoses Primary hypertension I10 Hypertension type: primary hypertension Diabetes type 2, controlled E11.9 Anemia of chronic disease D63.8 Allergies T78.40XA Chronic low back pain M54.50; G89.29 Chronic left hip pain M25.552; G89.29 Chronic right hip pain M25.551; G89.29 Assessment & Plan Assessment & Plan (1) HTN (hypertension): Code(s): I10 - Essential (primary) hypertension Category: Medical Qualifiers: Hypertension type: primary hypertension Qualified Code(s): I10 - Essential (primary) hypertension Plan: Resting blood pressure is 120/74, within goal of less than 130/80. Continue current treatment regimen. Follow-up in 3 months or sooner with symptoms or concerns. Verbalized understanding and agreed with treatment plan. (2) Diabetes type 2, controlled: Code(s): E11.9 - Type 2 diabetes mellitus without complications Category: Medical Plan: A1c today is 7.0%, slightly above goal of less than 7.0%. Previous A1c was 6.5%. Continue current treatment regimen. ADA diet and routine exercise encouraged. Follow-up in 3 months. Verbalized understanding and agreed with treatment plan. (3) Anemia of chronic disease: Code(s): D63.8 - Anemia in other chronic diseases classified elsewhere Category: Medical Plan: She is not performed blood work for anemia as planned. Encouraged to perform blood work today. Will review results and make changes as needed. Verbalized understanding and agreed with the treatment plan. (4) Allergies: Code(s): T78.40XA - Allergy, unspecified, initial encounter Category: Medical Plan: Nasal congestion and sneezing for the past 1 month. Symptoms progressively worsened. Nasal turbinates are pink with moderate edema. Continue current treatment regimen. May use saline rinse as needed. Follow-up or report worsening or new symptoms. May refer to an assurance engineer. Verbalized understanding and agreed with the plan. (5) Chronic low back pain: Code(s): M54.50 - Low back pain, unspecified; G89.29 - Other chronic pain Category: Medical Plan: She notes continued chronic back and left hip pain. She sometimes experiences right hip pain which is also chronic. She notes that lidocaine patch has not been refilled by the pharmacy. Lidocaine patch will be faxed to medical supply fax number provided by the patient. Continue to take Tylenol as prescribed. Warm/cool compresses encouraged. Recent x-ray of the lumbar spine revealed moderate spondylosis in lumbar spine and left hip subtle increased density in the superior aspect of the left femoral head could represent avascular necrosis. Consider MRI to determine if this is a true finding. Referred to orthopedics. (6) Chronic left hip pain: Code(s): M25.552 - Pain in left hip; G89.29 - Other chronic pain Category: Medical Plan: Plan as above. (7) Chronic right hip pain: Code(s): M25.551 - Pain in right hip; G89.29 - Other chronic pain Category: Medical Plan: Plan as above. Orders: Orders AMB Hemoglobin A1c Today Z13.9 - Encounter for screening, unspecified Referrals Orthopedics Referral G89.29 - Other chronic pain, M25.551 - Pain in right hip, M25.552 - Pain in left hip, M54.50 - Low back pain, unspecified
[2024-05-04 10:07] VITALS: BP 120/74; PULSE 93; RESP 16; TEMP 36.5; O2SAT 100; BMI 29.0
== END 2024-05-04 10:44 | disposition home or self-care (01) ==
LOC: HO.HMCFM 09:59
PROVIDERS: PCP Nurse Practitioner Family; Visit Provider Nurse Practitioner Family
DX: I10 Essential (primary) hypertension (principal); E11.9 Type 2 diabetes mellitus without complications; D63.8 Anemia in other chronic diseases classified elsewhere; T78.40XA Allergy, unspecified, initial encounter; M54.50 Low back pain, unspecified; G89.29 Other chronic pain; M25.552 Pain in left hip; M25.551 Pain in right hip; Z13.9 Encounter for screening, unspecified

== ENCOUNTER 2024-05-04 10:52 | Outpatient (REF) | payer OTHER, SELFPAY ==
[2023-11-07 09:21] VITALS: BP 104/78; BP 136/88; BP 138/72; BMI 29.1
[2024-05-04 14:34] LABS: Hematocrit 37.9 % (37.0-47.0); Hemoglobin 12.4 g/dl (12.0-16.0); Mean Corpuscular HGB Conc 32.7 g/dl (31.0-35.0); Mean Corpuscular Hemoglobin 28.4 pg (27.0-33.0); Mean Corpuscular Volume 86.9 fL (80.0-98.0); Mean Platelet Volume 11.4 fL (9.4-12.3); Platelet Count 218 X10*3/uL (160-400); Red Blood Count 4.36 X10*6/uL (4.20-5.50); White Blood Count 4.7 X10*3/uL (4.8-10.8)
[2024-05-04 15:09] LABS: Anion Gap 12 (12-20); Blood Urea Nitrogen 20 mg/dL (9-16); Calcium 9.4 mg/dL (8.4-10.2); Carbon Dioxide 25 mmol/L (22-29); Chloride 107 mmol/L (96-108); Estimated Glomerular Filt Rate 46; Glucose Random 121 mg/dL (60-115); Iron 58 mcg/dL (30-160); Percent Iron Saturation 23 % (15-50); Potassium 3.7 mmol/L (3.3-5.1); Sodium 140 mmol/L (135-145); Total Iron Binding Capacity 256 mcg/dL (228-428); Unsaturated Iron Binding 198 ug/dL
[2024-05-04 15:25] LABS: Ferritin 95 ng/mL (10-250); TSH reflex Free T4 0.98 uIU/mL (0.32-4.0)
[2024-05-04 15:39] LABS: Folate 9.5 ng/mL (> or = 4.0); Vitamin B12 442 pg/mL (200-900)
== END 2024-05-04 10:53 | disposition home or self-care (01) ==
LOC: HO.WFDLDS 10:52
PROVIDERS: Visit Provider Nurse Practitioner Family
DX: N28.9 Disorder of kidney and ureter, unspecified (principal); D63.8 Anemia in other chronic diseases classified elsewhere; E11.9 Type 2 diabetes mellitus without complications; I10 Essential (primary) hypertension; T78.40XA Allergy, unspecified, initial encounter; M54.50 Low back pain, unspecified; G89.29 Other chronic pain; M25.552 Pain in left hip; M25.551 Pain in right hip; Z00.00 Encounter for general adult medical examination without abnormal findings
CPT/HCPCS: 36415; 80048; 82607; 82728; 82746; 83036; 83540; 84443; 85027; 99212

== ENCOUNTER → 2024-06-23 09:32 | Outpatient (REF) | payer OTHER, SELFPAY ==
[2024-05-06 09:20] VITALS: BP 104/78; BP 136/88; BP 138/72; BMI 29.1
== END ==
LOC: HO.CARD 09:32
PROVIDERS: PCP Nurse Practitioner Family; Visit Provider Internal Medicine Cardiovascular Disease
DX: I25.5 Ischemic cardiomyopathy (principal)
CPT/HCPCS: 93306

== ENCOUNTER → 2024-06-23 09:34 | Outpatient (BNV) | payer OTHER, SELFPAY ==
[2024-05-06 09:20] VITALS: BP 104/78; BP 136/88; BP 138/72; BMI 29.1
== END ==
PROVIDERS: PCP Nurse Practitioner Family; Visit Provider Internal Medicine Cardiovascular Disease
DX: I35.8 Other nonrheumatic aortic valve disorders (principal); I42.8 Other cardiomyopathies
CPT/HCPCS: 93306

== ENCOUNTER 2024-07-04 12:44 | Outpatient (REF) | payer OTHER, SELFPAY ==
[2024-05-06 09:20] VITALS: BP 104/78; BP 136/88; BP 138/72; BMI 29.1
[2024-07-04 14:09] LABS: Blood Urea Nitrogen 16 mg/dL (9-16)
[2024-07-04 14:11] LABS: Anion Gap 12 (12-20); Blood Urea Nitrogen 16 mg/dL (9-16); Calcium 10.1 mg/dL (8.4-10.2); Carbon Dioxide 28 mmol/L (22-29); Chloride 106 mmol/L (96-108); Cholesterol 140 mg/dL (<200); Estimated Glomerular Filt Rate 52; Glucose Random 71 mg/dL (60-115); HDL Cholesterol 46 mg/dL (>40); LDL Cholesterol Calculated 79 mg/dL (<100); Potassium 4.1 mmol/L (3.3-5.1); Sodium 142 mmol/L (135-145); Triglycerides 79 mg/dL (<150)
== END 2024-07-04 12:45 | disposition home or self-care (01) ==
LOC: HO.LAB 12:44
PROVIDERS: Absent Provider Internal Medicine Cardiovascular Disease; PCP Nurse Practitioner Family; Visit Provider Internal Medicine Nephrology
DX: I25.10 Atherosclerotic heart disease of native coronary artery without angina pectoris (principal); N18.31 Chronic kidney disease, stage 3a
CPT/HCPCS: 36415; 80048; 80061; 84520

== ENCOUNTER 2024-07-07 11:05 | Outpatient (AMB) | payer OTHER, SELFPAY ==
[2024-05-06 09:20] VITALS: BP 104/78; BP 136/88; BP 138/72; BMI 29.1
--- NOTE | 2024-07-07 11:25 | HO.NEPHOV_ITS ---
Vital Signs 07/07/24 11:26 Height 5 ft 5 in Weight 169 lb 8 oz BMI 28.2 BP 110/70 Blood Pressure Location Lt brachial Position Sitting Pulse 81 Pulse Source Pulse Oximeter Pulse Oximetry (%) 98 Oxygen Delivery Method Room Air Intake Visit Reasons: 3mon follow-up w/labs-LVM Insurance Policy Issue Clerk Required: No Accompanied by: Self / Same As Patient Allergies Seasonal Allergies Allergy (Mild, Verified 07/07/24 11:26) congestion HPI Comments Details: Wilfrido was seen in follow up for CKD & hypertension . She is 63 years of age and has been in good health. She is a diabetic and hypertensive. She has no history of proteinuria. She does not take nonsteroidal anti-inflammatories or PPI . She does not have any nausea, vomiting, diarrhea, shortness of breath, proximal nocturnal dyspnea, orthopnea, pedal edema, hematuria, renal stones, congestive heart failure, carotid stenosis, peripheral arterial disease, renal artery stenosis, new bone or back pain. She has CAD and had PCI. She never had any history of high serum calcium. She denies any history of hepatitis or HIV. She does not get any recurrent sore throat, epistaxis, hemoptysis, photosensitivity, skin rashes. She has no sensorineural hearing deficits or microscopic hematuria. She has no acral tingling or paresthesia. There were no new specific complaints at the time of this office visit [facility] Medical History CAD (coronary artery disease) Stented coronary artery HTN (hypertension) Diabetes Asthma Nicotine dependence, cigarettes, uncomplicated Surgical History History of heart artery stent History of repair of right rotator cuff History of tubal ligation Hx of colonoscopy Family History Mother Hypertension Father No problems noted. Social History Household Members: Family Housing: Apartment Housing Other:: Patient is currently living with daughter Are you a primary children's zoo caretaker to a significant other at home: No Do you presently have visiting nurse or other home services: No Patient Tobacco Use Status: Former Tobacco user Tobacco use type: Cigarette Years Smoked: onset 10yo, 1ppd x 52yrs, now 1-2 cig/wk - 40+PYH e-Cigarette/Vaping Use: Never Used Second Hand Smoke Exposure: No service: No Current occupational status: disabled Current occupational exposures/hazards: No Cognitive needs: No Hearing needs: No Vision needs: No Review of Systems Const All systems reviewed & are unremarkable except as noted in HPI and below Physical Exam Vital Signs: Last Vital Signs Pulse 81 07/07/24 11:26 BP 110/70 07/07/24 11:26 Pulse Ox 98 07/07/24 11:26 Oxygen Delivery Method Room Air 07/07/24 11:26 BMI result Body Mass Index 28.2 Const General: comfortable and no acute distress Orientation/consciousness: patient oriented x3 HEENT Head: Yes normocephalic Mouth: Normal oral and palatal mucosa present Eyes EOM: EOMs intact bilaterally Neck Neck: Yes supple Resp Auscultation: clear to auscultation bilaterally Cardio Jugular venous distension: no JVD Rate: regular rate GI Palpation (GI): Soft to palpation Auscultation: normal bowel sounds General: Yes no CVA tenderness Back/Spine/Pelvis Back: no CVA tenderness Skin General skin exam: no rashes or lesions noted Neuro General: patient oriented x3 and moves all extremities Extrem General: Yes no pedal edema Results Reviewed Nephrology Results: Hgb 12.4 g/dl (12.0-16.0) 05/04/24 WBC 4.7 X10*3/uL (4.8-10.8) L 05/04/24 Plt Count 218 X10*3/uL (160-400) 05/04/24 Sodium 142 mmol/L (135-145) 07/04/24 Potassium 4.1 mmol/L (3.3-5.1) 07/04/24 Chloride 106 mmol/L (96-108) 07/04/24 Carbon Dioxide 28 mmol/L (22-29) 07/04/24 BUN 16 mg/dL (9-16) 07/04/24 Creatinine 1.06 mg/dL (0.5-1.4) 07/04/24 Calcium 10.1 mg/dL (8.4-10.2) 07/04/24 Assessment & Plan Assessment & Plan (1) Small right kidney: Code(s): N27.0 - Small kidney, unilateral Category: Medical (2) Renal vascular disease: Code(s): N28.89 - Other specified disorders of kidney and ureter Category: Medical (3) CKD stage 3a, GFR 45-59 ml/min: Code(s): N18.31 - Chronic kidney disease, stage 3a Category: Medical (4) HTN (hypertension): Code(s): I10 - Essential (primary) hypertension Category: Medical Qualifiers: Hypertension type: primary hypertension Qualified Code(s): I10 - Essential (primary) hypertension Plan Wilfrido has CKD due to noah vascular disease. She has H/O CAD needing PCI. She is on Entresto. She has no clinical signs of HF. She can continue Jardiance 10 mg daily which I shall increase to 25 mg with time. She avoids nonsteroidal anti-inflammatories and maintain good hydration which I encouraged. I did not make any other medication changes today. All these possibilities have been discussed in detail and I answered all her questions. Follow-up appointment given Coding Level of Care Code Est Pt Level 4 (35579) Diagnoses Small right kidney N27.0 Renal vascular disease N28.89 CKD stage 3a, GFR 45-59 ml/min N18.31 Primary hypertension I10 Hypertension type: primary hypertension
[2024-07-07 11:26] VITALS: BP 110/70; PULSE 81; O2SAT 98; BMI 28.2
== END 2024-07-07 11:56 | disposition home or self-care (01) ==
LOC: HO.HKAS 11:06
PROVIDERS: PCP Nurse Practitioner Family; Visit Provider Internal Medicine Nephrology
DX: N27.0 Small kidney, unilateral (principal); N28.89 Other specified disorders of kidney and ureter; N18.31 Chronic kidney disease, stage 3a; I10 Essential (primary) hypertension
CPT/HCPCS: 99214

== ENCOUNTER → 2024-07-07 11:05 | Outpatient (BNVA) | payer OTHER, SELFPAY ==
[2024-05-06 09:20] VITALS: BP 104/78; BP 136/88; BP 138/72; BMI 29.1
== END ==
PROVIDERS: PCP Nurse Practitioner Family; Visit Provider Internal Medicine Nephrology
DX: E11.22 Type 2 diabetes mellitus with diabetic chronic kidney disease (principal); I12.9 Hypertensive chronic kidney disease with stage 1 through stage 4 chronic kidney disease, or unspecified chronic kidney disease; N27.0 Small kidney, unilateral; N28.89 Other specified disorders of kidney and ureter; N18.31 Chronic kidney disease, stage 3a
CPT/HCPCS: 99212

== ENCOUNTER 2024-07-14 12:11 | Outpatient (AMB) | payer OTHER, SELFPAY ==
[2024-05-06 09:20] VITALS: BP 104/78; BP 136/88; BP 138/72; BMI 29.1
--- NOTE | 2024-07-14 12:34 | A.OFFVIS_ITS ---
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: No Allergies Seasonal Allergies Allergy (Mild, Verified 07/07/24 11:26) congestion Medication List - Last Reconciled 07/14/24 by Sabas Lorenzana MD acetaminophen ER 1,300 mg (2 x 650 mg) PO BID PRN albuterol sulfate 2.5 mg (3 mL) inhalation Q4H PRN aspirin 81 mg PO DAILY 90 days atorvastatin 80 mg PO DAILY blood pressure test kit-large ([employer] Versa Arm BP Monitor kit) As directed blood sugar diagnostic ([employer] Ultra Test strips) bs checks 3 times per day blood-glucose meter ([employer] Ultra2 Meter) POC testing TID blood-glucose meter Test 3 times daily bupropion HCl XL 150 mg PO QAM 30 days carvedilol 12.5 mg PO BID cetirizine (Zyrtec) 10 mg PO DAILY PRN cholecalciferol (vitamin D3) 50 mcg PO QAM 90 days empagliflozin (Jardiance) 10 mg PO DAILY ezetimibe 10 mg PO DAILY 90 days aebnrneycfp-luvhfuxek-fruwbcxl 200-62.5-25 mcg (Trelegy Ellipta) 1 inh inhalation DAILY ipratropium bromide 2 sprays intranasal BID lancets ([employer] Delica Plus Lancet) USE TO TEST THREE TIMES DAILY lidocaine 5% 1 patch topical DAILY montelukast (Singulair) 10 mg PO BEDTIME omeprazole 20 mg PO DAILY sacubitril-valsartan 24-26 mg (Entresto) 1 tab PO BID Shower Chair As directed ticagrelor (Brilinta) 90 mg PO BID 30 days Trulicity (dulaglutide) 1.5 mg (0.5 mL) subcut QWEEK NS HPI Comments Details: Sharif comes for follow-up. Her recent echocardiogram actually showed worsening LV ejection fraction with regional wall motion abnormality. LVEF is 30-35%. She has no new anginal symptoms. No new heart failure symptoms. Takes all her medications regularly. Denies any orthopnea, PND, leg edema. Denies any prolonged palpitation, irregular heartbeat. Has not been checking her blood pressure religiously but thinks that the blood pressure has been adequately controlled. Her last creatinine was within acceptable limits at 1. After noting her lower EF she has been advised a myocardial perfusion imaging which is pending [facility] Medical History CAD (coronary artery disease) Stented coronary artery HTN (hypertension) Diabetes Asthma Nicotine dependence, cigarettes, uncomplicated Surgical History History of heart artery stent History of repair of right rotator cuff History of tubal ligation Hx of colonoscopy Family History Mother Hypertension Father No problems noted. Social History Household Members: Family Housing: Apartment Housing Other:: Patient is currently living with daughter Are you a primary post acute care nurse to a significant other at home: No Do you presently have visiting nurse or other home services: No Patient Tobacco Use Status: Former Tobacco user Tobacco use type: Cigarette Years Smoked: onset 10yo, 1ppd x 52yrs, now 1-2 cig/wk - 40+PYH e-Cigarette/Vaping Use: Never Used Second Hand Smoke Exposure: No service: No Current occupational status: disabled Current occupational exposures/hazards: No Cognitive needs: No Hearing needs: No Vision needs: No Review of Systems Const Denies chills, Denies fatigue, Denies fever(s), Denies frequent falls, Denies weakness, Denies weight gain and Denies weight loss ENT Denies dizziness Card Denies chest pain, Denies leg edema, Denies lightheadedness, Denies palpitations, Denies dyspnea, Denies dyspnea on exertion, Denies orthopnea and Denies other (loss of consciousness) Resp Denies cough, Denies dyspnea and Denies dyspnea on exertion GI Denies hematochezia and Denies change in stool character Musc Denies abnormal gait, Denies muscle weakness, Denies numbness, Denies radiating pain into limb and Denies tingling Neuro Denies abnormal gait, Denies dizziness, Denies frequent falls, Denies numbness, Denies tingling and Denies weakness Endo Denies fatigue and Denies palpitations Physical Exam Vital Signs: Last Vital Signs Pulse 80 07/14/24 12:35 BP 110/74 07/14/24 12:35 BMI result Body Mass Index 27.9 Const General: cooperative, healthy appearing, comfortable and no acute distress Orientation/consciousness: patient oriented x3 Limitations: ambulation with walker Neck Neck: Yes normal visual inspection Resp Effort & Inspection: normal respiratory effort Auscultation: clear to auscultation bilaterally, no crackles, no rales, no rhonchi and no wheezes Cardio Jugular venous distension: no JVD Rate: regular rate Rhythm: regular rhythm Heart sounds: S1 normal heart sound present, S2 normal heart sound present, no murmurs and no rubs Neuro General: patient oriented x3 Extrem General: Yes normal to inspection and No no pedal edema Psych Appearance: grossly normal Mental Status: mental status grossly normal Speech and movement: Normal speech and movement present Assessment & Plan Assessment & Plan (1) Ischemic cardiomyopathy: Code(s): I25.5 - Ischemic cardiomyopathy Category: Medical Plan: Ischemic cardiomyopathy in this middle-aged woman with worsening LV ejection fraction for unclear reason. Will rule out myocardial ischemia. Most likely due to negative remodeling. Will further uptitrate Entresto. Continue carvedilol therapy. Limitation in increasing her meds due to low blood pressure. Will bring her back for a week for blood pressure check and BNP checked. If stable will continue to uptitrate medical therapy. Signs and symptoms of heart failure were discussed. Will follow-up limited echocardiogram in 6 weeks time if there was no ischemia and if she remains persistently depressed she will need ICD for primary prevention. This was discussed with her. She understands and agrees. (2) CAD (coronary artery disease): Comment: (STEMI 2021 = s/p ROSELIA to LAD) Code(s): I25.10 - Atherosclerotic heart disease of [place] coronary artery without angina pectoris Category: Medical Qualifiers: Coronary Disease-Associated Artery/Lesion type: [place] artery [place] vs. transplanted heart: [place] heart Associated angina: without angina Qualified Code(s): I25.10 - Atherosclerotic heart disease of [place] coronary artery without angina pectoris Plan: CAD with prior STEMI with drug-eluting stent to LAD in and then drug-eluting stent to circumflex for NSTEMI. Since then she has been taking medications r eligiously. Importance of compliance with medication was discussed. More than a year since her stenting. Her dual antiplatelet therapy can be discontinued. Continue aspirin for rest of the life. Continue aggressive risk factor modification with aggressive control blood pressure which is well optimized on current therapy. Continue aggressive diabetes management goal hemoglobin A1c less than 7%. Goal LDL less than 55 mg/dL. Advised lipid panel at least on a semi annual basis. Encouraged to maintain activity level as tolerated. Follow up in the clinic in 6 weeks time, sooner p.r.n.. Thank you for allowing me to partake in her care Orders: Orders Basic Metabolic Panel 1 Week I25.5 - Ischemic cardiomyopathy CA Echo Limited 6 Weeks I25.5 - Ischemic cardiomyopathy Medications: New sacubitril-valsartan 49-51 mg (Entresto) 1 tab PO BID 60 tabs 5RF Refilled aspirin 81 mg PO DAILY 90 days 90 tabs 1RF ezetimibe 10 mg PO DAILY 90 days 90 tabs 3RF Discontinued sacubitril-valsartan 24-26 mg (Entresto) Discontinued Reason: Doctor's Order 1 tab PO BID 60 tabs 6RF ticagrelor (Brilinta) Discontinued Reason: No Longer Medically Relevant 90 mg PO BID 30 days 60 tabs 3RF Coding Level of Care Code Est Pt Level 4 (73827) Complex EM visit Add On G2211 Diagnoses Ischemic cardiomyopathy I25.5 Coronary artery disease involving [place] coronary artery of [place] heart without angina pectoris I25.10 Coronary Disease-Associated Artery/Lesion type: [place] artery [place] vs. transplanted heart: [place] heart Associated angina: without angina
[2024-07-14 12:35] VITALS: BP 110/74; PULSE 80; BMI 27.9
== END 2024-07-14 13:06 | disposition home or self-care (01) ==
LOC: HO.HCS 12:12
PROVIDERS: PCP Nurse Practitioner Family; Visit Provider Internal Medicine Cardiovascular Disease
DX: I25.5 Ischemic cardiomyopathy (principal); I25.10 Atherosclerotic heart disease of native coronary artery without angina pectoris
CPT/HCPCS: 99214; G2211

== ENCOUNTER → 2024-07-14 12:11 | Outpatient (BNVA) | payer OTHER, SELFPAY ==
[2024-05-06 09:20] VITALS: BP 104/78; BP 136/88; BP 138/72; BMI 29.1
== END ==
PROVIDERS: PCP Nurse Practitioner Family; Visit Provider Internal Medicine Cardiovascular Disease
DX: I25.5 Ischemic cardiomyopathy (principal); I25.10 Atherosclerotic heart disease of native coronary artery without angina pectoris
CPT/HCPCS: 99212

== ENCOUNTER 2024-08-08 10:08 | Outpatient (AMB) | payer OTHER, SELFPAY ==
[2024-05-06 09:20] VITALS: BP 104/78; BP 136/88; BP 138/72; BMI 29.1
--- NOTE | 2024-08-08 10:15 | MHC.PC.OV ---
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: No Is last menstrual period known: No Post menopausal: No Patient : No Allergies Seasonal Allergies Allergy (Mild, Verified 08/08/24 11:08) congestion Medication List - Last Reconciled 08/08/24 by Pepito Cardoza CNP acetaminophen ER 1,300 mg (2 x 650 mg) PO BID PRN albuterol sulfate 2.5 mg (3 mL) inhalation Q4H PRN aspirin 81 mg PO DAILY 90 days atorvastatin 80 mg PO DAILY blood pressure test kit-large ([employer] Versa Arm BP Monitor kit) As directed blood sugar diagnostic ([employer] Ultra Test strips) bs checks 3 times per day blood-glucose meter ([employer] Ultra2 Meter) POC testing TID blood-glucose meter Test 3 times daily bupropion HCl XL 150 mg PO QAM 30 days carvedilol 12.5 mg PO BID cetirizine (Zyrtec) 10 mg PO DAILY PRN cholecalciferol (vitamin D3) 50 mcg PO QAM 90 days clopidogrel 75 mg PO DAILY empagliflozin (Jardiance) 10 mg PO DAILY ofxpnnarpbs-fiieaolxk-ckrnqscw 200-62.5-25 mcg (Trelegy Ellipta) 1 ea PO DAILY ipratropium bromide 2 sprays intranasal BID lancets ([employer] Delica Plus Lancet) USE TO TEST THREE TIMES DAILY lidocaine 5% 1 patch topical DAILY montelukast (Singulair) 10 mg PO BEDTIME omeprazole 20 mg PO DAILY sacubitril-valsartan 49-51 mg (Entresto) 1 tab PO BID Shower Chair As directed Trulicity (dulaglutide) 1.5 mg (0.5 mL) subcut QWEEK NS Tobacco use date assessed: 08/08/24 Dental Screening Dental Screen Date: 08/08/24 Did you have a dental visit in the last 12 months?: No Did you have a dental problem in the last 6 months where you did not have access to dental care?: No Was dental information given to patient?: No (patient has dentures) HPI HPI Comments History of Present Illness Details 63-year-old female presents for hypertension and diabetes follow-up. She admits to taking her medications as prescribed without adverse reactions. She stopped taking ezetimibe because her health plan declined coverage. She has been making healthy dietary choices, however, she consumes significant amount of carbs; eats in small portions. She walks routinely. She notes that she was admitted at [facility] last month for almost 1 week for TIA; discharged end of June. No acute symptoms at this time. [facility] Medical History CAD (coronary artery disease) Stented coronary artery HTN (hypertension) Diabetes Asthma Nicotine dependence, cigarettes, uncomplicated Surgical History History of heart artery stent History of repair of right rotator cuff History of tubal ligation Hx of colonoscopy Family History Mother Hypertension Father No problems noted. Social History Household Members: Family Housing: Apartment Housing Other:: Patient is currently living with daughter Are you a primary chiropractic care to a significant other at home: No Do you presently have visiting nurse or other home services: No Patient Tobacco Use Status: Former Tobacco user Tobacco use type: Cigarette Years Smoked: onset 10yo, 1ppd x 52yrs, now 1-2 cig/wk - 40+PYH e-Cigarette/Vaping Use: Never Used Second Hand Smoke Exposure: No service: No Current occupational status: disabled Current occupational exposures/hazards: No Cognitive needs: No Hearing needs: No Vision needs: No Questionnaire Thrive Questionnaire Date Thrive assessed: 04/05/24 I am a: Patient What is your living situation today?: I have a steady place to live Within the past 12 months, did the food you bought not last and you didn't have the money to get more?: I choose not to answer this question Within the past 12 months, did you worry whether your food would run out before you got money to buy more?: Sometimes True Do you have trouble paying for medicines?: No Do you have trouble getting transportation to medical appointments?: No Do you have trouble paying your heating and electricity bill?: Yes Do you have trouble taking care of your child, family member or friend?: No Do you have trouble with day-to-day activities such as bathing, preparing meals, shopping, managing finances, etc.?: Yes Are you currently unemployed and looking for a job?: I choose not to answer this question Are you interested in more education?: No Please select the resources that you would like help with: Utilities Currently or been in a relationship where the following occur: I choose not to answer THRIVE Score: 2 ZURI-7 AMB Questionnaire ZURI-7 Date ZURI - 7 assessed: 04/05/24 Source: Developed by Drs. Isma Erickson, Joyce Phillips, Roger Davis and colleagues, with an educational jana from [employer] Review of Systems Const Details: Const Denies chills, Denies fatigue, Denies fever(s), Denies headache(s) and Denies weakness ENT Denies dizziness and Denies headache(s) Card Denies chest pain, Denies lightheadedness, Denies dyspnea and Denies other (Palpitations) Resp Denies cough, Denies dyspnea, Denies wheezing and Denies other ( shortness of breath) GI Denies abdominal pain, Denies melena, Denies hematochezia, Denies change in bowel habits, Denies dyspepsia and Denies nausea Denies hematuria and Denies dysuria Musc Denies abnormal gait, Denies myalgias, Denies arthralgias, Denies numbness and Denies tingling Skin/Breast Denies rash, Denies unusual bruising and Denies wounds Neuro Denies abnormal gait, Denies dizziness, Denies headache(s), Denies memory loss, Denies numbness, Denies Sensory deficit (Neuro), Denies tingling and Denies weakness Psych Denies anxiety, Denies depression, Denies memory loss Endo Denies cold intolerance, Denies fatigue, Denies heat intolerance, Denies polydipsia and Denies polyuria Aller/Immun Denies wheezing Physical exam (Primary Care) Vital Signs: Last Vital Signs Temp 98.0 F 08/08/24 10:23 Pulse 74 08/08/24 10:23 Resp 16 08/08/24 10:23 BP 102/60 08/08/24 11:13 Pulse Ox 100 08/08/24 10:23 Oxygen Delivery Method Room Air 08/08/24 10:23 BMI result Body Mass Index 28.0 Tobacco/Smoking Status: Tobacco use Status Tobacco use date assessed 08/08/24 08/08/24 10:29 Patient Tobacco Use Status Former Tobacco user 08/08/24 10:18 Tobacco use type Cigarette 08/08/24 10:18 e-Cigarette/Vaping Use Never Used 08/08/24 10:18 Thrive Assessment: Date of Thrive Assessment Date Thrive assessed 04/05/24 08/08/24 10:18 Currently or been in a relationship where the following occur: I choose not to answer Const Other: General: no acute distress and well developed Nutritional Appearance: well nourished Orientation/consciousness: patient oriented x3 HENMT Head: Yes normocephalic and Yes atraumatic Eyes General: appearance normal, both eyes and all related structures Pupils: Equal, round and reactive pupils present EOM: EOMs intact bilaterally Resp Effort & Inspection: normal respiratory effort Auscultation: clear to auscultation bilaterally Cardio Rate: regular rate Rhythm: regular rhythm Heart sounds: S1 normal heart sound present, S2 normal heart sound present, no gallops, no murmurs and no rubs GI Palpation (GI): No Abdominal aortic bruit present, Soft to palpation, nontender, No hepatosplenomegaly present and No Rebound tenderness present Auscultation: normal bowel sounds General: Yes no CVA tenderness Back/Spine/Pelvis Back: no CVA tenderness Cervical Spine: cervical ROM normal and No Cervical spine tenderness Thoracic/Lumbar Spine: thoraco-lumbar ROM normal, No pain with thoraco-lumbar ROM, No thoracic spinal tenderness and No lumbar spinal tenderness Extrem General: Yes normal to inspection, No edema and No calf tenderness Skin General: warm and dry. Normal skin color. Normal skin turgor Neuro General: patient oriented x3, gait normal and no focal neuro deficit Cranial nerves: Yes Equal, round and reactive pupils present Cognition (Neuro): normal cognition Gait exam (Neuro): Normal gait present Sensory Exam: No Sensory deficit (Neuro) Psych Appearance: grossly normal Affect: normal affect Attitude: cooperative Thought process: Normal thought process present Results AMB Hemoglobin A1c AMB Hemoglobin A1c 7.2 % Last Edit by Dominique Campos MA on 08/08/24 11:50 Results Reviewed Results Reviewed: Laboratory Last Values Hgb A1c (Clinic) 7.2 % (4.0-6.0) H 08/08/24 11:22 Coding Level of Care Code Est Pt Level 4 (90131) Diagnoses Primary hypertension I10 Hypertension type: primary hypertension Diabetes E11.9 TIA (transient ischemic attack) G45.9 Assessment & Plan Assessment & Plan (1) HTN (hypertension): Code(s): I10 - Essential (primary) hypertension Category: Medical Qualifiers: Hypertension type: primary hypertension Qualified Code(s): I10 - Essential (primary) hypertension Plan: Resting blood pressure is 102/60, within goal of less than 130/80. Continue current treatment regimen. Low-sodium diet encouraged. Follow-up in 3 months or sooner with symptoms or concerns. Verbalized understanding and agreed with the treatment plan. (2) Diabetes: Code(s): E11.9 - Type 2 diabetes mellitus without complications Category: Medical Plan: A1c today is 7.2%, slightly above goal of less than 7.0%. Previous A1c was 7.0%. She consume significant amount of carbs. ADA diet and routine exercise encouraged. Trulicity increased to 3 mg weekly; advised to take as prescribed. Continue to take Jardiance 10 mg daily. Will recheck A1c in 3 months. Verbalized understanding and agreed with treatment plan. (3) TIA (transient ischemic attack): Code(s): G45.9 - Transient cerebral ischemic attack, unspecified Category: Medical Plan: She notes that she was admitted at [facility] last month for almost 1 week for TIA; discharged end of June. Normal physical and neuro exam, no focal deficit. Encouraged to schedule an hospital discharge follow-up soon. Verbalized understanding and agreed with the plan. Orders: Orders AMB Hemoglobin A1c Today Z13.9 - Encounter for screening, unspecified Medications: New dulaglutide (Trulicity) 3 mg (0.5 mL) subcut QWEEK 2 mL 3RF Discontinued Trulicity (dulaglutide) Discontinued Reason: Ancillary Entered New Order 1.5 mg (0.5 mL) subcut QWEEK 6 mL 3RF NS E11.9 - Type 2 diabetes mellitus without complications
[2024-08-08 10:23] VITALS: BP 103/55; PULSE 74; RESP 16; TEMP 36.7; O2SAT 100; BMI 28.0
[2024-08-08 11:13] VITALS: BP 102/60
== END 2024-08-08 11:20 | disposition home or self-care (01) ==
LOC: HO.HMCFM 10:09
PROVIDERS: PCP Nurse Practitioner Family; Visit Provider Nurse Practitioner Family
DX: I10 Essential (primary) hypertension (principal); E11.9 Type 2 diabetes mellitus without complications; G45.9 Transient cerebral ischemic attack, unspecified; Z13.9 Encounter for screening, unspecified

== ENCOUNTER → 2024-08-08 10:08 | Outpatient (BNVA) | payer OTHER, SELFPAY ==
[2024-05-06 09:20] VITALS: BP 104/78; BP 136/88; BP 138/72; BMI 29.1
== END ==
PROVIDERS: PCP Nurse Practitioner Family; Visit Provider Nurse Practitioner Family
DX: E11.9 Type 2 diabetes mellitus without complications (principal); I10 Essential (primary) hypertension; I25.2 Old myocardial infarction; Z86.73 Personal history of transient ischemic attack (TIA), and cerebral infarction without residual deficits
CPT/HCPCS: 83036; 99212

== ENCOUNTER 2024-08-17 09:13 | Outpatient (AMB) | payer OTHER, SELFPAY ==
[2024-05-06 09:20] VITALS: BP 104/78; BP 136/88; BP 138/72; BMI 29.1
--- NOTE | 2024-08-17 09:16 | A.OFFVIS_ITS ---
Vital Signs 08/17/24 09:22 Height 5 ft 5 in Weight 166 lb BMI 27.6 BP 128/60 Blood Pressure Location Rt brachial Position Sitting Pulse 80 Pulse Source Pulse Oximeter Pulse Oximetry (%) 99 Oxygen Delivery Method Room Air Intake Visit Reasons: colo screening Intake Note: New patient for recall colo screening. Last colo ~ 7 Years ago via [facility]. CC; Pt denies any GI sx or concerns at this time. Contact Center Consultant Required: No Allergies Seasonal Allergies Allergy (Mild, Verified 08/17/24 09:16) congestion HPI HPI colo screening: Details: 63 year old? female with past medical history of renal vascular disease, CKD, hypertension, NSTEMI, status post cardiac catheterization, asthma, CAD, hyperlipidemia, ischemic cardiomyopathy, diabetes is here today for pre colonoscopy screening.? Patient was sent to us by her PCP.? Last colonoscopy 10 years ago or so in [facility].? Patient is accompanied by her daughter. Patient denies any gastrointestinal symptoms in the past or at present.? Denies any personal or family history of gastrointestinal disease, colon polyps, or CRC.? Denies history of difficulty with sedation or anesthesia in the past.? Negative for history of sleep apnea.? Denies any history of pulmonary, or hepatic disease.?? No history of infectious? diseases like hepatitis A, B, C, HIV or tuberculosis.? Patient is on low-dose aspirin. History of AL and TIA. Patient reports TIA symptoms over a month ago when visiting family in [facility]. Patient sees cardiology and has appointment next month with her brass instrument repair technician. Denies cardiac or respiratory symptoms. [facility] Medical History CAD (coronary artery disease) Stented coronary artery HTN (hypertension) Diabetes Asthma Nicotine dependence, cigarettes, uncomplicated Surgical History History of heart artery stent History of repair of right rotator cuff History of tubal ligation Hx of colonoscopy Family History Mother Hypertension Father No problems noted. Social History Household Members: Family Housing: Apartment Housing Other:: Patient is currently living with daughter Are you a primary home health caregiver to a significant other at home: No Do you presently have visiting nurse or other home services: No Patient Tobacco Use Status: Former Tobacco user Tobacco use type: Cigarette Years Smoked: onset 10yo, 1ppd x 52yrs, now 1-2 cig/wk - 40+PYH e-Cigarette/Vaping Use: Never Used Second Hand Smoke Exposure: No service: No Current occupational status: disabled Current occupational exposures/hazards: No Cognitive needs: No Hearing needs: No Vision needs: No Review of Systems Const Denies weight gain and Denies weight loss ENT Reports no additional complaints, Denies dysphagia and Denies odynophagia Card Reports no additional complaints Resp Reports no additional complaints GI Denies abdominal pain, Denies belching, Denies melena, Denies bloating, Denies change in bowel habits, Denies dysphagia, Denies excessive flatus, Denies dyspepsia, Denies heartburn, Denies diarrhea, Denies loose stools, Denies nausea, Denies odynophagia and Denies vomiting Musc Reports no additional complaints Neuro Reports no additional complaints Psych Reports no additional complaints Endo Reports no additional complaints Physical Exam Vital Signs: Last Vital Signs Pulse 80 08/17/24 09:22 BP 128/60 08/17/24 09:22 Pulse Ox 99 08/17/24 09:22 Oxygen Delivery Method Room Air 08/17/24 09:22 BMI result Body Mass Index 27.6 Const General: healthy appearing, no acute distress and well developed Nutritional Appearance: well nourished Orientation/consciousness: patient oriented x3 HEENT Head: Yes normal to inspection, Yes normocephalic and Yes atraumatic Face and sinus: Yes normal facial exam Mouth: Normal oral and palatal mucosa present Throat: Yes posterior oropharynx normal, Yes tonsils normal and Yes uvula midline Eyes General: appearance normal, both eyes and all related structures Neck Neck: Yes normal visual inspection, Yes full ROM and Yes trachea midline Thyroid: Thyroid normal Resp Effort & Inspection: normal respiratory effort, able to speak in complete sentences, no tracheal deviation and symmetric chest movement Auscultation: clear to auscultation bilaterally Cardio Jugular venous distension: no JVD Rate: regular rate Heart sounds: S1 normal heart sound present, S2 normal heart sound present, no gallops and no murmurs GI Inspection: Yes normal to inspection and No distended Palpation (GI): Soft to palpation, not firm, nontender and No hepatosplenomegaly present Auscultation: normal bowel sounds General: Yes no CVA tenderness Back/Spine/Pelvis Back: no CVA tenderness Skin General skin exam: elasticity normal, turgor normal and dry skin Neuro General: patient oriented x3 Psych Appearance: grossly normal Mental Status: mental status grossly normal Speech and movement: Normal speech and movement present Affect: normal affect Attitude: cooperative Thought process: Normal thought process present Thought content: Normal thought content present Insight: Good insight present (Psych) Judgement: Good judgement present (Psych) Assessment & Plan Assessment & Plan (1) Screen for colon cancer: Code(s): Z12.11 - Encounter for screening for malignant neoplasm of colon Plan Patient denies any GI, cardiac or respiratory symptoms.? History of AL in the past. History of TIA about a month ago. Patient has appointment with her brass instrument repair technician in August and we will get a risk stratification before sending her for the procedure. Denies any issues with anesthesia in the past.? Denies any history of sleep apnea.? No history infectious diseases in the past or present.? Patient is on low-dose aspirin.? No family or personal history of colon cancer or polyps.? Patient denies melena, hematochezia, unintentional weight loss or ribbon like stools.? Discussed at length the pre-procedure,? prep, diet & medications as well as what to expect prior, during and after the procedure.?? Stressed the importance of good bowel prep.? Recommended the use of Vaseline or Calmoseptine OTC & baby wipes with bowel movements to promote comfort.? ?Patient verbalizes understanding and agrees to plan of care.? She was given the opportunity to ask questions and all questions answered.? We will see her after the procedure.? Medications: New bisacodyl (Dulcolax (bisacodyl)) take 4 tabs at noon the day before your colonoscopy 20 mg (4 x 5 mg) PO ONCE 4 tabs 0RF constipation 1 day Z12.11 - Encounter for screening for malignant neoplasm of colon polyethylene glycol 3350 (Miralax) As directed by gastroenterology department at [facility] [place] 238 grams PO ONCE 238 grams 0RF Z12.11 - Encounter for screening for malignant neoplasm of colon Coding Level of Care Code New Pt Level 3 (55823) Diagnoses Screen for colon cancer Z12.11 Time Spent (min) 40 Comment 30 minutes spent with patient and additional 10 minutes spent reviewing her rec ords
[2024-08-17 09:22] VITALS: BP 128/60; PULSE 80; O2SAT 99; BMI 27.6
== END 2024-08-17 09:51 | disposition home or self-care (01) ==
LOC: HO.HGI 09:14
PROVIDERS: PCP Nurse Practitioner Family; Visit Provider Nurse Practitioner Family
DX: Z12.11 Encounter for screening for malignant neoplasm of colon (principal)
CPT/HCPCS: 99024

== ENCOUNTER → 2024-08-17 09:13 | Outpatient (BNVA) | payer OTHER, SELFPAY ==
[2024-05-06 09:20] VITALS: BP 104/78; BP 136/88; BP 138/72; BMI 29.1
== END ==
PROVIDERS: PCP Nurse Practitioner Family; Visit Provider Nurse Practitioner Family
DX: Z12.11 Encounter for screening for malignant neoplasm of colon (principal)
CPT/HCPCS: 99212

== ENCOUNTER 2024-08-19 09:25 | Outpatient (AMB) | payer OTHER, SELFPAY ==
[2024-05-06 09:20] VITALS: BP 104/78; BP 136/88; BP 138/72; BMI 29.1
[2024-08-19 09:32] VITALS: BP 98/60; PULSE 76; O2SAT 99; BMI 28.0
--- NOTE | 2024-08-19 09:32 | A.OFFVIS_ITS ---
Vital Signs 08/19/24 09:32 Height 5 ft 5 in Weight 168 lb 8 oz BMI 28.0 BP 98/60 Blood Pressure Location Rt brachial Position Sitting Pulse 76 Pulse Source Pulse Oximeter Pulse Oximetry (%) 99 Oxygen Delivery Method Room Air Intake Visit Reasons: Cough Allergies Seasonal Allergies Allergy (Mild, Verified 08/19/24 09:37) congestion HPI HPI Cough: Details: Wilfrido is a pleasant 63-year-old female, current minimal smoker, with 40+ pack year history, with underlying asthma, NC 2021 s/p stents x 2, HTN, DMII. She reports moderate control on Trelegy, Singulair and rarely using albuterol neb. She currently reports ongoing cough, initially dry a few weeks ago now productive over the last week. Denies any fevers, chills or chest congestion. Denies any dyspnea, chest tightness or wheezing. She denies any visits to urgent care or hospitalizations related to respiratory distress since the last visit however was admitted for a TIA to [facility], discharged end of June. Unforunately patient restarted smoking about 1 month ago, now smoking very infrequently. [facility] Medical History (Updated 08/19/24 @ 10:00 by Francy Murry PA-C) CAD (coronary artery disease) Stented coronary artery HTN (hypertension) Diabetes Asthma Nicotine dependence, cigarettes, uncomplicated Surgical History History of heart artery stent History of repair of right rotator cuff History of tubal ligation Hx of colonoscopy Family History Mother Hypertension Father No problems noted. Social History (Updated 08/19/24 @ 09:36 by Rand Lacy [facility]) Household Members: Family Housing: Apartment Housing Other:: Patient is currently living with daughter Are you a primary healthcare economics consultant to a significant other at home: No Do you presently have visiting nurse or other home services: No Patient Tobacco Use Status: Current someday Tobacco user Tobacco use type: Cigarette Cigarettes Per Day: 1 Years Smoked: onset 10yo, 1ppd x 52yrs, now 1-2 cig/wk - 40+PYH e-Cigarette/Vaping Use: Never Used Second Hand Smoke Exposure: No service: No Current occupational status: disabled Current occupational exposures/hazards: No Cognitive needs: No Hearing needs: No Vision needs: No Review of Systems Const Denies chills, Denies excessive sweating, Denies fever(s), Denies headache(s) and Denies night sweats Eyes Denies dry eyes, Denies irritation and Denies itchy eyes ENT Reports Normal hearing present, Denies headache(s), Denies nasal congestion, Denies nasal discharge, Denies post nasal drip and Denies sore throat Card Denies chest pain, Denies chest pain at rest, Denies chest pain with activity, Denies claudication, Denies leg edema, Denies dyspnea, Denies dyspnea on exertion, Denies orthopnea and Denies paroxysmal nocturnal dyspnea Resp Denies chest congestion, Denies pain on inspiration, Denies pain with cough, Denies dyspnea, Denies dyspnea on exertion, Denies stridor and Denies wheezing Musc Denies myalgias Neuro Reports Normal hearing present and Denies headache(s) Endo Denies excessive sweating Aaron/Lymph Denies lymphadenopathy Aller/Immun Denies itchy eyes, Denies seasonal rhinorrhea and Denies wheezing Physical Exam Vital Signs: Last Vital Signs Pulse 76 08/19/24 09:32 BP 98/60 08/19/24 09:32 Pulse Ox 99 08/19/24 09:32 Oxygen Delivery Method Room Air 08/19/24 09:32 BMI result Body Mass Index 28.0 Const General: cooperative, healthy appearing, comfortable, no acute distress, well developed and alert Orientation/consciousness: patient oriented x3 Limitations: no limitations HEENT Head: Yes normal to inspection, Yes normocephalic and Yes atraumatic Ears: hearing grossly normal bilaterally and external ears normal Eyes General: appearance normal, both eyes and all related structures Eyelids: Yes eyelids normal Sclerae: sclerae normal EOM: EOMs intact bilaterally Neck Neck: Yes normal visual inspection and Yes no lymphadenopathy Lymphatic: no lymphadenopathy noted Chest Chest palpation & inspection: normal inspection of the chest Resp Other: dry hacking cough throughout visit with postexhalation cough Effort & Inspection: normal respiratory effort, able to speak in complete sen tences, no audible wheezes, no stridor, not tachypneic, no tripod positioning and no use of accessory muscles Auscultation: diminished lung sounds Cardio Jugular venous distension: no JVD Rate: regular rate Rhythm: regular rhythm Skin Other: warm, dry General skin exam: no rashes or lesions noted Neuro General: patient oriented x3 Cranial nerves: Yes Normal hearing present Cognition (Neuro): normal cognition Gait exam (Neuro): Normal gait present Extrem General: Yes normal to inspection, Yes capillary refill normal, Yes no clubbing, cyanosis or edema and Yes no pedal edema Psych Appearance: grossly normal and well kempt Speech and movement: Normal speech and movement present and Clear speech present Affect: normal affect Attitude: cooperative Thought process: Normal thought process present Thought content: Normal thought content present Insight: Good insight present (Psych) Judgement: Good judgement present (Psych) Assessment & Plan Assessment & Plan (1) Asthma: Code(s): J45.909 - Unspecified asthma, uncomplicated Category: Medical (2) Environmental and seasonal allergies: Code(s): J30.89 - Other allergic rhinitis Category: Medical (3) Nicotine dependence, cigarettes, uncomplicated: Comment: (current smoker, onset 10yo, 1ppd x 52yrs, now 1-2 cig/wk - 40+PYH) Code(s): F17.210 - Nicotine dependence, cigarettes, uncomplicated Category: Medical Plan Will treat bronchitic symptoms with a zpak and prednisone. She is aware to call if symptoms do not improve, will consider CXR at that time. Encouraged increase use of nebulizer. Advised to continue Trelegy, Singulair and albuterol neb. Patient apart of the lung screening program and was supposed to have repeat chest CT scheduled in May 2024, however due to hospitalization patient unable to attend, will reach out to Myrtle to reschedule. Smoking cessation reviewed. All questions were answered and patient is in agreement of plan. Will follow up in 3 months or sooner if needed. Medications: New azithromycin For 250 mg dose pack: take 500 mg today (day 1), then 250 mg for 4 days (days 2-5) PO 6 tabs 0RF prednisone 40 mg (2 x 20 mg) PO DAILY 10 tabs 0RF Refilled albuterol sulfate 2.5 mg (3 mL) inhalation Q4H PRN 180 mL 2RF shortness of breath or wheezing J45.20 - Mild intermittent asthma, uncomplicated Coding Level of Care Code Est Pt Level 4 (55549) Diagnoses Asthma J45.909 Environmental and seasonal allergies J30.89 Nicotine dependence, cigarettes, uncomplicated F17.210
== END 2024-08-19 09:52 | disposition home or self-care (01) ==
LOC: HO.HPSW 09:26
PROVIDERS: PCP Nurse Practitioner Family; Visit Provider Nurse Practitioner Family
DX: J45.909 Unspecified asthma, uncomplicated (principal); J30.89 Other allergic rhinitis; F17.210 Nicotine dependence, cigarettes, uncomplicated
CPT/HCPCS: 99214

== ENCOUNTER → 2024-08-19 09:25 | Outpatient (BNVA) | payer OTHER, SELFPAY ==
[2024-05-06 09:20] VITALS: BP 104/78; BP 136/88; BP 138/72; BMI 29.1
== END ==
PROVIDERS: PCP Nurse Practitioner Family; Visit Provider Nurse Practitioner Family
DX: J45.909 Unspecified asthma, uncomplicated (principal); F17.210 Nicotine dependence, cigarettes, uncomplicated
CPT/HCPCS: 99212

== ENCOUNTER → 2024-08-25 09:47 | Outpatient (REF) | payer OTHER, SELFPAY ==
[2024-05-06 09:20] VITALS: BP 104/78; BP 136/88; BP 138/72; BMI 29.1
--- NOTE | 2024-08-25 09:49 | CA_ITS ---
Transthoracic Echocardiogram Patient (Last, First, Middle): Wilfrido Liz, Gender: Female Date of : 1960 Age: 63 Procedure Date: 08/25/2024 Procedure Type: Transthoracic Echocardiogram Location: OP Height: 165.1 cm Weight: 77.11 kg BSA: 1.85 m2 Heart Rate: 73 bpm BP: 104 / 62 mmHg Medical Receptionist: YUE Referring MD: Sabas Lorenzana MD Economics Consultant: Sabas Lorenzana MD Symptoms: I25.5 - Ischemic cardiomyopathy Study Quality: Adequate/limited ordered ECG Rhythm: Sinus Conclusions: - Mildly reduced LV ejection fraction of 45-50% with impaired relaxation filling pattern with underlying regional wall motion abnormality consistent with coronary disease Findings Left Ventricle Mildly increased left ventricular cavity size. There is normal left ventricular wall thickness. The left ventricular systolic function is mildly decreased. Spectral Doppler is indicative of an impaired relaxation filling pattern. E/E prime ratio is between 8 and 15 consistent with indeterminate filling pressures. Wall Motion Rest Echo Findings The apical anterior and basal inferior segments are hypokinetic. The apical septum, mid inferoseptal, and mid anteroseptal segments are akinetic. All other scored wall segments showed normal motion. Pericardium/Pleural There is no evidence of pericardial effusion. Prior Study Comparison Changes noted compared to prior study dated: 06/23/2024. LV ejection fraction has improved Measurements 2D Linear Measurements IVSd: 0.49 0.6-0.9/0.6-1.0 cm LVIDd: 6.05 3.9-5.3/4.2-5.9 cm LVIDd Index: 3.27 2.4-3.2/2.2-3.1 cm/m2 LVIDs: 4.25 2.0-3.6 cm LVPWd: 0.74 0.7-1.1 cm LV Mass: 171.79 67-162/88-224 g LV Mass Index: 92.86 43-95/49-115 g/m2 LVOT Diam: 2.00 3.0+(-)1.3 cm 2D Systolic Function EF 4C: 53.50 >55% EF 2C: 45.00 >55% EF BiP: 49.00 >55% Mitral Valve MV Pk E: 0.70 MV PK A: 0.94 MV Decel Time: 165.00 E/A: 0.70 E'Lateral: 6.31 E'Medial: 3.92 E/E' Med: 17.80 E/E' Lat: 11.10 PHT: 48.00 MVA PHT: 4.58 Decel Upton: 4.25 LVOT LVOT Pk Kvng: 0.83 LVOT Mn Kvng: 0.60 LVOT VTI: 0.19 LVOT Pk Grad: 3.00 LVOT Mn Grad: 2.00 LVOT Diam: 2.00 LVOT Area: 3.14 Diastolic Function MV Pk E: 0.70 MV Pk A: 0.94 E/A: 0.70 E'Medial: 3.92 E/E' Med: 17.80 E' Laterial: 6.31 E/E' Lat: 11.10 Updated in Other Vendor System with Status of Final Sabas Lorenzana MD electronically signed on 08/25/2024 11:05:06 AM with status of Final
== END ==
LOC: HO.CARD 09:47
PROVIDERS: PCP Nurse Practitioner Family; Visit Provider Internal Medicine Cardiovascular Disease
DX: I25.5 Ischemic cardiomyopathy (principal)
CPT/HCPCS: 93308

== ENCOUNTER → 2024-08-25 09:49 | Outpatient (BNV) | payer OTHER, SELFPAY ==
[2024-05-06 09:20] VITALS: BP 104/78; BP 136/88; BP 138/72; BMI 29.1
== END ==
PROVIDERS: PCP Nurse Practitioner Family; Visit Provider Internal Medicine Cardiovascular Disease
DX: I25.5 Ischemic cardiomyopathy (principal)
CPT/HCPCS: 93308; 93321

== ENCOUNTER → 2024-08-30 08:35 | Outpatient (REF) | payer OTHER, SELFPAY ==
[2024-05-06 09:20] VITALS: BP 104/78; BP 136/88; BP 138/72; BMI 29.1
--- NOTE | ~2024-08-30 | NM_ITS ---
Lexiscan Myocardial perfusion study Indication: Ischemic cardiomyopathy to evaluate for myocardial ischemia Technique: The patient was brought in for a Lexiscan perfusion study on August 30, 2024 and was injected 0.4 mg of Lexiscan intravenously. Within a minute of this injection 30 mCi of sestamibi was given intravenously. Images were obtained using the SPECT gamma camera interlaced with the gating device. Images were obtained in supine position. Resting perfusion study was performed on September 01, 2024. Patient was administered 30 mCi of sestamibi intravenously at rest. Images were then obtained in supine position. Images obtained without without CT attenuation. Total DLP 96 mGy-cm Images were processed with the software and compared side to side in short axis, horizontal long axis and vertical long axis views. Findings: The stress perfusion study showed nonattenuated images show moderately reduced uptake in the inferior as well as the inferoseptal and mildly reduced uptake in the inferolateral wall of the LV myocardium. Is also mildly reduced uptake in the distal anterior as well as the apex of the LV myocardium. Attenuated corrected images show mildly reduced uptake in the distal anterior as well as apex and moderately reduced uptake in the distal septum as well as mildly reduced uptake in the basal and mid inferior wall of the LV myocardium.. The gated study shows reduced LV systolic function with calculated LVEF of 48%. LV cavity is mildly dilated in size. The gated study shows reduced basal inferior as well as distal anterior wall thickening and contraction of segments. Resting study shows no clear significant change in perfusion pattern compared to stress perfusion study. Gating at rest reveals basal inferior and distal anterior wall motion with ejection fraction at 36%. The findings are consistent with [no reversible defect suggestive of ischemia. Fixed basal inferior and mid inferior as well as distal anterior defect suggestive of nontransmural infarct. Severe ischemia cannot be entirely ruled out. NM/NM mp perf SPECT rest & str Impression: 1. Myocardial perfusion imaging study shows no clear reversible defect with fixed distal anterior, basal and mid inferior wall defect suggestive of nontransmural infarct 2. Gated LVEF is 48% with stress and 36% with rest 3. Transient ischemic dilatation not present but LV cavity is dilated Nondiagnostic changes on EKG. Electronically signed by: Sabas Lorenzana MD 09/01/2024 04:47 PM EDT
--- NOTE | 2024-08-30 08:38 | CA_ITS ---
Acquisition Time: 2024-08-30 09:20:26 Total Exercise Time: 00:02:00 Test Indications: CARDIOMYOPATHY Medications: SEE H&P Protocol: LEXISCAN Max HR: 106 BPM 67% of Pred: 157 BPM Max BP: 132/60 mmHG Max Work Load: 1.0 METS Pharmacological stress test with Lexiscan while pt marches in her chair, with reports of SOB and lightheadedness, with isolated PVCs, with normotensive response to injection. Nondiagnostic EKG for ischemia. Basleine downsloping ST inferolaterally and ST elevation in aVR and V1. In recovery, pt treated with IVP Aminophylline 75 mg to reverse Lexiscan after which pt feeling back to baseline. Nuclear images pending. Test reviewed with Dr. Easton. Referred By: Sabas Lorenzana Electronically Signed By: Nathaniel Costa
== END ==
LOC: HO.CARD 08:35
PROVIDERS: PCP Nurse Practitioner Family; Visit Provider Internal Medicine Cardiovascular Disease
DX: I25.5 Ischemic cardiomyopathy (principal)
CPT/HCPCS: 78452; 93017; A9500; J0280; J2785

== ENCOUNTER → 2024-08-30 08:38 | Outpatient (BNV) | payer OTHER, SELFPAY ==
[2024-05-06 09:20] VITALS: BP 104/78; BP 136/88; BP 138/72; BMI 29.1
== END ==
PROVIDERS: PCP Nurse Practitioner Family
DX: R06.02 Shortness of breath (principal); I49.3 Ventricular premature depolarization
CPT/HCPCS: 78452; 93016; 93018

== ENCOUNTER 2024-09-06 12:21 | Outpatient (AMB) | payer OTHER, SELFPAY ==
[2024-05-06 09:20] VITALS: BP 104/78; BP 136/88; BP 138/72; BMI 29.1
--- NOTE | 2024-09-06 12:29 | MHC.PC.OV ---
Vital Signs 09/06/24 12:31 Height 5 ft 5 in Weight 166 lb 6 oz BMI 27.7 BP 105/61 Blood Pressure Location Lt brachial Position Sitting Respiration 16 Pulse 80 Pulse Source Pulse Oximeter Temp 98.1 F Temp Source Oral Pulse Oximetry (%) 100 Oxygen Delivery Method Room Air Intake Visit Reasons: HDF - From [facility] Intake Note: patient here for HDF from [facility] Educational Audiologist Required: No Is last menstrual period known: No Post menopausal: No Patient : No Allergies Seasonal Allergies Allergy (Mild, Verified 09/06/24 13:00) congestion Medication List - Last Reconciled 09/06/24 by Pepito Cardoza CNP albuterol sulfate 2.5 mg (3 mL) inhalation Q4H PRN alcohol swabs 1 pad topical TID aspirin 81 mg PO DAILY 90 days atorvastatin 80 mg PO DAILY azithromycin For 250 mg dose pack: take 500 mg today (day 1), then 250 mg for 4 days (days 2-5) PO bisacodyl (Dulcolax (bisacodyl)) 20 mg (4 x 5 mg) PO ONCE 1 day blood pressure test kit-large (HID Global Versa Arm BP Monitor kit) As directed blood sugar diagnostic (Meine Spielzeugkiste Ultra Test strips) bs checks 3 times per day blood-glucose meter (Pre Play Sportsuch Ultra2 Meter) POC testing TID blood-glucose meter Test 3 times daily carvedilol 12.5 mg PO BID cetirizine (Zyrtec) 10 mg PO DAILY PRN cholecalciferol (vitamin D3) 50 mcg PO QAM 90 days dulaglutide (Trulicity) 3 mg (0.5 mL) subcut QWEEK empagliflozin (Jardiance) 10 mg PO DAILY qxpbjdclpkj-rfpqhzcah-eiillhhg 200-62.5-25 mcg (Trelegy Ellipta) 1 ea PO DAILY ipratropium bromide 2 sprays intranasal BID lancets (Meine Spielzeugkiste Delica Plus Lancet) USE TO TEST THREE TIMES DAILY lidocaine 5% 1 patch topical DAILY montelukast (Singulair) 10 mg PO BEDTIME omeprazole 20 mg PO DAILY polyethylene glycol 3350 (Miralax) 238 grams PO ONCE prednisone 40 mg (2 x 20 mg) PO DAILY sacubitril-valsartan 49-51 mg (Entresto) 1 tab PO BID Shower Chair As directed Tobacco use date assessed: 09/06/24 Dental Screening Dental Screen Date: 09/06/24 Did you have a dental visit in the last 12 months?: No Did you have a dental problem in the last 6 months where you did not have access to dental care?: No Was dental information given to patient?: Patient has dentist HPI HPI Comments History of Present Illness Details 63-year-old female presents for hospital discharge follow-up. Hospital Course: She was admitted at [facility] between 07/18/2024 and 07/21/2024. She presented to [facility] ED on 07/17/2024 for evaluation of altered mental status, nausea with vomiting, right-sided facial droop, and right upper extremity weakness. In the emergency room, patient's noncontrast head CT was unremarkable for any acute infarction. No large vessel occlusion. MRI brain was also unremarkable. TSH unremarkable. Lipid panel unremarkable. Hemoglobin A1c elevated at 7.2. Echocardiogram completed on 07/19 showing an EF between 40-45% with evidence of regional wall motion abnormalities. Both atria are normal size. No prior echo on file to compare. Right-sided weakness, facial droop, and AMS of completely resolved on my exam today on 07/21. Neurology consulted. Appropriate recs. DAPT with aspirin and Plavix 75 mg daily times 21 days then aspirin alone. Current medications were continued. She was also treated for UTI. Recommended follow-up with PCP and Cardiology. Patient notes that she has been baseline since her recent hospital discharge. She denies acute symptoms. She notes that she has been taking her medications as prescribed without adverse reactions. She has been making healthy lifestyle changes. She smokes 2 puffs of cigarette every other week. She has a follow-up appointment with Cardiology on 09/13/2024. [facility] Medical History (Updated 08/19/24 @ 10:00 by Francy Murry PA-C) CAD (coronary artery disease) Stented coronary artery HTN (hypertension) Diabetes Asthma Nicotine dependence, cigarettes, uncomplicated Surgical History History of heart artery stent History of repair of right rotator cuff History of tubal ligation Hx of colonoscopy Family History Mother Hypertension Father No problems noted. Social History (Updated 08/19/24 @ 09:36 by Rand Lacy [facility]) Household Members: Family Housing: Apartment Housing Other:: Patient is currently living with daughter Are you a primary care nurse rn to a significant other at home: No Do you presently have visiting nurse or other home services: No Patient Tobacco Use Status: Current someday Tobacco user Tobacco use type: Cigarette Cigarettes Per Day: 1 Years Smoked: onset 10yo, 1ppd x 52yrs, now 1-2 cig/wk - 40+PYH Packs per year/per ci.00 e-Cigarette/Vaping Use: Never Used Second Hand Smoke Exposure: No Patient : No service: No Current occupational status: disabled Current occupational exposures/hazards: No Cognitive needs: No Hearing needs: No Vision needs: No Questionnaire Thrive Questionnaire Date Thrive assessed: 04/05/24 I am a: Patient What is your living situation today?: I have a steady place to live Within the past 12 months, did the food you bought not last and you didn't have the money to get more?: I choose not to answer this question Within the past 12 months, did you worry whether your food would run out before you got money to buy more?: Sometimes True Do you have trouble paying for medicines?: No Do you have trouble getting transportation to medical appointments?: No Do you have trouble paying your heating and electricity bill?: Yes Do you have trouble taking care of your child, family member or friend?: No Do you have trouble with day-to-day activities such as bathing, preparing meals, shopping, managing finances, etc.?: Yes Are you currently unemployed and looking for a job?: I choose not to answer this question Are you interested in more education?: No Please select the resources that you would like help with: Utilities Currently or been in a relationship where the following occur: I choose not to answer THRIVE Score: 2 ZURI-7 AMB Questionnaire ZURI-7 Date ZURI - 7 assessed: 04/05/24 Source: Developed by Drs. Isma Erickson, Joyce Phillips, Roger Davis and colleagues, with an educational jana from [employer]. Physical exam (Primary Care) Vital Signs: Last Vital Signs Temp 98.1 F 09/06/24 12:31 Pulse 80 09/06/24 12:31 Resp 16 09/06/24 12:31 BP 105/61 09/06/24 12:31 Pulse Ox 100 09/06/24 12:31 Oxygen Delivery Method Room Air 09/06/24 12:31 BMI result Body Mass Index 27.7 Tobacco/Smoking Status: Tobacco use Status Tobacco use date assessed 09/06/24 09/06/24 12:35 Patient Tobacco Use Status Current someday Tobacco 09/06/24 12:35 Tobacco use type Cigarette 09/06/24 12:35 e-Cigarette/Vaping Use Never Used 09/06/24 12:35 Thrive Assessment: Date of Thrive Assessment Date Thrive assessed 04/05/24 09/06/24 12:35 Currently or been in a relationship where the following occur: I choose not to answer Coding Level of Care Code Est Pt Level 4 (22512) Diagnoses Hospital discharge follow-up Z09 Primary hypertension I10 Hypertension type: primary hypertension Assessment & Plan Assessment & Plan (1) Hospital discharge follow-up: Code(s): Z09 - Encounter for follow-up examination after completed treatment for conditions other than malignant neoplasm Category: Medical Plan: She has been at baseline since recent hospital discharge. No acute symptoms. Continue current treatment regimen. Healthy diet and routine exercise encouraged. Smoking cessation encouraged Follow-up with cardiology as planned. Return with PCP as planned. Verbalized understanding and agreed with the plan. (2) HTN (hypertension): Code(s): I10 - Essential (primary) hypertension Category: Medical Qualifiers: Hypertension type: primary hypertension Qualified Code(s): I10 - Essential (primary) hypertension Plan: Blood pressure is 105/61, within goal of less than 130/80. Continue current treatment regimen. Low-sodium diet encouraged. Follow-up as planned. Verbalized understanding and agreed with the treatment plan.
[2024-09-06 12:31] VITALS: BP 105/61; PULSE 80; RESP 16; TEMP 36.7; O2SAT 100; BMI 27.7
== END 2024-09-06 14:14 | disposition home or self-care (01) ==
LOC: HO.HMCFM 12:22
PROVIDERS: PCP Nurse Practitioner Family; Visit Provider Nurse Practitioner Family
DX: Z09 Encounter for follow-up examination after completed treatment for conditions other than malignant neoplasm (principal); I10 Essential (primary) hypertension

== ENCOUNTER → 2024-09-06 12:21 | Outpatient (BNVA) | payer OTHER, SELFPAY ==
[2024-05-06 09:20] VITALS: BP 104/78; BP 136/88; BP 138/72; BMI 29.1
== END ==
PROVIDERS: PCP Nurse Practitioner Family; Visit Provider Nurse Practitioner Family
DX: I10 Essential (primary) hypertension (principal); I25.10 Atherosclerotic heart disease of native coronary artery without angina pectoris; Z09 Encounter for follow-up examination after completed treatment for conditions other than malignant neoplasm
CPT/HCPCS: 99212

== ENCOUNTER 2024-09-13 14:56 | Outpatient (AMB) | payer OTHER, SELFPAY ==
[2024-05-06 09:20] VITALS: BP 104/78; BP 136/88; BP 138/72; BMI 29.1
[2024-09-13 15:01] VITALS: BP 120/70; PULSE 73; BMI 26.8
--- NOTE | 2024-09-13 15:01 | MHC.OFFVIS ---
Vital Signs 09/13/24 15:01 Height 5 ft 5 in Weight 160 lb 14.999 oz BMI 26.8 BP 120/70 Blood Pressure Location Lt brachial Position Sitting Pulse 73 Intake Visit Reasons: 6 wk follow up/ labs/preop colonoscopy Intake Note: 6 month follow-up with ekg stress and echo results and pre-op colonscopy Benefits Officer Required: No Allergies Seasonal Allergies Allergy (Mild, Verified 09/06/24 13:00) congestion Medication List - Last Reconciled 09/13/24 by Sabas Lorenzana MD albuterol sulfate 2.5 mg (3 mL) inhalation Q4H PRN alcohol swabs 1 pad topical TID aspirin 81 mg PO DAILY 90 days atorvastatin 80 mg PO DAILY bisacodyl (Dulcolax (bisacodyl)) 20 mg (4 x 5 mg) PO ONCE 1 day blood pressure test kit-large (GB Environmental Versa Arm BP Monitor kit) As directed blood sugar diagnostic (Groupoff Ultra Test strips) bs checks 3 times per day blood-glucose meter (Groupoff Ultra2 Meter) POC testing TID blood-glucose meter Test 3 times daily bupropion HCl XL (Wellbutrin XL) 150 mg PO QAM carvedilol 12.5 mg PO BID cetirizine (Zyrtec) 10 mg PO DAILY PRN cholecalciferol (vitamin D3) 50 mcg PO QAM 90 days dulaglutide (Trulicity) 3 mg (0.5 mL) subcut QWEEK empagliflozin (Jardiance) 10 mg PO DAILY rsfhnavswbx-dtcalzojc-ftzyuerf 200-62.5-25 mcg (Trelegy Ellipta) 1 ea PO DAILY ipratropium bromide 2 sprays intranasal BID lancets ([place] Delica Plus Lancet) USE TO TEST THREE TIMES DAILY montelukast (Singulair) 10 mg PO BEDTIME nicotine (polacrilex) 4 mg buccal ONCE PRN omeprazole 20 mg PO DAILY polyethylene glycol 3350 (Miralax) 238 grams PO ONCE sacubitril-valsartan 49-51 mg (Entresto) 1 tab PO BID Shower Chair As directed HPI Comments Details: Wilfrido comes for follow-up. She has no new cardiac complaints. Takes all her medications. Most recent myocardial perfusion imaging shows no evidence of ischemia but mostly areas of non transmural infarcts suggestive of underlying coronary artery disease. She has no orthopnea, PND, leg edema. No exertional chest pain. Takes all her medications. Scheduled to undergo colonoscopy in near future. [facility] Medical History CAD (coronary artery disease) Stented coronary artery HTN (hypertension) Diabetes Asthma Nicotine dependence, cigarettes, uncomplicated Surgical History History of heart artery stent History of repair of right rotator cuff History of tubal ligation Hx of colonoscopy Family History Mother Hypertension Father No problems noted. Social History Household Members: Family Housing: Apartment Housing Other:: Patient is currently living with daughter Are you a primary career and transition teacher to a significant other at home: No Do you presently have visiting nurse or other home services: No Patient Tobacco Use Status: Current someday Tobacco user Tobacco use type: Cigarette Cigarettes Per Day: 1 Years Smoked: onset 10yo, 1ppd x 52yrs, now 1-2 cig/wk - 40+PYH e-Cigarette/Vaping Use: Never Used Second Hand Smoke Exposure: No service: No Current occupational status: disabled Current occupational exposures/hazards: No Cognitive needs: No Hearing needs: No Vision needs: No Review of Systems Const Denies chills, Denies fatigue, Denies fever(s), Denies frequent falls, Denies weakness, Denies weight gain and Denies weight loss ENT Denies dizziness Card Denies chest pain, Denies leg edema, Denies lightheadedness, Denies palpitations, Denies dyspnea, Denies dyspnea on exertion, Denies orthopnea and Denies other (loss of consciousness) Resp Denies cough, Denies dyspnea and Denies dyspnea on exertion GI Denies hematochezia and Denies change in stool character Musc Denies abnormal gait, Denies muscle weakness, Denies numbness, Denies radiating pain into limb and Denies tingling Neuro Denies abnormal gait, Denies dizziness, Denies frequent falls, Denies numbness, Denies tingling and Denies weakness Endo Denies fatigue and Denies palpitations Physical Exam Vital Signs: Last Vital Signs Pulse 73 09/13/24 15:01 BP 120/70 09/13/24 15:01 BMI result Body Mass Index 26.8 Const General: cooperative, healthy appearing, comfortable and no acute distress Orientation/consciousness: patient oriented x3 Limitations: ambulation with walker Neck Neck: Yes normal visual inspection Resp Effort & Inspection: normal respiratory effort Auscultation: clear to auscultation bilaterally, no crackles, no rales, no rhonchi and no wheezes Cardio Jugular venous distension: no JVD Rate: regular rate Rhythm: regular rhythm Heart sounds: S1 normal heart sound present, S2 normal heart sound present, no murmurs and no rubs Neuro General: patient oriented x3 Extrem General: Yes normal to inspection and No no pedal edema Psych Appearance: grossly normal Mental Status: mental status grossly normal Speech and movement: Normal speech and movement present Office Procedures EKG Details: EKG shows normal sinus rhythm with normal EKG 30045-[id number], Complete Assessment & Plan Assessment & Plan (1) CAD (coronary artery disease): Comment: (STEMI 2021 = s/p ROSELIA to LAD) Code(s): I25.10 - Atherosclerotic heart disease of [place]lowa dee-ni' coronary artery without angina pectoris Category: Medical Qualifiers: Coronary Disease-Associated Artery/Lesion type: [place] de[place]' artery [place] vs. transplanted heart: [place]' heart Associated angina: without angina Qualified Code(s): I25.10 - Atherosclerotic heart disease of [place] de[place]' coronary artery without angina pectoris Plan: CAD with prior drug-eluting stent to LAD as well as circumflex artery with no recurrent symptoms suggestive of angina. Continue aggressive risk factor modification. Low-dose aspirin therapy is advised. Continue high-intensity statin therapy. Advised repeat lipid panel in near future with target goal LDL less than 70 mg/dL. Further treatment based on the findings. Continue aggressive blood pressure control which is currently well optimized advised to monitor blood pressure at home maintain a log. Goal blood pressure less than 130/84. Aggressive diabetes management through office. Goal hemoglobin A1c less than 7%. (2) Ischemic cardiomyopathy: Code(s): I25.5 - Ischemic cardiomyopathy Category: Medical Plan: Ischemic cardiomyopathy with mild LV systolic dysfunction improved on current neurohormonal modulation with Entresto as well as carvedilol which she is tolerating well. Currently no signs or symptoms of heart failure. Signs and symptoms of heart failure were discussed. Continue daily weight monitoring avoidance salt loading. PRN diuretics as need be. (3) Preoperative cardiovascular examination: Code(s): Z01.810 - Encounter for preprocedural cardiovascular examination Plan: Preoperative cardiovascular risk stratification with limited exercise capacity with prior known CAD as well as ischemic cardiomyopathy with stable cardiac disease. Recent myocardial perfusion imaging shows no significant ischemia. She is currently optimized to undergo the procedure with low to intermediate risk for perioperative cardiovascular morbidity mortality. Will follow up in the clinic in 6 months time, sooner p.r.n.. Thank you for allowing me to partake in her care Coding Level of Care Code Est Pt Level 4 (19180) Complex EM visit Add On G2211 Diagnoses Coronary artery disease involving tolowa dee-ni' coronary artery of [place] de[place]' heart without angina pectoris I25.10 Coronary Disease-Associated Artery/Lesion type: [place] de[place]' artery [place] vs. transplanted heart: [place]lowa de[place]-ni' heart Associated angina: without angina Ischemic cardiomyopathy I25.5 Preoperative cardiovascular examination Z01.810 CPT Codes EKG - CPT: 58436-[id number], Complete ([id number])
--- OUTSIDE RECORDS SUMMARY | 2024-09-13 16:03 | XMS_ITS | Clinical Summary ---
Author Organization [facility] Address [address] [place] [id number] Phone Care Team Providers Care Oil Painter Name Role Phone Prisca Grullon NP Primary Care Provider Allergies No known active allergies Medications amLODIPine (NORVASC) 10 MG tablet Take 10 mg by mouth daily. 01/01/2022 Active aspirin 81 MG EC tablet Take 81 mg by mouth daily. 12/13/2021 Active atorvastatin (LIPITOR) 80 MG tablet Take 80 mg by mouth daily. 11/30/2021 Active azelastine (ASTEPRO) 205.5 mcg (0.15 %) [place] 1 spray by Each Nare route daily. 10/12/2021 Active ONETOUCH ULTRA TEST Strp strips CHECK BLOOD SUGAR 2 TO 3 TIMES EVERY DAY 12/11/2021 Active carvedilol (COREG) 12.5 MG tablet Take 12.5 mg by mouth daily. 01/08/2022 Active cholecalciferol (VITAMIN D3) 2,000 unit tablet Take 2,000 Int'l Units by mouth daily. 12/04/2021 Active TRULICITY 0.75 mg/0.5 mL subcutaneous injection Inject 0.75 mg under the skin every 7 days. 12/01/2021 Active glipiZIDE (GLUCOTROL) 10 MG tablet Take 10 mg by mouth 2 (two) times a day. 11/12/2021 Active loratadine (CLARITIN) 10 mg tablet Take 10 mg by mouth daily. 12/04/2021 Active omeprazole (PRILOSEC) 20 MG capsule Take 20 mg by mouth daily. 11/25/2021 Active BRILINTA 90 mg Tab Take 90 mg by mouth 2 (two) times a day. 01/03/2022 Active valsartan (DIOVAN) 80 MG tablet Take 80 mg by mouth daily. 11/28/2021 Active Active Problems Problem Noted Date Diagnosed Date Diabetes mellitus 01/14/2022 Social History Tobacco Use Types Packs/Day Years Used Date Smoking Tobacco: Every Day Cigarettes Smokeless Tobacco: Never Tobacco Cessation:Ready to Q uit: Not Asked; Counseling Given: Not Answered Alcohol Use Standard Drinks/Week Comments Not Currently 0 (1 standard drink = 0.6 oz pur e alcohol) Education Answer Date Recorded Are you interested in more education? Not on ree e 06/21/2022 Are you concerned about learning? Not on file 06/21/2022 No 06/21/2022 No 06/21/2022 Digital Access Answer Date Recorded No 07/20/2022 No 07/20/2022 No 07/20/2022 Reliable internet access at home? Not on file 07/20/2022 Device with a working camera? Not on file Comments Unknown Sex and Gender Information Value Date Recorded Sex Assigned at Not on file Legal Sex Female 2:25 PM EDT Gender Identity Not on file Sexual Orientation Not on file Last Filed Vital Signs Vital Sign Reading Time Taken Comments Blood Pressure - - Pulse - - Temperature - - Respiratory Rate - - Oxygen Saturation - - Inhaled Oxygen Concentration - - Weight 82.6 kg (182 lb) 01/09/2022 9:54 AM EST Height 166.4 cm (5' 5.5 ) 01/09/2022 9:54 AM EST Body Mass Index 29.83 01/09/2022 9:54 AM EST Plan of Treatment Health Maintenance Due Date Last Done Comments Adult Td,Tdap Booster 1960 BLOOD PRESSURE 1960 CREATININE LEVEL 1960 HEMOGLOBIN A1C 1960 POTASSIUM LEVEL 1960 DEPRESSION SCREENING 1972 SMOKING Hx and SMOKELESS TOB ACCO SCREENING 1973 HEPATITIS C SCREENING 1978 HIV ONE-TIME SCREENING (18-6 5 YEARS) 1978 PNEUMOCOCCAL VACCINES (50+ y ears) (1 of 2 - PCV) 10/06/1979 PAP SMEAR 1981 MAMMOGRAM 2000 COLOGUARD 2005 COLONOSCOPY 2005 COLORECTAL CANCER SCREENING 2005 FIT TEST 2005 FOBT 2005 SIGMOIDOSCOPY 2005 VIRTUAL COLONOSCOPY 2005 ZOSTER VACCINES (1 of 2) 2010 DIABETIC EYE EXAM 01/14/2022 COVID-19 VACCINE (1 - 2023-2 5 season) 2023 RSV VACCINE (1 - 1-dose 75+ series) 10/06/2035 HEPATITIS A VACCINES Aged Out No long er eligible based on patient's age to complete this topic HIB VACCINES Aged Out No longer eligi ble based on patient's age to complete this topic MENINGOCOCCAL VACCINES (ACWY) Aged Out No longer eligible based on patient's age to complete this topic MENINGOCOCCAL VACCINES (B) Aged Out N o longer eligible based on patient's age to complete this topic Medical Devices Not on file Insurance MEDICARE PART A & [place] B Member Subscriber Plan / Payer (Ef fective 2001-Present) Name:Miguel Lizkenny Member ID:[id number] Relation to Subscriber:Self Name:Miguel Lizkenny Subscriber ID:[id number] Payer ID:[id number] Group ID:Not on file Type:Medicare Address: [employer] [address] [place], [place] [id number] [place] & B Care Teams Oil Painter Relationship Specialty Start Date End Date Prisca Grullon NP PCP - General Family Medicine 12/19/21 Additional Source Comments The information contained in this document represents components of the legal health record. It is not the complete legal health record.[facility]
== END 2024-09-13 15:19 | disposition home or self-care (01) ==
LOC: HO.HCS 14:57
PROVIDERS: PCP Nurse Practitioner Family; Visit Provider Internal Medicine Cardiovascular Disease
DX: I25.10 Atherosclerotic heart disease of native coronary artery without angina pectoris (principal); I25.5 Ischemic cardiomyopathy; Z01.810 Encounter for preprocedural cardiovascular examination
CPT/HCPCS: 93010; 99214; G2211

== ENCOUNTER → 2024-09-13 14:56 | Outpatient (BNVA) | payer OTHER, SELFPAY ==
[2024-05-06 09:20] VITALS: BP 104/78; BP 136/88; BP 138/72; BMI 29.1
== END ==
PROVIDERS: PCP Nurse Practitioner Family; Visit Provider Internal Medicine Cardiovascular Disease
DX: Z01.810 Encounter for preprocedural cardiovascular examination (principal); I25.10 Atherosclerotic heart disease of native coronary artery without angina pectoris
CPT/HCPCS: 93005; 99212

== ENCOUNTER 2024-10-31 10:40 | Outpatient (REF) | payer OTHER, SELFPAY ==
[2024-05-06 09:20] VITALS: BP 104/78; BP 136/88; BP 138/72; BMI 29.1
[2024-10-31 12:07] LABS: Anion Gap 12 (12-20); Blood Urea Nitrogen 17 mg/dL (9-16); Carbon Dioxide 29 mmol/L (22-29); Chloride 108 mmol/L (96-108); Estimated Glomerular Filt Rate 45; Potassium 4.5 mmol/L (3.3-5.1); Sodium 144 mmol/L (135-145)
--- OUTSIDE RECORDS SUMMARY | 2024-10-31 12:52 | XMS_ITS | Clinical Summary ---
Author Organization [facility] Address [address] [place] [phone] Phone Care Team Providers Care Internet Merchant Name Role Phone Prisca Grullon NP Primary Care Provider Allergies No known active allergies Medications amLODIPine (NORVASC) 10 MG tablet Take 10 mg by mouth daily. 01/01/2022 Active aspirin 81 MG EC tablet Take 81 mg by mouth daily. 12/13/2021 Active atorvastatin (LIPITOR) 80 MG tablet Take 80 mg by mouth daily. 11/30/2021 Active azelastine (ASTEPRO) 205.5 mcg (0.15 %) [place] 1 spray by Each Nare route daily. [...] of 2) 2010 DIABETIC EYE EXAM 01/14/2022 INFLUENZA VACCINE (#1) 2024 COVID-19 VACCINE (1 - 2023-2 5 season) 2024 RSV VACCINE (1 - 1-dose 75+ series) [...] topic Medical Devices Not on file [place] [address] [place] [address] MEDICARE PART A & B [place] & [place] & [place] A & B Care Teams Internet Merchant Relationship Specialty Start Date End Date Prisca Grullon NP PCP - General Family Medicine 12/19/21 Additional Source Comments The information contained in this document represents components of the legal health record. It is not the complete legal health record.[facility]
== END 2024-10-31 10:41 | disposition home or self-care (01) ==
LOC: HO.LAB 10:40
PROVIDERS: Absent Provider Internal Medicine Nephrology; PCP Nurse Practitioner Family; Visit Provider Internal Medicine Cardiovascular Disease
DX: I12.9 Hypertensive chronic kidney disease with stage 1 through stage 4 chronic kidney disease, or unspecified chronic kidney disease (principal); N18.31 Chronic kidney disease, stage 3a; N28.89 Other specified disorders of kidney and ureter; N27.0 Small kidney, unilateral
CPT/HCPCS: 36415; 80051; 82565; 84520

== ENCOUNTER 2024-11-04 15:42 | Outpatient (REF) | payer OTHER, SELFPAY ==
[2024-05-06 09:20] VITALS: BP 104/78; BP 136/88; BP 138/72; BMI 29.1
--- OUTSIDE RECORDS SUMMARY | 2024-11-04 17:45 | XMS_ITS | Clinical Summary ---
Author Organization [facility] Address [address] [place] [phone] Phone Care Team Providers Care Mill Feeder Name Role Phone Prisca Grullon NP Primary Care Provider Allergies No known active allergies Medications amLODIPine (NORVASC) 10 MG tablet Take 10 mg by mouth daily. 01/01/2022 Active aspirin 81 MG EC tablet Take 81 mg by mouth daily. 12/13/2021 Active atorvastatin (LIPITOR) 80 MG tablet Take 80 mg by mouth daily. 11/30/2021 Active azelastine (ASTEPRO) 205.5 mcg (0.15 %) [place] 1 spray by Each Nare route daily. [...] topic Medical Devices Not on file [place] [address] [place] [address] MEDICARE PART A & B [place] & [place] & [place] & [place] A & B Care Teams Mill Feeder Relationship Specialty Start Date End Date Prisca Grullon NP PCP - General Family Medicine 12/19/21 Additional Source Comments The information contained in this document represents components of the legal health record. It is not the complete legal health record.[facility]
== END 2024-11-04 15:43 | disposition home or self-care (01) ==
LOC: HO.CT 15:42
PROVIDERS: PCP Nurse Practitioner Family; Visit Provider Physician Assistant Medical
DX: Z12.2 Encounter for screening for malignant neoplasm of respiratory organs (principal); F17.210 Nicotine dependence, cigarettes, uncomplicated
CPT/HCPCS: 71271

== ENCOUNTER → 2024-11-04 15:44 | Outpatient (BNV) | payer OTHER, SELFPAY ==
[2024-05-06 09:20] VITALS: BP 104/78; BP 136/88; BP 138/72; BMI 29.1
== END ==
PROVIDERS: PCP Nurse Practitioner Family; Visit Provider Radiology Diagnostic Radiology
DX: F17.210 Nicotine dependence, cigarettes, uncomplicated (principal)
CPT/HCPCS: 71271

== ENCOUNTER 2024-11-10 10:56 | Outpatient (AMB) | payer OTHER, SELFPAY ==
[2024-05-06 09:20] VITALS: BP 104/78; BP 136/88; BP 138/72; BMI 29.1
--- NOTE | 2024-11-10 11:35 | HO.NEPHOV ---
Vital Signs 11/10/24 11:37 Height 5 ft 5 in Weight 162 lb 6 oz BMI 27.0 BP 120/74 Blood Pressure Location Lt brachial Position Sitting Pulse 67 Pulse Source Pulse Oximeter Pulse Oximetry (%) 99 Oxygen Delivery Method Room Air Intake Visit Reasons: 4mon follow-up w/labs-Conf Philatelic Consultant Required: No Accompanied by: Self / Same As Patient Allergies Seasonal Allergies Allergy (Mild, Verified 11/11/24 10:37) congestion HPI Comments Details: Wilfrido was seen in follow up for CKD & hypertension . She is 63 years of age and has been in good health. She is a diabetic and hypertensive. She has no history of proteinuria. She does not take nonsteroidal anti-inflammatories or PPI . She does not have any nausea, vomiting, diarrhea, shortness of breath, proximal nocturnal dyspnea, orthopnea, pedal edema, hematuria, renal stones, congestive heart failure, carotid stenosis, peripheral arterial disease, renal artery stenosis, new bone or back pain. She has CAD and had PCI. She never had any history of high serum calcium. She denies any history of hepatitis or HIV. She does not get any recurrent sore throat, epistaxis, hemoptysis, photosensitivity, skin rashes. She has no sensorineural hearing deficits or microscopic hematuria. She has no acral tingling or paresthesia. There were no new specific complaints at the time of this office visit [facility] Medical History CAD (coronary artery disease) Stented coronary artery HTN (hypertension) Diabetes Asthma Nicotine dependence, cigarettes, uncomplicated Surgical History History of heart artery stent History of repair of right rotator cuff History of tubal ligation Hx of colonoscopy Family History Mother Hypertension Father No problems noted. Social History Household Members: Family Housing: Apartment Housing Other:: Patient is currently living with daughter Are you a primary congregational care pastor to a significant other at home: No Do you presently have visiting nurse or other home services: No Patient Tobacco Use Status: Current someday Tobacco user Tobacco use type: Cigarette Cigarettes Per Day: 1 Years Smoked: onset 10yo, 1ppd x 52yrs, now 1-2 cig/wk - 40+PYH e-Cigarette/Vaping Use: Never Used Second Hand Smoke Exposure: No service: No Current occupational status: disabled Current occupational exposures/hazards: No Cognitive needs: No Hearing needs: No Vision needs: No Review of Systems Const All systems reviewed & are unremarkable except as noted in HPI and below Physical Exam Vital Signs: Last Vital Signs Pulse 67 11/10/24 11:37 BP 120/74 11/10/24 11:37 Pulse Ox 99 11/10/24 11:37 Oxygen Delivery Method Room Air 11/10/24 11:37 BMI result Body Mass Index 27.0 Const General: comfortable and no acute distress Orientation/consciousness: patient oriented x3 HEENT Head: Yes normocephalic Mouth: Normal oral and palatal mucosa present Eyes EOM: EOMs intact bilaterally Neck Neck: Yes supple Resp Auscultation: clear to auscultation bilaterally Cardio Jugular venous distension: no JVD Rate: regular rate GI Palpation (GI): Soft to palpation Auscultation: normal bowel sounds General: Yes no CVA tenderness Back/Spine/Pelvis Back: no CVA tenderness Skin General skin exam: no rashes or lesions noted Neuro General: patient oriented x3 and moves all extremities Extrem General: Yes no pedal edema Results Reviewed Nephrology Results: Sodium, (135-145) 144 mmol/L 10/31/24 Potassium, (3.3-5.1) 4.5 mmol/L 10/31/24 Chloride, (96-108) 108 mmol/L 10/31/24 Carbon Dioxide, (22-29) 29 mmol/L 10/31/24 BUN, (9-16) 17 mg/dL H 10/31/24 Creatinine, (0.5-1.4) 1.21 mg/dL 10/31/24 Renal US 03/14/24 Assessment & Plan Assessment & Plan (1) HTN (hypertension): Code(s): I10 - Essential (primary) hypertension Category: Medical Qualifiers: Hypertension type: primary hypertension Qualified Code(s): I10 - Essential (primary) hypertension (2) CKD stage 3a, GFR 45-59 ml/min: Code(s): N18.31 - Chronic kidney disease, stage 3a Category: Medical (3) Small right kidney: Code(s): N27.0 - Small kidney, unilateral Category: Medical (4) Renal vascular disease: Code(s): N28.89 - Other specified disorders of kidney and ureter Category: Medical Plan Wilfrido has CKD due to noah vascular disease. She has H/O CAD needing PCI. She is on Entresto. She has no clinical signs of HF. She can continue Jardiance 10 mg daily which I shall increase to 25 mg with time. She avoids nonsteroidal anti-inflammatories and maintain good hydration which I encouraged. I did not make any other medication changes today. All these possibilities have been discussed in detail and I answered all her questions & follow-up appointment was given Orders: Orders Blood Urea Nitrogen 3 Months I10 - Essential (primary) hypertension, N18.31 - Chronic kidney disease, stage 3a Protein Creatinine Ratio, Ur 3 Months I10 - Essential (primary) hypertension, N18.31 - Chronic kidney disease, stage 3a Electrolytes 3 Months I10 - Essential (primary) hypertension, N18.31 - Chronic kidney disease, stage 3a Creatinine 3 Months I10 - Essential (primary) hypertension, N18.31 - Chronic kidney disease, stage 3a Hemoglobin A1c 3 Months I10 - Essential (primary) hypertension, N18.31 - Chronic kidney disease, stage 3a Coding Level of Care Code Est Pt Level 4 (94332) Diagnoses Primary hypertension I10 Hypertension type: primary hypertension CKD stage 3a, GFR 45-59 ml/min N18.31 Small right kidney N27.0 Renal vascular disease N28.89
[2024-11-10 11:37] VITALS: BP 120/74; PULSE 67; O2SAT 99; BMI 27.0
--- OUTSIDE RECORDS SUMMARY | 2024-11-10 13:03 | XMS_ITS | Clinical Summary ---
Author Organization [facility] Address [address] [place] [phone] Phone Care Team Providers Care Operational Risk Consultant Name Role Phone Prisca Grullon NP Primary Care Provider Allergies No known active allergies Medications amLODIPine (NORVASC) 10 MG tablet Take 10 mg by mouth daily. 01/01/2022 Active aspirin 81 MG EC tablet Take 81 mg by mouth daily. 12/13/2021 Active atorvastatin (LIPITOR) 80 MG tablet Take 80 mg by mouth daily. 11/30/2021 Active azelastine (ASTEPRO) 205.5 mcg (0.15 %) [place] 1 spray by Each Nare route daily. [...] topic Medical Devices Not on file [place] [address] [place] [address] MEDICARE PART A & B [place] A & B Care Teams Operational Risk Consultant Relationship Specialty Start Date End Date Prisca Grullon NP PCP - General Family Medicine 12/19/21 Additional Source Comments The information contained in this document represents components of the legal health record. It is not the complete legal health record.[facility]
== END 2024-11-10 11:49 | disposition home or self-care (01) ==
LOC: HO.HKAS 10:57
PROVIDERS: PCP Nurse Practitioner Family; Visit Provider Internal Medicine Nephrology
DX: I10 Essential (primary) hypertension (principal); N18.31 Chronic kidney disease, stage 3a; N27.0 Small kidney, unilateral; N28.89 Other specified disorders of kidney and ureter
CPT/HCPCS: 99214

== ENCOUNTER → 2024-11-10 10:56 | Outpatient (BNVA) | payer OTHER, SELFPAY ==
[2024-05-06 09:20] VITALS: BP 104/78; BP 136/88; BP 138/72; BMI 29.1
== END ==
PROVIDERS: PCP Nurse Practitioner Family; Visit Provider Internal Medicine Nephrology
DX: E11.22 Type 2 diabetes mellitus with diabetic chronic kidney disease (principal); I12.9 Hypertensive chronic kidney disease with stage 1 through stage 4 chronic kidney disease, or unspecified chronic kidney disease; N18.31 Chronic kidney disease, stage 3a; N28.89 Other specified disorders of kidney and ureter; N27.0 Small kidney, unilateral
CPT/HCPCS: 99212

== ENCOUNTER 2024-11-11 09:22 | Outpatient (AMB) | payer OTHER, SELFPAY ==
[2024-05-06 09:20] VITALS: BP 104/78; BP 136/88; BP 138/72; BMI 29.1
--- NOTE | 2024-11-11 09:51 | MHC.PC.OV ---
Vital Signs 11/11/24 10:08 Height 5 ft 5 in Weight 160 lb 8 oz BMI 26.7 BP 114/70 Blood Pressure Location Lt brachial Position Sitting Respiration 16 Pulse 76 Pulse Source Pulse Oximeter Temp 97.6 F Temp Source Oral Pulse Oximetry (%) 100 Oxygen Delivery Method Room Air Intake Visit Reasons: 3 mos HTN, DM Intake Note: patient here for 3 month follow up on HTN and DM Justowriter Operator Required: No Is last menstrual period known: No Post menopausal: No Patient : No Allergies Seasonal Allergies Allergy (Mild, Verified 11/11/24 10:37) congestion Medication List - Last Reconciled 11/11/24 by Pepito Cardoza CNP albuterol sulfate 2.5 mg (3 mL) inhalation Q4H PRN alcohol swabs 1 pad topical TID aspirin 81 mg PO DAILY 90 days atorvastatin 80 mg PO DAILY bisacodyl (Dulcolax (bisacodyl)) 20 mg (4 x 5 mg) PO ONCE 1 day blood pressure test kit-large (bMobilized Versa Arm BP Monitor kit) As directed blood sugar diagnostic (CapableBits Ultra Test strips) bs checks 3 times per day blood-glucose meter (CapableBits Ultra2 Meter) POC testing TID blood-glucose meter Test 3 times daily bupropion HCl XL (Wellbutrin XL) 150 mg PO QAM carvedilol 12.5 mg PO BID cetirizine (Zyrtec) 10 mg PO DAILY PRN cholecalciferol (vitamin D3) 50 mcg PO QAM 90 days dulaglutide (Trulicity) 3 mg (0.5 mL) subcut QWEEK empagliflozin (Jardiance) 10 mg PO DAILY qziivhoanzv-mxsdbkpvs-xotkaena 200-62.5-25 mcg (Trelegy Ellipta) 1 ea PO DAILY ipratropium bromide 2 sprays intranasal BID lancets (Amplion Clinical Communicationsuch Delica Plus Lancet) USE TO TEST THREE TIMES DAILY lidocaine 5% 1 patch topical DAILY montelukast (Singulair) 10 mg PO BEDTIME omeprazole 20 mg PO DAILY polyethylene glycol 3350 (Miralax) 238 grams PO ONCE sacubitril-valsartan 49-51 mg (Entresto) 1 tab PO BID Shower Chair As directed Tobacco use date assessed: 11/11/24 Fall risk assessment: 2 + Falls in past year Last assessed Fall Risk: 11/11/24 Dental Screening Dental Screen Date: 11/11/24 Did you have a dental visit in the last 12 months?: No Did you have a dental problem in the last 6 months where you did not have access to dental care?: No Was dental information given to patient?: No HPI HPI Comments History of Present Illness Details 64-year-old female presents for hypertension and diabetes follow-up. She admits to taking her medications as prescribed without adverse reactions. She notes that she has been making healthy lifestyle changes. She notes that she fell twice, a week ago and earlier this month. She has a walker and a cane but was not using either assistive device during both falls. Her right leg gave out due to intermittent hip and left lower back pain which intensifies with significant rain and prolonged. She requests an order for a new walker. Current walker does not brake with breaks applied. She has an appointment to establish with [facility] in 12/02/2024. She reports intermittent productive cough with white phlegm, ongoing for over a year. Notes associated stress incontinence due to cough and requests large pull-up briefs; she would wear one in the morning and one at night; denies urinary symptoms. Pulmonology aware of cough and prescribed prednisone in the past which was effective. Cetirizine daily as needed was prescribed by pulmonology last month, but patient is unsure whether she has been taking the medication. She quit smoking for about 6 months and resumed about a month ago; she has been smoking 2 cigarettes. Bupropion has not been effective for smoking cessation. [facility] Medical History CAD (coronary artery disease) Stented coronary artery HTN (hypertension) Diabetes Asthma Nicotine dependence, cigarettes, uncomplicated Surgical History History of heart artery stent History of repair of right rotator cuff History of tubal ligation Hx of colonoscopy Family History Mother Hypertension Father No problems noted. Social History Household Members: Family Housing: Apartment Housing Other:: Patient is currently living with daughter Are you a primary career specialist to a significant other at home: No Do you presently have visiting nurse or other home services: No Patient Tobacco Use Status: Current someday Tobacco user Tobacco use type: Cigarette Cigarettes Per Day: 1 Years Smoked: onset 10yo, 1ppd x 52yrs, now 1-2 cig/wk - 40+PYH e-Cigarette/Vaping Use: Never Used Second Hand Smoke Exposure: No service: No Current occupational status: disabled Current occupational exposures/hazards: No Cognitive needs: No Hearing needs: No Vision needs: No Questionnaire Thrive Questionnaire Date Thrive assessed: 04/05/24 I am a: Patient What is your living situation today?: I have a steady place to live Within the past 12 months, did the food you bought not last and you didn't have the money to get more?: I choose not to answer this question Within the past 12 months, did you worry whether your food would run out before you got money to buy more?: Sometimes True Do you have trouble paying for medicines?: No Do you have trouble getting transportation to medical appointments?: No Do you have trouble paying your heating and electricity bill?: Yes Do you have trouble taking care of your child, family member or friend?: No Do you have trouble with day-to-day activities such as bathing, preparing meals, shopping, managing finances, etc.?: Yes Are you currently unemployed and looking for a job?: I choose not to answer this question Are you interested in more education?: No Please select the resources that you would like help with: Utilities Currently or been in a relationship where the following occur: I choose not to answer THRIVE Score: 2 ZURI-7 AMB Questionnaire ZURI-7 Date ZURI - 7 assessed: 04/05/24 Source: Developed by Drs. Isma Erickson, Joyce Phillips, Roger Davis and colleagues, with an educational jana from [employer]. Review of Systems Const Details: Const Denies chills, Denies fatigue, Denies fever(s), Denies headache(s) and Denies weakness ENT Denies dizziness and Denies headache(s) Card Denies chest pain, Denies lightheadedness, Denies dyspnea and Denies other (Palpitations) Resp Reports cough, Denies dyspnea, Denies wheezing and Denies other ( shortness of breath) GI Denies abdominal pain, Denies melena, Denies hematochezia, Denies change in bowel habits, Denies dyspepsia and Denies nausea Reports stress incontinence, Denies hematuria and Denies dysuria Musc Reports as per HPI Skin/Breast Denies rash, Denies unusual bruising and Denies wounds Neuro Denies abnormal gait, Denies dizziness, Denies headache(s), Denies memory loss, Denies numbness, Denies Sensory deficit (Neuro), Denies tingling and Denies weakness Psych Denies anxiety, Denies depression, Denies memory loss Endo Denies cold intolerance, Denies fatigue, Denies heat intolerance, Denies polydipsia and Denies polyuria Aller/Immun Denies wheezing Physical exam (Primary Care) Vital Signs: Last Vital Signs Temp 97.6 F 11/11/24 10:08 Pulse 76 11/11/24 10:08 Resp 16 11/11/24 10:08 BP 114/70 11/11/24 10:08 Pulse Ox 100 11/11/24 10:08 Oxygen Delivery Method Room Air 11/11/24 10:08 BMI result Body Mass Index 26.7 Tobacco/Smoking Status: Tobacco use Status Tobacco use date assessed 11/11/24 11/11/24 10:13 Patient Tobacco Use Status Current someday Tobacco 11/11/24 09:52 Tobacco use type Cigarette 11/11/24 09:52 e-Cigarette/Vaping Use Never Used 11/11/24 09:52 Thrive Assessment: Date of Thrive Assessment Date Thrive assessed 04/05/24 11/11/24 09:52 Currently or been in a relationship where the following occur: I choose not to answer Const Other: General: no acute distress and well developed Nutritional Appearance: well nourished Orientation/consciousness: patient oriented x3 [facility] Head: Yes normocephalic and Yes atraumatic Eyes General: appearance normal, both eyes and all related structures Pupils: Equal, round and reactive pupils present EOM: EOMs intact bilaterally Resp Effort & Inspection: normal respiratory effort Auscultation: clear to auscultation bilaterally Cardio Rate: regular rate Rhythm: regular rhythm Heart sounds: S1 normal heart sound present, S2 normal heart sound present, no gallops, no murmurs and no rubs GI Palpation (GI): No Abdominal aortic bruit present, Soft to palpation, nontender, No hepatosplenomegaly present and No Rebound tenderness present Auscultation: normal bowel sounds General: Yes no CVA tenderness Back/Spine/Pelvis Back: no CVA tenderness Cervical Spine: cervical ROM normal and No Cervical spine tenderness Thoracic/Lumbar Spine: thoraco-lumbar ROM normal, No pain with thoraco-lumbar ROM, No thoracic spinal tenderness and No lumbar spinal tenderness Extrem General: Yes normal to inspection, No edema and No calf tenderness Skin General: warm and dry. Normal skin color. Normal skin turgor Neuro General: patient oriented x3, gait normal and no focal neuro deficit Cranial nerves: Yes Equal, round and reactive pupils present Cognition (Neuro): normal cognition Gait exam (Neuro): Normal gait present Sensory Exam: No Sensory deficit (Neuro) Psych Appearance: grossly normal Affect: normal affect Attitude: cooperative Thought process: Normal thought process present Results AMB Hemoglobin A1c AMB Hemoglobin A1c 7.0 % Last Edit by Dominique Campos MA on 11/11/24 10:52 Results Reviewed Results Reviewed: Laboratory Last Values Hgb A1c (Clinic) 7.0 % (4.0-6.0) H 11/11/24 10:35 Coding Level of Care Code Est Pt Level 4 (18308) Complex EM visit Add On G2211 Diagnoses Primary hypertension I10 Hypertension type: primary hypertension Diabetes E11.9 Multiple falls R29.6 Sacroiliac joint dysfunction of right side M53.3 Chronic cough R05.3 Stress incontinence N39.3 Assessment & Plan Assessment & Plan (1) HTN (hypertension): Code(s): I10 - Essential (primary) hypertension Category: Medical Qualifiers: Hypertension type: primary hypertension Qualified Code(s): I10 - Essential (primary) hypertension Plan: Blood pressure is 114/70, within goal of less than 130/80. Continue current treatment regimen. Low-sodium diet encouraged. Follow-up in 3 months or sooner with symptoms or concerns. Verbalized understanding and agreed with the plan. (2) Diabetes: Code(s): E11.9 - Type 2 diabetes mellitus without complications Category: Medical Plan: A1c today is 7.0%, slightly above goal of less than 7.0%. Previous A1c was 7.2%. Trulicity increased to 4.5 mg weekly; advised to take as prescribed. Continue to take Jardiance as prescribed. ADA diet and routine exercise encouraged. Follow-up in 3 months. Verbalized understanding and agreed with plan. (3) Multiple falls: Code(s): R29.6 - Repeated falls Category: Medical Plan: She notes that she fell twice, a week ago and earlier this month. She has a walker and a cane but was not using either assistive device during both falls. Her right leg gave out due to intermittent hip and left lower back pain which intensifies with significant rain and prolonged.She requests an order for a new walker. Current walker does not brake with breaks applied. She has an appointment to establish with [facility] in 12/02/2024. Encouraged to use assistive devices for ambulation at all times. Continue current treatment regimen. Walker ordered. Follow-up with Ortho as planned. Return as needed. Verbalized understanding and agreed with the plan. (4) Sacroiliac joint dysfunction of right side: Code(s): M53.3 - Sacrococcygeal disorders, not elsewhere classified Category: Medical Plan: Plan as above. (5) Chronic cough: Code(s): R05.3 - Chronic cough Category: Medical Plan: She reports intermittent productive cough with white phlegm, ongoing for over a year. Notes associated stress incontinence due to cough and requests large pull-up briefs; she would wear one in the morning and one at night; denies urinary symptoms. Pulmonology aware of cough and prescribed prednisone in the past which was effective. Cetirizine daily as needed was prescribed by pulmonology last month, but patient is unsure whether she has been taking the medication. She quit smoking for about 6 months and resumed about a month ago; she has been smoking 2 cigarettes. Bupropion has not been effective for smoking cessation. Her cough may be attributed to allergies, asthma, or cigarette smoking. Cetirizine order changed to once daily; advised to take as prescribed. Continue current treatment regimen. Instructed on the health risks and complications of cigarette smoking and cessation encouraged. Bupropion increased to 150 mg twice daily for smoking cessation. Pull-up briefs ordered for stress incontinence. Follow-up as needed. Verbalized understanding and agreed with the plan. (6) Stress incontinence: Code(s): N39.3 - Stress incontinence (female) (male) Category: Medical Plan: Plan as above. Orders: Orders AMB Hemoglobin A1c Today Z13.9 - Encounter for screening, unspecified Medications: New bupropion HCl XL (Wellbutrin XL) 150 mg PO BID 180 tabs 1RF 90 days miscellaneous medical supply 1 Rollator walker 1 ea 0RF G89.29 - Other chronic pain, M53.3 - Sacrococcygeal disorders, not elsewhere classified, M54.50 - Low back pain, unspecified, R29.6 - Repeated falls miscellaneous medical supply 60 large pull up briefs monthly 60 ea 12RF N39.3 - Stress incontinence (female) (male) dulaglutide (Trulicity) 4.5 mg (0.5 mL) subcut QWEEK 2 mL 4RF Changed From cetirizine (Zyrtec) 10 mg PO DAILY PRN 30 tabs 1RF allergy symptoms J30.89 - Other allergic rhinitis To cetirizine (Zyrtec) 10 mg PO DAILY 30 tabs 1RF allergy symptoms J30.89 - Other allergic rhinitis Discontinued dulaglutide (Trulicity) Discontinued Reason: Doctor's Order 3 mg (0.5 mL) subcut QWEEK 2 mL 3RF
[2024-11-11 10:08] VITALS: BP 114/70; PULSE 76; RESP 16; TEMP 36.4; O2SAT 100; BMI 26.7
== END 2024-11-11 11:05 | disposition home or self-care (01) ==
LOC: HO.HMCFM 09:23
PROVIDERS: PCP Nurse Practitioner Family; Visit Provider Nurse Practitioner Family
DX: I10 Essential (primary) hypertension (principal); E11.9 Type 2 diabetes mellitus without complications; R29.6 Repeated falls; M53.3 Sacrococcygeal disorders, not elsewhere classified; R05.3 Chronic cough; N39.3 Stress incontinence (female) (male); Z13.9 Encounter for screening, unspecified

== ENCOUNTER → 2024-11-11 09:22 | Outpatient (BNVA) | payer OTHER, SELFPAY ==
[2024-05-06 09:20] VITALS: BP 104/78; BP 136/88; BP 138/72; BMI 29.1
== END ==
PROVIDERS: PCP Nurse Practitioner Family; Visit Provider Nurse Practitioner Family
DX: I10 Essential (primary) hypertension (principal); E11.9 Type 2 diabetes mellitus without complications; M53.3 Sacrococcygeal disorders, not elsewhere classified; R05.3 Chronic cough; N39.3 Stress incontinence (female) (male); R29.6 Repeated falls; G89.29 Other chronic pain; M54.50 Low back pain, unspecified; J30.89 Other allergic rhinitis; F17.210 Nicotine dependence, cigarettes, uncomplicated
CPT/HCPCS: 83036; 99212

== ENCOUNTER 2024-11-18 09:25 | Outpatient (AMB) | payer OTHER, SELFPAY ==
[2024-05-06 09:20] VITALS: BP 104/78; BP 136/88; BP 138/72; BMI 29.1
[2024-11-18 09:29] VITALS: BP 112/66; PULSE 78; O2SAT 98; BMI 26.6
--- NOTE | 2024-11-18 09:29 | MHC.OFFVIS ---
Vital Signs 11/18/24 09:29 Height 5 ft 5 in Weight 160 lb BMI 26.6 BP 112/66 Blood Pressure Location Rt brachial Position Sitting Pulse 78 Pulse Source Pulse Oximeter Pulse Oximetry (%) 98 Oxygen Delivery Method Room Air Intake Visit Reasons: Cough Allergies Seasonal Allergies Allergy (Mild, Verified 11/18/24 09:33) congestion HPI HPI Cough: Details: Wilfrido is a pleasant 64-year-old female, current minimal smoker, with 40+ pack year history, with underlying asthma, AR 2021 s/p stents x 2, HTN, DMII. At baseline, she has been moderately controlled on Trelegy, rarely requiring albuterol MDI/neb. Today she presents for a routine visit however with acute symptoms. She reports ongoing cough for a month, with varying severity, and is associated with the production of white phlegm. There is no associated chest congestion, wheezing, fevers, chills or dyspnea reported. Previously has responded well to prednisone with resolution of cough. She denies any visits to urgent care or hospitalizations related to respiratory distress since the last visit. Of note, patient underwent LDCT 10/2024 RADS1 with severe CAD. She is under the care of a debeader and is currently taking aspirin and atorvastatin. The patient reports a history of tobacco use, currently smoking one cigarette every three days. She is on Wellbutrin to aid smoking cessation, which has reduced her smoking frequency. [facility] Medical History CAD (coronary artery disease) Stented coronary artery HTN (hypertension) Diabetes Asthma Nicotine dependence, cigarettes, uncomplicated Surgical History History of heart artery stent History of repair of right rotator cuff History of tubal ligation Hx of colonoscopy Family History Mother Hypertension Father No problems noted. Social History Household Members: Family Housing: Apartment Housing Other:: Patient is currently living with daughter Are you a primary career placement services counselor to a significant other at home: No Do you presently have visiting nurse or other home services: No Patient Tobacco Use Status: Current someday Tobacco user Tobacco use type: Cigarette Cigarettes Per Day: 1 Years Smoked: onset 10yo, 1ppd x 52yrs, now 1-2 cig/wk - 40+PYH e-Cigarette/Vaping Use: Never Used Second Hand Smoke Exposure: No service: No Current occupational status: disabled Current occupational exposures/hazards: No Cognitive needs: No Hearing needs: No Vision needs: No Review of Systems Const Denies chills, Denies excessive sweating, Denies fever(s), Denies headache(s) and Denies night sweats Eyes Denies dry eyes, Denies irritation and Denies itchy eyes ENT Reports Normal hearing present, Denies headache(s), Denies nasal congestion, Denies nasal discharge and Denies sore throat Card Denies chest pain, Denies chest pain at rest, Denies chest pain with activity, Denies claudication, Denies leg edema, Denies dyspnea, Denies dyspnea on exertion, Denies orthopnea and Denies paroxysmal nocturnal dyspnea Resp Denies chest congestion, Reports cough, Denies pain on inspiration, Denies pain with cough, Denies dyspnea, Denies dyspnea on exertion, Denies stridor and Denies wheezing Musc Denies myalgias Neuro Reports Normal hearing present and Denies headache(s) Endo Denies excessive sweating Aaron/Lymph Denies lymphadenopathy Aller/Immun Denies itchy eyes, Denies seasonal rhinorrhea and Denies wheezing Physical Exam Vital Signs: Last Vital Signs Pulse 78 11/18/24 09:29 BP 112/66 11/18/24 09:29 Pulse Ox 98 11/18/24 09:29 Oxygen Delivery Method Room Air 11/18/24 09:29 BMI result Body Mass Index 26.6 Const General: cooperative, healthy appearing, comfortable, no acute distress, well developed and alert Orientation/consciousness: patient oriented x3 Limitations: no limitations HEENT Head: Yes normal to inspection, Yes normocephalic and Yes atraumatic Ears: hearing grossly normal bilaterally and external ears normal Eyes General: appearance normal, both eyes and all related structures Eyelids: Yes eyelids normal Sclerae: sclerae normal EOM: EOMs intact bilaterally Neck Neck: Yes normal visual inspection and Yes no lymphadenopathy Lymphatic: no lymphadenopathy noted Chest Chest palpation & inspection: normal inspection of the chest Resp Other: dry hacking cough throughout visit with postexhalation cough Effort & Inspection: normal respiratory effort, able to speak in complete sentences, no audible wheezes, no stridor, not tachypneic, no tripod positioning and no use of accessory muscles Auscultation: diminished lung sounds Cardio Jugular venous distension: no JVD Rate: regular rate Rhythm: regular rhythm Skin Other: warm, dry General skin exam: no rashes or lesions noted Neuro General: patient oriented x3 Cranial nerves: Yes Normal hearing present Cognition (Neuro): normal cognition Gait exam (Neuro): Normal gait present Extrem General: Yes normal to inspection, Yes capillary refill normal, Yes no clubbing, cyanosis or edema and Yes no pedal edema Psych Appearance: grossly normal and well kempt Speech and movement: Normal speech and movement present and Clear speech present Affect: normal affect Attitude: cooperative Thought process: Normal thought process present Thought content: Normal thought content present Insight: Good insight present (Psych) Judgement: Good judgement present (Psych) Assessment & Plan Assessment & Plan (1) Asthma: Code(s): J45.909 - Unspecified asthma, uncomplicated Category: Medical (2) Environmental and seasonal allergies: Code(s): J30.89 - Other allergic rhinitis Category: Medical (3) Nicotine dependence, cigarettes, uncomplicated: Comment: (current smoker, onset 10yo, 1ppd x 52yrs, now 1-2 cig/wk - 40+PYH) Code(s): F17.210 - Nicotine dependence, cigarettes, uncomplicated Category: Medical Plan The patient will continue using Trelegy and albuterol as needed for cough management. Prednisone has been prescribed to address the persistent cough, with instructions to monitor for improvement, likely an allergic component, previously elevated eosinophils with +RAST. She is aware to call if symptoms do not improve. Discussed trialing an alternate antihistamine in addition to Singulair. Reviewed initiating Dupixent however patient would like to hold off at this time. Smoking cessation reviewed. All questions were answered and patient is in agreement of plan. Will follow up in 3 months or sooner if needed. Medications: Refilled prednisone 40 mg (2 x 20 mg) PO DAILY 10 tabs 0RF Coding Level of Care Code Est Pt Level 4 (95051) Diagnoses Asthma J45.909 Environmental and seasonal allergies J30.89 Nicotine dependence, cigarettes, uncomplicated F17.210
--- OUTSIDE RECORDS SUMMARY | 2024-11-18 10:16 | XMS_ITS | Clinical Summary ---
Author Organization [facility] Address [address] [place] [id number] Phone Care Team Providers Care Waste Reclaimer Name Role Phone Prisca Grullon NP Primary Care Provider Allergies No known active allergies Medications amLODIPine (NORVASC) 10 MG tablet Take 10 mg by mouth daily. 01/01/2022 Active aspirin 81 MG EC tablet Take 81 mg by mouth daily. 12/13/2021 Active atorvastatin (LIPITOR) 80 MG tablet Take 80 mg by mouth daily. 11/30/2021 Active azelastine (ASTEPRO) 205.5 mcg (0.15 %) [place] 1 spray by Each Nare route daily. [...] topic Medical Devices Not on file Insurance [place] [place] [address] MEDICARE PART A & [place] PART A & B Care Teams Waste Reclaimer Relationship Specialty Start Date End Date Prisca Grullon NP PCP - General Family Medicine 12/19/21 Additional Source Comments The information contained in this document represents components of the legal health record. It is not the complete legal health record.[facility]
== END 2024-11-18 09:53 | disposition home or self-care (01) ==
LOC: HO.HPSW 09:25
PROVIDERS: PCP Nurse Practitioner Family; Visit Provider Nurse Practitioner Family
DX: J45.909 Unspecified asthma, uncomplicated (principal); J30.89 Other allergic rhinitis; F17.210 Nicotine dependence, cigarettes, uncomplicated
CPT/HCPCS: 99214

== ENCOUNTER → 2024-11-18 09:25 | Outpatient (BNVA) | payer OTHER, SELFPAY ==
[2024-05-06 09:20] VITALS: BP 104/78; BP 136/88; BP 138/72; BMI 29.1
== END ==
PROVIDERS: PCP Nurse Practitioner Family; Visit Provider Nurse Practitioner Family
DX: J30.89 Other allergic rhinitis (principal); J45.909 Unspecified asthma, uncomplicated; F17.210 Nicotine dependence, cigarettes, uncomplicated; Z71.6 Tobacco abuse counseling
CPT/HCPCS: 99212

== ENCOUNTER 2024-11-29 10:19 | Outpatient (AMB) | payer OTHER, SELFPAY ==
[2024-05-06 09:20] VITALS: BP 104/78; BP 136/88; BP 138/72; BMI 29.1
--- NOTE | 2024-11-29 11:09 | MHC.OFFVIS ---
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 Refinery Superintendent Required: No Allergies Seasonal Allergies Allergy (Mild, Verified 11/29/24 11:16) congestion Medication List - Last Reconciled 11/29/24 by Rufina Flores LPN albuterol sulfate 2.5 mg (3 mL) inhalation Q4H PRN alcohol swabs 1 pad topical TID aspirin 81 mg PO DAILY 90 days atorvastatin 80 mg PO DAILY bisacodyl (Dulcolax (bisacodyl)) 20 mg (4 x 5 mg) PO ONCE 1 day blood pressure test kit-large (KelDoc Versa Arm BP Monitor kit) As directed blood sugar diagnostic ([employer] Ultra Test strips) bs checks 3 times per day blood-glucose meter ([employer] Ultra2 Meter) POC testing TID blood-glucose meter Test 3 times daily bupropion HCl XL (Wellbutrin XL) 150 mg PO BID 90 days carvedilol 12.5 mg PO BID cetirizine 10 mg PO DAILY cholecalciferol (vitamin D3) 50 mcg PO QAM 90 days dulaglutide (Trulicity) 4.5 mg (0.5 mL) subcut QWEEK empagliflozin (Jardiance) 10 mg PO DAILY kjzhhwtwueh-ckvqefpez-iihdzxws 200-62.5-25 mcg (Trelegy Ellipta) 1 ea PO DAILY ipratropium bromide 2 sprays intranasal BID lancets (QuickProNotesuch Delica Plus Lancet) USE TO TEST THREE TIMES DAILY lidocaine 5% 1 patch topical DAILY [employer] medical supply 1 Rollator walker miscellaneous medical supply 60 large pull up briefs monthly montelukast (Singulair) 10 mg PO BEDTIME polyethylene glycol 3350 (Miralax) 238 grams PO ONCE sacubitril-valsartan 49-51 mg (Entresto) 1 tab PO BID Shower Chair As directed Is last menstrual period known: No Post menopausal: Yes Patient : No Do you need a note to return to daycare/school/sports/work: No HPI Comments Details: Patient is a postmenopausal woman 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 Biophysics Professor concerns: odor and external itching. Admits to smoker's cough which requires her to wear a diaper due to incontinence. Currently not sexually active. Denies any vaginal dryness or irritation. STI testing offered; she declines. Attempting to eat a healthy diet with and vitamin D and stays active with exercise. Last pap smear; 5 years ago, negative. Last mammogram; 2023. Colonoscopy is not UTD. Denies any family history of breast, ovarian or colon cancer. [facility] Medical History CAD (coronary artery disease) Stented coronary artery HTN (hypertension) Diabetes Asthma Nicotine dependence, cigarettes, uncomplicated Surgical History History of heart artery stent History of repair of right rotator cuff History of tubal ligation Hx of colonoscopy Family History Mother Hypertension Father No problems noted. Social History Household Members: Family Housing: Apartment Housing Other:: Patient is currently living with daughter Are you a primary hospice home care coordinator to a significant other at home: No Do you presently have visiting nurse or other home services: No Patient Tobacco Use Status: Current someday Tobacco user Tobacco use type: Cigarette Cigarettes Per Day: 1 Years Smoked: onset 10yo, 1ppd x 52yrs, now 1-2 cig/wk - 40+PYH e-Cigarette/Vaping Use: Never Used Second Hand Smoke Exposure: No service: No Current occupational status: disabled Current occupational exposures/hazards: No Cognitive needs: No Hearing needs: No Vision needs: No Female Reproductive History Menstrual control method: permanent sterilization Menopause type: natural Total pregnancies: 3 Full term: 1 Number of Living Children: 1 Ab induced: 1 Date of last pap smear: 11/28/19 History of abnormal pap smear: No History of STI: No Date of Mammogram: 01/06/24 (BI rads1) History of abnormal mammogram: No Other: never had Review of Systems Const All systems reviewed & are unremarkable except as noted in HPI and below Reports as per HPI Eyes Reports no additional complaints ENT Reports no additional complaints Card Reports no additional complaints Resp Reports no additional complaints GI Reports as per HPI and Reports no additional complaints Reports as per HPI Musc Reports no additional complaints Skin/Breast Reports as per HPI Neuro Reports no additional complaints Psych Reports no additional complaints Endo Reports no additional complaints Aaron/Lymph Reports no additional complaints Aller/Immun Reports no additional complaints Physical Exam Vital Signs: Last Vital Signs BP 130/70 11/29/24 11:14 BMI result Body Mass Index 26.2 Const General: cooperative, healthy appearing, no acute distress, well developed and alert Orientation/consciousness: patient oriented x3 HEENT Head: Yes normal to inspection Eyes General: appearance normal, both eyes and all related structures Neck Neck: Yes normal visual inspection Thyroid: Thyroid normal Chest Chest palpation & inspection: normal inspection of the chest and other (no puckering, dimpling, peau de orange, retraction, discharge, masses) Breast/axilla inspection: normal inspection of the breasts Breast/axilla palpation: normal palpation of the breasts Resp Effort & Inspection: normal respiratory effort GI Inspection: Yes normal to inspection Palpation (GI): Soft to palpation Rectal Exam - Female: deferred General: Yes bladder normal to palpation External Female Exam: normal external appearance, normal appearance of the urethra and erythema Speculum Exam - Vagina: normal appearance of the vagina, normal palpation, normal vaginal discharge and vagina atrophic Speculum Exam - Cervix: normal appearance of the cervix, normal palpation and Other cervical findings present (Bled slightly with Pap) Bimanual exam- vagina & uterus: normal bimanual exam, normal palpation, uterine size normal, bladder normal to palpation, normal palpation and non-tender Bimanual Exam- Adnexa, other: no masses Skin General skin exam: no rashes or lesions noted Rashes: no rashes Neuro General: patient oriented x3 Cognition (Neuro): normal cognition Extrem General: Yes normal to inspection Psych Attitude: cooperative Thought process: Normal thought process present Results AMB Urinalysis Dipstick UR Leukocytes Last Edit by Rufina Flores LPN on 11/29/24 11:38 UR Nitrite Last Edit by Rufina Flores LPN on 11/29/24 11:38 UR Urobilinogen 4 Last Edit by Rufina Flores LPN on 11/29/24 11:38 UR Protein Last Edit by Rufina Flores LPN on 11/29/24 11:38 UR Ph 6.0 Last Edit by Rufina Flores LPN on 11/29/24 11:38 UR Blood Last Edit by Rufina Floers LPN on 11/29/24 11:38 UR Specific Steward 1.015 Last Edit by Rufina Flores LPN on 11/29/24 11:38 UR Ketone Last Edit by Rufina Flores LPN on 11/29/24 11:38 UR Bilirubin Last Edit by Rufina Flores LPN on 11/29/24 11:38 UR Glucose 1999 Last Edit by Rufina Flores LPN on 11/29/24 11:38 Results Reviewed Results Reviewed: Laboratory Last Values Urine pH (Clinic) 6.0 11/29/24 11:37 Specific Steward (Clinic) 1.015 11/29/24 11:37 Urobilinogen (Clinic) 4 11/29/24 11:37 Urine Glucose (Clinic) 199911/29/24 11:37 Assessment & Plan Assessment & Plan (1) Pap smear for cervical cancer screening: Code(s): Z12.4 - Encounter for screening for malignant neoplasm of cervix Category: Medical Plan: Discussed: Current recommendations for pap smears per ASCCP guidelines. Breast awareness, periodic self breast exams and yearly mammogram. Maintain a healthy lifestyle, well balanced diet including Calcium 1,200 mg and Vitamin D 600 IU daily, and routine exercise. Encouraged tobacco cessation. Contact the office with any postmenopausal bleeding. Patient verbalizes understanding and agrees to the plan of care. She was given opportunity to ask questions and all questions were answered to the best of my ability. RTO in 1 year for annual contact center associate exam. This note is constructed using voice recognition software. While every effort has been made to ensure accuracy, body technician/painter errors may have been included. (2) Vulvar irritation: Code(s): N90.89 - Other specified noninflammatory disorders of vulva and perineum Plan: BV panel obtained. Reviewed skin care with the use of diaper, importance of good diabetic control, Rx for topical cream, if no improvement to follow up as needed. The patient expressed understanding and agreement with the plan of care. All of her questions and concerns were addressed to the best of my ability. Total time I personally spent on visit and management today: ?10 minutes. Time spent included review of pertinent office notes in the electronic health record; review of laboratory and imaging results; review of personal family medical history; performing physical exam; discussing diagnosis and plan of care with the patient; documenting the encounter in the EMR. (3) Vaginal odor: Code(s): N89.8 - Other specified noninflammatory disorders of vagina Plan Urine dip-glucose as noted. Encouraged adequate hydration. The patient expressed understanding and agreement with the plan of care. All of her questions and concerns were addressed to the best of my ability. Orders: Orders Pap Smear Today Z12.4 - Encounter for screening for malignant neoplasm of cervix Bacterial Vaginosis Panel Today N90.89 - Other specified noninflammatory disorders of vulva and perineum Medications: New clotrimazole-betamethasone 1-0.05 % apply externally a thin coat to the area 1 appl topical BID 45 grams 0RF itching 7 days Coding Level of Care Code New Pt Level 2 (88486) New Pt Prev Care 40-64y(36953) Diagnoses Pap smear for cervical cancer screening Z12.4 Vulvar irritation N90.89 Vaginal odor N89.8
[2024-11-29 11:14] VITALS: BP 130/70; BMI 26.2
--- OUTSIDE RECORDS SUMMARY | 2024-11-29 12:20 | XMS_ITS | Clinical Summary ---
Author Organization [facility] Address [address] [place] [phone] Phone Care Team Providers Care Show Card Letterer Name Role Phone Prisca Grullon NP Primary Care Provider Allergies No known active allergies Medications amLODIPine (NORVASC) 10 MG tablet Take 10 mg by mouth daily. 01/01/2022 Active aspirin 81 MG EC tablet Take 81 mg by mouth daily. 12/13/2021 Active atorvastatin (LIPITOR) 80 MG tablet Take 80 mg by mouth daily. 11/30/2021 Active azelastine (ASTEPRO) 205.5 mcg (0.15 %) [place] 1 spray by Each Nare route daily. [...] VACCINE (#1) 2024 COVID-19 VACCINE (1 - 2024-2 6 season) 2024 RSV VACCINE (1 - 1-dose [...] topic Medical Devices Not on file [place] [address] [address] MEDICARE PART A & [place] & [place] & [place] MED[place] PART A & B Care Teams Show Card Letterer Relationship Specialty Start Date End Date Prisca Grullon NP PCP - General Family Medicine 12/19/21 Additional Source Comments The information contained in this document represents components of the legal health record. It is not the complete legal health record.[facility]
== END 2024-11-29 11:42 | disposition home or self-care (01) ==
LOC: HO.HWS 10:19
PROVIDERS: PCP Nurse Practitioner Family; Visit Provider Advanced Practice Midwife
DX: Z01.419 Encounter for gynecological examination (general) (routine) without abnormal findings (principal); N90.89 Other specified noninflammatory disorders of vulva and perineum; N89.8 Other specified noninflammatory disorders of vagina
CPT/HCPCS: 99202; 99386; 99459

== ENCOUNTER 2024-11-29 10:19 | Outpatient (REF) | payer OTHER, SELFPAY ==
[2024-05-06 09:20] VITALS: BP 104/78; BP 136/88; BP 138/72; BMI 29.1
[2024-11-29 16:15] LABS: Bacterial Vaginosis PCR NEGATIVE (Negative); Candida Group PCR NOT DETECTED (Not Detect); Candida glab krusei PCR NOT DETECTED (Not Detect); Trichomonas vaginalis PCR NOT DETECTED (Not Detect)
== END 2024-11-29 10:20 | disposition home or self-care (01) ==
LOC: HO.LNP 10:19
PROVIDERS: PCP Nurse Practitioner Family; Visit Provider Advanced Practice Midwife
DX: Z12.4 Encounter for screening for malignant neoplasm of cervix (principal); N90.89 Other specified noninflammatory disorders of vulva and perineum; N89.8 Other specified noninflammatory disorders of vagina; F17.210 Nicotine dependence, cigarettes, uncomplicated; Z98.51 Tubal ligation status
CPT/HCPCS: 81515; 87626; 88175; 99202; 99386

== ENCOUNTER 2024-12-02 11:10 | Outpatient (AMB) | payer OTHER, SELFPAY ==
[2024-05-06 09:20] VITALS: BP 104/78; BP 136/88; BP 138/72; BMI 29.1
--- NOTE | 2024-12-02 11:14 | A.OFFVIS_ITS ---
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 Patient was referred by [facility] 05/04/24. At today's visit she states that for the past 20 years she has had lower back pain. Patient states that about two years ago she had multiple falls and ever since then the lower back pain is now radiating into the bilateral hip. She states that her balance is off and her right leg feels very weak and sade. Patient added that she has been using a walker since 2023 due to the multiple falls, she felt that she needed the support. She reports that she has tried and failed physical therapy, at home exercises are not manageable. She has tried ice/heat, NSAIDS as needed with mild to no relief. She would like to avoid any needle treatments, like injections(due to fear). Patient added that two months ago was her last fall at home, she noted that she did not seek treatment for any of her falls. Allergies Seasonal Allergies Allergy (Mild, Verified 12/02/24 11:20) congestion Medication List - Last Reconciled 12/02/24 by Cara Mustafa MD albuterol sulfate 2.5 mg (3 mL) inhalation Q4H PRN alcohol swabs 1 pad topical TID aspirin 81 mg PO DAILY 90 days atorvastatin 80 mg PO DAILY bisacodyl (Dulcolax (bisacodyl)) 20 mg (4 x 5 mg) PO ONCE 1 day blood pressure test kit-large (ElementsLocal Versa Arm BP Monitor kit) As directed blood sugar diagnostic (Excep Appsuch Ultra Test strips) bs checks 3 times per day blood-glucose meter (Excep Appsuch Ultra2 Meter) POC testing TID blood-glucose meter Test 3 times daily bupropion HCl XL (Wellbutrin XL) 150 mg PO BID 90 days carvedilol 12.5 mg PO BID cetirizine 10 mg PO DAILY cholecalciferol (vitamin D3) 50 mcg PO QAM 90 days clotrimazole-betamethasone 1-0.05 % 1 appl topical BID 7 days dulaglutide (Trulicity) 4.5 mg (0.5 mL) subcut QWEEK empagliflozin (Jardiance) 10 mg PO DAILY cfpjzcorwss-dehdpdqbd-teoflnny 200-62.5-25 mcg (Trelegy Ellipta) 1 ea PO DAILY ipratropium bromide 2 sprays intranasal BID lancets (OneTouch Delica Plus Lancet) USE TO TEST THREE TIMES DAILY lidocaine 5% 1 patch topical DAILY miscellaneous medical supply 1 Rollator walker miscellaneous medical supply 60 large pull up briefs monthly montelukast (Singulair) 10 mg PO BEDTIME polyethylene glycol 3350 (Miralax) 238 grams PO ONCE sacubitril-valsartan 49-51 mg (Entresto) 1 tab PO BID Shower Chair As directed HPI Comments Details: Chronic neck back pain, always right sided. Fallen a few times in the past month. No new pain, same area as right back and hip. She did follow with pain management in the past, had right SI joint injection [address] Silva. Though patient does not remember. She denies any other injections, and she's afraid of needles. She does not want any injections at all now or in the future. She describes it as sciatica , hard to stand, feels weak the pain. Uses walker. Still falls. Has done PT but feels that it worsens. She does a lot of walking for exercise. [facility] Medical History CAD (coronary artery disease) Stented coronary artery HTN (hypertension) Diabetes Asthma Nicotine dependence, cigarettes, uncomplicated Surgical History History of heart artery stent History of repair of right rotator cuff History of tubal ligation Hx of colonoscopy Family History Mother Hypertension Father No problems noted. Social History Household Members: Family Housing: Apartment Housing Other:: Patient is currently living with daughter Are you a primary critical care technician to a significant other at home: No Do you presently have visiting nurse or other home services: No Patient Tobacco Use Status: Current someday Tobacco user Tobacco use type: Cigarette Cigarettes Per Day: 1 Years Smoked: onset 10yo, 1ppd x 52yrs, now 1-2 cig/wk - 40+PYH e-Cigarette/Vaping Use: Never Used Second Hand Smoke Exposure: No service: No Current occupational status: disabled Current occupational exposures/hazards: No Cognitive needs: No Hearing needs: No Vision needs: No Review of Systems Const All systems reviewed & are unremarkable except as noted in HPI and below Physical Exam Exam Exam: Constitutional: Patient appears to be in no acute distress, well nourished and well developed. Patient was appropriately conversant and oriented. Good historian. MSK: No specific abnormalities found on inspection of the spine and all extremities. Tender on right paraspinals and right SI joint. GT and piriformis nontender. Straight-leg raising test negative. FABERE test positive right with limited right hip range of motion. Neurological: Give-way weakness on right hip flexion 4/5 due to pain. Rest of strength testing 5/5. Griggs?s negative bilaterally. Babinski was down going bilaterally. Clonus was negative. Gait is antalgic without loss of balance. Uses walker. Vital Signs: BMI result Body Mass Index 26.0 Results Reviewed Results Reviewed: Pain management 2021 - We reviewed hyperglycemic as well hypertensive effects in the setting of poorly controlled diabetes and HTN. Patient is not candidate for steroid injections at this time Ordering Physician: Pepito Cardoza CNP Date of Service: 01/06/24 Procedure(s): XR lumbar spine 2-3V Accession Number(s): [id number] cc: Pepito Cardoza CNP~ EXAMINATION: XR LUMBOSACRAL SPINE CLINICAL INFORMATION: Low back pain, unspecified M54.50. COMPARISON: XR Lumbar spine 11/03/2023 TECHNIQUE: Three views of the lumbosacral spine. FINDINGS: Stable grade 1 anterolisthesis of L4 on L5. Vertebral body heights are maintained. No evidence of acute fracture. Multilevel disc degenerative changes, with disc height loss, endplate osteophytes. Facet degeneration in the lower lumbar spine. No abnormal soft tissue calcification. No acute findings in the visualized pelvis. XR/XR lumbar spine 2-3V IMPRESSION: Moderate multilevel spondylosis in lumbar spine, similar to previous. Study is assigned/presented to me for interpretation on Mar 07, 2024 Electronically signed by: Homero Lizarraga MD 03/07/2024 09:50 AM EST Assessment & Plan Assessment & Plan (1) Multiple falls: Code(s): R29.6 - Repeated falls Category: Medical (2) Right-sided low back pain with right-sided sciatica: Code(s): M54.41 - Lumbago with sciatica, right side Category: Medical Qualifiers: Chronicity: chronic Qualified Code(s): M54.41 - Lumbago with sciatica, right side; G89.29 - Other chronic pain (3) Sacroiliac joint dysfunction of right side: Code(s): M53.3 - Sacrococcygeal disorders, not elsewhere classified Category: Medical Plan Chronic right-sided back pain radiating to right leg. Poor mobility in fall risk. Getting lumbar x-rays and right hip x-rays today. Not a good injection candidate per pain management, and patient does not want any injections. Most likely not a good surgical candidate as well. She defers any referral to PT. We both decided that, given she does not want any injections or PT, and not a surgical candidate, we will hold off on getting lumbar MRI, unless there is any development of red flags or anything on the x-rays that we will indicate such. Assessment and plan discussed with patient, and patient was agreeable. All questions were answered thoroughly. Follow up 4 months. Cara Mustafa MD, DEBORAH Board Certified, [place] Board [employer] and Rehabilitation (ABPMR) Board Certified, [place] Board of Electrodiagnostic Medicine (ABEM) Orders: Orders XR lumbar spine 2-3V Today M54.9 - Dorsalgia, unspecified XR hip RT min 2V Today M25.551 - Pain in right hip Coding Level of Care Code New Pt Level 4 (35194) Diagnoses Multiple falls R29.6 Chronic right-sided low back pain with right-sided sciatica M54.41; G89.29 Chronicity: chronic Sacroiliac joint dysfunction of right side M53.3
[2024-12-02 11:19] VITALS: BMI 26.0
== END 2024-12-02 12:07 | disposition home or self-care (01) ==
LOC: HO.HOS 11:11
PROVIDERS: PCP Nurse Practitioner Family; Visit Provider Physical Medicine & Rehabilitation
DX: R29.6 Repeated falls (principal); M54.41 Lumbago with sciatica, right side; G89.29 Other chronic pain; M53.3 Sacrococcygeal disorders, not elsewhere classified
CPT/HCPCS: 99204

== ENCOUNTER 2024-12-02 11:10 | Outpatient (REF) | payer OTHER, SELFPAY ==
[2024-05-06 09:20] VITALS: BP 104/78; BP 136/88; BP 138/72; BMI 29.1
--- NOTE | ~2024-12-02 | XR_ITS ---
EXAMINATION: XR HIP, RIGHT CLINICAL INFORMATION: M25.551 - Pain in right hip COMPARISON: None available. TECHNIQUE: Two views of the right hip. FINDINGS: No acute fracture or dislocation. Alignment is anatomic. Hip joint space is maintained. No abnormal soft tissue calcification. No diastasis of the SI joints. XR/XR hip RT min 2V IMPRESSION: No evidence of acute osseous findings. Electronically signed by: Homero Lizarraga MD 12/02/2024 12:14 PM EDT
--- NOTE | ~2024-12-02 | XR_ITS ---
EXAMINATION: XR LUMBOSACRAL SPINE CLINICAL INFORMATION: M54.9 - Dorsalgia, unspecified COMPARISON: None available. TECHNIQUE: Three views of the lumbosacral spine. FINDINGS: Mild anterolisthesis of L4 on L5. The vertebral body sagittal alignment is otherwise maintained. No evidence of acute fracture. Vertebral body heights are maintained. Moderate L5-S1 disc degeneration. Mild L4-5 disc degeneration. SI joints are symmetric. No suspicious soft tissue calcifications. XR/XR lumbar spine 2-3V IMPRESSION: No radiographic evidence of acute osseous findings. Lumbar spondylosis. Moderate L5-S1 disc degeneration. Electronically signed by: Homero Lizarraga MD 12/02/2024 12:21 PM EDT
== END 2024-12-02 11:11 | disposition home or self-care (01) ==
LOC: HO.HOSX 11:10
PROVIDERS: PCP Nurse Practitioner Family; Visit Provider Physical Medicine & Rehabilitation
DX: M54.41 Lumbago with sciatica, right side (principal); M53.3 Sacrococcygeal disorders, not elsewhere classified; G89.29 Other chronic pain; M25.551 Pain in right hip; R29.6 Repeated falls; F17.210 Nicotine dependence, cigarettes, uncomplicated
CPT/HCPCS: 72100; 73502; 99202

== ENCOUNTER → 2024-12-02 11:43 | Outpatient (BNV) | payer OTHER, SELFPAY ==
[2024-05-06 09:20] VITALS: BP 104/78; BP 136/88; BP 138/72; BMI 29.1
== END ==
PROVIDERS: PCP Nurse Practitioner Family; Visit Provider Radiology Diagnostic Ultrasound
DX: M25.551 Pain in right hip (principal); M51.370 Other intervertebral disc degeneration, lumbosacral region with discogenic back pain only
CPT/HCPCS: 72100; 73502

== ENCOUNTER 2025-01-18 09:34 | Outpatient (REF) | payer OTHER, SELFPAY ==
[2024-05-06 09:20] VITALS: BP 104/78; BP 136/88; BP 138/72; BMI 29.1
--- NOTE | ~2025-01-18 | MM_ITS ---
EXAMINATION: MM SCREENING DIGITAL BREAST TOMOSYNTHESIS, BILATERAL CLINICAL INFORMATION: Screening. Asymptomatic. COMPARISON: Comparison made to multiple prior, most recent January 06, 2024, and most remote May 10, 2016. TECHNIQUE: Digital breast tomosynthesis is performed in mediolateral oblique and craniocaudal views along with computer-aided detection (CAD). Synthesized 2D images are generated from the tomosynthesis. FINDINGS: BREAST COMPOSITION: There are scattered areas of fibroglandular density. BILATERAL BREASTS: No significant masses, suspicious calcifications or other abnormalities are seen in either breast. MM/MM tomosynthesis screening BI IMPRESSION: BILATERAL BREASTS: Negative, no mammographic evidence of malignancy. Normal interval follow-up is recommended in 12 months. ASSESSMENT: BI-RADS: Category 1: Negative RECOMMENDATION: Routine annual mammography screening. FOLLOW-UP: 1 year F/U This examination should not preclude the clinical evaluation of a suspicious palpable abnormality. This patient's information was entered into a reminder system with a target due date for their next mammogram. Electronically signed by: Rodrick Callejas MD 01/20/2025 04:02 PM [facility]
--- OUTSIDE RECORDS SUMMARY | 2025-01-18 10:48 | XMS_ITS | Clinical Summary ---
Author Organization [facility] Address [address] [place] [id number] Phone Care Team Providers Care Senior Software Development Manager Name Role Phone Prisca Grullon NP Primary Care Provider Allergies No known active allergies Medications amLODIPine (NORVASC) 10 MG tablet Take 10 mg by mouth daily. 01/01/2022 Active aspirin 81 MG EC tablet Take 81 mg by mouth daily. 12/13/2021 Active atorvastatin (LIPITOR) 80 MG tablet Take 80 mg by mouth daily. 11/30/2021 Active azelastine (ASTEPRO) 205.5 mcg (0.15 %) [place] 1 spray by Each Nare route daily. [...] topic Medical Devices Not on file Insurance [address] [address] MEDICARE PART A & B [place] PART A & B Care Teams Senior Software Development Manager Relationship Specialty Start Date End Date Prisca Grullon NP PCP - General Family Medicine 12/19/21 Additional Source Comments The information contained in this document represents components of the legal health record. It is not the complete legal health record.[facility]
[2025-01-18 11:26] LABS: Anion Gap 10 (12-20); Blood Urea Nitrogen 25 mg/dL (9-16); Carbon Dioxide 24 mmol/L (22-29); Chloride 108 mmol/L (96-108); Estimated Glomerular Filt Rate 30; Potassium 3.3 mmol/L (3.3-5.1); Sodium 139 mmol/L (135-145)
[2025-01-18 12:05] LABS: Total Protein Urine Random < 7 mg/dL (<12)
== END 2025-01-18 09:35 | disposition home or self-care (01) ==
LOC: HO.MAMMO 09:34
PROVIDERS: Absent Provider Internal Medicine Nephrology; PCP Nurse Practitioner Family; Visit Provider Nurse Practitioner Family
DX: I12.9 Hypertensive chronic kidney disease with stage 1 through stage 4 chronic kidney disease, or unspecified chronic kidney disease (principal); N18.31 Chronic kidney disease, stage 3a; N28.89 Other specified disorders of kidney and ureter; N27.0 Small kidney, unilateral; Z13.1 Encounter for screening for diabetes mellitus
CPT/HCPCS: 36415; 77063; 77067; 80051; 82565; 82570; 83036; 84156; 84520

== ENCOUNTER → 2025-01-18 10:00 | Outpatient (BNV) | payer OTHER, SELFPAY ==
[2024-05-06 09:20] VITALS: BP 104/78; BP 136/88; BP 138/72; BMI 29.1
== END ==
PROVIDERS: Absent Provider Internal Medicine Nephrology; PCP Nurse Practitioner Family; Visit Provider Radiology Body Imaging
DX: Z12.31 Encounter for screening mammogram for malignant neoplasm of breast (principal)
CPT/HCPCS: 77063; 77067

== ENCOUNTER 2025-02-03 10:20 | Outpatient (AMB) | payer OTHER, SELFPAY ==
[2024-05-06 09:20] VITALS: BP 104/78; BP 136/88; BP 138/72; BMI 29.1
[2025-02-03 10:22] VITALS: BP 102/68; PULSE 79; O2SAT 98; BMI 27.5
--- NOTE | 2025-02-03 10:22 | A.OFFVIS_ITS ---
Vital Signs 02/03/25 10:22 Height 5 ft 5 in Weight 165 lb 2 oz BMI 27.5 BP 102/68 Blood Pressure Location Rt brachial Position Sitting Pulse 79 Pulse Source Pulse Oximeter Pulse Oximetry (%) 98 Oxygen Delivery Method Room Air Intake Visit Reasons: Cough Allergies Seasonal Allergies Allergy (Mild, Verified 02/03/25 10:26) congestion HPI HPI Cough: Details: HPI Comments Details: Wilfrido is a pleasant 64-year-old female, former 40+ pack year, quit 01/2025 with underlying asthma, [place] 2021 s/p stents x 2, HTN, DMII. She is presenting for a follow-up visit for her chronic respiratory condition and smoking cessation. She reports an intermittent cough which improves with prednisone. She experiences some wheezing and uses an albuterol neb, though this does not fully resolve the symptom and uses Trelegy and Singulair daily. The patient has a history of receiving prednisone courses for symptom flares, which she finds effective. She denies any recent urgent care or hospital visits for breathing issues and denies shortness of breath. She quit smoking two weeks ago and reports ongoing cravings. [facility] Medical History CAD (coronary artery disease) Stented coronary artery HTN (hypertension) Diabetes Asthma Nicotine dependence, cigarettes, uncomplicated Surgical History History of heart artery stent History of repair of right rotator cuff History of tubal ligation Hx of colonoscopy Family History Mother Hypertension Father No problems noted. Social History (Updated 02/03/25 @ 10:26 by Rand Lacy CMA) Household Members: Family Housing: Apartment Housing Other:: Patient is currently living with daughter Are you a primary urgent care physician to a significant other at home: No Do you presently have visiting nurse or other home services: No Patient Tobacco Use Status: Former Tobacco user Tobacco use type: Cigarette Cigarettes Per Day: 1 Years Smoked: onset 10yo, 1ppd x 52yrs, now 1-2 cig/wk - 40+PYH e-Cigarette/Vaping Use: Never Used Second Hand Smoke Exposure: No service: No Current occupational status: disabled Current occupational exposures/hazards: No Cognitive needs: No Hearing needs: No Vision needs: No Review of Systems Const Denies chills, Denies excessive sweating, Denies fever(s), Denies headache(s) and Denies night sweats Eyes Denies dry eyes, Denies irritation and Denies itchy eyes ENT Reports Normal hearing present, Denies headache(s), Denies nasal congestion, Denies nasal discharge and Denies sore throat Card Denies chest pain, Denies chest pain at rest, Denies chest pain with activity, Denies claudication, Denies leg edema, Denies dyspnea, Denies dyspnea on exertion, Denies orthopnea and Denies paroxysmal nocturnal dyspnea Resp Denies chest congestion, Reports cough, Denies pain on inspiration, Denies pain with cough, Denies dyspnea, Denies dyspnea on exertion, Denies stridor and Reports wheezing Musc Denies myalgias Neuro Reports Normal hearing present and Denies headache(s) Endo Denies excessive sweating Aaron/Lymph Denies lymphadenopathy Aller/Immun Denies itchy eyes, Denies seasonal rhinorrhea and Reports wheezing Physical Exam Vital Signs: Last Vital Signs Pulse 79 02/03/25 10:22 BP 102/68 02/03/25 10:22 Pulse Ox 98 02/03/25 10:22 Oxygen Delivery Method Room Air 02/03/25 10:22 BMI result Body Mass Index 27.5 Const General: cooperative, healthy appearing, comfortable, no acute distress, well developed and alert Orientation/consciousness: patient oriented x3 Limitations: no limitations HEENT Head: Yes normal to inspection, Yes normocephalic and Yes atraumatic Ears: hearing grossly normal bilaterally and external ears normal Eyes General: appearance normal, both eyes and all related structures Eyelids: Yes eyelids normal Sclerae: sclerae normal EOM: EOMs intact bilaterally Neck Neck: Yes normal visual inspection and Yes no lymphadenopathy Lymphatic: no lymphadenopathy noted Chest Chest palpation & inspection: normal inspection of the chest Resp Effort & Inspection: normal respiratory effort, able to speak in complete sentences, no audible wheezes, no stridor, not tachypneic, no tripod positioning and no use of accessory muscles Auscultation: no crackles, no rhonchi, no wheezes and diminished lung sounds Cardio Jugular venous distension: no JVD Rate: regular rate Rhythm: regular rhythm Skin Other: warm, dry General skin exam: no rashes or lesions noted Neuro General: patient oriented x3 Cranial nerves: Yes Normal hearing present Cognition (Neuro): normal cognition Gait exam (Neuro): Normal gait present Extrem General: Yes normal to inspection, Yes capillary refill normal, Yes no clubbing, cyanosis or edema and Yes no pedal edema Psych Appearance: grossly normal and well kempt Speech and movement: Normal speech and movement present and Clear speech present Affect: normal affect Attitude: cooperative Thought process: Normal thought process present Thought content: Normal thought content present Insight: Good insight present (Psych) Judgement: Good judgement present (Psych) Assessment & Plan Assessment & Plan (1) Asthma: Code(s): J45.909 - Unspecified asthma, uncomplicated Category: Medical (2) Environmental and seasonal allergies: Code(s): J30.89 - Other allergic rhinitis Category: Medical (3) Personal history of tobacco use: Code(s): Z87.891 - Personal history of nicotine dependence Category: Social Hx Plan Discussed with the patient her current respiratory management. Explained that while prednisone is effective for her flare-ups, its frequent use poses long- term risks, including adverse effects on her diabetes, osteoporosis, cataracts, and glaucoma. Proposed an injectable medication, self-administered at home every two weeks after an initial in-office loading dose, as an alternative to reduce her need for steroids. The patient expressed a significant aversion to needles and wished to postpone starting the injection. We agreed to continue her current medications and monitor the effects of her recent smoking cessation, as this may improve her symptoms. Informed her that if she requires prednisone in the future, we will have to reconsider the injectable therapy. We also discussed strategies for managing cigarette cravings, such as keeping her mind occupied with activities and using oral substitutes. A follow-up is scheduled in three months, with instructions to call sooner if her symptoms worsen. All questions were answered and patient is in agreement of plan. Patient was informed and verbally consented to the use of an ambient scribe for clinic note documentation during this visit. Coding Level of Care Code Est Pt Level 4 (88357) Diagnoses Asthma J45.909 Environmental and seasonal allergies J30.89 Personal history of tobacco use Z87.890
== END 2025-02-03 10:43 | disposition home or self-care (01) ==
LOC: HO.HPSW 10:21
PROVIDERS: PCP Nurse Practitioner Family; Visit Provider Nurse Practitioner Family
DX: J45.909 Unspecified asthma, uncomplicated (principal); J30.89 Other allergic rhinitis; Z87.891 Personal history of nicotine dependence
CPT/HCPCS: 99214

== ENCOUNTER → 2025-02-03 10:20 | Outpatient (BNVA) | payer OTHER, SELFPAY ==
[2024-05-06 09:20] VITALS: BP 104/78; BP 136/88; BP 138/72; BMI 29.1
== END ==
PROVIDERS: PCP Nurse Practitioner Family; Visit Provider Nurse Practitioner Family
DX: J45.20 Mild intermittent asthma, uncomplicated (principal); Z87.891 Personal history of nicotine dependence; Z79.52 Long term (current) use of systemic steroids
CPT/HCPCS: 99212

== ENCOUNTER 2025-02-09 11:36 | Outpatient (REF) | payer OTHER, SELFPAY ==
[2024-05-06 09:20] VITALS: BP 104/78; BP 136/88; BP 138/72; BMI 29.1
[2025-02-09 18:26] LABS: Anion Gap 10 (12-20); Blood Urea Nitrogen 14 mg/dL (9-16); Calcium 9.0 mg/dL (8.4-10.2); Carbon Dioxide 27 mmol/L (22-29); Chloride 104 mmol/L (96-108); Estimated Glomerular Filt Rate 32; Potassium 3.9 mmol/L (3.3-5.1); Sodium 137 mmol/L (135-145)
== END 2025-02-09 11:37 | disposition home or self-care (01) ==
LOC: HO.HKASLDS 11:36
PROVIDERS: PCP Nurse Practitioner Family; Visit Provider Internal Medicine Nephrology
DX: I12.9 Hypertensive chronic kidney disease with stage 1 through stage 4 chronic kidney disease, or unspecified chronic kidney disease (principal); E11.22 Type 2 diabetes mellitus with diabetic chronic kidney disease; N18.31 Chronic kidney disease, stage 3a; N27.0 Small kidney, unilateral; Z79.84 Long term (current) use of oral hypoglycemic drugs; Z86.79 Personal history of other diseases of the circulatory system
CPT/HCPCS: 36415; 80051; 82310; 82565; 84520; 99212

== ENCOUNTER 2025-02-09 11:36 | Outpatient (AMB) | payer OTHER, SELFPAY ==
[2024-05-06 09:20] VITALS: BP 104/78; BP 136/88; BP 138/72; BMI 29.1
[2025-02-09 12:04] VITALS: BP 130/80; PULSE 80; O2SAT 97; BMI 28.2
--- NOTE | 2025-02-09 12:04 | HO.NEPHOV_ITS ---
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 She is 64 years of age and has been in good health. She is a diabetic and hypertensive. She has no history of proteinuria. She does not take nonsteroidal anti-inflammatories or PPI . She does not have any nausea, vomiting, diarrhea, shortness of breath, proximal nocturnal dyspnea, orthopnea, pedal edema, hematuria, renal stones, congestive heart failure, carotid stenosis, peripheral arterial disease, renal artery stenosis, new bone or back pain. She has CAD and had PCI. She never had any history of high serum calcium. She denies any history of hepatitis or HIV. She does not get any recurrent sore throat, epistaxis, hemoptysis, photosensitivity, skin rashes. She has no sensorineural hearing deficits or microscopic hematuria. She has no acral tingling or paresthesia. There were no new specific complaints at the time of this office visit. Her serum creatinine was marginally up at the last blood work. She has not taken Entresto for last one and half weeks [facility] Medical History CAD (coronary artery disease) Stented coronary artery HTN (hypertension) Diabetes Asthma Nicotine dependence, cigarettes, uncomplicated Surgical History History of heart artery stent History of repair of right rotator cuff History of tubal ligation Hx of colonoscopy Family History Mother Hypertension Father No problems noted. Social History Household Members: Family Housing: Apartment Housing Other:: Patient is currently living with daughter Are you a primary long term care administrator to a significant other at home: No Do you presently have visiting nurse or other home services: No Patient Tobacco Use Status: Former Tobacco user Tobacco use type: Cigarette Cigarettes Per Day: 1 Years Smoked: onset 10yo, 1ppd x 52yrs, now 1-2 cig/wk - 40+PYH e-Cigarette/Vaping Use: Never Used Second Hand Smoke Exposure: No service: No Current occupational status: disabled Current occupational exposures/hazards: No Cognitive needs: No Hearing needs: No Vision needs: No Review of Systems Const All systems reviewed & are unremarkable except as noted in HPI and below Physical Exam Vital Signs: Last Vital Signs Pulse 80 02/09/25 12:04 BP 130/80 02/09/25 12:04 Pulse Ox 97 02/09/25 12:04 Oxygen Delivery Method Room Air 02/09/25 12:04 BMI result Body Mass Index 28.2 Const General: comfortable and no acute distress Orientation/consciousness: patient oriented x3 HEENT Head: Yes normocephalic Mouth: Normal oral and palatal mucosa present Eyes EOM: EOMs intact bilaterally Neck Neck: Yes supple Resp Auscultation: clear to auscultation bilaterally Cardio Jugular venous distension: no JVD Rate: regular rate GI Palpation (GI): Soft to palpation Auscultation: normal bowel sounds General: Yes no CVA tenderness Back/Spine/Pelvis Back: no CVA tenderness Skin General skin exam: no rashes or lesions noted Neuro General: patient oriented x3 and moves all extremities Extrem General: Yes no pedal edema Results Reviewed Nephrology Results: Sodium, (135-145) 139 mmol/L 01/18/25 Potassium, (3.3-5.1) 3.3 mmol/L Δ 01/18/25 Chloride, (96-108) 108 mmol/L 01/18/25 Carbon Dioxide, (22-29) 24 mmol/L 01/18/25 BUN, (9-16) 25 mg/dL H 01/18/25 Creatinine, (0.5-1.4) 1.69 mg/dL H 01/18/25 Urine Creatinine 92.05 mg/dL 01/18/25 Protein/Creatinin Ratio TNP 01/18/25 Renal US 03/14/24 Assessment & Plan Assessment & Plan (1) CKD stage 3a, GFR 45-59 ml/min: Code(s): N18.31 - Chronic kidney disease, stage 3a Category: Medical (2) Small right kidney: Code(s): N27.0 - Small kidney, unilateral Category: Medical (3) HTN (hypertension): Code(s): I10 - Essential (primary) hypertension Category: Medical Qualifiers: Hypertension type: primary hypertension Qualified Code(s): I10 - Essential (primary) hypertension Plan Wilfrido has CKD due to noah vascular disease. She has H/O CAD needing PCI. She is on Entresto. She has no clinical signs of HF. She can continue Jardiance 10 mg daily which I shall increase to 25 mg with time. Her creatinine has gone up marginally and I repeated blood work today. If her creatinine rises, I shall back off on Entresto. She avoids nonsteroidal anti-inflammatories and maintain good hydration which I encouraged. I did not make any other medication changes today. All these possibilities have been discussed in detail and I answered all her questions & follow-up appointment was given Orders: Orders Blood Urea Nitrogen 3 Months I10 - Essential (primary) hypertension, N18.31 - Chronic kidney disease, stage 3a, N27.0 - Small kidney, unilateral Creatinine Today I10 - Essential (primary) hypertension, N18.31 - Chronic kidney disease, stage 3a, N27.0 - Small kidney, unilateral Blood Urea Nitrogen Today I10 - Essential (primary) hypertension, N18.31 - Chronic kidney disease, stage 3a, N27.0 - Small kidney, unilateral Electrolytes Today I10 - Essential (primary) hypertension, N18.31 - Chronic kidney disease, stage 3a, N27.0 - Small kidney, unilateral Calcium Today I10 - Essential (primary) hypertension, N18.31 - Chronic kidney disease, stage 3a, N27.0 - Small kidney, unilateral Creatinine 3 Months I10 - Essential (primary) hypertension, N18.31 - Chronic kidney disease, stage 3a, N27.0 - Small kidney, unilateral Electrolytes 3 Months I10 - Essential (primary) hypertension, N18.31 - Chronic kidney disease, stage 3a, N27.0 - Small kidney, unilateral Coding Level of Care Code Est Pt Level 4 (39573) Diagnoses CKD stage 3a, GFR 45-59 ml/min N18.31 Small right kidney N27.0 Primary hypertension I10 Hypertension type: primary hypertension
--- OUTSIDE RECORDS SUMMARY | 2025-02-09 15:17 | XMS_ITS | Clinical Summary ---
Author Organization [facility] Address [address] [place] [id number] Phone Care Team Providers Care Grain Manager Name Role Phone Prisca Grullon NP Primary Care Provider Allergies No known active allergies Medications amLODIPine (NORVASC) 10 MG tablet Take 10 mg by mouth daily. 01/01/2022 Active aspirin 81 MG EC tablet Take 81 mg by mouth daily. 12/13/2021 Active atorvastatin (LIPITOR) 80 MG tablet Take 80 mg by mouth daily. 11/30/2021 Active azelastine (ASTEPRO) 205.5 mcg (0.15 %) [place] 1 spray by Each Nare route daily. [...] topic Medical Devices Not on file [place] [address] MEDICARE PART A & B [place] PART A & B Care Teams Grain Manager Relationship Specialty Start Date End Date Prisca Grullon NP PCP - General Family Medicine 12/19/21 Additional Source Comments The information contained in this document represents components of the legal health record. It is not the complete legal health record.[facility]
== END 2025-02-09 12:22 | disposition home or self-care (01) ==
LOC: HO.HKAS 11:36
PROVIDERS: PCP Nurse Practitioner Family; Visit Provider Internal Medicine Nephrology
DX: N18.31 Chronic kidney disease, stage 3a (principal); N27.0 Small kidney, unilateral; I10 Essential (primary) hypertension
CPT/HCPCS: 99214

== ENCOUNTER 2025-02-10 11:11 | Outpatient (AMB) | payer OTHER, SELFPAY ==
[2024-05-06 09:20] VITALS: BP 104/78; BP 136/88; BP 138/72; BMI 29.1
--- NOTE | 2025-02-10 11:13 | A.OFFPC_ITS ---
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 Required: No Is last menstrual period known: No Post menopausal: No Patient : No Allergies Seasonal Allergies Allergy (Mild, Verified 02/10/25 11:21) congestion Tobacco use date assessed: 02/10/25 Fall risk assessment: No Falls in past year Last assessed Fall Risk: 02/10/25 Dental Screening Dental Screen Date: 02/10/25 Did you have a dental visit in the last 12 months?: No Did you have a dental problem in the last 6 months where you did not have access to dental care?: No Was dental information given to patient?: No HPI HPI Comments History of Present Illness Details 64-year-old female presents for hyperten tavon and diabetes follow-up. She admits to taking her medications as prescribed without adverse reactions. She has not taken Entresto since she ran out of medication about a week ago. She notes that her hydraulic spinner discontinued her metformin about a year ago because she no longer needed it. She notes that she has been making healthy lifestyle changes. Has has cut down on her carbs intake. She offers no complaints and denies acute symptoms at this time. [facility]LY [facility], [facility] Medical History CAD (coronary artery disease) Stented coronary artery HTN (hypertension) Diabetes Asthma Nicotine dependence, cigarettes, uncomplicated Surgical History History of heart artery stent History of repair of right rotator cuff History of tubal ligation Hx of colonoscopy Family History Mother Hypertension Father No problems noted. Social History Household Members: Family Housing: Apartment Housing Other:: Patient is currently living with daughter Are you a primary workforce investment act career manager to a significant other at home: No Do you presently have visiting nurse or other home services: No Patient Tobacco Use Status: Former Tobacco user Tobacco use type: Cigarette Cigarettes Per Day: 1 Years Smoked: onset 10yo, 1ppd x 52yrs, now 1-2 cig/wk - 40+PYH Packs per year/per ci.00 e-Cigarette/Vaping Use: Never Used Second Hand Smoke Exposure: No Patient : No service: No Current occupational status: disabled Current occupational exposures/hazards: No Cognitive needs: No Hearing needs: No Vision needs: No Questionnaire Thrive Questionnaire Date Thrive assessed: 04/05/24 I am a: Patient What is your living situation today?: I have a steady place to live Within the past 12 months, did the food you bought not last and you didn't have the money to get more?: I choose not to answer this question Within the past 12 months, did you worry whether your food would run out before you got money to buy more?: Sometimes True Do you have trouble paying for medicines?: No Do you have trouble getting transportation to medical appointments?: No Do you have trouble paying your heating and electricity bill?: Yes Do you have trouble taking care of your child, family member or friend?: No Do you have trouble with day-to-day activities such as bathing, preparing meals, shopping, managing finances, etc.?: Yes Are you currently unemployed and looking for a job?: I choose not to answer this question Are you interested in more education?: No Please select the resources that you would like help with: Utilities Currently or been in a relationship where the following occur: I choose not to answer THRIVE Score: 2 AUDIT C Alcohol Use Questionnaire (AUDIT-C) 3. How often do you have six or more drinks on one occasion?: Never Total Score: 0 ZURI-7 AMB Questionnaire ZURI-7 Date ZURI - 7 assessed: 04/05/24 Source: Developed by Drs. Isma Erickson, Joyce Phillips, Roger Davis and colleagues, with an educational jana from [employer]. Review of Systems Const Details: Const Denies chills, Denies fatigue, Denies fever(s), Denies headache(s) and Denies weakness ENT Denies dizziness and Denies headache(s) Card Denies chest pain, Denies lightheadedness, Denies dyspnea and Denies other (Palpitations) Resp Denies cough, Denies dyspnea, Denies wheezing and Denies other ( shortness of breath) GI Denies abdominal pain, Denies melena, Denies hematochezia, Denies change in bowel habits, Denies dyspepsia and Denies nausea Denies hematuria and Denies dysuria Musc Denies abnormal gait, Denies myalgias, Denies arthralgias, Denies numbness and Denies tingling Skin/Breast Denies rash, Denies unusual bruising and Denies wounds Neuro Denies abnormal gait, Denies dizziness, Denies headache(s), Denies memory loss, Denies numbness, Denies Sensory deficit (Neuro), Denies tingling and Denies weakness Psych Denies anxiety, Denies depression, Denies memory loss Endo Denies cold intolerance, Denies fatigue, Denies heat intolerance, Denies polydipsia and Denies polyuria Aller/Immun Denies wheezing Physical exam (Primary Care) Vital Signs: Last Vital Signs Temp 97.8 F 02/10/25 11:23 Pulse 75 02/10/25 11:23 Resp 16 02/10/25 11:23 BP 138/89 02/10/25 11:23 Pulse Ox 99 02/10/25 11:23 Oxygen Delivery Method Room Air 02/10/25 11:23 BMI result Body Mass Index 27.8 Tobacco/Smoking Status: Tobacco use Status Tobacco use date assessed 02/10/25 02/10/25 11:28 Patient Tobacco Use Status Former Tobacco user 02/10/25 11:14 Tobacco use type Cigarette 02/10/25 11:14 e-Cigarette/Vaping Use Never Used 02/10/25 11:14 Thrive Assessment: Date of Thrive Assessment Date Thrive assessed 04/05/24 02/10/25 11:14 Currently or been in a relationship where the following occur: I choose not to answer Const Other: General: no acute distress and well developed Nutritional Appearance: well nourished Orientation/consciousness: patient oriented x3 HENMT Head: Yes normocephalic and Yes atraumatic Eyes General: appearance normal, both eyes and all related structures Pupils: Equal, round and reactive pupils present EOM: EOMs intact bilaterally Resp Effort & Inspection: normal respiratory effort Auscultation: clear to auscultation bilaterally Cardio Rate: regular rate Rhythm: regular rhythm Heart sounds: S1 normal heart sound present, S2 normal heart sound present, no gallops, no murmurs and no rubs Extrem General: Yes normal to inspection, No edema and No calf tenderness Skin General: warm and dry. Normal skin color. Normal skin turgor Neuro General: patient oriented x3, gait normal and no focal neuro deficit Psych Appearance: grossly normal Affect: normal affect Attitude: cooperative Thought process: Normal thought process present Coding Level of Care Code Est Pt Level 3 (76171) Diagnoses Primary hypertension I10 Hypertension type: primary hypertension Diabetes E11.9 Assessment & Plan Assessment & Plan (1) HTN (hypertension): Code(s): I10 - Essential (primary) hypertension Category: Medical Qualifiers: Hypertension type: primary hypertension Qualified Code(s): I10 - Essential (primary) hypertension Plan: Resting blood pressure is 128/72, within goal of less than 130/80. Continue current treatment regimen. Low-sodium diet encouraged. Follow-up in 1-2 months for transfer of care with a new PCP within the practice. Return sooner with symptoms or concerns. Verbalized understanding and agreed with the plan. (2) Diabetes: Code(s): E11.9 - Type 2 diabetes mellitus without complications Category: Medical Plan: Recent A1c at the end of December was 7.0%, slightly above goal of less than 7.0%. Continue current treatment regimen. Her hydraulic spinner discontinued her metformin about a year ago because she no longer needed it. ADA diet and routine exercise encouraged. Follow-up as planned. Verbalized understanding and agreed with the plan. Medications: Refilled sacubitril-valsartan 49-51 mg (Entresto) 1 tab PO BID 180 tabs 3RF
[2025-02-10 11:23] VITALS: BP 138/89; PULSE 75; RESP 16; TEMP 36.6; O2SAT 99; BMI 27.8
[2025-02-10 11:50] VITALS: BP 128/72
--- OUTSIDE RECORDS SUMMARY | 2025-02-10 13:11 | XMS_ITS | Clinical Summary ---
Author Organization [facility] Address [address] [place] [id number] Phone Care Team Providers Care Stonemason Supervisor Name Role Phone Prisca Grullon NP Primary Care Provider Allergies No known active allergies Medications amLODIPine (NORVASC) 10 MG tablet Take 10 mg by mouth daily. 01/01/2022 Active aspirin 81 MG EC tablet Take 81 mg by mouth daily. 12/13/2021 Active atorvastatin (LIPITOR) 80 MG tablet Take 80 mg by mouth daily. 11/30/2021 Active azelastine (ASTEPRO) 205.5 mcg (0.15 %) [place] 1 spray by Each Nare route daily. [...] topic Medical Devices Not on file [place] [address] [place] [address] MEDICARE PART A & [place] MED[place] MEDIC[place] MED[place] PART A & B Care Teams Stonemason Supervisor Relationship Specialty Start Date End Date Prisca Grullon NP PCP - General Family Medicine 12/19/21 Additional Source Comments The information contained in this document represents components of the legal health record. It is not the complete legal health record.[facility]
== END 2025-02-10 11:57 | disposition home or self-care (01) ==
LOC: HO.HMCFM 11:12
PROVIDERS: PCP Nurse Practitioner Family; Visit Provider Nurse Practitioner Family
DX: I10 Essential (primary) hypertension (principal); E11.9 Type 2 diabetes mellitus without complications

== ENCOUNTER → 2025-02-10 11:11 | Outpatient (BNVA) | payer OTHER, SELFPAY ==
[2024-05-06 09:20] VITALS: BP 104/78; BP 136/88; BP 138/72; BMI 29.1
== END ==
PROVIDERS: PCP Nurse Practitioner Family; Visit Provider Nurse Practitioner Family
DX: E11.9 Type 2 diabetes mellitus without complications (principal); I10 Essential (primary) hypertension
CPT/HCPCS: 99212

== ENCOUNTER 2025-02-20 09:10 | Outpatient (AMB) | payer OTHER, SELFPAY ==
[2024-05-06 09:20] VITALS: BP 104/78; BP 136/88; BP 138/72; BMI 29.1
[2025-02-20 09:14] VITALS: BP 120/74; PULSE 69; BMI 26.8
--- NOTE | 2025-02-20 09:14 | MHC.OFFVIS ---
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 Required: No Allergies Seasonal Allergies Allergy (Mild, Verified 02/10/25 11:21) congestion Medication List - Last Reconciled 02/20/25 by Sabas Lorenzana MD albuterol sulfate 2.5 mg (3 mL) inhalation Q4H PRN alcohol swabs 1 pad topical TID aspirin 81 mg PO DAILY 90 days atorvastatin 80 mg PO DAILY bisacodyl (Dulcolax (bisacodyl)) 20 mg (4 x 5 mg) PO ONCE 1 day blood pressure test kit-large ([employer] Versa Arm BP Monitor kit) As directed blood sugar diagnostic ([employer] Ultra Test strips) bs checks 3 times per day blood-glucose meter ([employer] Ultra2 Meter) POC testing TID blood-glucose meter Test 3 times daily bupropion HCl XL (Wellbutrin XL) 150 mg PO BID 90 days carvedilol 12.5 mg PO BID cetirizine 10 mg PO DAILY cholecalciferol (vitamin D3) 50 mcg PO QAM 90 days clotrimazole-betamethasone 1-0.05 % 1 appl topical BID 7 days dulaglutide (Trulicity) 4.5 mg (0.5 mL) subcut QWEEK empagliflozin (Jardiance) 10 mg PO DAILY dlmfkpernue-qhjvxhkhw-giqwulfs 200-62.5-25 mcg (Trelegy Ellipta) 1 ea inhalation DAILY ipratropium bromide 2 sprays intranasal BID lancets ([employer] Delica Plus Lancet) USE TO TEST THREE TIMES DAILY lidocaine 5% 1 patch topical DAILY miscellaneous medical supply 1 Rollator walker miscellaneous medical supply 60 large pull up briefs monthly montelukast 10 mg PO BEDTIME polyethylene glycol 3350 (Miralax) 238 grams PO ONCE sacubitril-valsartan 49-51 mg (Entresto) 1 tab PO BID Shower Chair As directed HPI Comments Details: Wilfrido comes for follow-up. Since I last saw her in his 6 months she has had no new cardiac complaints. Denies any exertional chest pain. Denies any worsening shortness of breath, orthopnea, PND, leg edema. No lightheadedness, syncope. Noted rising creatinine and currently seeing Nephrology for it. Was started on Jardiance therapy which I agree with. She denies any prolonged palpitation irregular heartbeat. Her last LDL increased in the upper 70s range. [facility] Medical History (Updated 02/20/25 @ 09:32 by Sabas Lorenzana MD) Stented coronary artery NSTEMI (non-ST elevated myocardial infarction) CAD (coronary artery disease) HTN (hypertension) Diabetes Asthma Nicotine dependence, cigarettes, uncomplicated Surgical History (Updated 02/20/25 @ 09:32 by Sabas Lorenzana MD) S/P cardiac catheterization History of heart artery stent History of repair of right rotator cuff History of tubal ligation Hx of colonoscopy Family History Mother Hypertension Father No problems noted. Social History Household Members: Family Housing: Apartment Housing Other:: Patient is currently living with daughter Are you a primary manager intensive care to a significant other at home: No Do you presently have visiting nurse or other home services: No Patient Tobacco Use Status: Former Tobacco user Tobacco use type: Cigarette Cigarettes Per Day: 1 Years Smoked: onset 10yo, 1ppd x 52yrs, now 1-2 cig/wk - 40+PYH e-Cigarette/Vaping Use: Never Used Second Hand Smoke Exposure: No service: No Current occupational status: disabled Current occupational exposures/hazards: No Cognitive needs: No Hearing needs: No Vision needs: No Review of Systems Const Denies chills, Denies fatigue, Denies fever(s), Denies frequent falls, Denies weakness, Denies weight gain and Denies weight loss ENT Denies dizziness Card Denies chest pain, Denies leg edema, Denies lightheadedness, Denies palpitations, Denies dyspnea, Denies dyspnea on exertion, Denies orthopnea and Denies other (loss of consciousness) Resp Denies cough, Denies dyspnea and Denies dyspnea on exertion GI Denies hematochezia and Denies change in stool character Musc Denies abnormal gait, Denies muscle weakness, Denies numbness, Denies radiating pain into limb and Denies tingling Neuro Denies abnormal gait, Denies dizziness, Denies frequent falls, Denies numbness, Denies tingling and Denies weakness Endo Denies fatigue and Denies palpitations Physical Exam Vital Signs: Last Vital Signs Pulse 69 02/20/25 09:14 BP 120/74 02/20/25 09:14 BMI result Body Mass Index 26.8 Const General: cooperative, healthy appearing, comfortable and no acute distress Orientation/consciousness: patient oriented x3 Limitations: ambulation with walker Neck Neck: Yes normal visual inspection Resp Effort & Inspection: normal respiratory effort Auscultation: clear to auscultation bilaterally, no crackles, no rales, no rhonchi and no wheezes Cardio Jugular venous distension: no JVD Rate: regular rate Rhythm: regular rhythm Heart sounds: S1 normal heart sound present, S2 normal heart sound present, no murmurs and no rubs Neuro General: patient oriented x3 Extrem General: Yes normal to inspection and No no pedal edema Psych Appearance: grossly normal Mental Status: mental status grossly normal Speech and movement: Normal speech and movement present Assessment & Plan Assessment & Plan (1) CAD (coronary artery disease): Comment: (STEMI 2021 = s/p ROSELIA to LAD) Code(s): I25.10 - Atherosclerotic heart disease of [place] coronary artery without angina pectoris Category: Medical Qualifiers: Coronary Disease-Associated Artery/Lesion type: [place] artery [place] vs. transplanted heart: [place] heart Associated angina: without angina Qualified Code(s): I25.10 - Atherosclerotic heart disease of [place] coronary artery without angina pectoris Plan: CAD with drug-eluting stent to LAD and circumflex for severe coronary artery disease with currently having no symptoms. Continue low-dose aspirin therapy for life. Continue high-intensity statin therapy with advised LDL less than 60 mg/dL. Advise follow-up lipid panel in his month's time. Continue aggressive diabetes management goal hemoglobin A1c less than 7%. Continue aggressive blood pressure control which is currently well optimized. Advised to continue maintain activity level as tolerated. Advised to call me with any new symptoms. Signs and symptoms of angina were reviewed. (2) Ischemic cardiomyopathy: Code(s): I25.5 - Ischemic cardiomyopathy Category: Medical Plan: Ischemic cardiomyopathy with mild LV systolic dysfunction. Follow-up echocardiogram in 6 months time. Currently on neurohormonal modulation with carvedilol, Entresto as well as Jardiance. Continue all the medications. No signs or symptoms of heart failure. These were discussed with her. Importance of neurohormonal modulation was discussed. Noted rising creatinine probably related to renal vascular/diuretic disease. Followed by Nephrology. Overall prognosis remains guarded. Low-salt diet was discussed. Follow up in the clinic in 6 months time, sooner PRN. Thank you for allowing me to partake in her care Coding Level of Care Code Est Pt Level 4 (79639) Diagnoses Coronary artery disease involving [place] coronary artery of [place] heart without angina pectoris I25.10 Coronary Disease-Associated Artery/Lesion type: [place] artery [place] vs. transplanted heart: [place] heart Associated angina: without angina Ischemic cardiomyopathy I25.5
--- OUTSIDE RECORDS SUMMARY | 2025-02-20 09:28 | XMS_ITS | Clinical Summary ---
Author Organization [facility] Address [address] [place] [id number] Phone Care Team Providers Care Cuprous Chloride Helper Name Role Phone Prisca Grullon NP Primary Care Provider Allergies No known active allergies Medications amLODIPine (NORVASC) 10 MG tablet Take 10 mg by mouth daily. 01/01/2022 Active aspirin 81 MG EC tablet Take 81 mg by mouth daily. 12/13/2021 Active atorvastatin (LIPITOR) 80 MG tablet Take 80 mg by mouth daily. 11/30/2021 Active azelastine (ASTEPRO) 205.5 mcg (0.15 %) [place] 1 spray by Each Nare route daily. [...] topic Medical Devices Not on file [place] [address] [place] [address] MEDICARE PART A & B [place] A & B Care Teams Cuprous Chloride Helper Relationship Specialty Start Date End Date Prisca Grullon NP PCP - General Family Medicine 12/19/21 Additional Source Comments The information contained in this document represents components of the legal health record. It is not the complete legal health record.[facility]
== END 2025-02-20 09:30 | disposition home or self-care (01) ==
LOC: HO.HCS 09:11
PROVIDERS: PCP Nurse Practitioner Family; Visit Provider Internal Medicine Cardiovascular Disease
DX: I25.10 Atherosclerotic heart disease of native coronary artery without angina pectoris (principal); I25.5 Ischemic cardiomyopathy
CPT/HCPCS: 99214

== ENCOUNTER → 2025-02-20 09:10 | Outpatient (BNVA) | payer OTHER, SELFPAY ==
[2024-05-06 09:20] VITALS: BP 104/78; BP 136/88; BP 138/72; BMI 29.1
== END ==
PROVIDERS: PCP Nurse Practitioner Family; Visit Provider Internal Medicine Cardiovascular Disease
DX: I25.10 Atherosclerotic heart disease of native coronary artery without angina pectoris (principal); I11.0 Hypertensive heart disease with heart failure; I50.20 Unspecified systolic (congestive) heart failure; I25.5 Ischemic cardiomyopathy; E11.9 Type 2 diabetes mellitus without complications; I25.2 Old myocardial infarction; Z79.82 Long term (current) use of aspirin; Z79.899 Other long term (current) drug therapy; Z87.891 Personal history of nicotine dependence; Z98.61 Coronary angioplasty status
CPT/HCPCS: 99212